=== PATIENT | male | born 1950 | race Caucasian/White ===

== ENCOUNTER 2025-06-07 20:46 | Observation (INO) | payer MEDICARE, OTHER, SELFPAY ==
[2025-06-07] VITALS (8 sets, daily range): BP systolic 143–175; BP diastolic 97–117; PULSE 63–79; RESP 15–22; TEMP 36.1–36.8; O2SAT 93–100; BMI 26.6; BMI 26.7
--- NOTE | 2025-06-07 20:57 | CT_ITS ---
PROCEDURE: STROKE BRAIN/HEAD WITHOUT CONT 06/07/2025 REASON FOR EXAM: STROKE TECHNIQUE: Procedure Code: CTBR.ST Modality: CT Procedure: STROKE BRAIN/HEAD WITHOUT CONT Coronal and Sagittal reconstruction series were provided. One or more dose reduction techniques were used (e.g., Automated exposure control, adjustment of the mA and/or kV according to patient size, use of iterative reconstruction technique. RADIATION DOSE SUMMARY: DLP: 864 mGycm COMPARISON: None FINDINGS: There is no acute infarct, intracranial hemorrhage, or mass effect. There is no hydrocephalus or significant midline shift. There is mild chronic microvascular ischemic changes and mild parenchymal volume loss. No acute, depressed calvarial fractures. No large scalp hematomas. The paranasal sinuses are clear. CT/STROKE Brain/Head without Cont IMPRESSION: No acute, large territorial infarction. Stroke Alert: No acute, large territorial infarction. The critical findings in the findings and impression above were relayed directl y by me by telephone to Brian Rangel on 06/07/2025 at 9:21 pm EST with readback verification. Reading Location: [id number]
--- NOTE | 2025-06-07 21:19 | EKG12_ITS ---
Test Reason : NEURO Blood Pressure : */* mmHG Vent. Rate : 77 BPM Atrial Rate : * BPM P-R Int : * ms QRS Dur : 98 ms QT Int : 394 ms P-R-T Axes : * 30 8 degrees QTcB Int : 445 ms Atrial fibrillation with premature ventricular or aberrantly conducted complexes Septal infarct , age undetermined Abnormal ECG Confirmed by Carter Oro ([id number]), editorial intern MARTHA KENT ([id number]) on 06/09/2025 12:34:14 PM Referred By: SKYE Confirmed By: Carter Oro
--- NOTE | 2025-06-07 21:20 | CT_ITS ---
PROCEDURE: STROKE CTA HEAD AND NECK W/CON 06/07/2025 REASON FOR EXAM: NEURO DEFICIT, ACUTE, STROKE SUSPECTED TECHNIQUE: Procedure Code: [id number].ST.HN Modality: CT Procedure: STROKE CTA HEAD AND NECK W/CON Multiplanar Sagittal and Coronal images were obtained. CONTRAST: VOLUME: mL One or more dose reduction techniques were used (e.g., Automated exposure control, adjustment of the mA and/or kV according to patient size, use of iterative reconstruction technique). FINDINGS: HEAD: The intracranial segments of the bilateral ICAs appear unremarkable. The bilateral ACAs appear unremarkable. The anterior communicating artery is patent. The bilateral MCAs appear unremarkable. The intracranial segments of the bilateral vertebral arteries (V4) appear unremarkable. The basilar artery is unremarkable. The bilateral metal cleaner are unremarkable. NECK: Atherosclerotic calcifications are noted within the bilateral carotid bulbs and proximal bilateral ICAs. High-grade stenosis of the proximal cervical segment of the right ICA resulting in approximately 80 to 90% luminal narrowing is noted (series 2, image 208). Less than 50% luminal narrowing is noted within the bilateral carotid bulbs and proximal left ICA. The left vertebral artery is dominant. Otherwise the cervical segments of the bilateral vertebral arteries appear unremarkable. CT/STROKE CTA Head AND Neck W/Con IMPRESSION: High-grade stenosis of the proximal cervical segment of the right ICA resulting in approximately 80-95% luminal narrowing. Reading Location: [id number]
--- NOTE | 2025-06-07 21:29 | PCA ---
no old ekg
--- OUTSIDE RECORDS SUMMARY | 2025-06-07 21:32 | XMS RPT_ITS | CCD ---
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 Unavailable Unavailable SARAH ENNIS MD Primary Care Physician SARAH ENNIS MD Primary Care Physician SARAH ENNIS MD Primary Care Physician CITLALI JACKSON MD Attending Unavailable SARAH ENNIS MD Primary Care Unavailable CITLALI JACKSON MD Attending Unavailable SARAH ENNIS MD Primary Care Unavailable SARAH ENNIS MD Attending Unavailable SARAH ENNIS MD Primary Care Unavailable SARAH ENNIS MD Attending Unavailable SARAH ENNIS MD Primary Care Unavailable CITLALI JACKSON MD Attending Unavailable SARAH ENNIS MD Primary Care Unavailable DONNIE HORVATH PA-C Attending Unavail able SARAH ENNIS MD Primary Care Unavailable SARAH ENNIS MD Primary Care Unavailable CITLALI JACKSON MD Attending Unavailable SARAH ENNIS MD Primary Care Unavailable SHERYL DONAHUE Attending Unavailab CITLALI Klein MD Consulting Unavailable CITLALI JACKSON MD Attending Unavailable SARAH ENNIS MD Primary Care Unavailable SARAH ENNIS MD Primary Care Unavailable SARAH ENNIS MD Attending Unavailable SARAH ENNIS MD Primary Care Unavailable SARAH ENNIS MD Attending Unavailable SARAH ENNIS MD Primary Care Unavailable SARAH ENNIS MD Attending Unavailable SARAH ENNIS MD Primary Care Unavailable SARAH ENNIS MD Attending Unavailable MARCEL HUERTA MD Attending Unavail SARAH Brock MD Primary Care Unavailable CITLALI JACKSON MD Attending Unavailable SARAH ENNIS MD Primary Care Unavailable Allergies Allergy Classification Reported Allergen(s) Allergy Type Date of Onset Reaction(s) Facility (16 sources) Acetaminophen / oxyCODONE; Translations: [acetaminophen-oxy codone] Drug Allergy confusion/disor entation [facility] Work Phone: Medications Current Medications Medication Drug Class(es) Dates Sig (Normalized) Sig (Original) aspirin 81 mg delayed release oral tablet (16 sources) Platelet Aggregation Inhibitor, Nonsteroidal Anti-inflammatory Drug Start: 11-30-2019 aspirin 81 mg oral delayed release tablet Dose : 81 mg = 1 tab(s), Oral, Daily, # 30 tab(s), 5 Refill(s) Start Date: 11/30/19 Status: Ordered Medication Dispense Status: Completed Quantity: 30.0 Unit: tab(s) Total Allowed Fills: 6 Fills Dispensed: 0 Start: 11-30-2019 aspirin 81 mg oral delayed release tablet Dose : 81 mg = 1 tab(s), Oral, Daily, # 30 tab(s), 5 Refill(s) Start Date: 11/30/19 Status: Ordered atorvastatin 40 mg oral tablet (6 sources) HMG-CoA Reductase Inhibitor Start: 11-16-2024 atorvastatin 40 mg oral tablet Dose : 40 mg = 1 tab(s), Oral, qDay, # 30 tab(s), 5 Refill(s), Pharmacy: [facility] #[id number], 170, cm, 11/16/24 10:49:00 EDT, Height, kg, 11/16/24 10:49:00 EDT, Dosing Weight Start Date: 11/16/24 Status: Ordered Medication Dispense Status: Completed Quantity: 30.0 Unit: tab(s) Total Allowed Fills: 6 Fills Dispensed: 0 Start: 01-17-2017 Lipitor 40 mg oral tablet Dose : 40 mg = 1 tab(s), Oral, qDay, # 30 tab(s), 0 Refill(s) Start Date: 01/17/17 Status: Ordered calcium carbonate 1625 mg / cholecalciferol 0.0125 mg / vitamin k 0.04 mg chewable tablet (3 sources) Vitamin D Start: 01-22-2022 take 1 tablet by mouth once daily Viactiv Soft Calcium Chews oral tablet, chewable Dose = 1 tab(s), Chewed, Daily, 0 Refill(s) Start Date: 01/22/22 Status: Ordered Co-Q10 100 mg oral capsule (9 sources) Start: 04-30-2022 Co-Q10 100 mg oral capsule Dose : 200 mg = 2 cap(s), Oral, Daily, 0 Refill(s) Start Date: 04/30/22 Status: Ordered Medication Dispense Status: Completed Total Allowed Fills: 1 Fills Dispensed: 0 Start: 04-30-2022 Co-Q10 100 mg oral capsule Dose : 200 mg = 2 cap(s), Oral, Daily, 0 Refill(s) Start Date: 04/30/22 Status: Ordered Repeat number: 1 Start: 04-30-2022 Co-Q10 100 mg oral capsule Dose : 200 mg = 2 cap(s), Oral, Daily, 0 Refill(s) Start Date: 04/30/22 Status: Ordered Coenzyme Q10 100 mg oral capsule (3 sources) Start: 01-18-2017 take 1 capsule by mouth once, then take 1 capsule by mouth once daily Coenzyme Q10 100 mg oral capsule Dose : 100 mg = 1 cap(s), Oral, Daily, 0 Refill(s) Start Date: 01/18/17 Status: Ordered dofetilide 0.125 mg oral capsule (1 source) Antiarrhythmic Start: 07-09-2022 Tikosyn 125 mcg oral capsule Dose : 125 mcg = 1 cap(s), Oral, q12h, # 180 cap(s), 3 Refill(s), Pharmacy: [facility]/pharmacy #[id number], AF (atrial fibrillation), 170.2, cm, 07/04/22 11:04:00 EST, Height, kg, 07/04/22 11:04:00 EST, Dosing Weight Start Date: 07/09/22 Status: Ordered folic acid 1 mg oral tablet (2 sources) Start: 01-17-2017 folic acid 1 mg oral tablet Dose : 2 mg = 2 tab(s), Oral, qDay, 0 Refill(s) Start Date: 01/17/17 Status: Ordered hydroCHLOROthiazide 12.5 mg oral tablet (5 sources) Thiazide Diuretic Start: 01-17-2017 hydroCHLOROthiazide 12.5 mg oral tablet Dose : 12.5 mg = 1 tab(s), Oral, qDay, # 30 tab(s), 0 Refill(s) Start Date: 01/17/17 Status: Ordered 24 hr isosorbide mononitrate 30 mg extended release oral tablet (11 sources) Nitrate Vasodilator Start: 03-01-2025 isosorbide mononitrate 30 mg oral tablet, extended release Dose : 30 mg = 1 tab(s), Oral, qAM, # 90 tab(s), 1 Refill(s), Pharmacy: [facility] #[id number], 170.2, cm, 12/29/24 13:58:00 EDT, Height, kg, 12/29/24 13:58:00 EDT, Dosing Weight Start Date: 03/01/25 Status: Ordered Medication Dispense Status: Completed Quantity: 90.0 Unit: tab(s) Total Allowed Fills: 2 Fills Dispensed: 0 Start: 03-03-2024 isosorbide mon onitrate 30 mg oral tablet, extended release Dose : 30 mg = 1 tab(s), Oral, qAM, # 90 tab(s), 3 Refill(s), Pharmacy: [facility] #[id number], 170, cm, 02/10/24 15:41:00 EDT, Height, kg, 02/10/24 15:41:00 EDT, Dosing Weight Start Date: 03/03/24 Status: Ordered Quantity: 90.0 Unit: tab(s) Repeat number: 4 Start: 12-26-2022 isosorbide mon onitrate 30 mg oral tablet, extended release Dose : 30 mg = 1 tab(s), Oral, qAM, # 90 tab(s), 3 Refill(s), Pharmacy: [facility] #[id number], 170, cm, 10/22/22 13:36:00 EDT, Height, kg, 10/22/22 13:36:00 EDT, Dosing Weight Start Date: 12/26/22 Status: Ordered Start: 05-22-2022 isosorbide mon onitrate 30 mg oral tablet, extended release Dose : 30 mg = 1 tab(s), Oral, qAM, # 30 tab(s), 6 Refill(s), Pharmacy: [facility]/pharmacy #[id number], 170, cm, 04/30/22 6:54:00 EDT, Height Start Date: 05/22/22 Status: Ordered Start: 03-19-2022 End: 05-18-2022 isosorbide mononitrate 30 mg oral tablet, extended release Dose : 30 mg = 1 tab(s), Oral, qAM, # 30 tab(s), 3 Refill(s) Start Date: 04/23/22 Status: Ordered lisinopril 40 mg oral tablet (16 sources) Angiotensin Converting Enzyme Inhibitor Start: 11-24-2024 lisinopril 40 mg ora l tablet Dose : 40 mg = 1 tab(s), Oral, BID, # 180 tab(s), 2 Refill(s), Pharmacy: [facility] #[id number], 170, cm, 11/16/24 10:49:00 EDT, Height, kg, 11/16/24 10:49:00 EDT, Dosing Weight Start Date: 11/24/24 Status: Ordered Medication Dispense Status: Completed Quantity: 180.0 Unit: tab(s) Total Allowed Fills: 3 Fills Dispensed: 0 Start: 04-20-2024 lisinopril 40 mg oral tablet Dose : 40 mg = 1 tab(s), Oral, BID, # 180 tab(s), 2 Refill(s), Pharmacy: [facility] #[id number], 170, cm, 02/10/24 15:41:00 EDT, Height, kg, 02/10/24 15:41:00 EDT, Dosing Weight Start Date: 04/20/24 Status: Ordered Quantity: 180.0 Unit: tab(s) Repeat number: 3 Start: 01-30-2023 lisinopril 40 mg oral tablet Dose : 40 mg = 1 tab(s), Oral, BID, # 180 tab(s), 3 Refill(s), Pharmacy: [facility] #[id number], 170, cm, 10/22/22 13:36:00 EDT, Height, kg, 10/22/22 13:36:00 EDT, Dosing Weight Start Date: 6/28/23 Status: Ordered Start: 07-09-2022 lisinopril 20 mg oral tablet Dose : 40 mg = 2 tab(s), Oral, BID, # 120 tab(s), 0 Refill(s), Pharmacy: [facility]/pharmacy #[id number], 170.2, cm, 07/04/22 11:04:00 EST, Height Start Date: 07/09/22 Status: Ordered Start: 01-17-2017 lisinopril 20 mg oral tablet Dose : 20 mg = 1 tab(s), Oral, BID, 0 Refill(s) Start Date: 01/17/17 Status: Ordered magnesium oxide 400 mg oral tablet (9 sources) Start: 06-11-2022 take 1 dose by mouth once daily magnesium oxide Dose : 400 mg =, Oral, qDay, 0 Refill(s) Start Date: 06/11/22 Status: Ordered Medication Dispense Status: Completed Total Allowed Fills: 1 Fills Dispensed: 0 magnesium salicylate 600 mg oral tablet (5 sources) Start: 12-24-2019 magnesium salicylate 600 mg oral tablet Dose : 600 mg = 1 tab(s), Oral, qDay, 0 Refill(s) Start Date: 12/24/19 Status: Ordered metFORMIN hydrochloride 500 mg oral tablet (16 sources) Biguanide Start: 11-28-2019 metFORMIN 500 mg oral tablet Dose : 1,000 mg = 2 tab(s), Oral, BID, # 30 tab(s), 0 Refill(s) Start Date: 11/28/19 Status: Ordered Medication Dispense Status: Completed Quantity: 30.0 Unit: tab(s) Total Allowed Fills: 1 Fills Dispensed: 0 metoprolol tartrate 25 mg oral tablet (10 sources) beta-Adrenergic Kiko Start: 12-29-2024 Metoprolol Succinate ER 25 mg oral TABLET extended release Dose : 25 mg = 1 tab(s), Oral, BID, TAKE 1 TABLET BY MOUTH TWICE DAILY, # 180 tab(s), 1 Refill(s), Pharmacy: [facility] #[id number], 170.2, cm, 12/29/24 13:58:00 EDT, Height, kg, 12/29/24 13:58:00 EDT, Dosing Weight Start Date: 12/29/24 Status: Ordered Medication Dispense Status: Completed Quantity: 180.0 Unit: tab(s) Total Allowed Fills: 2 Fills Dispensed: 0 Start: 03-06-2023 take 1 tablet by debra th twice daily Metoprolol Succinate ER 25 mg oral TABLET extended release TAKE 1 TABLET BY MOUTH TWICE DAILY Start Date: 03/06/23 Status: Ordered Repeat number: 1 Start: 07-20-2022 End: 07-20-2022 metoprolol succinate 25 mg o ral TABLET extended release Start: 07/20/22 8:00:00 EST, Dose = 25 mg, = 1 tab(s), Oral, 0, 07/19/22 19:40:00 EST Start Date: 07/20/22 Stop Date: 07/20/22 Status: Completed Start: 06-26-2022 metoprolol suc cinate 25 mg oral TABLET extended release Dose : 25 mg = 1 tab(s), Oral, qDay, Do not crush or chew (controlled release), # 30 tab(s), 0 Refill(s), Pharmacy: [facility]/pharmacy #[id number], 170.1, cm, 06/11/22 9:54:00 EST, Height Start Date: 06/26/22 Status: Ordered Multivitamin preparation (7 sources) Start: 06-16-2020 take 1 tablet by mouth once daily Multivitamin Dose = 1 tab(s), Oral, Daily, 0 Refill(s) Start Date: 06/16/20 Status: Ordered nitroglycerin 0.4 mg sublingual tablet (14 sources) Nitrate Vasodilator Start: 04-23-2022 nitroglycerin 0.4 mg sublingual tablet 0.4 mg Dose = 1 tab(s), SL, q5min, PRN for chest pain, # 30 tab(s), 1 Refill(s), Pharmacy: [facility]/pharmacy #[id number], 170.2, cm, 04/23/22 13:52:00 EDT, Height, kg, 04/23/22 13:52:00 EDT, Dosing Weight Start Date: 04/23/22 Status: Ordered Medication Dispense Status: Completed Quantity: 30.0 Unit: tab(s) Total Allowed Fills: 2 Fills Dispensed: 0 Start: 07-18-2021 nitroglycerin 0.4 mg sublingual tablet 0.4 mg Dose = 1 tab(s), SL, q5min, PRN for chest pain, # 30 tab(s), 1 Refill(s), Pharmacy: [id number] 170.2, cm, 07/18/21 15:28:00 EST, Height, kg, 07/18/21 15:28:00 EST, Dosing Weight Start Date: 07/18/21 Status: Ordered nitroglycerin 0.4 mg sublingual tablet (2 sources) Start: 05-30-2011 nitroglycerin 0.4 mg sublingual tablet Dose : 0.4 mg = 1 tab(s), SL, q5min, PRN for chest pain, # 100 tab(s), 0 Refill(s) Start Date: 05/30/11 Status: Ordered Henderson-3 350 mg oral capsule (4 sources) Start: 11-16-2024 take 1 capsule by mouth once daily Henderson-3 350 mg oral capsule mg = cap(s), Oral, qDay, 0 Refill(s) Start Date: 11/16/24 Status: Ordered Medication Dispense Status: Completed Total Allowed Fills: 1 Fills Dispensed: 0 Start: 11-16-2024 take 1 capsule by [facility] once daily Henderson-3 350 mg oral capsule mg = cap(s), Oral, qDay, 0 Refill(s) Start Date: 11/16/24 Status: Ordered Repeat number: 1 pravastatin sodium 10 mg oral tablet (8 sources) HMG-CoA Reductase Inhibitor Start: 01-22-2022 pravastatin 10 mg oral tablet Dose : 10 mg = 1 tab(s), Oral, qHS, 0 Refill(s) Start Date: 01/22/22 Status: Ordered Repeat number: 1 rivaroxaban 20 mg oral tablet (16 sources) Factor Xa Inhibitor Start: 08-20-2024 take 1 tablet by mouth once daily in the evening Xarelto 20 mg oral tablet 1 tab(s), Oral, qPM, # 90 tab(s), 3 Refill(s), [facility][id number], 170, cm, 02/10/24 15:41:00 EDT, Height, 79.5, kg, 02/10/24 15:41:00 EDT, Dosing Weight Start Date: 08/20/24 Status: Ordered Medication Dispense Status: Completed Quantity: 90.0 Unit: tab(s) Total Allowed Fills: 1 Fills Dispensed: 0 Start: 06-10-2024 Xarelto 20 mg oral tablet Dose : 20 mg = 1 tab(s), Oral, qPM, TAKE 1 TABLET BY MOUTH EVERY EVENING, # 90 tab(s), 2 Refill(s), Pharmacy: [facility] #[id number], 170, cm, 02/10/24 15:41:00 EDT, Height, 79.5, kg, 02/10/24 15:41:00 EDT, Dosing Weight Start Date: 06/10/24 Status: Ordered Start: 03-06-2023 End: 06-04-2024 Xarelto 20 mg oral tablet Do se : 20 mg = 1 tab(s), Oral, qPM, X 90 day(s), # 90 tab(s), 3 Refill(s), 06/04/24 10:15:00 AM EDT, Pharmacy: [facility] #[id number], 170, cm, 04/30/23 15:41:00 EDT, Height, 79.9, kg, 04/30/23 15:41:00 EDT, Dosing Weight Start Date: 06/10/23 Stop Date: 06/04/24 Status: Ordered Start: 07-06-2021 Xarelto 20 mg oral tablet Dose : 20 mg = 1 tab(s), Oral, qPM, # 90 tab(s), 3 Refill(s), 170.2, cm, 01/16/21 13:12:00 EDT, Height, 84, kg, 01/16/21 13:12:00 EDT, Dosing Weight Start Date: 07/06/21 Status: Ordered Start: 03-31-2021 take 1 tablet by debra th once daily Xarelto 20 mg oral tablet See Instructions, take 1 tablet by mouth once daily WITH SUPPER, # 90 tab(s), 0 Refill(s), [facility]: [id number], 170.2, cm, 01/16/21 13:12:00 EDT, Height, 84, kg, 01/16/21 13:12:00 EDT, Dosing Weight Start Date: 03/31/21 Status: Ordered sertraline 25 mg oral tablet (8 sources) Serotonin Reuptake Inhibitor Start: 08-01-2022 sertraline 25 mg oral tablet Dose : 25 mg = 1 tab(s), Oral, Daily, # 90 tab(s), 0 Refill(s) Start Date: 08/01/22 Status: Ordered Medication Dispense Status: Completed Quantity: 90.0 Unit: tab(s) Total Allowed Fills: 1 Fills Dispensed: 0 sotalol hydrochloride 80 mg oral tablet (7 sources) Antiarrhythmic Start: 10-24-2021 End: 04-22-2022 take 0.5 tablet by mouth once daily sotalol 80 mg oral tablet 0.5 tab(s), Oral, qDay, # 45 tab(s), 1 Refill(s), Pharmacy: [facility] [place] [id number], 170.2, cm, 03/19/22 4:06:00 EDT, Height, kg, 03/19/22 4:06:00 EDT, Dosing Weight Start Date: 04/20/22 Status: Ordered Start: 06-26-2021 take 0.5 tablet by m outh once daily sotalol 80 mg oral tablet See Instructions, take 1/2 tablet by mouth once daily, # 45 tab(s), 0 Refill(s), Pharmacy: [id number] 170.2, cm, 01/16/21 13:12:00 EDT, Height, kg, 01/16/21 13:12:00 EDT, Dosing Weight Start Date: 06/26/21 Status: Ordered Start: 07-18-2020 sotalol 80 mg oral tablet Dose : 40 mg = 0.5 tab(s), Oral, qDay, # 45 tab(s), 3 Refill(s), Pharmacy: [facility] [address] 170.2, cm, 06/16/20 13:18:00 EST, Height, kg, 06/16/20 13:18:00 EST, Dosing Weight Start Date: 07/18/20 Status: Ordered tamsulosin hydrochloride 0.4 mg oral capsule (16 sources) alpha-Adrenergic Kiko Start: 11-28-2019 tamsulosin 0.4 mg oral capsule Dose : 0.4 mg = 1 cap(s), Oral, qDay, # 30 cap(s), 0 Refill(s) Start Date: 11/28/19 Status: Ordered Medication Dispense Status: Completed Quantity: 30.0 Unit: cap(s) Total Allowed Fills: 1 Fills Dispensed: 0 ubidecarenone 100 mg oral capsule (2 sources) Start: 01-18-2017 take 1 capsule by mouth once, then take 1 capsule by mouth once daily Coenzyme Q10 100 mg oral capsule Dose : 100 mg = 1 cap(s), Oral, Daily, 0 Refill(s) Start Date: 01/18/17 Status: Ordered Problems Active Problems Problem Classification Problem Date Documented Date Episodic/Chronic Aortic; peripheral; and visceral artery aneurysms (16 sources) 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 No chest pains Diabetes mellitus with complications (2 sources) Polyneuropathy due to type 2 diabetes mellitus; Translations: [Type 2 diabetes mellitus with diabetic polyneuropathy] Onset: 05-13-2025 Chronic Diabetes mellitus without complication (20 sources) Diabetes mellitus; Translations: [Type 2 diabetes mellitus without complications] Onset: 10-23-2023 01-17-2017 Chronic Disorders of lipid metabolism (16 sources) Hyperlipidemia 01-17-2017 Chronic Essential hypertension (16 sources) Hypertensive disorder 01-17-2017 Chronic Gout and other crystal arthropathies (2 sources) Gout, unspecified; Translations: [Gout, unspecified] Onset: 10-13-2024 Chronic Heart valve disorders (16 sources) Mitral valve regurgitation 01-17-2017 Chronic Lymphadenitis (1 source) Localized enlarged lymph nodes; Translations: [Localized enlarged lymph nodes] Onset: 03-08-2025 Episodic Open wounds of extremities (1 source) Open wound of toe; Translations: [Unspecified open wound of unspecified toe(s) without damage to nail, initial encounter] Onset: 09-29-2024 Episodic Other connective tissue disease (1 source) Other bursitis, not elsewhere classified, unspecified site; Translations: [Other bursitis, not elsewhere classified, unspecified site] Onset: 03-08-2025 Episodic Other connective tissue disease (1 source) Bursitis of unspecified shoulder; Translations: [Bursitis of unspecified shoulder] Onset: 03-08-2025 Episodic Other connective tissue disease (1 source) Bursitis of left shoulder; Translations: [Bursitis of left shoulder] Onset: 03-08-2025 Episodic Other connective tissue disease (1 source) Incomplete rotator cuff tear or rupture of left shoulder, not specified as traumatic; Translations: [Incomplete rotator cuff tear or rupture of left shoulder, not specified as traumatic] Onset: 03-08-2025 Episodic Other connective tissue disease (1 source) Enthesopathy, unspecified; Translations: [Enthesopathy, unspecified] Onset: 03-08-2025 Episodic Other connective tissue disease (1 source) Unspecified rotator cuff tear or rupture of unspecified shoulder, not specified as traumatic; Translations: [Unspecified rotator cuff tear or rupture of unspecified shoulder, not specified as traumatic] Onset: 03-08-2025 Episodic Other connective tissue disease (1 source) Unspecified rotator cuff tear or rupture of left shoulder, not specified as traumatic; Translations: [Unspecified rotator cuff tear or rupture of left shoulder, not specified as traumatic] Onset: 03-08-2025 Episodic Other ear and sense organ disorders (16 sources) Sensorineural hearing loss, bilateral 01-11-2020 Chronic Other inflammatory condition of skin (16 sources) Psoriasis 01-17-2017 Chronic Other injuries and conditions due to external causes (1 source) History of falling; Translations: [History of falling] Onset: 03-08-2025 Episodic Other non-traumatic joint disorders (1 source) Effusion, left shoulder; Translations: [Effusion, left shoulder] Onset: 03-08-2025 Episodic Other non-traumatic joint disorders (1 source) Pain in left shoulder; Translations: [Pain in left shoulder] Onset: 03-08-2025 Episodic Other screening for suspected conditions (not mental disorders or infectious disease) (3 sources) Abnormal results of cardiovascular function studies; Translations: [Abnormal result of other cardiovascular function study] Onset: 12-23-2024 Episodic Other skin disorders (1 source) Localized swelling, mass and lump, left upper limb; Translations: [Localized swelling, mass and lump, left upper limb] Onset: 03-08-2025 Episodic Fabiana-; endo-; and myocarditis; cardiomyopathy (except that caused by tuberculosis or sexually transmitted disease) (16 sources) Cardiomyopathy 01-17-2017 Chronic Sprains and strains (2 sources) Strain of muscle, fascia and tendon of long head of biceps, unspecified arm, initial encounter; Translations: [Strain of muscle, fascia and tendon of other parts of biceps, unspecified arm, initial encounter] Onset: 03-08-2025 Episodic Unclassified (1 source) Unknown / UNK(Unknown) Onset: 02-11-2017 Unclassified (1 source) Unspecified synovitis and tenosynovitis, unspecified upper arm; Translations: [Unspecified synovitis and tenosynovitis, unspecified upper arm] Onset: 03-08-2025 Unclassified (1 source) Unspecified synovitis and tenosynovitis, unspecified shoulder; Translations: [Unspecified synovitis and tenosynovitis, unspecified shoulder] Onset: 03-08-2025 Past or Other Problems Problem Classification Problem Date Documented Da te Episodic/Chronic Unclassified (1 source) L40.59,Z79.899,M 15.9,L40.8,I10,E 11.9,E78.5,I25.1 0 Onset: 02-11-2017 Results Test Name Value Interpretation Reference Range Facility [facility] 05-18-2025 SPE Interpretation Normal serum protein electrophoresis pattern. No abnormality detected. Normal [facility] Comment on above: Result Comment: Elec tronically Signed by: EDUIN ANNE 05/18/2025 16:07 EDT Performed By: #### R DE, FOL, IFES, SPE, B12 ####[place] [id number] [place] [id number] Albumin 3.7 G/dL Normal 3.3-5.0 [facility] Comment on above: Performed By: #### R DE, FOL, IFES, SPE, B12 ####[place] [id number] [place] [address] 66252 Alpha 1 0.3 G/dL Normal 0.1-0.4 [facility] Comment on above: Performed By: #### R DE, FOL, IFES, SPE, B12 ####[place] [address] [place] [address] 15733 Alpha 2 0.6 G/dL Normal 0.6-1.2 [facility] Comment on above: Performed By: #### R DE, FOL, IFES, SPE, B12 ####[place] [id number] [place] [address] 38827 Beta 0.8 G/dL Normal 0.6-1.3 [facility] Comment on above: Performed By: #### R DE, FOL, IFES, SPE, B12 ####[place] [id number] [place] [address] 52064 Gamma 1.2 G/dL Normal 0.7-1.6 [facility] Comment on above: Performed By: #### R DE, FOL, IFES, SPE, B12 ####[address] [address] IFESon 05-14-2025 IFES Interpretation Immunofixation electrophoresis of serum shows the presence of only polyclonal immunoglobulins (IgG,A,M,[place] and Lambda), No monoclonal protein detected. Normal [facility] Comment on above: Result Comment: Elec tronically Signed by: CHANCE RAMÍREZ 05/14/2025 11:01 EDT Performed By: #### R DE, FOL, IFES, SPE, B12 ####[address] [address] RPRon 05-14-2025 Reagin Ab RPR Ql (S) Non-Reactive Normal Non-Reactive [facility] Comment on above: Result Comment: The RPR test is a non-treponemal assay useful as an aid in the diagnosis of primary and secondary syphilis. It converts to positive generally within 2 weeks after the appearance of a lesion. This test is also useful for monitoring response to antibiotic therapy. False positive RPR tests may occur in 1) patients with underlying autoimmune disorders, 2) elderly patients, 3) , and 4) other conditions with abnormal serum globulins. Performed By: #### R DE, FOL, IFES, SPE, B12 ####[address] [address] B12on 05-13-2025 Vitamin B12 Lvl >2000 High 211-911 [facility] Comment on above: Performed By: #### R DE, FOL, IFES, SPE, B12 #### [place] [address] FOLon 05-13-2025 Folate 22.24 ng/mL Normal 5.38-24.00 [facility] Comment on above: Performed By: #### R DE, FOL, IFES, SPE, B12 #### [place] [address] LABORATORYOrdered By: SYSTEM SYSTEM on 05-13-2025 Cobalamin (Vitamin B12) [Mass/Vol] pg/mL High 211 - 911 pg/mL ADM SS Folate [Mass/Vol] 22.24 ng/mL Normal 5.38 - 24. 00 ng/mL ADM SS LABORATORYOrdered By: Beka Hernandez on 05-13-2025 Protein [Mass/Vol] 6.5 G/dL Normal 5.7 - 8.2 G/dL ADM SS SPEon 05-13-2025 Total Protein 6.5 G/dL Normal 5.7-8.2 [facility] Comment on above: Performed By: #### R DE, FOL, IFES, SPE, B12 ####[place] [address] MRI SHOULDER W/O CONTRAST LE [employer] [facility] 03[facility]2025 MRI SHOULDER W/O CONTRAST LEFT ORIGINAL EXAMINATION: MRI OF THE LEFT SHOULDER WITHOUT CONTRAST 03/08/2025 11:33 am TECHNIQUE: Multiplanar multisequence MRI of the left shoulder was performed without the administration of intravenous contrast. COMPARISON: None. HISTORY: ORDERING SYSTEM PROVIDED HISTORY: Reason for Exam: MASS LEFT SHOULDER PAIN & SWELLING. Fall 2 months ago FINDINGS: Significant motion degradation. There is severe glenohumeral joint degenerative change with [id number], circumferential high-grade chondrosis with articular surface remodeling of the humeral head in glenoid and subchondral sclerosis. There is no evidence of acute fracture, osteonecrosis or suspicious marrow lesion. Large glenohumeral joint effusion with areas of masslike synovitis and intra-articular debris. There is an area of masslike synovitis in the inferior axillary pouch measuring approximately 1.5 cm. Additionally there is large volume subacromial subdeltoid bursitis with a collection measuring up to 6 x 8.9 by 4.7 cm beneath the deltoid. Some areas of internal septation. Os acromiale and moderate AC joint degenerative changes with capsular hypertrophy and a small amount of AC joint fluid.. A type 2 acromial undersurface is seen. Large amount of subcoracoid bursitis. There is marked supraspinatus tendinosis with mucoid degeneration and a partial-thickness articular footprint tear which measures approximately 2.3 x 0.6 cm medial to lateral. Interstitial tearing of the infraspinatus tendon with moderate tendinosis. Some of the anterior most fibers could have undersurface fraying. The teres minor is intact. High-grade subscapularis tear, lower tendon remains intact. Medialization of the long head of the biceps tendon secondary to subscapularis tear with longitudinal interstitial tearing of the long head of the biceps tendon from its biceps labral anchor with biceps tenosynovitis. [place] cyst dissects down the long head of the biceps tendon to the myotendinous junction. There is no acute Hill-Sacks or Bankart lesion. Suboptimal evaluation of the labrum with lack of intra-articular contrast. However there is suspected circumferential tearing. No definite labrum is attached. obliteration of the fat within the rotator interval. Mild supraspinatus and infraspinatus muscle belly atrophy. Moderate to severe subscapularis muscle belly atrophy. Rounded prominent axillary lymph nodes measuring up to 9 mm. IMPRESSION: 1. Severe glenohumeral joint degenerative change with [id number], circumferential high-grade chondrosis with labral tearing and articular surface remodeling. 2. Large glenohumeral joint effusion with areas of masslike synovitis and intra-articular debris. An inflammatory arthropathy should be considered alternatively this may be reactive. 3. Large volume subacromial subdeltoid bursitis with a collection measuring up to 6 x 8.9 x 4.7 cm beneath the deltoid most likely patient's palpable concern. There are some areas of internal septation, a resolving hematoma cannot be excluded. 4. Marked supraspinatus tendinosis with mucoid degeneration and a partial-thickness articular footprint tear which measures approximately 2.3 x 0.6 cm medial to lateral. Interstitial tearing of the infraspinatus tendon with moderate tendinosis. Some of the anterior most fibers could have undersurface fraying. High-grade subscapularis tear, lower tendon slip remains intact. 5. Medialization of the long head of the biceps tendon secondary to subscapularis tear with longitudinal interstitial tearing of the long head of the biceps tendon from its biceps labral anchor with biceps tenosynovitis. [place] cyst dissects down the long head of the biceps tendon to the myotendinous junction. 6. Rounded prominent axillary lymph nodes measuring up to 9 mm. Interpreted by: Santa Lawson Preliminary Report By: Santa Lawson Electronically signed By Santa Lawson Dictated Date: 03/08/2025 12:30:05 PM Prelim Date: 03/08/2025 12:51:55 PM Sign Date: 03/08/2025 12:51:55 PM Ordering Provider: SARAH Valentino [facility] .Auto Diffon 12-23-2024 Basophil, Absolute 0.0 10 3/mcL Normal 0.0-0.3 [facility] Comment on above: Performed By: #### A JEISON, ADIFF, PRO, GFR, BMP, CBC #### [address] [address] Basophils/100 WBC (Bld) 0.5 % Normal 0.0-2.5 [facility] Comment on above: Performed By: #### A JEISON, ADIFF, PRO, GFR, BMP, CBC #### [address] [address] Eosinophil, Absolute 0.2 10 3/mcL Normal 0.0-0.7 [facility] Comment on above: Performed By: #### A JEISON, ADIFF, PRO, GFR, BMP, CBC #### [address] [address] Eosinophils/100 WBC (Bld) 2.2 % Normal 0.0-6.0 [facility] Comment on above: Performed By: #### A JEISON, ADIFF, PRO, GFR, BMP, CBC #### [address] [address] Lymphocyte, Absolute 1.5 10 3/mcL Normal 0.9-4.3 [facility] Comment on above: Performed By: #### A JEISON, ADIFF, PRO, GFR, BMP, CBC #### [address] [address] Lymphocytes/100 WBC (Bld) 17.6 % Low 20.0-40.0 [facility] Comment on above: Performed By: #### A JEISON, ADIFF, PRO, GFR, BMP, CBC #### [address] [address] Monocyte, Absolute 0.7 10 3/mcL Normal 0.1-1.4 [facility] Comment on above: Performed By: #### A JEISON, ADIFF, PRO, GFR, BMP, CBC #### [address] [address] Monocytes/100 WBC (Bld) 8.5 % Normal 2.0-13.0 [facility] Comment on above: Performed By: #### A JEISON, ADIFF, PRO, GFR, BMP, CBC #### [address] [address] Neutrophils/100 WBC (Bld) 71.2 % Normal 50.0-75.0 [facility] Comment on above: Performed By: #### A JEISON, ADIFF, PRO, GFR, BMP, CBC #### [address] [address] .GFRon 12-23-2024 Estimated Glomerular Filtration Rate 85 ml/min/1.73sqm Normal [facility] Comment on above: Result Comment: Stages of Chronic Kidney Disease (CKD) Stage Description eGFR(ml/min/1.73 sq.m.) CKD 1 Normal kidney function or >=90 normal kindney function with possible kidney damage (ex. Proteinuria) CKD 2 Kidney damage with mild loss 60-89 of kidney function CKD 3a Mild to moderate loss of kidney 45-59 function CKD 3b Moderate to severe loss of 30-44 of kindey function CKD 4 Severe loss of kidney function 15-29 CKD 5 Kidney failure <15 Note: (go live 2024) the eGFR calculation was updated to the 2020 CKD-EPI creatinine equation without a race factor to calculate the eGFR results. Performed By: #### A JEISON, ADIFF, PRO, GFR, BMP, CBC #### [address] [address] .NEUABSon 12-23-2024 Neutrophil, Absolute 5.9 10 3/mcL Normal 2.3-8.1 [facility] Comment on above: Performed By: #### A JEISON, ADIFF, PRO, GFR, BMP, CBC #### [address] [address] BMPon 12-23-2024 BUN/Creatinine Ratio 29 ratio High 7-27 [facility] Comment on above: Performed By: #### A JEISON, ADIFF, PRO, GFR, BMP, CBC #### [address] [address] Calcium [Mass/Vol] 9.4 mg/dL Normal 8.4-10.2 [facility] Comment on above: Performed By: #### A JEISON, ADIFF, PRO, GFR, BMP, CBC #### [address] [address] Chloride [Moles/Vol] 103 mmol/L Normal 98-107 [facility] Comment on above: Performed By: #### A JEISON, ADIFF, PRO, GFR, BMP, CBC #### [address] [address] CO2 [Moles/Vol] 28 mmol/L Normal 23-31 [facility] Comment on above: Performed By: #### A JEISON, ADIFF, PRO, GFR, BMP, CBC #### [address] [address] Creatinine [Mass/Vol] 0.94 mg/dL Normal 0.67-1.17 [facility] Comment on above: Performed By: #### A JEISON, ADIFF, PRO, GFR, BMP, CBC #### [address] [address] Electrolyte Balance 9.0 mEq/L Normal 4.0-15.0 [facility] Comment on above: Performed By: #### A JEISON, ADIFF, PRO, GFR, BMP, CBC #### [address] [address] Glucose [Mass/Vol] 189 mg/dL High 83-110 [facility] Comment on above: Performed By: #### A JEISON, ADIFF, PRO, GFR, BMP, CBC #### [address] [address] Potassium [Moles/Vol] 4.1 mmol/L Normal 3.5-5.1 [facility] Comment on above: Performed By: #### A JEISON, ADIFF, PRO, GFR, BMP, CBC #### [place] [address] Sodium [Moles/Vol] 140 mmol/L Normal 136-145 [facility] Comment on above: Performed By: #### A JEISON, ADIFF, PRO, GFR, BMP, CBC #### [place] [address] Urea nitrogen [Mass/Vol] 27 mg/dL High 7-18 [facility] Comment on above: Performed By: #### A JEISON, ADIFF, PRO, GFR, BMP, CBC #### [address] [address] CBCon 12-23-2024 Erythrocyte distribution width (RBC) [Ratio] 15.3 % Normal 11.5-15.5 [facility] Comment on above: Performed By: #### A JEISON, ADIFF, PRO, GFR, BMP, CBC #### [address] [address] Hematocrit (Bld) [Volume fraction] 40.8 % Normal 40.0-52.0 [facility] Comment on above: Performed By: #### A JEISON, ADIFF, PRO, GFR, BMP, CBC #### [address] [address] Hgb 13.7 G/dL Normal 13.0-17.5 [facility] Comment on above: Performed By: #### A JEISON, ADIFF, PRO, GFR, BMP, CBC #### [address] [address] MCH (RBC) [Entitic mass] 30.2 pg Normal 27.0-33.0 [facility] Comment on above: Performed By: #### A JEISON, ADIFF, PRO, GFR, BMP, CBC #### [place] [id number] MCHC 33.6 G/dL Normal 32.0-36.0 [facility] Comment on above: Performed By: #### A JEISON, ADIFF, PRO, GFR, BMP, CBC #### [place] [address] MCV (RBC) [Entitic vol] 89.7 fL Normal 81.0-100.0 [facility] Comment on above: Performed By: #### A JEISON, ADIFF, PRO, GFR, BMP, CBC #### [place] [address] Platelet 215 10 3/mcL Normal 150-450 [facility] Comment on above: Performed By: #### A JEISON, ADIFF, PRO, GFR, BMP, CBC #### [place] [address] Platelet mean volume (Bld) [Entitic vol] 7.5 fL Normal 6.4-10.5 [facility] Comment on above: Performed By: #### A JEISON, ADIFF, PRO, GFR, BMP, CBC #### [place] [id number] RBC 4.55 10 6/mcL Normal 4.50-6.00 [facility] Comment on above: Performed By: #### A JEISON, ADIFF, PRO, GFR, BMP, CBC #### [place] [id number] WBC 8.3 10 3/mcL Normal 4.5-10.8 [facility] Comment on above: Performed By: #### A JEISON, ADIFF, PRO, GFR, BMP, CBC #### [address] [address] LABORATORYOrdered By: SYSTEM SYSTEM on 12-23-2024 Basophils (Bld) [#/Vol] 0.0 103/mcL Normal 0.0 - 0.3 10^3/mcL AO Workflow SS Basophils/100 WBC (Bld) 0.5 % Normal 0.0 - 2.5 % AO Workflow SS Calcium [Mass/Vol] 9.4 mg/dL Normal 8.4 - 10. 2 mg/dL AO ADM SS Chloride [Moles/Vol] 103 mmol/L Normal 98 - 10 7 mmol/L AO ADM SS CO2 [Moles/Vol] 28 mmol/L Normal 23 - 31 mmol/L AO ADM SS Creatinine [Mass/Vol] 0.94 mg/dL Normal 0.67 - 1.17 mg/dL AO ADM SS Electrolyte Balance 9.0 mEq/L Normal 4.0 - 15 .0 mEq/L AO ADM SS Eosinophil, Absolute 0.2 103/mcL Normal 0.0 - 0 .7 10^3/mcL AO Workflow SS Eosinophils/100 WBC (Bld) 2.2 % Normal 0.0 - 6.0 % AO Workflow SS Erythrocyte distribution width (RBC) [Ratio] 15.3 % Normal 11.5 - 15.5 % AO Workflow SS Estimated Glomerular Filtration Rate 85 ml/min/1.73sqm Invalid Interpretation Code AO Chemistry S Comment on above: Interpretive Data: Stages of Chronic Kidney Disease (CKD) Stage Description eGFR(ml/min/1.73 sq.m.) CKD 1 Normal kidney function or >=90 normal kindney function with possible kidney damage (ex. Proteinuria) CKD 2 Kidney damage with mild loss 60-89 of kidney function CKD 3a Mild to moderate loss of kidney 45-59 function CKD 3b Moderate to severe loss of 30-44 of kindey function CKD 4 Severe loss of kidney function 15-29 CKD 5 Kidney failure <15 Note: (go live 2024) the eGFR calculation was updated to the 2020 CKD-EPI creatinine equation without a race factor to calculate the eGFR results. Glucose [Mass/Vol] 189 mg/dL High 83 - 110 mg/dL AO ADM SS Hematocrit (Bld) [Volume fraction] 40.8 % Normal 40.0 - 52.0 % AO Workflow SS Hemoglobin (Bld) [Mass/Vol] 13.7 G/dL Normal 13.0 - 17.5 G/dL AO Workflow SS INR Coag (PPP) [Relative time] 1.2 {INR} Invalid Interpretation Code AO HemoHub SS Comment on above: Interpretive Data: Manolo regalado [employer] (CHEST, 1991, 102:312S-25S) recommended therapeutic range for oral anticoagulant therapy is: LOW RISK: Prophylaxis of venous thrombosis INR: 2.0-3.0 Treatment of pulmonary embolism 2.0-3.0 Prevention of systemic embolism 2.0-3.0 HIGH RISK: Mechanical prosthetic valves 2.5-3.5 Lymphocytes (Bld) [#/Vol] 1.5 103/mcL Normal 0.9 - 4.3 10^3/mcL AO Workflow SS Lymphocytes/100 WBC (Bld) 17.6 % Low 20.0 - 40.0 % AO Workflow SS MCH (RBC) [Entitic mass] 30.2 pg Normal 27.0 - 33.0 pg AO Workflow SS MCHC 33.6 G/dL Normal 32.0 - 36.0 G/dL AO Workflow SS MCV (RBC) [Entitic vol] 89.7 fL Normal 81.0 - 100.0 fL AO Workflow SS Monocytes (Bld) [#/Vol] 0.7 103/mcL Normal 0.1 - 1.4 10^3/mcL AO Workflow SS Monocytes/100 WBC (Bld) 8.5 % Normal 2.0 - 13.0 % AO Workflow SS Neutrophils (Bld) [#/Vol] 5.9 103/mcL Normal 2.3 - 8.1 10^3/mcL AO Workflow SS Neutrophils/100 WBC (Bld) 71.2 % Normal 50.0 - 75.0 % AO Workflow SS Platelet mean volume (Bld) [Entitic vol] 7.5 fL Normal 6.4 - 10.5 fL AO Workflow SS Platelets (Bld) [#/Vol] 215 103/mcL Normal 150 - 450 10^3/mcL AO Workflow SS Potassium [Moles/Vol] 4.1 mmol/L Normal 3.5 - 5.1 mmol/L AO ADM SS PT Coag (PPP) [Time] 14.4 s Normal 9.0 - 1 4.4 seconds AO HemoHub SS RBC (Bld) [#/Vol] 4.55 106/mcL Normal 4.50 - 6.0 0 10^6/mcL AO Workflow SS Sodium [Moles/Vol] 140 mmol/L Normal 136 - 145 mmol/L AO ADM SS Urea nitrogen [Mass/Vol] 27 mg/dL High 7 - 18 mg/dL AO ADM SS Urea nitrogen/Creatinine [Mass ratio] 29 ratio High 7 - 27 ratio AO ADM SS WBC (Bld) [#/Vol] 8.3 103/mcL Normal 4.5 - 10.8 10^3/mcL AO Workflow SS PROon 12-23-2024 PT Coag (PPP) [Time] 14.4 s Normal 9.0-14.4 [facility] Comment on above: Performed By: #### A JEISON, ADIFF, PRO, GFR, BMP, CBC #### [address] [address] PT International Ratio 1.2 Normal [facility] Comment on above: Result Comment: [employer] (CHEST, 1991, 102:312S-25S) recommended therapeutic range for oral anticoagulant therapy is: LOW RISK: Prophylaxis of venous thrombosis INR: 2.0-3.0 Treatment of pulmonary embolism 2.0-3.0 Prevention of systemic embolism 2.0-3.0 HIGH RISK: Mechanical prosthetic valves 2.5-3.5 Performed By: #### A JEISON, ADIFF, PRO, GFR, BMP, CBC #### [address] [address] NM MYOCARDIAL SPECT STRESS/R ESTon 12-11-2024 NM MYOCARDIAL SPECT STRESS/REST ORIGINAL NM MYOCARDIAL SPECT STRESS/REST CLINICAL STATEMENT: chest pain, h/o cad TECHNIQUE: Lexiscan dose: 0.4 mg Radiopharmaceutical (rest): Tc-99m Sestamibi Dose:8.3 mCi Radiopharmaceutical (stress): Tc-99m Sestamibi Dose:25 mCi SPECT acquisition and processing Reconstruction and reorientation of SPECT images into short axis, vertical and horizontal long axis planes Quantitative LVEF assessment COMPARISON:2013 REPORT: The overall quality of the study is good. Review of raw imaging demonstrates some vertical motion during acquisition. Diaphragmatic attenuation artifact noted. Low-dose CT scan demonstrates coronary artery calcifications in all three territories. Review of the perfusion images perfusion defect in the inferoapical wall on stress images concerning for small area ischemia. Transient ischemic dilatation (TID) Ratio- 1.17 IMPRESSION: Technically difficult study. Within the limitations of the study, cannot rule out small area of inferoapical ischemia. LEFT ventricular systolic function is decreased with inferior hypokinesia, calculated EF 34% with EDV 134 mL (LVEF 35% on study from 2013, LVEF calculated at 42% and 60% on study from 2021) EKG portion will be dictated separately. Interpreted By: Dick Bella Preliminary Report By: Broderick Nguyen Electronically Signed By: Dick Bella Dictated Date: 12/11/2024 12:58:16 PM Prelim Date: 12/11/2024 1:18:04 PM Sign Date: 12/11/2024 1:44:58 PM Ordering Provider:Donnie Horvath [facility] .GFRon 10-13-2024 Estimated Glomerular Filtration Rate 92 ml/min/1.73sqm [facility] Comment on above: Result Comment: Stages of Chronic Kidney Disease (CKD) Stage Description eGFR(ml/min/1.73 sq.m.) CKD 1 Normal kidney function or >=90 normal kindney function with possible kidney damage (ex. Proteinuria) CKD 2 Kidney damage with mild loss 60-89 of kidney function CKD 3a Mild to moderate loss of kidney 45-59 function CKD 3b Moderate to severe loss of 30-44 of kindey function CKD 4 Severe loss of kidney function 15-29 CKD 5 Kidney failure <15 Note: (go live 2024) the eGFR calculation was updated to the 2020 CKD-EPI creatinine equation without a race factor to calculate the eGFR results. Performed By: #### U ATIF, GFR, A1C, CMP, LIPID, TSHR #### [place] [address] A1Con 10-13-2024 Glucose [Mass/Vol] 151 mg/dL [facility] Comment on above: Result Comment: Micaela mated Average Glucose calculated by equation ((28.7xA1C)-46.7) Estimated average glucose (eAG) is a calculated value from Hemoglobin A1C and is insurance healthcare representative of the average blood glucose level in the last 2-3 month period. Normal range: less than 114 mg/dL Performed By: #### U ATIF, GFR, A1C, CMP, LIPID, TSHR #### [address] [address] HbA1c (Bld) [Mass fraction] 6.9 % High 4.0-6.0 [facility] Comment on above: Performed By: #### U ATIF, GFR, A1C, CMP, LIPID, TSHR #### [address] [address] CMPon 10-13-2024 Albumin Level 3.9 G/dL Normal 3.2-4.8 [facility] Comment on above: Performed By: #### U ATIF, GFR, A1C, CMP, LIPID, TSHR #### [address] [address] Albumin/Globulin [Mass ratio] 1.3 {ratio} Normal 0.9-1.6 [facility] Comment on above: Performed By: #### U ATIF, GFR, A1C, CMP, LIPID, TSHR #### [address] [address] ALP [Catalytic activity/Vol] 54 U/L Normal 38-126 [facility] Comment on above: Performed By: #### U ATIF, GFR, A1C, CMP, LIPID, TSHR #### [address] [address] ALT [Catalytic activity/Vol] 19 U/L Normal 12-55 [facility] Comment on above: Performed By: #### U ATIF, GFR, A1C, CMP, LIPID, TSHR #### [address] [address] AST [Catalytic activity/Vol] 28 U/L Normal 8-34 [facility] Comment on above: Performed By: #### U ATIF, GFR, A1C, CMP, LIPID, TSHR #### [address] [address] Bili Total 0.70 mg/dL Normal 0.20-1.20 [facility] Comment on above: Result Comment: Use of this assay is not recommended for patients undergoing treatment with eltrombopag due to the potential for falsely elevated results. Performed By: #### U ATIF, GFR, A1C, CMP, LIPID, TSHR #### [address] [address] BUN/Creatinine Ratio 29.3 ratio High 10.0-22.0 [facility] Comment on above: Performed By: #### U ATIF, GFR, A1C, CMP, LIPID, TSHR #### [address] [address] Calcium [Mass/Vol] 9.6 mg/dL Normal 8.7-10.4 [facility] Comment on above: Performed By: #### U ATIF, GFR, A1C, CMP, LIPID, TSHR #### [address] [address] Chloride [Moles/Vol] 103 mmol/L Normal 98-110 [facility] Comment on above: Performed By: #### U ATIF, GFR, A1C, CMP, LIPID, TSHR #### [address] [address] CO2 [Moles/Vol] 29 mmol/L Normal 22-32 [facility] Comment on above: Performed By: #### U ATIF, GFR, A1C, CMP, LIPID, TSHR #### [address] [address] Creatinine [Mass/Vol] 0.82 mg/dL Normal 0.60-1.40 [facility] Comment on above: Result Comment: Test ing performed on [employer] analyzer using enzymatic creatinine methodology. Performed By: #### U ATIF, GFR, A1C, CMP, LIPID, TSHR #### [address] [address] Electrolyte Balance 9.0 mEq/L Normal 4.0-15.0 [facility] Comment on above: Performed By: #### U ATIF, GFR, A1C, CMP, LIPID, TSHR #### [address] [address] Globulin 2.9 G/dL Normal 1.5-3.8 [facility] Comment on above: Performed By: #### U ATIF, GFR, A1C, CMP, LIPID, TSHR #### [address] [address] Glucose [Mass/Vol] 136 mg/dL High 82-115 [facility] Comment on above: Performed By: #### U ATIF, GFR, A1C, CMP, LIPID, TSHR #### [address] [address] Potassium [Moles/Vol] 4.6 mmol/L Normal 3.5-5.0 [facility] Comment on above: Performed By: #### U ATIF, GFR, A1C, CMP, LIPID, TSHR #### [address] [address] Sodium [Moles/Vol] 141 mmol/L Normal 136-145 [facility] Comment on above: Performed By: #### U ATIF, GFR, A1C, CMP, LIPID, TSHR #### [address] [address] Total Protein 6.8 G/dL Normal 5.7-8.2 [facility] Comment on above: Performed By: #### U ATIF, GFR, A1C, CMP, LIPID, TSHR #### [address] [address] Urea nitrogen [Mass/Vol] 24.0 mg/dL High 8.0-22.0 [facility] Comment on above: Performed By: #### U TAIF, GFR, A1C, CMP, LIPID, TSHR #### [address] [address] LIPIDon 10-13-2024 Cholesterol [Mass/Vol] 191 mg/dL Normal 50-199 [facility] Comment on above: Result Comment: Chol esterol Reference Interval: Less than 200 Desirable 200-239 Borderline high risk 240 and above High risk Performed By: #### U ATIF, GFR, A1C, CMP, LIPID, TSHR #### [address] [address] Cholesterol in HDL [Mass/Vol] 42 mg/dL Normal 40-59 [facility] Comment on above: Performed By: #### U ATIF, GFR, A1C, CMP, LIPID, TSHR #### [address] [address] Cholesterol in LDL [Mass/Vol] 134 mg/dL High 0-129 [facility] Comment on above: Performed By: #### U ATIF, GFR, A1C, CMP, LIPID, TSHR #### [address] [address] Triglyceride [Mass/Vol] 73 mg/dL Normal 3-149 [facility] Comment on above: Performed By: #### U ATIF, GFR, A1C, CMP, LIPID, TSHR #### [address] [address] MALBRon 10-13-2024 U Creatinine 85.5 mg/dL Normal [facility] Comment on above: Performed By: #### M ALBR #### [address] [address] U Microalb 15.0 mg/L Normal [facility] Comment on above: Performed By: #### M ALBR #### [address] [address] U Ratio Alb/Cre 17.5 mg/G Normal 0.0-30.0 [facility] Comment on above: Performed By: #### M ALBR #### [address] [address] TSHRon 10-13-2024 TSH 1.321 mIU/mL Normal 0.550-4.780 [facility] Comment on above: Performed By: #### U ATIF, GFR, A1C, CMP, LIPID, TSHR #### [address] [address] URICon 10-13-2024 Uric Acid Lvl 7.4 mg/dL Normal 3.7-9.2 [facility] Comment on above: Result Comment: No te - New Reference Range in effect 20 Performed By: #### U ATIF, GFR, A1C, CMP, LIPID, TSHR #### [address] [address] XR FOOT MINIMUM 3 VIEWS RIGH Ton 09-29-2024 XR FOOT MINIMUM 3 VIEWS RIGHT ORIGINAL EXAMINATION: THREE XRAY VIEWS OF THE RIGHT FOOT09/29/2024 12:57 pm COMPARISON: None HISTORY: ORDERING SYSTEM PROVIDED HISTORY: Reason for Exam: Avulsion of second toe FINDINGS: No fracture or dislocation is seen. Bone mineralization is diffusely decreased. No foot deformities are seen. The joint spaces are preserved and normal alignment. Significant osteophyte formation is noted at the ankle. Degenerative osseous changes are also noted within the phalanges. No suspicious osseous lesions seen. No significant joint effusion or soft tissue swelling. Postsurgical changes of the distal tibia and fibula are noted, without evidence of hardware malfunction. IMPRESSION: No acute fracture or dislocation. Moderate posttraumatic degenerative changes of the foot and ankle. I have personally reviewed the images of this examination and agree with the resident's findings and interpretation. Interpreted by: Johnny George DO Preliminary Report By: Paulina Hernandez Electronically signed By Johnny George DO Dictated Date: 09/29/2024 12:59:15 PM Prelim Date: 09/29/2024 1:14:31 PM Sign Date: 09/29/2024 1:14:31 PM Ordering Provider: IRMA HURT [facility] .GFRon 10-23-2023 GFR >60 Normal [facility] ([place]) Comment on above: Result Comment: GFR Population mean for , Non- Americans Ages 20-29 = 116 mL/min/1.73 sq.m. Ages 30-39 = 107 mL/min/1.73 sq.m. Ages 40-49 = 99 mL/min/1.73 sq.m. Ages 50-59 = 93 mL/min/1.73 sq.m. Ages 60-69 = 85 mL/min/1.73 sq.m. Ages 70+ = 75 mL/min/1.73 sq.m. Chronic Kidney Disease: Less than 60 mL/min/1.73 square meters End Stage Renal Disease: Less than 15 mL/min/1.73 square meters Performed By: #### C MP, TSH, HCV1, LIPID, A1C, GFR #### [place] [address] GFR Non- >60 Normal [facility] ([place]) Comment on above: Result Comment: GFR Population mean for , Non- Americans Ages 20-29 = 116 mL/min/1.73 sq.m. Ages 30-39 = 107 mL/min/1.73 sq.m. Ages 40-49 = 99 mL/min/1.73 sq.m. Ages 50-59 = 93 mL/min/1.73 sq.m. Ages 60-69 = 85 mL/min/1.73 sq.m. Ages 70+ = 75 mL/min/1.73 sq.m. Chronic Kidney Disease: Less than 60 mL/min/1.73 square meters End Stage Renal Disease: Less than 15 mL/min/1.73 square meters Performed By: #### C MP, TSH, HCV1, LIPID, A1C, GFR #### [address] [address] A1Con 10-23-2023 HbA1c (Bld) [Mass fraction] 6.8 % High 4.0-6.0 [facility] [place] Comment on above: Performed By: #### C MP, TSH, HCV1, LIPID, A1C, GFR #### [address] [address] CMPon 10-23-2023 Albumin Level 3.9 G/dL Normal 3.2-4.8 [facility] ([place] Comment on above: Performed By: #### C MP, TSH, HCV1, LIPID, A1C, GFR #### [address] [address] Albumin/Globulin [Mass ratio] 1.3 {ratio} Normal 0.9-1.6 [facility] ([place] Comment on above: Performed By: #### C MP, TSH, HCV1, LIPID, A1C, GFR #### [address] [address] ALP [Catalytic activity/Vol] 62 U/L Normal 38-126 [facility] ([place] Comment on above: Performed By: #### C MP, TSH, HCV1, LIPID, A1C, GFR #### [address] [address] ALT [Catalytic activity/Vol] 16 U/L Normal 12-55 [facility] ([place] Comment on above: Performed By: #### C MP, TSH, HCV1, LIPID, A1C, GFR #### [address] [address] AST [Catalytic activity/Vol] 19 U/L Normal 8-34 [facility] ([place] Comment on above: Performed By: #### C MP, TSH, HCV1, LIPID, A1C, GFR #### [address] [address] Bili Total 0.80 mg/dL Normal 0.20-1.20 [facility] ([place] Comment on above: Result Comment: Use of this assay is not recommended for patients undergoing treatment with eltrombopag due to the potential for falsely elevated results. Performed By: #### C MP, TSH, HCV1, LIPID, A1C, GFR #### [place] [id number] BUN/Creatinine Ratio 27.3 ratio High 10.0-22.0 [facility] ([place] Comment on above: Performed By: #### C MP, TSH, HCV1, LIPID, A1C, GFR #### [address] [address] Calcium [Mass/Vol] 9.5 mg/dL Normal 8.7-10.4 [facility] ([place] Comment on above: Performed By: #### C MP, TSH, HCV1, LIPID, A1C, GFR #### [address] [address] Chloride [Moles/Vol] 103 mmol/L Normal 98-110 [facility] ([place] Comment on above: Performed By: #### C MP, TSH, HCV1, LIPID, A1C, GFR #### [address] [address] CO2 [Moles/Vol] 32 mmol/L Normal 22-32 [facility] ([place] Comment on above: Performed By: #### C MP, TSH, HCV1, LIPID, A1C, GFR #### [address] [address] Creatinine [Mass/Vol] 0.88 mg/dL Normal 0.60-1.40 [facility] ([place]) Comment on above: Performed By: #### C MP, TSH, HCV1, LIPID, A1C, GFR #### [address] [address] Electrolyte Balance 6.0 mEq/L Normal 4.0-15.0 [facility] ([place]) Comment on above: Performed By: #### C MP, TSH, HCV1, LIPID, A1C, GFR #### [address] [address] Globulin 3.0 G/dL Normal 1.5-3.8 [facility] ([place] Comment on above: Performed By: #### C MP, TSH, HCV1, LIPID, A1C, GFR #### [address] [address] Glucose [Mass/Vol] 125 mg/dL High 82-115 [facility] ([place] Comment on above: Performed By: #### C MP, TSH, HCV1, LIPID, A1C, GFR #### [address] [address] Potassium [Moles/Vol] 4.6 mmol/L Normal 3.5-5.0 [facility] ([place] Comment on above: Performed By: #### C MP, TSH, HCV1, LIPID, A1C, GFR #### [address] [address] Sodium [Moles/Vol] 141 mmol/L Normal 136-145 [facility] ([place] Comment on above: Performed By: #### C MP, TSH, HCV1, LIPID, A1C, GFR #### [place] [id number] Total Protein 6.9 G/dL Normal 5.7-8.2 [facility] ([place] Comment on above: Result Comment: No te - New Reference Range in effect 20 Performed By: #### C MP, TSH, HCV1, LIPID, A1C, GFR #### [address] [address] Urea nitrogen [Mass/Vol] 24.0 mg/dL High 8.0-22.0 [facility] ([place] Comment on above: Performed By: #### C MP, TSH, HCV1, LIPID, A1C, GFR #### [address] [address] HCVon 10-23-2023 Hep C Ab Non-Reactive Normal Non-Reactive [facility] ([place] Comment on above: Performed By: #### C MP, TSH, HCV1, LIPID, A1C, GFR #### [address] [address] Hep C Ab Int Normal [facility] ([place] Comment on above: Result Comment: Nonr eactive: Samples with a value < 0.80 are considered nonreactive (negative) for antibodies to HCV. A negative test result does not exclude the possibility of exposure to or infection with HCV. HCV antibodies may be undetectable in some stages of the infection and in some clinical conditions. See Interp Performed By: #### C MP, TSH, HCV1, LIPID, A1C, GFR #### [address] [address] LIPIDon 10-23-2023 Cholesterol [Mass/Vol] 204 mg/dL High 50-199 [facility] ([place] Comment on above: Result Comment: Chol esterol Reference Interval: Less than 200 Desirable 200-239 Borderline high risk 240 and above High risk Performed By: #### C MP, TSH, HCV1, LIPID, A1C, GFR #### [address] [address] Cholesterol in HDL [Mass/Vol] 42 mg/dL Normal 40-59 [facility] ([place] Comment on above: Performed By: #### C MP, TSH, HCV1, LIPID, A1C, GFR #### [address] [address] Cholesterol in LDL [Mass/Vol] 147 mg/dL High 0-129 [facility] ([place] Comment on above: Performed By: #### C MP, TSH, HCV1, LIPID, A1C, GFR #### [address] [address] Triglyceride [Mass/Vol] 76 mg/dL Normal 3-149 [facility] ([place] Comment on above: Performed By: #### C MP, TSH, HCV1, LIPID, A1C, GFR #### [address] [address] MALBRon 10-23-2023 U Creatinine 61.4 mg/dL Normal [facility] ([place] Comment on above: Performed By: #### M ALBR #### [facility] [address] [place] [address] U Microalb 400 mcg/dL Normal [facility] ([place] Comment on above: Performed By: #### M ALBR #### [facility] [address] [place] [address] U Ratio Alb/Cre 6.5 mcg/mg Normal 0.0-16.9 [facility] ([place] Comment on above: Performed By: #### M ALBR #### [facility] [address] [place] [address] TSHon 10-23-2023 TSH 1.365 mIU/mL Normal 0.550-4.780 [facility] ([place] Comment on above: Result Comment: No te - New Reference Range in effect 20 Performed By: #### C MP, TSH, HCV1, LIPID, A1C, GFR #### [address] [address] LABORATORYOrdered By: SYSTEM SYSTEM on 07-19-2022 Albumin BCP dye [Mass/Vol] 3.7 G/dL Invalid Interpretation Code 3.2 - 4.8 G/dL ADM SS Albumin/Globulin [Mass ratio] 1.3 {ratio} Invalid Interpretation Code 0.9 - 1.6 ratio ADM SS ALP [Catalytic activity/Vol] 51 U/L Invalid Interpretation Code 38 - 126 U/L ADM SS ALT No additional P-5'-P [Catalytic activity/Vol] 15 U/L Invalid Interpretation Code 12 - 55 U/L ADM SS AST [Catalytic activity/Vol] 17 U/L Invalid Interpretation Code 8 - 34 U/L ADM SS Basophils (Bld) [#/Vol] 0.1 103/mcL Invalid Interpretation Code 0.0 - 0.3 10^3/mcL Workflow SS Basophils/100 WBC (Bld) 0.9 % Invalid Interpretation Code 0.0 - 2.5 % Workflow SS Bilirubin [Mass/Vol] 0.70 mg/dL Invalid Interpretation Code 0.20 - 1.20 mg/dL ADM SS Calcium [Mass/Vol] 9.3 mg/dL Invalid Interpretation Code 8.7 - 10.4 mg/dL ADM SS Chloride [Moles/Vol] 105 mmol/L Invalid Interpretation Code 98 - 110 mEq/L ADM SS CO2 [Moles/Vol] 30 mmol/L Invalid Interpretation Code 22 - 32 mEq/L ADM SS Creatinine [Mass/Vol] 0.87 mg/dL Invalid Interpretation Code 0.60 - 1.40 mg/dL ADM SS Electrolyte Balance 5.0 mEq/L Invalid Interpretation Code 4.0 - 15.0 mEq/L ADM SS Eosinophils (Bld) [#/Vol] 0.2 103/mcL Invalid Interpretation Code 0.0 - 0.7 10^3/mcL Workflow SS Eosinophils/100 WBC (Bld) 2.8 % Invalid Interpretation Code 0.0 - 6.0 % Workflow SS Erythrocyte distribution width (RBC) [Ratio] 14.8 % Invalid Interpretation Code 11.5 - 15.5 % Workflow SS GFR/1.73 sq M.predicted among blacks MDRD (S/P/Bld) [Vol rate/Area] ml/min/1.73sqm Invalid Interpretation Code Chemistry S GFR/1.73 sq M.predicted among non-blacks MDRD (S/P/Bld) [Vol rate/Area] ml/min/1.73sqm Invalid Interpretation Code Chemistry S Globulin 2.9 G/dL Invalid Interpretation Code 1.5 - 3.8 G/dL ADM SS Glucose [Mass/Vol] 117 mg/dL Invalid Interpretation Code 82 - 115 mg/dL ADM SS Hematocrit (Bld) [Volume fraction] 40.1 % Invalid Interpretation Code 40.0 - 52.0 % Workflow SS Hemoglobin (Bld) [Mass/Vol] 13.1 G/dL Invalid Interpretation Code 13.0 - 17.5 G/dL Workflow SS Lymphocytes (Bld) [#/Vol] 1.2 103/mcL Invalid Interpretation Code 0.9 - 4.3 10^3/mcL Workflow SS Lymphocytes/100 WBC (Bld) 20.2 % Invalid Interpretation Code 20.0 - 40.0 % Workflow SS MCH (RBC) [Entitic mass] 28.6 pg Invalid Interpretation Code 27.0 - 33.0 pg Workflow SS MCHC 32.7 G/dL Invalid Interpretation Code 32.0 - 36.0 G/dL Workflow SS MCV (RBC) [Entitic vol] 87.3 fL Invalid Interpretation Code 81.0 - 100.0 fL AH Workflow SS Monocytes (Bld) [#/Vol] 0.7 103/mcL Invalid Interpretation Code 0.1 - 1.4 10^3/mcL AH Workflow SS Monocytes/100 WBC (Bld) 12.4 % Invalid Interpretation Code 2.0 - 13.0 % AH Workflow SS Neutrophils (Bld) [#/Vol] 3.7 103/mcL Invalid Interpretation Code 2.3 - 8.1 10^3/mcL AH Workflow SS Neutrophils/100 WBC (Bld) 63.7 % Invalid Interpretation Code 50.0 - 75.0 % Workflow SS Platelet mean volume (Bld) [Entitic vol] 7.6 fL Invalid Interpretation Code 6.4 - 10.5 fL Workflow SS Platelets (Bld) [#/Vol] 247 103/mcL Invalid Interpretation Code 150 - 450 10^3/mcL AH Workflow SS Potassium [Moles/Vol] 4.2 mmol/L Invalid Interpretation Code 3.5 - 5.0 mEq/L ADM SS Protein [Mass/Vol] 6.6 G/dL Invalid Interpretation Code 5.7 - 8.2 G/dL AH ADM SS RBC (Bld) [#/Vol] 4.60 106/mcL Invalid Interpretation Code 4.50 - 6.00 10^6/mcL AH Workflow SS Sodium [Moles/Vol] 140 mmol/L Invalid Interpretation Code 136 - 145 mEq/L ADM SS Urea nitrogen [Mass/Vol] 24.0 mg/dL Invalid Interpretation Code 8.0 - 22.0 mg/dL AH ADM SS Urea nitrogen/Creatinine [Mass ratio] 27.6 ratio Invalid Interpretation Code 10.0 - 22.0 ratio AH ADM SS WBC (Bld) [#/Vol] 5.9 103/mcL Invalid Interpretation Code 4.5 - 10.8 10^3/mcL AH Workflow SS LABORATORYOrdered By: Tracy Velez on 07-19-2022 INR Coag (PPP) [Relative time] 1.4 {INR} Invalid Interpretation Code AH Auto Coag SS PT Coag (PPP) [Time] 16.6 s Invalid Interpretation Code 9.0 - 14.9 seconds AH Auto Coag SS LABORATORYOrdered By: SYSTEM SYSTEM on 04-23-2022 Calcium [Mass/Vol] 8.9 mg/dL Invalid Interpretation Code 8.7 - 10.4 mg/dL AH ADM SS Chloride [Moles/Vol] 105 mmol/L Invalid Interpretation Code 98 - 110 mEq/L AH ADM SS CO2 [Moles/Vol] 29 mmol/L Invalid Interpretation Code 22 - 32 mEq/L AH ADM SS Creatinine [Mass/Vol] 0.90 mg/dL Invalid Interpretation Code 0.60 - 1.40 mg/dL AH ADM SS Electrolyte Balance 11.0 mEq/L Invalid Interpretation Code 4.0 - 15.0 mEq/L AH ADM SS GFR/1.73 sq M.predicted among blacks MDRD (S/P/Bld) [Vol rate/Area] ml/min/1.73sqm Invalid Interpretation Code Chemistry S GFR/1.73 sq M.predicted among non-blacks MDRD (S/P/Bld) [Vol rate/Area] ml/min/1.73sqm Invalid Interpretation Code Chemistry S Glucose [Mass/Vol] 163 mg/dL Invalid Interpretation Code 82 - 115 mg/dL ADM SS Magnesium [Mass/Vol] 1.6 mg/dL Invalid Interpretation Code 1.6 - 2.4 mg/dL ADM SS Potassium [Moles/Vol] 4.4 mmol/L Invalid Interpretation Code 3.5 - 5.0 mEq/L ADM SS Sodium [Moles/Vol] 145 mmol/L Invalid Interpretation Code 136 - 145 mEq/L ADM SS TSH Qn 1.109 mIU/mL Invalid Interpretation Code 0.550 - 4.780 mIU/mL ADM SS Urea nitrogen [Mass/Vol] 25.0 mg/dL Invalid Interpretation Code 8.0 - 22.0 mg/dL ADM SS Urea nitrogen/Creatinine [Mass ratio] 27.8 ratio Invalid Interpretation Code 10.0 - 22.0 ratio ADM SS LABORATORYOrdered By: Jeni Baires on 03-19-2022 Blood Glucose Testing Reason Routine (03/19/22 4:43 PM) [facility] Glucose [Mass/Vol] 190 mg/dL Invalid Interpretation Code 82 - 115 mg/dL [facility] LABORATORYOrdered By: Austin Porras on 03-19-2022 Blood Glucose Testing Reason Routine (03/19/22 11:44 AM) [facility] Glucose [Mass/Vol] 148 mg/dL Invalid Interpretation Code 82 - 115 mg/dL [facility] Blood Glucose Testing Reason Routine (03/19/22 8:34 AM) [facility] Glucose [Mass/Vol] 117 mg/dL Invalid Interpretation Code 82 - 115 mg/dL [facility] LABORATORYOrdered By: SYSTEM SYSTEM on 03-19-2022 Troponin I.cardiac DL <= 0.01 ng/mL [Mass/Vol] 53.45 ng/L Invalid Interpretation Code 0.00 - 54.00 ng/L ADM SS Basophils (Bld) [#/Vol] 0.0 103/mcL Invalid Interpretation Code 0.0 - 0.3 10^3/mcL Workflow SS Basophils/100 WBC (Bld) 0.7 % Invalid Interpretation Code 0.0 - 2.5 % Workflow SS Eosinophils (Bld) [#/Vol] 0.2 103/mcL Invalid Interpretation Code 0.0 - 0.7 10^3/mcL Workflow SS Eosinophils/100 WBC (Bld) 3.1 % Invalid Interpretation Code 0.0 - 6.0 % Workflow SS Erythrocyte distribution width (RBC) [Ratio] 15.7 % Invalid Interpretation Code 11.5 - 15.5 % Workflow SS HbA1c (Bld) [Mass fraction] 6.6 % Invalid Interpretation Code 4.0 - 6.0 % Auto Chem SS Hematocrit (Bld) [Volume fraction] 37.2 % Invalid Interpretation Code 40.0 - 52.0 % Workflow SS Hemoglobin (Bld) [Mass/Vol] 12.5 G/dL Invalid Interpretation Code 13.0 - 17.5 G/dL Workflow SS Lymphocytes (Bld) [#/Vol] 1.9 103/mcL Invalid Interpretation Code 0.9 - 4.3 10^3/mcL Workflow SS Lymphocytes/100 WBC (Bld) 28.0 % Invalid Interpretation Code 20.0 - 40.0 % Workflow SS Magnesium [Mass/Vol] 1.8 mg/dL Invalid Interpretation Code 1.6 - 2.4 mg/dL ADM SS MCH (RBC) [Entitic mass] 29.5 pg Invalid Interpretation Code 27.0 - 33.0 pg AH Workflow SS MCHC 33.7 G/dL Invalid Interpretation Code 32.0 - 36.0 G/dL AH Workflow SS MCV (RBC) [Entitic vol] 87.6 fL Invalid Interpretation Code 81.0 - 100.0 fL AH Workflow SS Monocyte distribution width Auto (Bld) [Entitic vol] Not Performed 1 *NA* (03/19/22 7:40 AM) Invalid Interpretation Code 0.00 - 20.00 Hematology S Comment on above: Result Comment: MDW testing performed only on adult ER patients between the ages of 18-89 years. Monocytes (Bld) [#/Vol] 0.8 103/mcL Invalid Interpretation Code 0.1 - 1.4 10^3/mcL AH Workflow SS Monocytes/100 WBC (Bld) 11.3 % Invalid Interpretation Code 2.0 - 13.0 % AH Workflow SS Neutrophils (Bld) [#/Vol] 3.8 103/mcL Invalid Interpretation Code 2.3 - 8.1 10^3/mcL AH Workflow SS Neutrophils/100 WBC (Bld) 56.9 % Invalid Interpretation Code 50.0 - 75.0 % AH Workflow SS Platelet mean volume (Bld) [Entitic vol] 7.8 fL Invalid Interpretation Code 6.4 - 10.5 fL AH Workflow SS Platelets (Bld) [#/Vol] 210 103/mcL Invalid Interpretation Code 150 - 450 10^3/mcL AH Workflow SS RBC (Bld) [#/Vol] 4.25 106/mcL Invalid Interpretation Code 4.50 - 6.00 10^6/mcL AH Workflow SS Troponin I.cardiac DL <= 0.01 ng/mL [Mass/Vol] 51.30 ng/L Invalid Interpretation Code 0.00 - 54.00 ng/L AH ADM SS TSH Qn 2.205 mIU/mL Invalid Interpretation Code 0.550 - 4.780 mIU/mL ADM SS WBC 6.7 103/mcL Invalid Interpretation Code 4.5 - 10.8 10^3/mcL AH Workflow SS Basophils (Bld) [#/Vol] 0.0 103/mcL Invalid Interpretation Code 0.0 - 0.3 10^3/mcL AH Workflow SS Basophils/100 WBC (Bld) 0.5 % Invalid Interpretation Code 0.0 - 2.5 % AH Workflow SS Calcium [Mass/Vol] 9.2 mg/dL Invalid Interpretation Code 8.7 - 10.4 mg/dL ADM SS Chloride [Moles/Vol] 105 mmol/L Invalid Interpretation Code 98 - 110 mEq/L ADM SS CO2 [Moles/Vol] 28 mmol/L Invalid Interpretation Code 22 - 32 mEq/L ADM SS Creatinine [Mass/Vol] 0.87 mg/dL Invalid Interpretation Code 0.60 - 1.40 mg/dL ADM SS Electrolyte Balance 9.0 mEq/L Invalid Interpretation Code 4.0 - 15.0 mEq/L ADM SS Eosinophils (Bld) [#/Vol] 0.2 103/mcL Invalid Interpretation Code 0.0 - 0.7 10^3/mcL Workflow SS Eosinophils/100 WBC (Bld) 2.6 % Invalid Interpretation Code 0.0 - 6.0 % Workflow SS Erythrocyte distribution width (RBC) [Ratio] 15.7 % Invalid Interpretation Code 11.5 - 15.5 % Workflow SS GFR/1.73 sq M.predicted among blacks MDRD (S/P/Bld) [Vol rate/Area] ml/min/1.73sqm Invalid Interpretation Code ADM SS GFR/1.73 sq M.predicted among non-blacks MDRD (S/P/Bld) [Vol rate/Area] ml/min/1.73sqm Invalid Interpretation Code ADM SS Glucose [Mass/Vol] 154 mg/dL Invalid Interpretation Code 82 - 115 mg/dL ADM SS Hematocrit (Bld) [Volume fraction] 37.2 % Invalid Interpretation Code 40.0 - 52.0 % Workflow SS Hemoglobin (Bld) [Mass/Vol] 12.4 G/dL Invalid Interpretation Code 13.0 - 17.5 G/dL Workflow SS Lymphocytes (Bld) [#/Vol] 1.8 103/mcL Invalid Interpretation Code 0.9 - 4.3 10^3/mcL Workflow SS Lymphocytes/100 WBC (Bld) 23.9 % Invalid Interpretation Code 20.0 - 40.0 % Workflow SS MCH (RBC) [Entitic mass] 29.3 pg Invalid Interpretation Code 27.0 - 33.0 pg Workflow SS MCHC 33.5 G/dL Invalid Interpretation Code 32.0 - 36.0 G/dL Workflow SS MCV (RBC) [Entitic vol] 87.6 fL Invalid Interpretation Code 81.0 - 100.0 fL Workflow SS Monocyte distribution width Auto (Bld) [Entitic vol] Not Performed 2 *NA* (03/19/22 4:42 AM) Invalid Interpretation Code 0.00 - 20.00 Hematology S Comment on above: Result Comment: MDW testing performed only on adult ER patients between the ages of 18-89 years. Monocytes (Bld) [#/Vol] 0.8 103/mcL Invalid Interpretation Code 0.1 - 1.4 10^3/mcL Workflow SS Monocytes/100 WBC (Bld) 10.2 % Invalid Interpretation Code 2.0 - 13.0 % Workflow SS Neutrophils (Bld) [#/Vol] 4.7 103/mcL Invalid Interpretation Code 2.3 - 8.1 10^3/mcL Workflow SS Neutrophils/100 WBC (Bld) 62.8 % Invalid Interpretation Code 50.0 - 75.0 % Workflow SS Platelet mean volume (Bld) [Entitic vol] 7.7 fL Invalid Interpretation Code 6.4 - 10.5 fL Workflow SS Platelets (Bld) [#/Vol] 204 103/mcL Invalid Interpretation Code 150 - 450 10^3/mcL Workflow SS Potassium [Moles/Vol] 3.6 mmol/L Invalid Interpretation Code 3.5 - 5.0 mEq/L ADM SS RBC (Bld) [#/Vol] 4.24 106/mcL Invalid Interpretation Code 4.50 - 6.00 10^6/mcL Workflow SS Sodium [Moles/Vol] 142 mmol/L Invalid Interpretation Code 136 - 145 mEq/L ADM SS Urea nitrogen [Mass/Vol] 15.0 mg/dL Invalid Interpretation Code 8.0 - 22.0 mg/dL ADM SS Urea nitrogen/Creatinine [Mass ratio] 17.2 ratio Invalid Interpretation Code 10.0 - 22.0 ratio AH ADM SS WBC 7.5 103/mcL Invalid Interpretation Code 4.5 - 10.8 10^3/mcL Workflow SS LABORATORYOrdered By: Mary on 03-19-2022 aPTT Coag (PPP) [Time] 36.2 s Invalid Interpretation Code 25.0 - 35.0 seconds Auto Coag SS Heparin dose (APTT) Heparin IV (03/19/22 7:40 AM) Invalid Interpretation Code AH Auto Coag SS INR Coag (PPP) [Relative time] 1.4 {INR} Invalid Interpretation Code AH Auto Coag SS PT Coag (PPP) [Time] 17.3 s Invalid Interpretation Code 9.0 - 14.9 seconds AH Auto Coag SS LABORATORYOrdered By: Mari Harris on 03-19-2022 Cholesterol [Mass/Vol] 162 mg/dL Invalid Interpretation Code 50 - 199 mg/dL AH ADM SS Cholesterol in HDL [Mass/Vol] 30 mg/dL Invalid Interpretation Code 40 - 59 mg/dL ADM SS Cholesterol in LDL [Mass/Vol] 108 mg/dL Invalid Interpretation Code 0 - 129 mg/dL AH ADM SS Triglyceride [Mass/Vol] 122 mg/dL Invalid Interpretation Code 3 - 149 mg/dL ADM SS LABORATORYOrdered By: [employer] SYSTEM on 03-18-2022 Troponin I.cardiac DL <= 0.01 ng/mL [Mass/Vol] 63.38 ng/L Invalid Interpretation Code 0.00 - 54.00 ng/L ADM SS Albumin BCP dye [Mass/Vol] 4.2 G/dL Invalid Interpretation Code 3.2 - 4.8 G/dL ADM SS Albumin/Globulin [Mass ratio] 1.3 {ratio} Invalid Interpretation Code 0.9 - 1.6 ratio ADM SS ALP [Catalytic activity/Vol] 57 U/L Invalid Interpretation Code 38 - 126 U/L ADM SS ALT No additional P-5'-P [Catalytic activity/Vol] 14 U/L Invalid Interpretation Code 12 - 55 U/L ADM SS AST [Catalytic activity/Vol] 27 U/L Invalid Interpretation Code 8 - 34 U/L ADM SS Basophils (Bld) [#/Vol] 0.1 103/mcL Invalid Interpretation Code 0.0 - 0.3 10^3/mcL Workflow SS Basophils/100 WBC (Bld) 0.6 % Invalid Interpretation Code 0.0 - 2.5 % Workflow SS Bilirubin [Mass/Vol] 0.50 mg/dL Invalid Interpretation Code 0.20 - 1.20 mg/dL ADM SS Calcium [Mass/Vol] 9.9 mg/dL Invalid Interpretation Code 8.7 - 10.4 mg/dL ADM SS Chloride [Moles/Vol] 106 mmol/L Invalid Interpretation Code 98 - 110 mEq/L ADM SS CO2 [Moles/Vol] 28 mmol/L Invalid Interpretation Code 22 - 32 mEq/L ADM SS Creatinine [Mass/Vol] 1.04 mg/dL Invalid Interpretation Code 0.60 - 1.40 mg/dL ADM SS Electrolyte Balance 8.0 mEq/L Invalid Interpretation Code 4.0 - 15.0 mEq/L ADM SS Eosinophils (Bld) [#/Vol] 0.2 103/mcL Invalid Interpretation Code 0.0 - 0.7 10^3/mcL AH Workflow SS Eosinophils/100 WBC (Bld) 1.8 % Invalid Interpretation Code 0.0 - 6.0 % Workflow SS Erythrocyte distribution width (RBC) [Ratio] 15.8 % Invalid Interpretation Code 11.5 - 15.5 % Workflow SS GFR/1.73 sq M.predicted among blacks MDRD (S/P/Bld) [Vol rate/Area] ml/min/1.73sqm Invalid Interpretation Code ADM SS GFR/1.73 sq M.predicted among non-blacks MDRD (S/P/Bld) [Vol rate/Area] ml/min/1.73sqm Invalid Interpretation Code ADM SS Globulin 3.2 G/dL Invalid Interpretation Code 1.5 - 3.8 G/dL ADM SS Glucose [Mass/Vol] 116 mg/dL Invalid Interpretation Code 82 - 115 mg/dL ADM SS Hematocrit (Bld) [Volume fraction] 40.4 % Invalid Interpretation Code 40.0 - 52.0 % Workflow SS Hemoglobin (Bld) [Mass/Vol] 13.4 G/dL Invalid Interpretation Code 13.0 - 17.5 G/dL Workflow SS Lymphocytes (Bld) [#/Vol] 1.7 103/mcL Invalid Interpretation Code 0.9 - 4.3 10^3/mcL Workflow SS Lymphocytes/100 WBC (Bld) 16.3 % Invalid Interpretation Code 20.0 - 40.0 % Workflow SS MCH (RBC) [Entitic mass] 29.3 pg Invalid Interpretation Code 27.0 - 33.0 pg Workflow SS MCHC 33.3 G/dL Invalid Interpretation Code 32.0 - 36.0 G/dL Workflow SS MCV (RBC) [Entitic vol] 87.9 fL Invalid Interpretation Code 81.0 - 100.0 fL Workflow SS Monocyte distribution width Auto (Bld) [Entitic vol] 16.81 Invalid Interpretation Code 0.00 - 20.00 AH Workflow SS Comment on above: Result Comment: For ED adult patients suspected of sepsis, MDW<=20.0 does not rule out sepsis or risk of sepsis Monocytes (Bld) [#/Vol] 1.0 103/mcL Invalid Interpretation Code 0.1 - 1.4 10^3/mcL AH Workflow SS Monocytes/100 WBC (Bld) 9.7 % Invalid Interpretation Code 2.0 - 13.0 % AH Workflow SS Neutrophils (Bld) [#/Vol] 7.5 103/mcL Invalid Interpretation Code 2.3 - 8.1 10^3/mcL AH Workflow SS Neutrophils/100 WBC (Bld) 71.6 % Invalid Interpretation Code 50.0 - 75.0 % AH Workflow SS Platelet mean volume (Bld) [Entitic vol] 7.6 fL Invalid Interpretation Code 6.4 - 10.5 fL AH Workflow SS Platelets (Bld) [#/Vol] 230 103/mcL Invalid Interpretation Code 150 - 450 10^3/mcL AH Workflow SS Potassium [Moles/Vol] 3.8 mmol/L Invalid Interpretation Code 3.5 - 5.0 mEq/L AH ADM SS Protein [Mass/Vol] 7.4 G/dL Invalid Interpretation Code 5.7 - 8.2 G/dL AH ADM SS RBC (Bld) [#/Vol] 4.59 106/mcL Invalid Interpretation Code 4.50 - 6.00 10^6/mcL AH Workflow SS Sodium [Moles/Vol] 142 mmol/L Invalid Interpretation Code 136 - 145 mEq/L AH ADM SS Urea nitrogen [Mass/Vol] 14.0 mg/dL Invalid Interpretation Code 8.0 - 22.0 mg/dL AH ADM SS Urea nitrogen/Creatinine [Mass ratio] 13.5 ratio Invalid Interpretation Code 10.0 - 22.0 ratio AH ADM SS WBC 10.4 103/mcL Invalid Interpretation Code 4.5 - 10.8 10^3/mcL AH Workflow SS LABORATORYOrdered By: SYSTEM SYSTEM on 03-08-2022 Troponin I.cardiac DL <= 0.01 ng/mL [Mass/Vol] 37.63 ng/L Invalid Interpretation Code 0.00 - 54.00 ng/L AH ADM SS LABORATORYOrdered By: SYSTEM SYSTEM on 03-07-2022 Basophils (Bld) [#/Vol] 0.1 103/mcL Invalid Interpretation Code 0.0 - 0.3 10^3/mcL Workflow SS Basophils/100 WBC (Bld) 1.0 % Invalid Interpretation Code 0.0 - 2.5 % AH Workflow SS Calcium [Mass/Vol] 9.6 mg/dL Invalid Interpretation Code 8.7 - 10.4 mg/dL ADM SS Chloride [Moles/Vol] 105 mmol/L Invalid Interpretation Code 98 - 110 mEq/L ADM SS CO2 [Moles/Vol] 30 mmol/L Invalid Interpretation Code 22 - 32 mEq/L ADM SS Creatinine [Mass/Vol] 0.95 mg/dL Invalid Interpretation Code 0.60 - 1.40 mg/dL ADM SS Electrolyte Balance 5.0 mEq/L Invalid Interpretation Code 4.0 - 15.0 mEq/L ADM SS Eosinophils (Bld) [#/Vol] 0.2 103/mcL Invalid Interpretation Code 0.0 - 0.7 10^3/mcL Workflow SS Eosinophils/100 WBC (Bld) 3.0 % Invalid Interpretation Code 0.0 - 6.0 % Workflow SS Erythrocyte distribution width (RBC) [Ratio] 15.9 % Invalid Interpretation Code 11.5 - 15.5 % Workflow SS GFR/1.73 sq M.predicted among blacks MDRD (S/P/Bld) [Vol rate/Area] ml/min/1.73sqm Invalid Interpretation Code ADM SS GFR/1.73 sq M.predicted among non-blacks MDRD (S/P/Bld) [Vol rate/Area] ml/min/1.73sqm Invalid Interpretation Code ADM SS Glucose [Mass/Vol] 180 mg/dL Invalid Interpretation Code 82 - 115 mg/dL ADM SS Hematocrit (Bld) [Volume fraction] 38.2 % Invalid Interpretation Code 40.0 - 52.0 % Workflow SS Hemoglobin (Bld) [Mass/Vol] 12.8 G/dL Invalid Interpretation Code 13.0 - 17.5 G/dL Workflow SS Lymphocytes (Bld) [#/Vol] 1.7 103/mcL Invalid Interpretation Code 0.9 - 4.3 10^3/mcL Workflow SS Lymphocytes/100 WBC (Bld) 22.4 % Invalid Interpretation Code 20.0 - 40.0 % Workflow SS MCH (RBC) [Entitic mass] 29.4 pg Invalid Interpretation Code 27.0 - 33.0 pg AH Workflow SS MCHC 33.5 G/dL Invalid Interpretation Code 32.0 - 36.0 G/dL AH Workflow SS MCV (RBC) [Entitic vol] 87.7 fL Invalid Interpretation Code 81.0 - 100.0 fL AH Workflow SS Monocyte distribution width Auto (Bld) [Entitic vol] 17.82 Invalid Interpretation Code 0.00 - 20.00 AH Workflow SS Comment on above: Result Comment: For ED adult patients suspected of sepsis, MDW<=20.0 does not rule out sepsis or risk of sepsis Monocytes (Bld) [#/Vol] 0.9 103/mcL Invalid Interpretation Code 0.1 - 1.4 10^3/mcL AH Workflow SS Monocytes/100 WBC (Bld) 11.4 % Invalid Interpretation Code 2.0 - 13.0 % AH Workflow SS Neutrophils (Bld) [#/Vol] 4.7 103/mcL Invalid Interpretation Code 2.3 - 8.1 10^3/mcL AH Workflow SS Neutrophils/100 WBC (Bld) 62.2 % Invalid Interpretation Code 50.0 - 75.0 % AH Workflow SS Platelet mean volume (Bld) [Entitic vol] 7.5 fL Invalid Interpretation Code 6.4 - 10.5 fL AH Workflow SS Platelets (Bld) [#/Vol] 219 103/mcL Invalid Interpretation Code 150 - 450 10^3/mcL AH Workflow SS Potassium [Moles/Vol] 4.2 mmol/L Invalid Interpretation Code 3.5 - 5.0 mEq/L ADM SS Comment on above: Result Comment: Spec imen slightly hemolyzed. RBC (Bld) [#/Vol] 4.36 106/mcL Invalid Interpretation Code 4.50 - 6.00 10^6/mcL AH Workflow SS Sodium [Moles/Vol] 140 mmol/L Invalid Interpretation Code 136 - 145 mEq/L ADM SS Troponin I.cardiac DL <= 0.01 ng/mL [Mass/Vol] 35.30 ng/L Invalid Interpretation Code 0.00 - 54.00 ng/L AH ADM SS Urea nitrogen [Mass/Vol] 18.0 mg/dL Invalid Interpretation Code 8.0 - 22.0 mg/dL AH ADM SS Urea nitrogen/Creatinine [Mass ratio] 18.9 ratio Invalid Interpretation Code 10.0 - 22.0 ratio AH ADM SS WBC 7.6 103/mcL Invalid Interpretation Code 4.5 - 10.8 10^3/mcL Workflow SS LABORATORYOrdered By: Padmini Garland on 03-07-2022 Natriuretic peptide.B prohormone N-Terminal [Mass/Vol] 454 pg/mL Invalid Interpretation Code 0 - 900 pg/mL Auto Chem SS LABORATORYOrdered By: [employer] SYSTEM on 12-04-2021 Albumin BCP dye [Mass/Vol] 3.8 G/dL Invalid Interpretation Code 3.2 - 4.8 G/dL ADM SS Albumin/Globulin [Mass ratio] 1.3 {ratio} Invalid Interpretation Code 0.9 - 1.6 ratio ADM SS ALP [Catalytic activity/Vol] 59 U/L Invalid Interpretation Code 38 - 126 U/L ADM SS ALT No additional P-5'-P [Catalytic activity/Vol] 16 U/L Invalid Interpretation Code 12 - 55 U/L ADM SS AST [Catalytic activity/Vol] 15 U/L Invalid Interpretation Code 8 - 34 U/L ADM SS Bilirubin [Mass/Vol] 0.60 mg/dL Invalid Interpretation Code 0.20 - 1.20 mg/dL ADM SS Calcium [Mass/Vol] 9.4 mg/dL Invalid Interpretation Code 8.7 - 10.4 mg/dL ADM SS Chloride [Moles/Vol] 102 mmol/L Invalid Interpretation Code 98 - 110 mEq/L ADM SS CK [Catalytic activity/Vol] 94 U/L Invalid Interpretation Code 7 - 185 U/L ADM SS Comment on above: Result Comment: Spec imen slightly hemolyzed. CO2 [Moles/Vol] 32 mmol/L Invalid Interpretation Code 22 - 32 mEq/L ADM SS Creatinine [Mass/Vol] 0.90 mg/dL Invalid Interpretation Code 0.60 - 1.40 mg/dL ADM SS Electrolyte Balance 5.0 mEq/L Invalid Interpretation Code 4.0 - 15.0 mEq/L ADM SS GFR/1.73 sq M.predicted among blacks MDRD (S/P/Bld) [Vol rate/Area] ml/min/1.73sqm Invalid Interpretation Code Chemistry S GFR/1.73 sq M.predicted among non-blacks MDRD (S/P/Bld) [Vol rate/Area] ml/min/1.73sqm Invalid Interpretation Code Chemistry S Globulin 3.0 G/dL Invalid Interpretation Code 1.5 - 3.8 G/dL AH ADM SS Glucose [Mass/Vol] 137 mg/dL Invalid Interpretation Code 82 - 115 mg/dL AH ADM SS Potassium [Moles/Vol] 4.6 mmol/L Invalid Interpretation Code 3.5 - 5.0 mEq/L AH ADM SS Comment on above: Result Comment: Spec imen slightly hemolyzed. Protein [Mass/Vol] 6.8 G/dL Invalid Interpretation Code 5.7 - 8.2 G/dL AH ADM SS Sodium [Moles/Vol] 139 mmol/L Invalid Interpretation Code 136 - 145 mEq/L AH ADM SS Urea nitrogen [Mass/Vol] 23.0 mg/dL Invalid Interpretation Code 8.0 - 22.0 mg/dL AH ADM SS Urea nitrogen/Creatinine [Mass ratio] 25.6 ratio Invalid Interpretation Code 10.0 - 22.0 ratio ADM SS LABORATORYOrdered By: Niko Diego on 12-04-2021 Cholesterol [Mass/Vol] 188 mg/dL Invalid Interpretation Code 50 - 199 mg/dL ADM SS Cholesterol in HDL [Mass/Vol] 30 mg/dL Invalid Interpretation Code 40 - 59 mg/dL ADM SS Cholesterol in LDL [Mass/Vol] 135 mg/dL Invalid Interpretation Code 0 - 129 mg/dL ADM SS Triglyceride [Mass/Vol] 114 mg/dL Invalid Interpretation Code 3 - 149 mg/dL ADM SS LABORATORYOrdered By: Brisa Hussein on 11-19-2021 Troponin I.cardiac DL <= 0.01 ng/mL [Mass/Vol] 127.5 ng/L Invalid Interpretation Code 0.0 - 76.2 ng/L AO ADM SS Calcium [Mass/Vol] 9.3 mg/dL Invalid Interpretation Code 8.4 - 10.2 mg/dL AO ADM SS Chloride [Moles/Vol] 102 mmol/L Invalid Interpretation Code 98 - 107 mmol/L AO ADM SS CO2 [Moles/Vol] 28 mmol/L Invalid Interpretation Code 23 - 31 mmol/L AO ADM SS Creatinine [Mass/Vol] 1.07 mg/dL Invalid Interpretation Code 0.70 - 1.30 mg/dL AO ADM SS Electrolyte Balance 9.0 mEq/L Invalid Interpretation Code 4.0 - 15.0 mEq/L AO ADM SS Glucose [Mass/Vol] 131 mg/dL Invalid Interpretation Code 83 - 110 mg/dL AO ADM SS Potassium [Moles/Vol] 3.8 mmol/L Invalid Interpretation Code 3.5 - 5.1 mmol/L AO ADM SS Sodium [Moles/Vol] 139 mmol/L Invalid Interpretation Code 136 - 145 mmol/L AO ADM SS Troponin I.cardiac DL <= 0.01 ng/mL [Mass/Vol] 119.6 ng/L Invalid Interpretation Code 0.0 - 76.2 ng/L AO ADM SS Urea nitrogen [Mass/Vol] 23 mg/dL Invalid Interpretation Code 7 - 18 mg/dL AO ADM SS Urea nitrogen/Creatinine [Mass ratio] 21 ratio Invalid Interpretation Code 7 - 27 ratio AO ADM SS LABORATORYOrdered By: SYSTEM SYSTEM on 11-19-2021 GFR 83 ml/min/1.73sqm Invalid Interpretation Code AO Chemistry S GFR Non- 68 ml/min/1.73sqm Invalid Interpretation Code AO Chemistry S PROGRESSon 04-20-2020 PROGRESS HNO ID: [id number] Author: Kathie Leo Service: ? Author Type: Physician Type: Progress Notes Filed: 04/19/2020 10:56 PM Note Text: ORTHOPAEDIC OFFICE NOTE CHIEF COMPLAINT: Follow-up left intertrochanteric hip fracture HISTORY OF PRESENT ILLNESS: Abbey Aquino is a 70 year old male who presents for follow-up evaluation of left intertrochanteric hip fracture sustained on 02/14/2020. Patient normally sees Dr. Dial, who I'm covering for this week. Overall he is doing very well. He is not having any pain at the hip. Examination with the assistance of a walker but does not feel that he needs one. He is not requiring pain medication. He denies any fevers chills nausea vomiting weight loss fatigue or malaise. Reviewed nursing note and current pain scale. PAST MEDICAL HISTORY Diagnosis Date - Heart abnormality - High cholesterol - HTN (hypertension) - S/p left hip fracture PAST SURGICAL HISTORY Procedure Laterality Date - HERNIA REPAIR HX - PAST SURGICAL HISTORY OF Left tibfib FAMILY HISTORY Family history unknown: Yes Social History Tobacco Use - Smoking status: Never Smoker - Smokeless tobacco: Never Used Substance Use Topics - Alcohol use: Never Frequency: Never - Drug use: Never MEDICATIONS: Current Outpatient Medications Medication Sig - acetaminophen (TYLENOL) 325 mg tablet Take 1-2 tablets by mouth every 6 hours as needed. - polyethylene glycol 3350 (MIRALAX, GLYCOLAX) 17 gram packet Take 1 Packet by mouth once daily. Hold if more than 2 BM per day, goal is a soft stool daily. - atorvastatin (LIPITOR) 40 mg tablet Take 40 mg by mouth once daily. - metFORMIN (GLUCOPHAGE) 500 mg tablet Take 500 mg by mouth twice daily with meals. - lisinopril (ZESTRIL, PRINIVIL) 20 mg tablet Take 20 mg by mouth twice daily. - rivaroxaban (XARELTO) 20 mg tablet Take 20 mg by mouth once daily. - tamsulosin ER (FLOMAX) 0.4 mg Take 0.4 mg by mouth once daily. - folic acid 1 mg tablet Take 1 mg by mouth twice daily. - aspirin, enteric coated (ASPIRIN, ENTERIC COATED) 81 mg EC tablet Take 81 mg by mouth once daily. - Walker misc 1 Device once daily. Wheeled adult walker - sotalol (SOTALOL AF) 80 mg tablet Take 80 mg by mouth once daily. 1/2 tablet - methotrexate sodium (METHOTREXATE, ANTI-RHEUMATIC, ORAL) Take 2.5 mg by mouth one time a week. 7 tablets once a week No current facility-administered medications for this visit. ALLERGIES: ALLERGIES Allergen Reactions - Oxycodone Mental Status Change, Itching - Percocet [Oxycodone* Mental Status Change - Vicodin [Hydrocodon* GI Upset, Vomiting PHYSICAL EXAMINATION: Resp 16 Ht 5' 7 (1.70m) Wt 170 lb (77.1kg) BMI 26.62 kg/(m2). General Appearance: Well appearing, alert, in no acute distress, well-hydrated, well nourished. Skin: Skin color, texture, turgor normal, no suspicious rashes or lesions. Respiratory: Breathing is symmetric and unlabored Gait: The patient's gait was observed. It was found to be steady without significant antalgia. He is using a walker to assist with ambulation. Extremities: Left lower extremity was examined. Skin is intact that erythema, ecchymosis or surgical scar. There is no focal area of tenderness or palpable mass. Range of motion of the hip is full and painless. Straight leg test negative. Peripheral Pulses: Normal. Neurologic: Bilateral lower extremities were examined. There is 5/5 strength with hip flexion, knee extension, dorsiflexion, EHL, plantar flexion. Sensation intact in all nerve dermatomes IMAGES: Recent Results (from the past 36 hour(s)) XR HIP 1V UNIL W PELVIS WHEN PERFORMED () [facility] radiographs, 04/14/2020. AP and lateral views of the left hip were obtained and reviewed. These demonstrate clear trochanteric hip fracture. Overall alignment is well-maintained without significant change compared to previous radiographs. There is some consolidation of the fracture site. Overall stable appearing follow-up radiographs. Plan ASSESSMENT AND PLAN: 1. Closed fracture of trochanter of left femur, initial encounter ([facility]) - ICD9: 820.20, ICD10: S72.102A Functional Plan: Patient is a 70-year-old male presenting for follow-up evaluation of left greater trochanteric hip fracture sustained on 02/14/2020. He normally sees Dr. Dial who I'm covering for this week. Overall he is doing well and is not having any pain at the hip. He is ambulating with a walker without issue. Radiographs today are stable. At this point time I think he begin to progress his weightbearing to as tolerated. He can come off the walker to independent ambulation as able. I did recommend referral to physical therapy for evaluation and management as indicated. He has deferred at this time. I did recommend that he follow up with Dr. Dial at least 1 more time in approximately 8 weeks for further evaluation and possible release to as needed follow-up. All his questions were answered satisfactorily. He expressed understanding of and agreement with the treatment plan. Return in about 8 weeks (around 06/09/2020). [facility] Office Visit (AGHWN) ABBEY AQUINO ([id number]) 1950 M Date Time Provider Department 04/14/20 2:00 PM KATHIE LEO AGHARSHAL During your visit today, we recorded the following information about you: Respiration Weight Height 16/minute 77.1 kg 1.702 m Guerita Hinds Showcase 04/19/2020 10:56 PM Signed REVIEW OF SYSTEMS: GENERAL: Well developed, well nourished. No acute distress PAIN: Negative for pain, history of chronic pain or current treatment for chronic pain conditions CARDIOVASCULAR: Negative for chest pain, leg swelling and palpations. MSK: Negative for joint pain, swelling, back pain, muscle pain. SKIN: Negative for lesions, rash, itching, metal sensitivity NEURO: Trauma left hip ENDOCRINE: pre diabetic HEMATOLOGY: Negative for excessive bleeding, clots, bleeding disorders. Kathie Leo MD 04/19/2020 10:56 PM Signed ORTHOPAEDIC OFFICE NOTE CHIEF COMPLAINT: Follow-up left intertrochanteric hip fracture HISTORY OF PRESENT ILLNESS: Abbey Aquino is a 70 year old male who presents for follow-up evaluation of left intertrochanteric hip fracture sustained on 02/14/2020. Patient normally sees Dr. Dial, who I'm covering for this week. Overall he is doing very well. He is not having any pain at the hip. Examination with the assistance of a walker but does not feel that he needs one. He is not requiring pain medication. He denies any fevers chills nausea vomiting weight loss fatigue or malaise. Reviewed nursing note and current pain scale. PAST MEDICAL HISTORY Diagnosis Date - Heart abnormality - High cholesterol - HTN (hypertension) - S/p left hip fracture PAST SURGICAL HISTORY Procedure Laterality Date - HERNIA REPAIR HX - PAST SURGICAL HISTORY OF Left tibfib FAMILY HISTORY Family history unknown: Yes Social History Tobacco Use - Smoking status: Never Smoker - Smokeless tobacco: Never Used Substance Use Topics - Alcohol use: Never Frequency: Never - Drug use: Never MEDICATIONS: Current Outpatient Medications Medication Sig - acetaminophen (TYLENOL) 325 mg tablet Take 1-2 tablets by mouth every 6 hours as needed. - polyethylene glycol 3350 (MIRALAX, GLYCOLAX) 17 gram packet Take 1 Packet by mouth once daily. Hold if more than 2 BM per day, goal is a soft stool daily. - atorvastatin (LIPITOR) 40 mg tablet Take 40 mg by mouth once daily. - metFORMIN (GLUCOPHAGE) 500 mg tablet Take 500 mg by mouth twice daily with meals. - lisinopril (ZESTRIL, PRINIVIL) 20 mg tablet Take 20 mg by mouth twice daily. - rivaroxaban (XARELTO) 20 mg tablet Take 20 mg by mouth once daily. - tamsulosin ER (FLOMAX) 0.4 mg Take 0.4 mg by mouth once daily. - folic acid 1 mg tablet Take 1 mg by mouth twice daily. - aspirin, enteric coated (ASPIRIN, ENTERIC COATED) 81 mg EC tablet Take 81 mg by mouth once daily. - Walker misc 1 Device once daily. Wheeled adult walker - sotalol (SOTALOL AF) 80 mg tablet Take 80 mg by mouth once daily. 1/2 tablet - methotrexate sodium (METHOTREXATE, ANTI-RHEUMATIC, ORAL) Take 2.5 mg by mouth one time a week. 7 tablets once a week No current facility-administered medications for this visit. ALLERGIES: ALLERGIES Allergen Reactions - Oxycodone Mental Status Change, Itching - Percocet [Oxycodone* Mental Status Change - Vicodin [Hydrocodon* GI Upset, Vomiting PHYSICAL EXAMINATION: Resp 16 Ht 5' 7 (1.70m) Wt 170 lb (77.1kg) BMI 26.62 kg/(m2). General Appearance: Well appearing, alert, in no acute distress, well-hydrated, well nourished. Skin: Skin color, texture, turgor normal, no suspicious rashes or lesions. Respiratory: Breathing is symmetric and unlabored Gait: The patient's gait was observed. It was found to be steady without significant antalgia. He is using a walker to assist with ambulation. Extremities: Left lower extremity was examined. Skin is intact that erythema, ecchymosis or surgical scar. There is no focal area of tenderness or palpable mass. Range of motion of the hip is full and painless. Straight leg test negative. Peripheral Pulses: Normal. Neurologic: Bilateral lower extremities were examined. There is 5/5 strength with hip flexion, knee extension, dorsiflexion, EHL, plantar flexion. Sensation intact in all nerve dermatomes IMAGES: Recent Results (from the past 36 hour(s)) XR HIP 1V UNIL W PELVIS WHEN PERFORMED (AG) [facility] radiographs, 04/14/2020. AP and lateral views of the left hip were obtained and reviewed. These demonstrate clear trochanteric hip fracture. Overall alignment is well-maintained without significant change compared to previous radiographs. There is some consolidation of the fracture site. Overall stable appearing follow-up radiographs. Plan ASSESSMENT AND PLAN: 1. Closed fracture of trochanter of left femur, initial encounter ([facility]) - ICD9: 820.20, ICD10: S72.102A Functional Plan: Patient is a 70-year-old male presenting for follow-up evaluation of left greater trochanteric hip fracture sustained on 02/14/2020. He normally sees Dr. Dial who I'm covering for this week. Overall he is doing well and is not having any pain at the hip. He is ambulating with a walker without issue. Radiographs today are stable. At this point time I think he begin to progress his weightbearing to as tolerated. He can come off the walker to independent ambulation as able. I did recommend referral to physical therapy for evaluation and management as indicated. He has deferred at this time. I did recommend that he follow up with Dr. Dial at least 1 more time in approximately 8 weeks for further evaluation and possible release to as needed follow-up. All his questions were answered satisfactorily. He expressed understanding of and agreement with the treatment plan. Return in about 8 weeks (around 06/09/2020). Kathie Leo MD Referring Provider: KEVEN DIAL [[id number]] Allergies As of Date: 04/14/2020 Noted Allergy Reaction OXYCODONE 02/25/2020 1 - Mental Status Change 9 - Itching PERCOCET (OXYCODONE-ACETAMINOP HEN)02/18/2020 1 - Mental Status Change VICODIN (HYDROCODONE-ACETAMIN OPHE*02/25/2020 8 - GI Upset 11 - Vomiting Date Reviewed: 04/14/2020 Reviewed by: Guerita Hinds [facility] - Fully Assessed Reason for Visit: New [[id number]] Primary Visit Diagnosis:Closed fracture of trochanter of left femur, initial encounter ([facility]) [S72.102A] Order(s):XR HIP 1V UNIL W PELVIS WHEN PERFORMED () [[id number]] Order #: [id number] Prescriptions as of 04/14/2020 Sig: ACETAMINOPHEN 325 MG TABLET Take 1-2 tablets by mouth laney* POLYETHYLENE GLYCOL 3350 17 G* Take 1 Packet by mouth once d* ATORVASTATIN 40 MG TABLET Take 40 mg by mouth once simone* METFORMIN 500 MG TABLET Take 500 mg by mouth twice da* LISINOPRIL 20 MG TABLET Take 20 mg by mouth twice nicholas* RIVAROXABAN 20 MG TABLET Take 20 mg by mouth once simone* TAMSULOSIN 0.4 MG CAPSULE Take 0.4 mg by mouth once nicholas* FOLIC ACID 1 MG TABLET Take 1 mg by mouth twice simone* ASPIRIN 81 MG TABLET,DELAYED * Take 81 mg by mouth once simone* WALKER 1 Device once daily. Wheeled * SOTALOL 80 MG TABLET Take 80 mg by mouth once simone* METHOTREXATE (ANTI-RHEUMATIC)* Take 2.5 mg by mouth one time* Medication notes this encounter METHOTREXATE (ANTI-RHEUMATIC) ORAL >> Guerita Guzman Showcase 04/14/2020 2:02 PM >> [facility] Apr 14, 2020 2:02 PM DC Problem List As Of Date 04/14/2020 Noted Resolved Left hip pain [M25.552] 02/23/2020 Sigmoid diverticulitis [K57.32] 02/24/2020 Disposition: Return in about 8 weeks (around 06/09/2020). Follow-up and Disposition History Recorded Encounter Status:Closed by KATHIE LEO MD on 04/19/20 [facility] PROGRESSon 04-14-2020 PROGRESS HNO ID: [id number] Author: Guerita [place] Service: ? Author Type: ? Type: Progress Notes Filed: 04/19/2020 10:56 PM Note Text: REVIEW OF SYSTEMS: GENERAL: Well developed, well nourished. No acute distress PAIN: Negative for pain, history of chronic pain or current treatment for chronic pain conditions CARDIOVASCULAR: Negative for chest pain, leg swelling and palpations. MSK: Negative for joint pain, swelling, back pain, muscle pain. SKIN: Negative for lesions, rash, itching, metal sensitivity NEURO: Trauma left hip ENDOCRINE: pre diabetic HEMATOLOGY: Negative for excessive bleeding, clots, bleeding disorders. [facility] CNOVon 03-17-2020 [facility] Office Visit (AGHWW1 ) ABBEY AQUINO ([id number]) 1950 M Date Time Provider Department 03/17/20 9:15 AM KEVEN DIAL AGHWW1 During your visit today, we recorded the following information about you: Respiration Weight Height 16/minute 77.1 kg 1.702 m Sindi Browne CMA 03/17/2020 10:39 AM Signed REVIEW OF SYSTEMS: GENERAL: Well developed, well nourished. No acute distress PAIN: Pain left hip CARDIOVASCULAR: Negative for chest pain, leg swelling and palpations. MSK: Negative for joint pain, swelling, back pain, muscle pain. SKIN: Negative for lesions, rash, itching, metal sensitivity NEURO: Negative for seizure, trauma, numbness/tingling of extremities. ENDOCRINE: Negative for Diabetes Type 1 and Type 2 HEMATOLOGY: Negative for excessive bleeding, clots, bleeding disorders. Keven Dial MD 03/17/2020 10:39 AM Signed Follow-up Patient Visit Abbey Aquino is a 69 year old male who presents to follow up for Closed fracture of trochanter of left femur, initial encounter ([facility]) (primary encounter diagnosis) Current or previous treatment regimens: NSAIDS Medications: Current Outpatient Medications Medication Sig - acetaminophen (TYLENOL) 325 mg tablet Take 1-2 tablets by mouth every 6 hours as needed. - polyethylene glycol 3350 (MIRALAX, GLYCOLAX) 17 gram packet Take 1 Packet by mouth once daily. Hold if more than 2 BM per day, goal is a soft stool daily. - senna-docusate (SENNA-S) 8.6-50 mg per tablet Take 1 tablet by mouth once daily as needed. Watch for constipation while on pain meds. - Walker misc 1 Device once daily. Wheeled adult walker - atorvastatin (LIPITOR) 40 mg tablet Take 40 mg by mouth once daily. - metFORMIN (GLUCOPHAGE) 500 mg tablet Take 500 mg by mouth twice daily with meals. - lisinopril (ZESTRIL, PRINIVIL) 20 mg tablet Take 20 mg by mouth twice daily. - rivaroxaban (XARELTO) 20 mg tablet Take 20 mg by mouth once daily. - sotalol (SOTALOL AF) 80 mg tablet Take 80 mg by mouth once daily. 1/2 tablet - tamsulosin ER (FLOMAX) 0.4 mg Take 0.4 mg by mouth once daily. - folic acid 1 mg tablet Take 1 mg by mouth twice daily. - aspirin, enteric coated (ASPIRIN, ENTERIC COATED) 81 mg EC tablet Take 81 mg by mouth once daily. - methotrexate sodium (METHOTREXATE, ANTI-RHEUMATIC, ORAL) Take 2.5 mg by mouth one time a week. 7 tablets once a week No current facility-administered medications for this visit. Allergies: ALLERGIES Allergen Reactions - Oxycodone Mental Status Change, Itching - Percocet [Oxycodone* Mental Status Change - Vicodin [Hydrocodon* GI Upset, Vomiting Physical Examination: Resp 16 Ht 5' 7 (1.70m) Wt 170 lb (77.1kg) BMI 26.62 kg/(m2). Ortho Exam Ambulating with walker nonweightbearing No pain with hip ROM LLE NVI Images: AP pelvis taken today and reviewed by myself shows stable left intertrochanteric fracture without displacement with interval healing Procedures [place] Score: na Assessment and Plan: 1. Closed fracture of trochanter of left femur, initial encounter ([facility]) - ICD9: 820.20, ICD10: S72.102A Partial weight bearing with a walker FU in 3 weeks with xray Likely advance in weight bearing No follow-ups on file. Keven Dial MD Referring Provider: SELF [[id number]] Allergies As of Date: 03/17/2020 Noted Allergy Reaction OXYCODONE 02/25/2020 1 - Mental Status Change 9 - Itching PERCOCET (OXYCODONE-ACETAMINOP HEN)02/18/2020 1 - Mental Status Change VICODIN (HYDROCODONE-ACETAMIN OPHE*02/25/2020 8 - GI Upset 11 - Vomiting Date Reviewed: 03/17/2020 Reviewed by: Keven Dial - Fully Assessed Reason for Visit: Follow Up [[id number]] Primary Visit Diagnosis:Closed fracture of trochanter of left femur, initial encounter ([facility]) [S72.102A] Order(s):XR PELVIS 1V AP [[id number]] Order #: [id number] Prescriptions as of 03/17/2020 Sig: ACETAMINOPHEN 325 MG TABLET Take 1-2 tablets by mouth laney* POLYETHYLENE GLYCOL 3350 17 G* Take 1 Packet by mouth once d* SENNOSIDES 8.6 MG-DOCUSATE SO* Take 1 tablet by mouth once d* WALKER 1 Device once daily. Wheeled * ATORVASTATIN 40 MG TABLET Take 40 mg by mouth once simone* METFORMIN 500 MG TABLET Take 500 mg by mouth twice da* LISINOPRIL 20 MG TABLET Take 20 mg by mouth twice nicholas* RIVAROXABAN 20 MG TABLET Take 20 mg by mouth once simone* SOTALOL 80 MG TABLET Take 80 mg by mouth once simone* TAMSULOSIN 0.4 MG CAPSULE Take 0.4 mg by mouth once nicholas* FOLIC ACID 1 MG TABLET Take 1 mg by mouth twice simone* ASPIRIN 81 MG TABLET,DELAYED * Take 81 mg by mouth once simone* METHOTREXATE (ANTI-RHEUMATIC)* Take 2.5 mg by mouth one time* Problem List As Of Date 03/17/2020 Noted Resolved Left hip pain [M25.552] 02/23/2020 Sigmoid diverticulitis [K57.32] 02/24/2020 Encounter Status:Closed by KEVEN DIAL MD on 03/17/20 [facility] PROGRESSon 03-17-2020 PROGRESS HNO ID: [id number] Author: Keven Dial Service: ? Author Type: Physician Type: Progress Notes Filed: 03/17/2020 10:39 AM Note Text: Follow-up Patient Visit Abbey Aquino is a 69 year old male who presents to follow up for Closed fracture of trochanter of left femur, initial encounter ([facility]) (primary encounter diagnosis) Current or previous treatment regimens: NSAIDS Medications: Current Outpatient Medications Medication Sig - acetaminophen (TYLENOL) 325 mg tablet Take 1-2 tablets by mouth every 6 hours as needed. - polyethylene glycol 3350 (MIRALAX, GLYCOLAX) 17 gram packet Take 1 Packet by mouth once daily. Hold if more than 2 BM per day, goal is a soft stool daily. - senna-docusate (SENNA-S) 8.6-50 mg per tablet Take 1 tablet by mouth once daily as needed. Watch for constipation while on pain meds. - Walker misc 1 Device once daily. Wheeled adult walker - atorvastatin (LIPITOR) 40 mg tablet Take 40 mg by mouth once daily. - metFORMIN (GLUCOPHAGE) 500 mg tablet Take 500 mg by mouth twice daily with meals. - lisinopril (ZESTRIL, PRINIVIL) 20 mg tablet Take 20 mg by mouth twice daily. - rivaroxaban (XARELTO) 20 mg tablet Take 20 mg by mouth once daily. - sotalol (SOTALOL AF) 80 mg tablet Take 80 mg by mouth once daily. 1/2 tablet - tamsulosin ER (FLOMAX) 0.4 mg Take 0.4 mg by mouth once daily. - folic acid 1 mg tablet Take 1 mg by mouth twice daily. - aspirin, enteric coated (ASPIRIN, ENTERIC COATED) 81 mg EC tablet Take 81 mg by mouth once daily. - methotrexate sodium (METHOTREXATE, ANTI-RHEUMATIC, ORAL) Take 2.5 mg by mouth one time a week. 7 tablets once a week No current facility-administered medications for this visit. Allergies: ALLERGIES Allergen Reactions - Oxycodone Mental Status Change, Itching - Percocet [Oxycodone* Mental Status Change - Vicodin [Hydrocodon* GI Upset, Vomiting Physical Examination: Resp 16 Ht 5' 7 (1.70m) Wt 170 lb (77.1kg) BMI 26.62 kg/(m2). Ortho Exam Ambulating with walker nonweightbearing No pain with hip ROM LLE NVI Images: AP pelvis taken today and reviewed by myself shows stable left intertrochanteric fracture without displacement with interval healing Procedures [place] Score: na Assessment and Plan: 1. Closed fracture of trochanter of left femur, initial encounter ([facility]) - ICD9: 820.20, ICD10: S72.102A Partial weight bearing with a walker FU in 3 weeks with xray Likely advance in weight bearing No follow-ups on file. Keven Dial MD [facility] PROGRESS HNO ID: [id number] Author: Sindi Browne Service: ? Author Type: College Instructor Type: Progress Notes Filed: 03/17/2020 10:39 AM Note Text: REVIEW OF SYSTEMS: GENERAL: Well developed, well nourished. No acute distress PAIN: Pain left hip CARDIOVASCULAR: Negative for chest pain, leg swelling and palpations. MSK: Negative for joint pain, swelling, back pain, muscle pain. SKIN: Negative for lesions, rash, itching, metal sensitivity NEURO: Negative for seizure, trauma, numbness/tingling of extremities. ENDOCRINE: Negative for Diabetes Type 1 and Type 2 HEMATOLOGY: Negative for excessive bleeding, clots, bleeding disorders. [facility] ALLIED HEALTHon 02-26-2020 ALLIED HEALTH HNO ID: [id number] Author: Luna (Student) Alla Oquendo Service: Spiritual Care Author Type: Student Type: Allied Health Filed: 02/26/2020 2:03 PM Note Text: Summary: Spiritual Care SPIRITUAL CARE PROGRESS NOTE SERVICE DATE: 02/26/2020 SERVICE TIME: 2:00pm As center consultant, I contacted pt by phone. He was happy to be going home soon. Nothing needed at this time. Pt expressed gratitude for call. To contact the Spiritual Care Department: Please call [phone]. SIGNATURE: Alla Mosher PATIENT NAME: Abbey Aquino DATE: February 26, 2020 TIME: 2:02 PM PAGER/CONTACT #: [phone] [facility] CASE MANAGEMon 02-26-2020 CASE MANAGEM HNO ID: [id number] Author: Rosa CorbettRn) BAILEE Cruz Service: Care Management Author Type: Registered Nurse Type: Care Mgt Progress Note Filed: 02/26/2020 1:29 PM Note Text: CARE MANAGEMENT DISCHARGE NOTE SERVICE DATE: 02/26/2020 SERVICE TIME: 1:25 PM LOS: 2 days Admission Date: 02/23/2020 DISCHARGE ARRANGEMENT (list agency and phone number) Home Care: Nursing;PT;OT Provider Name: Nicole [facility] CAREGIVER ASSESSMENT: Caregiver is ready, willing and able to meet the patient's needs as recommended by the inter-professional team:: Yes Does the patient have an acute stroke diagnosis, or has the patient had a stroke during this admission?: No HANDOFF COMMUNICATION: Handoff to: Primary Care Physician Primary Care Physician Name/Phone: Sarah Ennis TRANSPORTATION ARRANGEMENTS: Transportation Arrangements: Car ADDITIONAL CONTACT RESOURCES: [facility] made aware of discharge and orders for HHC were uploaded to them along with a discharge summary. They will reach out to patient for SOC. Spoke with patient and made him aware. SIGNATURE: Rosa Cruz RN PATIENT NAME: Abbey Aquino DATE: February 26, 2020 TIME: 1:22 PM PAGER/CONTACT #: [phone] [facility] CASE MANAGEM HNO ID: [id number] Author: Lara Gr Service: Care Management Author Type: ? Type: Care Mgt Progress Note Filed: 02/26/2020 12:09 PM Note Text: CARE MANAGEMENT PROGRESS NOTE SERVICE DATE: 02/26/2020 SERVICE TIME: 1000 LOS: 2 days IMM Follow Up Copy Given: Yes Copy given to:: Patient Method: In Person SIGNATURE: Lara Gr PATIENT NAME: Abbey Aquino DATE: February 26, 2020 TIME: 12:09 PM PAGER/CONTACT #: [facility] PROGRESSon 02-26-2020 PROGRESS HNO ID: [id number] Author: Hanane Mercedes Service: Hospital Medicine Author Type: Physician Type: Progress Notes Filed: 02/26/2020 10:59 AM Note Text: To whom it may concern - Abbey Aquino has been our care from 02/22 to 02/26/2020. His son has been helping with his care during this time, his care for his father is very much appreciated. Sincerely, Hanane Mercedes MD [facility] THERAPY NTon 02-26-2020 THERAPY NT HNO ID: [id number] Author: Jez Kinsey) Marky Service: Physical Therapy Author Type: Shell Grader Type: Therapy (PT/OT/Speech/Resp) Filed: 02/26/2020 9:06 AM Note Text: Attestation signed by Jane Hernandez at 02/26/2020 10:54 AM I reviewed and agree with the documentation corresponding to this therapy visit. SIGNATURE: Jane Hernandez PT DATE: February 26, 2020 TIME: 10:54 AM Physical Therapy Treatment SERVICE DATE: 02/26/2020 SERVICE TIME: 831 to 855 ROOM: [id number] Recommended Discharge Disposition: Home PT Recommended Discharge Disposition Comments: Patient is demonstrating much more pain since fall at home. Anticipate return home with assist from as needed. Anticipated Discharge Needs: Physical Assist at Home Physical Assist at Home for: Self Care;Safety;Meals;Michaels ndry;Cleaning;Transpo rtation Recommended Discharge Equipment: Wheeled Walker PT Recommendations to Nursing: Ambulate with device;To bathroom;Transfer to/from chair;OOB for Meals;With assist of 1 person Device: Wheeled Walker(gait belt, TTWB on LLE) PT 6 Clicks Score: 18 Precautions/Activity Restrictions: Weight Bearing Restrictions;Fall Risk Isolation Type: None Extremity With Weight Bearing Restricted: Left Lower Extremity Left Lower Extremity Weight Bearing Status: TTWB ASSESSMENT : Patient presents with ongoing PT goals--patient with improved gait distances, patient continues to not want to place TTWB on LLE keeping at NWB. Patient on pace for home going at discharge. continue to recommend home PT to improve strength, ROM, balance,endurance, normalize gait pattern and improved safety and performance in the home back to prior level of function. Patient Disposition at Start of Session: OOB in Chair;Call Scott in Reach Patient Disposition at End of Session: OOB in Chair;Call Scott in Reach Tolerated Full Session Physical Therapy Problem List: Pain;Safety Deficits;Decreased Activity Tolerance;Decreased Range Of Motion;Decreased Strength;Functional Mobility Impairment;Balance Impaired Patient /Caregiver Goals: Go Home Goals for Plan of Care: Rolling with: Contact Guard Assistance Transfer supine to/from sit with: Contact Guard Assistance Transfer sit to/from stand with: Contact Guard Assistance Ambulate with: Contact Guard Assistance Distance: 20ft Device: Wheeled Walker Transfer: complete bed to chair transfer with contact guard assistance Progress Toward Goals: Progressing as expected Rehab Potential: Good PLAN: Treatment Frequency (times per week): 5(2-5) Current admission Treatment Interventions: Education;Strengtheni ng;Functional Mobility Training;Balance Training;Neuromuscula r Re-education Plan of Care developed with: Patient Additional personnel present during visit: Anita Glover TREATMENT INTERVENTIONS: Therapy Diagnosis: Difficulty walking-musculoskelet al Interventions Provided: Therapeutic Exercise (43109);Therapeutic Activity (01496);Gait Training (87548) Therapeutic Exercise (06781) Treatment Minutes: 13 1 unit Skilled Intervention(s): Patient completed LE strengthening hip fracture protocol (ankle pump, quad set, gluteal set, heel slide, hip abd/add to neutral, short arc quad, long arc quad, hip adductor squeeze) x 15 reps with cuing to minimal amount of assist. HEP issued and reviewed with patient and how family can assist at home as needed. Patient reports 5/10 pain. Patient set up with ice to surgical hip and elevated lower extremity as needed. Therapeutic Activity (95768) Treatment Minutes: 3 0 units Skilled Intervention(s): Instruction in sit to and from stand technique with proper hand placement and body positioning at edge of bed/chair--cuing to keep LLE kicked out to prevent WB during transfer, cuing for proper scooting, UE support, squaring up to seated surfaces and slow controlled movements. Patient with recall of TTWB precaution on LLE. Gait Training (16944) Treatment Minutes: 8 1 unit Skilled Intervention(s): Instruction in sit to stand technique with proper hand placement and body positioning at edge of bed/chair, Instruction in stand to sit technique with LE's touching chair/bed and reaching back for surface, Instruction in sequencing, gait pattern and Instruction in correction of gait deviations--cuing for proper TTWB on LLE, however patient remains NWB during gait tasks, cuing for proper UE support on walker, posture, heels strike, step length, rolling walker not picking it up. Total Timed Code Treatment Minutes: 24 Total Treatment Time (minutes): 24 SUBJECTIVE: Current Hospital Course: Chart reviewed and no significant medical updates relevant to therapy were noted Reason for Physical Therapy Consult : eval and treat Relevant Past Medical History: L femur fx Patient Report: patient stated should be going home today sometime. Home Environment Patient Lives With: Spouse Assistance Available: 24 Hour Number Of Stairs To Bed/Bath: 0 Tub/Shower Type: tub and shower; has been sponge bathing Laundry: spouse can provide Equipment Owned: Crutch(es);Shower Chair Prior Functional Level: Within Functional Limits Prior Functional Level Comments: Prior to initial fall, was completely indepenent. Since fall, has been NWB with crutches OBJECTIVE: CURRENT FUNCTIONAL STATUS: Current Functional Mobility Assist Level Additional Information Rolling Supine to Sit Sit to Supine Scooting Sit to Stand Contact Guard Assistance Stand to Sit Contact Guard Assistance Bed to Chair Toilet/Commode Gait Contact Guard Assistance Gait Device: Wheeled Walker Gait Distance (feet): 20'x2 Stairs Curb Step Car Transfer Gait Deviations Left Lower Extremity: (TTWB, but patient maintaining NWB) General Deviations/Observatio ns: Antalgic gait;Chacha decreased;Difficulty changing direction/turning;Fle xed trunk posture;Narrow Base of Support;Non-functiona l gait speed;Step length decreased;UE weight bearing on assistive device excessive Balance: Static Sitting;Dynamic Sitting;Static Standing;Dynamic Standing Static Sitting Balance: Good Patient able to maintain balance without handhold support, limited postural sway Dynamic Sitting Balance: Good Patient accepts moderate challenge, able to maintain balance while picking up object off floor Static Standing Balance: Fair Patient able to maintain balance with handhold support, may require occasional minimal assistance Dynamic Standing Balance: Fair Patient accepts minimal challenge, able to maintain balance while turning head/trunk JH-HLM: 7: Walk 25 feet or more Please see discipline specific clinical documentation flowsheet for complete details for this therapy evaluation/treatment. SIGNATURE: Jez Negro PTA PATIENT NAME: Abbey Aquino DATE: February 26, 2020 TIME: 9:01 AM Normal [facility] CASE MGT INIT MARIA LUISA 2019 CASE MGT INIT MARIA LUISA HNO ID: [id number] Author: Rosa CorbettRn) BAILEE Cruz Service: Care Management Author Type: Registered Nurse Type: Care Mgt Initial Assessment Filed: 02/25/2020 4:09 PM Note Text: CARE MANAGEMENT: ASSESSMENT AND DISCHARGE PLAN SERVICE DATE: February 25, 2020 SERVICE TIME: 4:07 PM PRIMARY CARE PHYSICIAN: Sarah Ennis MD ADMISSION STATUS: Inpatient Needs Prior to Discharge: Home Care Order;Other: See Comment MEDICAL: MEDICARE A AND B Patient/Representativ e Stated Goals: To have reduction in pain;To have reduction in symptoms;To return home to life as it was Health Insurance: Medicare Health Issues Impacting Discharge Plan: Newly diagnosed Newly Diagnosed: Fall-femurFx Last Discharge Date: 02/23/20 Is this Within the Past 30 days? Last discharge within 30 days: No Advance Directive: Current Advance Directive: Living Will In Chart: No Operations Systems Specialist Attempted to Assist with AD Completion: Yes Action: Education Provided Health LiteracyHow often do you need to have someone help you when you read instructions, pamphlets, or other written material from your doctor or pharmacy? : 1 - Never How confident are you filling out medical forms by yourself?: 1 - Extremely If Patient scores > 3 on either question, the following interventions were put into place:: Patient did not score > 3 on either question. Baseline Mental Status Prior to this Illness what was the patient's Baseline Mental Status?: Alert AND Oriented Prior to this illness, has anyone described the patient having any of the following behaviors?: Not Applicable Relationship of the informant to the patient:: Self Functional Status: Independent Does Patient Currently Receive Any Community Services or Home Care?: None Equipment Prior to Admission: Crutches SOCIAL: Living Arrangements: Home Lives With: Spouse;Son Financial Resources: RetiredPrimary Contact: Extended Emergency Contact Information Primary Emergency Contact: Maurice Aquino Address: [address] [place] [address] Mobile Relation: Spouse Supportive Patient Contact:: Yes Social Needs Food insecurity Worry: Not on file Inability: Not on file Resources Needed: No Social Needs Financial resource strain: Not on file Social Needs Transportation needs Medical: Not on file Non-medical: Not on file Caregiver Assessment Patient's perception of need for this admission: Fall Medication Adherance I am convinced of the importance of my prescription medication: 0 - Agree Completely I worry that my prescription medication will do more harm than good to me : 0 - Disagree Completely I feel financially burdened by my [id number] expenses for my prescription medication:: 0 - Disagree Completely Risk Score: 0 Patient is categorized as: Low risk < 2 Are you interested in bedside delivery of your medications? No Is Patient Psychosocially Complex?: No ASSESSMENT AND PLAN: Medical Needs: Medical Needs: Two or more chronic diseases Psychosocial Needs: Psychosocial Needs: None FREEDOM OF CHOICE EXPLAINED: Ivins of Choice Given: Yes Level of Care Discussed: Home Care Financial Disclosure Provided: Yes Financial Disclosure Comments: [facility] POTENTIAL TRANSITION PLANS Patient lives with spouse and son. 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 +PCP, DME and Rx coverage. Patient given RX's for BSC and WW. Son is coming to hospital this evening and will get Rx's filled for patient. PT recommends home therapy. Patient does not have a [facility] choice and is agreeable to [facility] or other [facility] company. Plan is home with [facility]. SIGNATURE: Rosa Cruz RN PATIENT NAME: Abbey Aquino DATE: February 25, 2020 TIME: 4:07 PM PAGER/CONTACT #: [phone] [facility] Hemogram/Diffon 02-25-2020 Abs Immature Grans 0.04 thou/cmm Normal 0.00-0.05 [facility] Comment on above: Performed By: #### M PT #### [address] [address] Abs Neut (ANC) 5.30 thou/cmm Normal 1.78-5.38 [facility] Comment on above: Performed By: #### M PT #### [address] [address] Abs. Baso 0.06 thou/cmm Normal 0.01-0.[address] [facility] Comment on above: Performed By: #### M PT #### [address] [address] Abs. [place] 0.87 thou/cmm High 0.30-0.[address] [facility] Comment on above: Performed By: #### M PT #### [facility] [address] [place], [place] [address] Basophils/100 WBC (Bld) 0.7 % Normal [facility] Comment on above: Performed By: #### M PT #### [facility] [address] [place], [place] [address] Eosinophils (Bld) [#/Vol] 0.24 thou/cmm Normal 0.04-0.54 [facility] Comment on above: Performed By: #### M PT #### [facility] [address] [place], [place] [address] Eosinophils/100 WBC (Bld) 2.9 % Normal [facility] Comment on above: Performed By: #### M PT #### [facility] [address] [place] [address] Erythrocyte distribution width (RBC) [Ratio] 13.4 % Normal 11.6-14.4 [facility] Comment on above: Performed By: #### M PT #### [facility] [address] [place] [address] Hematocrit (Bld) [Volume fraction] 37.7 % Low 40.1-51.0 [facility] Comment on above: Performed By: #### M PT #### [facility] [address] [place] [address] Hemoglobin (Bld) [Mass/Vol] 12.5 g/dL Low 13.7-17.5 [facility] Comment on above: Performed By: #### M PT #### [place] [address] Immature Grans 0.50 % Normal [facility] Comment on above: Performed By: #### M PT #### [place] [address] Lymphocytes (Bld) [#/Vol] 1.66 thou/cmm Normal 0.84-2.85 [facility] Comment on above: Performed By: #### M PT #### [place] [address] Lymphocytes/100 WBC (Bld) 20.3 % Normal [facility] Comment on above: Performed By: #### M PT #### [place] [address] MCH (RBC) [Entitic mass] 31.2 pg Normal 25.7-32.2 [facility] Comment on above: Performed By: #### M PT #### [facility] [address] [place] [address] MCHC (RBC) [Mass/Vol] 33.2 % Normal 32.3-36.5 [facility] Comment on above: Performed By: #### M PT #### [place] [address] MCV (RBC) [Entitic vol] 94.0 fL Normal 83.2-95.6 [facility] Comment on above: Performed By: #### M PT #### [facility] [address] [place], [place] [address] Monocytes/100 WBC (Bld) 10.7 % Normal [facility] Comment on above: Performed By: #### M PT #### [facility] [address] [place], [place] [address] Platelet mean volume (Bld) [Entitic vol] 10.0 fL Normal 8.7-12.0 [facility] Comment on above: Performed By: #### M PT #### [facility] [address] [place], [place] [address] Platelets (Bld) [#/Vol] 214 thou/cmm Normal 141-365 [facility] Comment on above: Performed By: #### M PT #### [facility] [address] [place], [place] [address] RBC (Bld) [#/Vol] 4.01 mil/cmm Low 4.63-6.08 [facility] Comment on above: Performed By: #### M PT #### [facility] [address] [place], [place] [address] RDW SD 46.2 fl High 36.1-45.8 [facility] Comment on above: Performed By: #### M PT #### [facility] [address] [place], [place] [address] Seg Neutrophil 64.9 % Normal [facility] Comment on above: Performed By: #### M PT #### [facility] [address] [place], [place] [address] WBC (Bld) [#/Vol] 8.16 thou/cmm Normal 4.23-9.07 [facility] Comment on above: Performed By: #### M PT #### [facility] [address] [place] [address] MDRD GFRon 02-25-2020 GFR/1.73 sq M predicted among non-blacks MDRD (S/P/Bld) [Vol rate/Area] mL/min/{1.73_m2} Normal >60mL/min/1. 73m2 [facility] Comment on above: Result Comment: If t he patient is , multiply the result by 1.210. Performed By: #### M PT #### [facility] [address] [place] [address] PROGRESSon 02-25-2020 PROGRESS HNO ID: [id number] Author: Hanane Mercedes Service: Hospital Medicine Author Type: Physician Type: Progress Notes Filed: 02/25/2020 1:27 PM Note Text: Subjective - Follow up note for [facility] Medicine, see also 02/23 note for chart review. Events since pt seen on 02/23 reviewed below. . PT again recommended home with home care on re-evaluation today. Visit with pt and his son this afteroon - Pt says he is doing better, pain controlled now on tramadol, had normal BM today, finished 100% of lunch today as well. Says he would like dc tomorrow to home, does not feel ready today. Objective - 02/24/20 1613 02/24/20 2024 02/25/20 0305 02/25/20 0850 BP: 114/65 118/60 117/62 107/60 Pulse: 60 61 66 63 Resp: 18 17 16 18 Temp: 36.9 ?C (98.4 ?F) 36.8 ?C (98.2 ?F) 36.7 ?C (98.1 ?F) 36.6 ?C (97.9 ?F) TempSrc: Oral Oral Oral Oral SpO2: 94% 95% 96% 93% Weight: Height: CXR left hip - IMPRESSION: Lucency along the long axis of the left femur at the subtrochanteric level extending to the lateral cortex, consistent with a nondisplaced acute fracture. Fracture also involves the greater trochanter Results for ABBEY AQUINO ( ) as of 02/25/2020 12:02 Ref. Range 02/23/2020 18:55 02/25/2020 02:20 Sodium Latest Ref Range: 136 - 144 mmol/L 139 Potassium Latest Ref Range: 3.7 - 5.1 mmol/L see below Chloride Latest Ref Range: 97 - 105 mmol/L 98 CO2 Latest Ref Range: 22 - 30 mmol/L 27 BUN Latest Ref Range: 9 - 24 mg/dL 23 Creatinine Latest Ref Range: 0.73 - 1.22 mg/dL 0.93 Glucose Latest Ref Range: 74 - 99 mg/dL 106 (H) Calcium Latest Ref Range: 8.5 - 10.2 mg/dL 9.0 Phosphorus Latest Ref Range: 2.7 - 4.8 mg/dL 4.1 Albumin Latest Ref Range: 3.9 - 4.9 g/dL 3.8 (L) Anion Gap Latest Ref Range: 9 - 18 mmol/L 14 eGFR Latest Ref Range: >60mL/min/1.73m2 >60 Hematocrit Latest Ref Range: 40.1 - 51.0 % 37.7 (L) COVID 19 Result WELT SOLE LAYER Latest Ref Range: CORNEG Negative WBC Latest Ref Range: 4.23 - 9.07 thou/cmm 8.16 RBC Latest Ref Range: 4.63 - 6.08 mil/cmm 4.01 (L) HGB Latest Ref Range: 13.7 - 17.5 g/dL 12.5 (L) Platelet Count Latest Ref Range: 141 - 365 thou/cmm 214 MCV Latest Ref Range: 83.2 - 95.6 fl 94.0 MCH Latest Ref Range: 25.7 - 32.2 pg 31.2 MCHC Latest Ref Range: 32.3 - 36.5 % 33.2 MPV Latest Ref Range: 8.7 - 12.0 fl 10.0 RDW-SD Latest Ref Range: 36.1 - 45.8 fl 46.2 (H) Seg Neutrophil Latest Units: % 64.9 Lymphocyte Latest Units: % 20.3 Monocyte Latest Units: % 10.7 Eosinophil Latest Units: % 2.9 Basophil Latest Units: % 0.7 Abs. Baso Latest Ref Range: 0.01 - 0.08 thou/cmm 0.06 Abs. Eosin Latest Ref Range: 0.04 - 0.54 thou/cmm 0.24 Immature Grans Latest Units: % 0.50 Immature Grans # Latest Ref Range: 0.00 - 0.05 thou/cmm 0.04 Abs. Lymph Latest Ref Range: 0.84 - 2.85 thou/cmm 1.66 Abs. [place] Latest Ref Range: 0.30 - 0.82 thou/cmm 0.87 (H) RDW Latest Ref Range: 11.6 - 14.4 % 13.4 Abs. Neut(Anc) Latest Ref Range: 1.78 - 5.38 thou/cmm 5.30 Current Facility-Administered Medications Medication Dose Route Frequency - acetaminophen 325-650 mg tab(s) (TYLENOL) 325-650 mg ORAL q 6 H PRN - ciprofloxacin HCl 500 mg tab(s) (CIPRO) 500 mg ORAL q 12 H - metroNIDAZOLE 500 mg tab(s) (FLAGYL) 500 mg ORAL q 8 H - polyethylene glycol 3350 17 g packet (MIRALAX, GLYCOLAX) 17 g ORAL DAILY - senna-docusate 8.6-50 mg 1 tablet (SENNA-S) 1 tablet ORAL DAILY PRN - traMADol 50 mg tab(s) (ULTRAM) 50 mg ORAL q 6 H PRN - morphine 2 mg injection 2 mg INTRAVENOUS q 6 H PRN - metFORMIN 500 mg tab(s) (GLUCOPHAGE) 500 mg ORAL BID w MEALS - atorvastatin 40 mg tab(s) (LIPITOR) 40 mg ORAL DAILY - lisinopril 20 mg tab(s) (ZESTRIL, PRINIVIL) 20 mg ORAL BID - tamsulosin ER 0.4 mg cap(s) (FLOMAX) 0.4 mg ORAL DAILY - sotalol 80 mg (BETAPACE) 80 mg ORAL DAILY - rivaroxaban 20 mg tab(s) (XARELTO) 20 mg ORAL DAILY - folic acid 1 mg tab(s) 1 mg ORAL BID - aspirin, enteric coated 81 mg tab(s) 81 mg ORAL DAILY GEN - well appearing but sl anxious 69 yo gentleman sitting up in chair at side of bed, just finished lunch HEENT - glasses, mouth moist CARD - RRR PULM - CTABL ABD - soft, nontender EXT - no edema NEURO - no focal deficits Assessment/plan - 1) Left greater trochanteric femur?fracture - no surgical intervention per Ortho, TTWB, PT and OT, pain control. Home therapy is recommended by PT and OT, ordered. Pain now controlled with low dose tramadol, no ill efffects. Pt said the percocet x1 yesterday 'made me loopy'. ? 2) hx of Afib/CAD - continue home meds, cannot take any type of NSAID due to Xarelto ? 3) Diverticulitis - asymptomatic, abx to oral, monitor, WBC now normal, miralax as needed for constipation due to pain meds ? 4) DM II - stable, continue metformin ? 5) BPH - stable, continue flomax ? 6) GI and DVT prophylaxis - diet, xarelto ? 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 Son requested a note for his work tomorrow, as he has been helping with pt's care and will be taking him home tomorrow. Normal [facility] Renal Function Panelon 02-24 Albumin [Mass/Vol] 3.8 g/dL Low 3.9-4.9 [facility] Comment on above: Performed By: #### M PT #### [facility] [address] [place], [place] [address] Anion gap [Moles/Vol] 14 mmol/L Normal 9-18 [facility] Comment on above: Performed By: #### M PT #### [facility] [address], [place] [address] Calcium [Mass/Vol] 9.0 mg/dL Normal 8.5-10.2 [facility] Comment on above: Performed By: #### M PT #### [facility] [address] [place], [place] [address] Chloride [Moles/Vol] 98 mmol/L Normal 97-105 [facility] Comment on above: Performed By: #### M PT #### [facility] [address], [place] [address] CO2 Blood 27 mmol/L Normal 22-30 [facility] Comment on above: Performed By: #### M PT #### [facility] [address], [place] [address] Creatinine [Mass/Vol] 0.93 mg/dL Normal 0.73-1.22 [facility] Comment on above: Performed By: #### M PT #### [facility] [address] [place], [place] [address] Glucose [Mass/Vol] 106 mg/dL High 74-99 [facility] Comment on above: Result Comment: The [place] [employer] (ADA) provides guidance for cutoff values for fasting glucose and random glucose. The ADA defines fasting as no caloric intake for at least 8 hours.Fasting plasma glucose results between 100 to 125 mg/dL indicate increased risk for diabetes (prediabetes). Fasting plasma glucose results greater than or equal to 126 mg/dL meet the criteria for diagnosis of diabetes. In the absence of unequivocal hyperglycemia, results should be confirmed by repeat testing. In a patient with classic symptoms of hyperglycemia or hyperglycemic crisis, random plasma glucose results greater than or equal to 200 mg/dL meet the criteria for diagnosis of diabetes. Reference: Standards of Medical Care in Diabetes 2016; [place] [employer]. Diabetes Care. 2016;39(Suppl 1).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 07-19-2022 22:03-0500 Heart rate 85 /min AFSANEH CASTLE MD [address] [place] [id number] 07-19-2022 19:59-0500 Body temperature 98.06 [degF] AFSANEH CASTLE MD [address] [place] [id number] 07-19-2022 19:59-0500 Diastolic Blood Pressure Non-Invasive 62 1 AFSANEH CASTLE MD [address] [place] [id number] 07-19-2022 19:59-0500 Reason For Taking VItal Signs AFSANEH CASTLE MD [address] [place] [id number] 07-19-2022 19:59-0500 Systolic Blood Pressure Non-Invasive 140 1 AFSANEH CASTLE MD [address] [place] [id number] 07-19-2022 17:25-0500 Heart rate 72 /min AFSANEH CASTLE MD [address] [place] [id number] 07-19-2022 16:17-0500 Body temperature 97.34 [degF] AFSANEH CASTLE MD [address] [place] [id number] 07-19-2022 16:05-0500 Respiratory Rate - Anes 22 br/min AFSANEH CASTLE MD [address] [place] [id number] 07-19-2022 16:00-0500 Respiratory Rate - Anes 7 br/min AFSANEH CASTLE MD [address] [place] [id number] 07-19-2022 15:55-0500 Body temperature 95.76 [degF] AFSANEH CASTLE MD [address] [place] [id number] 07-19-2022 15:55-0500 Respiratory Rate - Anes 6 br/min AFSANEH CASTLE MD [address] [place] [id number] 07-19-2022 15:50-0500 Body temperature 95.72 [degF] AFSANEH CASTLE MD [address] [place] [id number] 07-19-2022 15:45-0500 Body temperature 95.67 [degF] AFSANEH CASTLE MD [address] [place] [id number] 07-19-2022 10:01-0500 Blood Pressure Cuff Size AFSANEH CASTLE MD [address] [place] [id number] 07-19-2022 10:01-0500 Blood Pressure Location AFSANEH CASTLE MD [address] [place] [id number] 07-19-2022 10:01-0500 Blood Pressure Method AFSANEH CASTLE MD [address] [place] [id number] 07-19-2022 10:01-0500 Body height 170.2 cm AFSANEH CASTLE MD [address] [place] [id number] 07-19-2022 10:01-0500 Body weight 79.9 kg AFSANEH CASTLE MD [address] [place] [id number] 07-19-2022 10:01-0500 Heart rate 73 /min AFSANEH CASTLE MD [address] [place] [id number] 03-19-2022 18:00-0400 Diastolic Blood Pressure NBP 60 1 EL MCDONALD MD [address] [place] [id number] 03-19-2022 18:00-0400 Heart rate 74 /min EL MCDONALD MD [address] [place] [id number] 03-19-2022 18:00-0400 Mean blood pressure 75 mm[Hg] EL MCDONALD MD [address] [place] [id number] 03-19-2022 18:00-0400 Systolic Blood Pressure NBP 108 1 EL MCDONALD MD [address] [place] [address] 03-19-2022 17:00-0400 Diastolic Blood Pressure NBP 53 1 EL MCDONALD MD [address] [place] [address] 03-19-2022 17:00-0400 Heart rate 65 /min EL MCDONALD MD [address] [place] [id number] 03-19-2022 17:00-0400 Mean blood pressure 73 mm[Hg] EL MCDONALD MD [address] [place] [address] 03-19-2022 17:00-0400 Systolic Blood Pressure NBP 117 1 EL MCDONALD MD [address] [place] [address] 03-19-2022 16:00-0400 Diastolic Blood Pressure NBP 61 1 EL MCDONALD MD [address] [place] [address] 03-19-2022 16:00-0400 Heart rate 63 /min EL MCDONALD MD [address] [place] [id number] 03-19-2022 16:00-0400 Systolic Blood Pressure NBP 107 1 EL MCDONALD MD [address] [place] [id number] 03-19-2022 15:11-0400 Body temperature 97.52 [degF] EL MCDONALD MD [address] [place] [id number] 03-19-2022 15:11-0400 Reason For Taking VItal Signs EL MCDONALD MD [address] [place] [id number] 03-19-2022 15:11-0400 Respiratory rate 18 /min EL MCDONALD MD [address] [place] [id number] 03-19-2022 11:39-0400 Body temperature 98.06 [degF] EL MCDONALD MD [address] [place] [id number] 03-19-2022 11:39-0400 Respiratory rate 18 /min EL MCDONALD MD [address] [place] [id number] 03-19-2022 10:58-0400 Diastolic blood pressure 78 mm[Hg] EL MCDONALD MD [address] [place] [address] 03-19-2022 10:58-0400 Mean blood pressure 95 mm[Hg] EL MCDONALD MD [address] [place] [id number] 03-19-2022 10:58-0400 Reason For Taking VItal Signs EL MCDONALD MD [address] [place] [id number] 03-19-2022 10:58-0400 Systolic blood pressure 130 mm[Hg] EL MCDONALD MD [address] [place] [id number] 03-19-2022 08:18-0400 Body temperature 97.88 [degF] EL MCDONALD MD [address] [place] [id number] 03-19-2022 08:18-0400 Diastolic blood pressure 76 mm[Hg] EL MCDONALD MD [address] [place] [address] 03-19-2022 08:18-0400 Mean blood pressure 99 mm[Hg] EL MCDONALD MD [address] [place] [id number] 03-19-2022 08:18-0400 Reason For Taking VItal Signs EL MCDONALD MD [address] [place] [id number] 03-19-2022 08:18-0400 Respiratory rate 18 /min EL MCDONALD MD [address] [place] [id number] 03-19-2022 08:18-0400 Systolic blood pressure 144 mm[Hg] EL MCDONALD MD [address] [place] [id number] 03-19-2022 04:06-0400 Body height 170.2 cm EL MCDONALD MD [address] [place] [id number] 03-19-2022 04:06-0400 Body weight 78.3 kg EL MCDONALD MD [address] [place] [id number] 03-19-2022 04:06-0400 Body weight 27.03 kg/m2 EL MCDONALD MD [address] [place] [id number] 03-19-2022 04:04-0400 Diastolic blood pressure 72 mm[Hg] EL MCDONALD MD [address] [place] [id number] 03-19-2022 04:04-0400 Mean blood pressure 99 mm[Hg] EL MCDONALD MD [facility] 03-19-2022 04:04-0400 Systolic blood pressure 154 mm[Hg] EL MCDONALD MD [facility] 03-18-2022 21:10-0400 Body weight 78.1 kg EL MCDONALD MD [facility] 03-18-2022 21:10-0400 Heart rate 62 /min EL MCDONALD MD [facility] 03-08-2022 06:41-0400 Diastolic blood pressure 74 mm[Hg] JAMARI ALVA MD [facility] 03-08-2022 06:41-0400 Heart rate 58 /min JAMARI ALVA MD [facility] 03-08-2022 06:41-0400 Respiratory rate 15 /min JAMARI ALVA MD [facility] 03-08-2022 06:41-0400 Systolic blood pressure 136 mm[Hg] JAMARI ALVA MD [facility] 03-08-2022 05:48-0400 Diastolic blood pressure 72 mm[Hg] JAMARI ALVA MD [facility] 03-08-2022 05:48-0400 Heart rate 55 /min JAMARI ALVA MD [facility] 03-08-2022 05:48-0400 Respiratory rate 17 /min JAMARI ALVA MD [facility] 03-08-2022 05:48-0400 Systolic blood pressure 125 mm[Hg] JAMARI ALVA MD [facility] 03-08-2022 04:49-0400 Diastolic blood pressure 84 mm[Hg] JAMARI ALVA MD [facility] 03-08-2022 04:49-0400 Heart rate 60 /min JAMARI ALVA MD [facility] 03-08-2022 04:49-0400 Respiratory rate 18 /min JAMARI ALVA MD [facility] 03-08-2022 04:49-0400 Systolic blood pressure 163 mm[Hg] JAMARI ALVA MD [facility] 03-08-2022 02:19-0400 Heart rate 54 /min JAMARI ALVA MD [facility] 03-08-2022 02:19-0400 Mean blood pressure 105 mm[Hg] JAMARI ALVA MD [facility] 03-07-2022 21:48-0400 Body weight 80.3 kg JAMARI ALVA MD [facility] 03-07-2022 21:45-0400 Body temperature 98.24 [degF] JAMARI ALVA MD [facility] 03-07-2022 21:45-0400 Heart rate 59 /min JAMARI ALVA MD [facility] 11-19-2021 02:51-0400 Diastolic blood pressure 81 mm[Hg] DR DI GR DO [facility] 11-19-2021 02:51-0400 Heart rate 61 /min DR DI GR DO [facility] 11-19-2021 02:51-0400 Mean blood pressure 100 mm[Hg] DR DI GR DO [facility] 11-19-2021 02:51-0400 Respiratory rate 23 /min DR DI GR DO [facility] 11-19-2021 02:51-0400 Systolic blood pressure 138 mm[Hg] DR DI GR DO [facility] 11-19-2021 01:33-0400 Diastolic blood pressure 88 mm[Hg] DR DI GR DO [facility] 11-19-2021 01:33-0400 Heart rate 57 /min DR DI GR DO [facility] 11-19-2021 01:33-0400 Mean blood pressure 107 mm[Hg] DR DI GR DO [facility] 11-19-2021 01:33-0400 Respiratory rate 21 /min DR DI GR DO [facility] 11-19-2021 01:33-0400 Systolic blood pressure 145 mm[Hg] DR DI GR DO [facility] 11-19-2021 00:44-0400 Diastolic blood pressure 89 mm[Hg] DR DI GR DO [facility] 11-19-2021 00:44-0400 Heart rate 66 /min DR DI GR DO [facility] 11-19-2021 00:44-0400 Respiratory rate 18 /min DR DI GR DO [facility] 11-19-2021 00:44-0400 Systolic blood pressure 157 mm[Hg] DR SEVILLA SALVADORANDREW DO [facility] 11-19-2021 00:21-0400 Body temperature 97.88 [degF] DR SEVILLA SIMÓN DO [facility] 11-19-2021 00:21-0400 Heart rate 74 /min DR SEVILLA SALVADORANDREW DO [facility] 11-19-2021 00:21-0400 Mean blood pressure 129 mm[Hg] DR SEVILLA SIMÓN DO [facility] 06-07-2021 09:46-0400 Body temperature 97.88 [degF] SARAH ENNIS MD [facility] 06-07-2021 09:46-0400 diastolic 68 mm[Hg] SARAH ENNIS MD [facility] 06-07-2021 09:46-0400 Heart rate 60 /min SARAH ENNIS MD [facility] 06-07-2021 09:46-0400 Respiratory rate 18 /min SARAH ENNIS MD [facility] 06-07-2021 09:46-0400 systolic 102 mm[Hg] SARAH ENNIS MD [facility] 06-07-2021 08:42-0400 Body temperature 97.52 [degF] SARAH ENNIS MD [facility] 06-07-2021 08:42-0400 diastolic 76 mm[Hg] SARAH ENNIS MD [facility] 06-07-2021 08:42-0400 Heart rate 57 /min SARAH ENNIS MD [facility] 06-07-2021 08:42-0400 Respiratory rate 18 /min SARAH ENNIS MD [facility] 06-07-2021 08:42-0400 systolic 107 mm[Hg] SARAH ENNIS MD [facility] 06-07-2021 08:19-0400 Body temperature 96.44 [degF] SARAH ENNIS MD [facility] 06-07-2021 08:19-0400 diastolic 75 mm[Hg] SARAH ENNIS MD [facility] 06-07-2021 08:19-0400 Heart rate 61 /min SARAH ENNIS MD [facility] 06-07-2021 08:19-0400 Respiratory rate 20 /min SARAH ENNIS MD [facility] 06-07-2021 08:19-0400 systolic 126 mm[Hg] SARAH ENNIS MD [facility] Encounters Encounter Date Encounter Type Care Provider Facility Start: 05-13-2025 End: 05-13-2025 ambulatory SARAH ENNIS MD Facility:[facility] Start: 05-13-2025 End: 05-13-2025 Patient encounter procedure SARAH ENNIS MD [facility] Start: 03-08-2025 End: 03-08-2025 ambulatory SARAH ENNIS MD Facility:[facility] Start: 03-08-2025 End: 03-08-2025 Patient encounter procedure SARAH ENNIS MD [facility] Start: 12-29-2024 ambulatory SARAH ENNIS MD [facility] ility:A Start: 12-25-2024 End: 12-25-2024 ambulatory CITLALI JACKSON MD Facility:A Start: 12-23-2024 End: 12-23-2024 ambulatory CITLALI JACKSON MD Facility:[facility] Start: 12-23-2024 End: 12-23-2024 Patient encounter procedure CITLALI JACKSON MD [facility] Start: 12-11-2024 End: 12-11-2024 ambulatory DONNIE HORVATH PA-C Facility:[facility] Start: 12-11-2024 End: 12-11-2024 Patient encounter procedure DONNIE [facility] Start: 10-13-2024 End: 10-17-2024 ambulatory SARAH ENNIS MD Facility:[facility] Start: 10-13-2024 End: 10-13-2024 ambulatory SARAH ENNIS MD Facility:A Start: 09-29-2024 End: 09-29-2024 Emergency department patient visit MARCEL HUERTA MD [facility] Start: 07-13-2024 End: 07-13-2024 ambulatory SARAH ENNIS MD Facility:[facility] Start: 07-13-2024 End: 07-13-2024 Patient encounter procedure CITLALI JACKSON MD [facility] Start: 02-10-2024 ambulatory CITLALI JACKSON MD Fac ility:A Start: 10-23-2023 End: 10-27-2023 ambulatory SARAH ENNIS MD Facility:A Start: 07-31-2023 End: 07-31-2023 ambulatory CITLALI JACKSON MD Facility:A Start: 07-31-2023 End: 07-31-2023 Patient encounter procedure CITLALI JACKSON MD [facility] Start: 03-25-2023 End: 03-25-2023 ambulatory CITLALI JACKSON MD Facility:A Start: 03-25-2023 End: 03-25-2023 Patient encounter procedure CITLALI JACKSON MD [facility] Start: 07-19-2022 End: 07-20-2022 Observation AFSANEH CASTLE MD [facility] Start: 04-23-2022 End: 04-23-2022 Patient encounter procedure SHERYL SKINNER [facility] Start: 03-18-2022 End: 03-19-2022 Evaluation and management of inpatient EL MCDONALD MD [facility] Start: 03-07-2022 End: 03-08-2022 Emergency department patient visit JAMARI ALVA MD [facility] Start: 12-04-2021 End: 12-04-2021 Patient encounter procedure MARGA KING PA-C [facility] Start: 11-19-2021 End: 11-19-2021 Emergency department patient visit DR DI GR DO [facility] Start: 07-11-2021 End: 07-11-2021 Patient encounter procedure CITLALI JACKSON MD [facility] Start: 06-07-2021 End: 06-07-2021 Patient encounter procedure SARAH ENNIS MD [facility] Start: 02-11-2017 End: 02-12-2017 Ambulatory PHY WO ID REFERRING Facility:[facility] Procedures Date Procedure Procedure Detail Performing Clinician Start: 12-11-2024 Cardiovascular stres s test using pharmacologic stress agent CITLALI JACKSON MD Comment on above: IMPRESSION: Technically difficult study. Within the limitations of the study, cannot rule out small area of inferoapical ischemia. LEFT ventricular systolic function is decreased with inferior hypokinesia, calculated EF 34% with EDV 134 mL (LVEF 35% on study from 2013, LVEF calculated at 42% and 60% on study from 2021) EKG portion will be dictated separately. Start: 07-13-2024 Echocardiography DONNIE HER PA-C Comment on above: Summary: 1. Left ventricle: The cavity size is normal. Wall thickness is increased. Basal Septal Left Ventricular Hypertrophy ~ 1.4 cm. Systolic function is normal. The estimated ejection fraction is 55% +/-5%. Basal inferior hypo-akinesis. Diastolic dysfunction is present. 2. Ventricular septum: Thickness is moderately increased. 3. Aortic valve: There is mild regurgitation. 4. Mitral valve: There is mild to moderate regurgitation. 5. Left atrium: The atrium is dilated. 6. Right ventricle: The RV systolic pressure by Doppler is 30 mm Hg. 7. Right atrium: The atrium is dilated. The estimated right atrial pressure is 3 mm Hg. 8. Pericardium, extracardiac: A small pericardial effusion is identified. Start: 03-25-2023 Echocardiography CITLALI BECKFORD MD Comment on above: Summary: 1. Left ventricle: The cavity size is normal. Wall thickness is mildly increased. Systolic function is low normal to mildly reduced. Visually estimated ejection fraction is 50% +/-5%. Wall motion is normal; there are no regional wall motion abnormalities. Diastolic dysfunction is present. 2. Aortic valve: Thickening, consistent with sclerosis. There is mild to moderate regurgitation. 3. Mitral valve: There is mild to moderate regurgitation. 4. Left atrium: The atrium is moderately dilated. 5. Right ventricle: The cavity size is increased. The RV systolic pressure by Doppler is 35 mm Hg. 6. Tricuspid valve: There is mild-moderate regurgitation. 7. Right atrium: The atrium is dilated. The estimated right atrial pressure is 3 mm Hg. 8. Atrial septum: ASD with left to right shunt on color doppler. 9. Pericardium, extracardiac: A small to moderate pericardial effusion is identified. No tamponade Start: 11-02-2022 Electrocardiographic monitor and recorder, device (physical object) CITLALI JACKSON MD Comment on above: IMPRESSION : 30-day vp software significant for normal sinus rhythm background and rare isolated asymptomatic premature atrial and ventricular beats in singles. Short runs of asymptomatic nonsustained atrial tachycardia as well as nonsustained ventricular tachycardia were noted. No major dysrhythmias recorded. No symptom to arrhythmia correlation could be performed, Start: 10-08-2022 CT angiography of ch est with contrast CITLALI JACKSON MD Comment on above: IMPRESSION: Stable ascending aortic ectasia. Small pericardial effusion. Start: 07-19-2022 Destructive procedure Rahel JACKSON MD Comment on above: Findings: The patien t was in atrial fibrillation at baseline. It completes circumferential ablation of pulmonary vein was at the left side superior t vein and heading towards the right superior pulmonary vein then crossing anteriorly and circumferentially isolating the right pulmonary veins. The left pulm veins were also isolated. The randolph was on both sides are separate isolation as well. Posterior wall was isolated by completing the line for the right inferior to the left inferior pulmonary vein. Patient was cardioverted to sinus rhythm and complete pulmonary vein isolation as well as posterior wall isolation was demonstrated. A cavotricuspid atrial flutter isthmus line was performed during distal coronary sinus pacing with demonstration of bidirectional block at the end of the line. Start: 03-19-2022 Cardiac catheterization SHERYL MORA CARDIOLOGY TECH-FINANCIAL AID ADVISOR Comment on above: Responsible physicia n: NAYELY FIELD MD Attending physician: EL MCDONALD MD Admitting physician: EL MCDONALD MD Fellow 1: LIDIA YAO DO Procedures performed: Right coronary angiography. Left coronary angiography. SUMMARY: 1. LAD: Distal vessel lesion: There is a 70% stenosis. 2. Left circumflex: Mid-vessel lesion: There is a 50% stenosis. IMPRESSIONS: Prior LAD and LCx stents are patent. RECOMMENDATIONS: Continue medical management. Start: 03-19-2022 Echocardiography JIMMY MORA CARDIOLOGY TECH-FINANCIAL AID ADVISOR Comment on above: Reading physician: Jennie MCDONALD MD Reporting fellow: URIEL TURNER MD Division Director: Antonia Sauer RT, RDCS Ordering physician: ARABELLA BYNUM MD Fellow 1: JIM CLINTON MD History: Billing diagnosis codes: Chest pain, unspecified (R07.9). Summary: 1. Pericardium, extracardiac: A moderate, loculated pericardial effusion is identified anterior to the heart. The fluid has no internal echoes. There is no evidence of hemodynamic compromise. 2. Left ventricle: The cavity size is normal. Wall thickness is mildly increased. Systolic function is normal. The estimated ejection fraction is 55-60%. Wall motion is normal; there are no regional wall motion abnormalities. Unable to assess diastolic function. 3. Ventricular septum: Thickness is mildly increased. 4. Aortic valve: There is mild regurgitation. 5. Mitral valve: The annulus is moderately calcified. The leaflets are normal thickness. 6. Right atrium: The estimated right atrial pressure is 3 mm Hg. Start: 12-25-2021 Cardiovascular stres s test using pharmacologic stress agent JAMARI ALVA MD Start: 12-01-2021 Cardiac monitoring JIE ALVA MD Start: 07-11-2021 Echocardiography SAMIRA ALVA MD Start: 02-23-2020 Electrocardiogram Start: 05-01-2018 Echocardiography SARAH ENNIS MD Comment on above: Summary: 1. Left ventricle: The cavity size is normal. Wall thickness is mildly to moderately increased. Systolic function is normal. The estimated ejection fraction is 55-60%. Wall motion is normal; there are no regional wall motion abnormalities. 2. Aortic valve: There is mild regurgitation. 3. Aorta: The aorta is moderately dilated. 4. Mitral valve: There is mild regurgitation. 5. Left atrium: The atrium is moderately to markedly dilated. 6. Right ventricle: The RV systolic pressure by Doppler is 28 mm Hg. 7. Right atrium: The estimated right atrial pressure is 3 mm Hg. Start: 01-18-2017 Cardioversion SARAH SUGGS MD Start: 05-29-2011 Cardiac catheterization SARAH ENNIS MD Colonoscopy SARAH ENNIS MD Hernia repair SARAH ENNIS MD Open reduction of fr acture with internal fixation SARAH ENNIS MD Comment on above: left hip Stent, device (physi belkis object) SARAH ENNIS MD Comment on above: LAD Tibia and fibula (co mbined site) (body structure) SARAH ENNIS MD Comment on above: repair Immunizations Immunization Date Immunization Notes Care Provider [facility] 06-13-2022 influenza, high-dose , quadrivalent AFSANEH CASTLE MD [facility] 11-03-2020 SARS-CoV-2 (COVID-19 ) mRNA-1273 vaccine SARAH ENNIS MD [facility] 10-03-2020 SARS-CoV-2 (COVID-19 ) mRNA-1273 vaccine SARAH ENNIS MD [facility] 05-30-2011 pneumococcal polysaccharide vaccine, 23 valent SARAH ENNIS MD [facility] Payers Date Payer Category Payer Medicare [id number] 2023 Private Health Insurance [id number] 2023 Unknown [id number] 2022 Medicare [id number] 2018 Self-pay [id number] 2016 Unknown [id number] 1950 Unknown [id number] 2.16.8 [id number] 1950 Unknown [id number] 2.16.8 [id number] 1950 Unknown [id number] 2.16.8 40.1.315189.3.579.2.627 1950 Unknown [id number] 2.16.8 40.1.524830.3.579.2.627 1950 Unknown [id number] 2.16.8 40.1.121873.3.579.2.627 1950 Unknown [id number] 2.16.8 40.1.206009.3.579.2.627 1950 Unknown [id number] 2.16. 840.1.759843.3.579.2.627 1950 Unknown [id number] 2.16.8 40.1.106371.3.579.2.627 1950 Unknown [id number] 2.16.8 40.1.964044.3.579.2.627 1950 Unknown [id number] 2.16.8 40.1.420761.3.579.2.627 1950 Unknown [id number] 2.16.8 40.1.929947.3.579.2.627 1950 Unknown [id number] 2.16. 840.1.742519.3.579.2.627 1950 Unknown [id number] 2.16. 840.1.094625.3.579.2.627 1950 Unknown [id number] 2.16.8 40.1.702784.3.579.2.627 1950 Unknown [id number] 2.16.8 40.1.139342.3.579.2.627 Social History Date Type Detail Facility Start: 11-27-2019 End: 02-10-2024 Never smoked tobacco (finding) [facility] Sex Assigned At Male [facility] Sexual Orientation [facility] Start: 06-30-2019 Sex Male (finding) [facility] Start: 12-25-2024 Gender identity Identifies as male gender (finding) [facility] Functional Status Date Assessment Result Facility 09-29-2024 Functional Status Independent [facility] 09-29-2024 Functional Status ID band on, Allergy Band on, Call device within reach, Bed in low position, Wheels locked, Upper/Half-Length side-rails up, Visitor at bedside, Safety level maintained [facility] 07-20-2022 Functional Status Ambulating in kyle, Ambulating in room [facility] 07-20-2022 Functional Status Breakfast Percent 100 A [facility] 07-20-2022 Functional Status Room located n [facility], Room check performed [facility] 07-20-2022 Functional Status [facility] 07-19-2022 Functional Status [facility] 07-19-2022 Functional Status [facility] 07-19-2022 Functional Status Patient Identi fied Identification band [facility] 07-19-2022 Functional Status Maintained [facility] 03-19-2022 Functional Status Up to bathroom [facility] 03-19-2022 Functional Status Room check performed [facility] 03-19-2022 [facility] 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, 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, 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, Personal ADL [facility] 03-19-2022 Functional Status [facility] 03-08-2022 Functional Status Independent [facility] 03-08-2022 Functional Status Standard Safet y ID band on, Allergy Band on, Call device within reach, Bed in low position, Wheels locked, Upper/Half-Length side-rails up, Phone within reach, Bedside Cart Locked, Safety level maintained [facility] 11-19-2021 Functional Status Roger cox [facility] 11-19-2021 [facility] Mental Status Date Assessment Result Facility 09-29-2024 Mental Status Orientation Oriented x 4 [facility] 09-29-2024 Mental Status [facility] 07-20-2022 Mental Status Orientation Oriented x 4 [facility] 07-20-2022 Mental Status [facility] 07-20-2022 Mental Status [facility] 07-19-2022 Mental Status Orientation Asse ssment Oriented x 4 [facility] 07-19-2022 Mental Status [facility] 03-19-2022 Mental Status Oriented x 4 [facility] 03-19-2022 Mental Status [facility] 03-19-2022 Mental Status [facility] 03-08-2022 Mental Status Orientation Oriented x 4 [facility] 03-08-2022 Mental Status [facility] 11-19-2021 Mental Status [facility] 11-19-2021 Mental Status [facility] Clinical Notes 11-19-2021 to 03-08-2025 Note Date & Type Note Facility 03-08-2025 Note Exam Date Time Procedure Performing Provider Status 03/08/25 11:25 AM MRI Shoulder w/o Contrast Left LAWSON, SANTA MD; Auth (Verified) [id number] ORIGINAL EXAMINATION: MRI OF THE LEFT SHOULDER WITHOUT CONTRAST 03/08/2025 11:33 am TECHNIQUE: Multiplanar multisequence MRI of the left shoulder was performed without the administration of intravenous contrast. COMPARISON: None. HISTORY: ORDERING SYSTEM PROVIDED HISTORY: Reason for Exam: MASS LEFT SHOULDER PAIN & SWELLING. Fall 2 months ago FINDINGS: Significant motion degradation. There is severe glenohumeral joint degenerative change with uspi-ha-[id number], circumferential high-grade chondrosis with articular surface remodeling of the humeral head in glenoid and subchondral sclerosis. There is no evidence of acute fracture, osteonecrosis or suspicious marrow lesion. Large glenohumeral joint effusion with areas of masslike synovitis and intra-articular debris. There is an area of masslike synovitis in the inferior axillary pouch measuring approximately 1.5 cm. Additionally there is large volume subacromial subdeltoid bursitis with a collection measuring up to 6 x 8.9 by 4.7 cm beneath the deltoid. Some areas of internal septation. Os acromiale and moderate AC joint degenerative changes with capsular hypertrophy and a small amount of AC joint fluid.. A type 2 acromial undersurface is seen. Large amount of subcoracoid bursitis. There is marked supraspinatus tendinosis with mucoid degeneration and a partial-thickness articular footprint tear which measures approximately 2.3 x 0.6 cm medial to lateral. Interstitial tearing of the infraspinatus tendon with moderate tendinosis. Some of the anterior most fibers could have undersurface fraying. The teres minor is intact. High-grade subscapularis tear, lower tendon remains intact. Medialization of the long head of the biceps tendon secondary to subscapularis tear with longitudinal interstitial tearing of the long head of the biceps tendon from its biceps labral anchor with biceps tenosynovitis. [place] cyst dissects down the long head of the biceps tendon to the myotendinous junction. There is no acute Hill-Sacks or Bankart lesion. Suboptimal evaluation of the labrum with lack of intra-articular contrast. However there is suspected circumferential tearing. No definite labrum is attached. obliteration of the fat within the rotator interval. Mild supraspinatus and infraspinatus muscle belly atrophy. Moderate to severe subscapularis muscle belly atrophy. Rounded prominent axillary lymph nodes measuring up to 9 mm. IMPRESSION: 1. Severe glenohumeral joint degenerative change with [id number], circumferential high-grade chondrosis with labral tearing and articular surface remodeling. 2. Large glenohumeral joint effusion with areas of masslike synovitis and intra-articular debris. An inflammatory arthropathy should be considered alternatively this may be reactive. 3. Large volume subacromial subdeltoid bursitis with a collection measuring up to 6 x 8.9 x 4.7 cm beneath the deltoid most likely patient's palpable concern. There are some areas of internal septation, a resolving hematoma cannot be excluded. 4. Marked supraspinatus tendinosis with mucoid degeneration and a partial-thickness articular footprint tear which measures approximately 2.3 x 0.6 cm medial to lateral. Interstitial tearing of the infraspinatus tendon with moderate tendinosis. Some of the anterior most fibers could have undersurface fraying. High-grade subscapularis tear, lower tendon slip remains intact. 5. Medialization of the long head of the biceps tendon secondary to subscapularis tear with longitudinal interstitial tearing of the long head of the biceps tendon from its biceps labral anchor with biceps tenosynovitis. [place] cyst dissects down the long head of the biceps tendon to the myotendinous junction. 6. Rounded prominent axillary lymph nodes measuring up to 9 mm. Interpreted by: Santa Lawson Preliminary Report By: Santa Lawson Electronically signed By Santa Lawson Dictated Date: 03/08/2025 12:30:05 PM Prelim Date: 03/08/2025 12:51:55 PM Sign Date: 03/08/2025 12:51:55 PM Ordering Provider: [place] [id number] Note* Exam Date Time Procedure Performing Provider Status 12/11/24 11:37 AM NM Myocardial Spect Rest/Stress DICK BELLA MD; Auth (Verified) [id number] ORIGINAL NM MYOCARDIAL SPECT STRESS/REST CLINICAL STATEMENT: chest pain, h/o cad TECHNIQUE: Lexiscan dose: 0.4 mg Radiopharmaceutical (rest): Tc-99m Sestamibi Dose:8.3 mCi Radiopharmaceutical (stress): Tc-99m Sestamibi Dose:25 mCi SPECT acquisition and processing Reconstruction and reorientation of SPECT images into short axis, vertical and horizontal long axisplanes Quantitative LVEF assessment COMPARISON:2013 REPORT: The overall quality of the study is good. Review of raw imaging demonstrates some vertical motion during acquisition. Diaphragmatic attenuation artifact noted. Low-dose CT scan demonstrates coronary artery calcifications in all three territories. Review of the perfusion images perfusion defect in the inferoapical wall on stress images concerning for small area ischemia. Transient ischemic dilatation (TID) Ratio- 1.17 IMPRESSION: Technically difficult study. Within the limitations of the study, cannot rule out small area of inferoapical ischemia. LEFT ventricular systolic function is decreased with inferior hypokinesia, calculated EF 34% with EDV 134 mL (LVEF 35% on study from 2013, LVEF calculated at 42% and 60% on study from 2021) EKG portion will be dictated separately. Interpreted By: Dick Bella Preliminary Report By: Broderick Nguyen Electronically Signed By: Dick Bella Dictated Date: 12/11/2024 12:58:16 PM Prelim Date: 12/11/2024 1:18:04 PM Sign Date: 12/11/2024 1:44:58 PM Ordering Provider:[facility]05-09-2025 Note Date of Service 12/11/2024 08:16:21 Procedure: Lexiscan (regadenoson) chemical stress test Patient underwent a pharmacologic stress test using regadenoson. Total regadenoson dose of 0.4 mg was given as per protocol. The patient had a baseline heart rate of 50 bpm, which peaked at 70 bpm. The patient had a baselineblood pressure of 3 177/93 mmHg and it changed to 146/86 mmHg after the regadenoson administration. The patient did experience SOB/flushing, which all resolved at the end of the test. The patient's baseline EKG showed normal sinus rhythm, first-degree AV block, occasional PVCs, nonspecific T wave inversions in lead III. During the stress, there were no EKG changes suggestive of ischemia. IMPRESSION: EKG portion of the Lexiscan stress test is negative for inducible ischemia. The results of the nuclear portion of the Lexiscan stress test will be reported separately. The EKGs were also reviewed by the attending physician. See addendum to this note by the attending physician for additional comments. Digitally Signed by BRODERICK NGUYEN MD on 12/11/2024 02:41 PM Digitally Signed by FRANKLIN LOVE MD [id number] Discharge instructions Patient Education 09/29/2024 13:21:16 Skin Avulsion Skin Tear (Skin Avulsion) A skin avulsion is a tearing of the top layer of skin. This commonly happens after a fall or other injury. It also tends to be more common in older people, or those taking blood thinners or steroids for long periods of time. Home care These guidelines will help you care for your wound at home: Keep the wound clean and dry for the first 24 to 48 hours, or as your healthcare provider advises. If there is a dressing or bandage, change it when it gets wet or dirty. Otherwise, leave it on for the first 24 hours, then change it once a day or as often as the doctor says. If stitches or dede were used, check the wound every day. After taking off the dressing, wash the area gently with soap and water. Clean as close to the stitches as you can. Avoid washing or rubbing the stitches directly. After 3 days you can keep the bandages off the wound, unless told otherwise, or there is continued drainage. Allow the wound to be open to the air. Keep a thin layer of antibiotic ointment on the cut. This will keep the wound clean, make it easierto remove the stitches, and reduce scarring. If your wound is oozing, you can put a nonstick dressing over it. Then, reapply the bandage or dressing as you were told. You can shower as usual after the first 24 hours, but don't soak the area in water (no baths or swimming) until the stitches or dede are taken out. If surgical tape was used, keep the area clean and dry. If it becomes wet, blot it dry with a cleantowel. If skin glue was used, don't put any creams, lotions, or antibiotic ointments on it. These can dissolve the glue. Usually the glue will flake off in about 5 to 10 days by itself. Try to resist picking it off before that so the wound doesn't open up. When it gets wet, pat it dry. Here is some information about medicine: You may use gwbq-fzd-pyqnlos medicine such as acetaminophen or ibuprofen to control pain, unless another pain medicine was given. If you have chronic liver or kidney disease or ever had a stomach ulcer or gastrointestinal bleeding, talk with your doctor before using these medicines. If you were given antibiotics, take them until they are all used up. It is important to finish the antibiotics even if the wound looks better. This will ensure that the infection has cleared. Follow-up care Follow up with your healthcare provider, or as advised. Watch for any signs of infection, such as increasing redness, swelling, or pus coming out. If this happens, don't wait for your scheduled visit. Instead, see a doctor sooner. Stitches or dede are usually taken out within 5 to 14 days. This varies depending on what part of your body they are on, and the type of wound. The doctor will tell you how long stitches should beleft in. If surgical tape was used, it is usually left on for 7 to 10 days. You can remove surgical tape after that unless you were told otherwise. If you try to remove it, and it is too hard, soaking can help. Surgical tape strips will eventually fall off on their own. If the edges of the cut pull apart, stop removing the tape or strips and follow up with your doctor As mentioned above, skin glue will flake off by itself in 5 to 10 days, so you don't need to pull it off. If any X-rays were done, you will be notified of any changes that may affect your care. When to seek medical advice Call your healthcare provider right away if any of these occur: Increasing pain in the wound Redness, swelling, or pus coming from the wound Fever of 100.4 F (38 C) or higher, or as directed by your healthcare provider Sutures or dede come apart or fall out before your next appointment and the wound edges look as if they will re-open Surgical tape closures fall off before 7 days, and the wound edges look as if they will re-open Bleeding not controlled by direct pressure [id number] [employer]. [address] [place] [address]214. All rights reserved. This information is not intended as a substitute for professional medical care. Always follow yourhealthcare professional's instructions. Follow Up Care 09/29/2024 11:43:22 With:SARAH ENNIS MD Address: My [address] [address] [phone] When:2-[address] [facility] 02-25-2025 Note Discharge Instructions Thank you for allowing [facility] to assist you with your healthcare needs. The following is importantdischarge information regarding your hospital visit. Diagnosis from Today's Visit Avulsion of toe What to Do Next Instructions from Your Care Team Keep the dressing on for 24 hours and you can remove after this. Please follow up with primary care. Wash the area at least twice a day and keep covered. No swimming or hot tubs. Please be evaluated if there is any redness, swelling or pus drainage as the area may have become infected. No qualifying data available. Post Acute Orders No qualifying data available. You Need to Schedule the Following Appointments Follow Up with SARAH ENNIS MD When:Within 2-4 days Where:My [address] [address] [phone] Allergies Percocet 7.5/325 confusion/disorentation Medications Please ask your primary doctor or pharmacist before taking any other medication not listed, including over the counter drugs, herbal medications, vitamins and or supplements as they may interact withyour home medications. What How Much When Instructions Last Dose Unchanged aspirin (aspirin 81 mg oral delayed release tablet) 1 tab(s) by mouth Every day Unchanged isosorbide mononitrate (isosorbide mononitrate 30 mg oral tablet, extended release) 1 tab(s) by mouth Once a day (in the morning) Unchanged lisinopril (lisinopril 40 mg oral tablet) 1 tab(s) by mouth Two (2) times a day Unchanged magnesium oxide 400 Milligram by mouth Once a day Unchanged metFORMIN (metFORMIN 500 mg oral tablet) 2 tab(s) by mouth Two (2) times a day Unchanged metoprolol (Metoprolol Succinate ER 25 mg oral TABLET extended release) TAKE 1 TABLET BY MOUTH TWICE DAILY Unchanged nitroGLYcerin (nitroglycerin 0.4 mg sublingual tablet) 1 tab(s) under the tongue Every 5 minutes as needed for for chest pain Unchanged pravastatin (pravastatin 10 mg oral tablet) 1 tab(s) by mouth Daily at bedtime Unchanged rivaroxaban (Xarelto 20 mg oral tablet) 1 tab(s) by mouth Once a day (in the evening) Unchanged sertraline (sertraline 25 mg oral tablet) 1 tab(s) by mouth Every day Unchanged tamsulosin (tamsulosin 0.4 mg oral capsule) 1 cap by mouth Once a day Unchanged ubiquinone (Co-Q10 100 mg oral capsule) 2 cap by mouth Every day Please take this list to your next doctor s visit. Bring all medications you take, including over the counter medications, herbals and other supplements with you to your doctor s visit. Patients and families are reminded to discard old lists and to update any records with all medication providers or retail pharmacies. Education Materials Skin Tear (Skin Avulsion) A skin avulsion is a tearing of the top layer of skin. This commonly happens after a fall or other injury. It also tends to be more common in older people, or those taking blood thinners or steroids for long periods of time. Home care These guidelines will help you care for your wound at home: Keep the wound clean and dry for the first 24 to 48 hours, or as your healthcare provider advises. If there is a dressing or bandage, change it when it gets wet or dirty. Otherwise, leave it on for the first 24 hours, then change it once a day or as often as the doctor says. If stitches or dede were used, check the wound every day. After taking off the dressing, wash the area gently with soap and water. Clean as close to the stitches as you can. Avoid washing or rubbing the stitches directly. After 3 days you can keep the bandages off the wound, unless told otherwise, or there is continued drainage. Allow the wound to be open to the air. Keep a thin layer of antibiotic ointment on the cut. This will keep the wound clean, make it easierto remove the stitches, and reduce scarring. If your wound is oozing, you can put a nonstick dressing over it. Then, reapply the bandage or dressing as you were told. You can shower as usual after the first 24 hours, but don't soak the area in water (no baths or swimming) until the stitches or dede are taken out. If surgical tape was used, keep the area clean and dry. If it becomes wet, blot it dry with a cleantowel. If skin glue was used, don't put any creams, lotions, or antibiotic ointments on it. These can dissolve the glue. Usually the glue will flake off in about 5 to 10 days by itself. Try to resist picking it off before that so the wound doesn't open up. When it gets wet, pat it dry. Here is some information about medicine: You may use fvxb-ptb-dukszlt medicine such as acetaminophen or ibuprofen to control pain, unless another pain medicine was given. If you have chronic liver or kidney disease or ever had a stomach ulcer or gastrointestinal bleeding, talk with your doctor before using these medicines. If you were given antibiotics, take them until they are all used up. It is important to finish the antibiotics even if the wound looks better. This will ensure that the infection has cleared. Follow-up care Follow up with your healthcare provider, or as advised. Watch for any signs of infection, such as increasing redness, swelling, or pus coming out. If this happens, don't wait for your scheduled visit. Instead, see a doctor sooner. Stitches or dede are usually taken out within 5 to 14 days. This varies depending on what part of your body they are on, and the type of wound. The doctor will tell you how long stitches should beleft in. If surgical tape was used, it is usually left on for 7 to 10 days. You can remove surgical tape after that unless you were told otherwise. If you try to remove it, and it is too hard, soaking can help. Surgical tape strips will eventually fall off on their own. If the edges of the cut pull apart, stop removing the tape or strips and follow up with your doctor As mentioned above, skin glue will flake off by itself in 5 to 10 days, so you don't need to pull it off. If any X-rays were done, you will be notified of any changes that may affect your care. When to seek medical advice Call your healthcare provider right away if any of these occur: Increasing pain in the wound Redness, swelling, or pus coming from the wound Fever of 100.4 F (38 C) or higher, or as directed by your healthcare provider Sutures or dede come apart or fall out before your next appointment and the wound edges look as if they will re-open Surgical tape closures fall off before 7 days, and the wound edges look as if they will re-open Bleeding not controlled by direct pressure 3826-9520 [employer]. [address] [place] [address], [place] [address]. All rights reserved. This information is not intended as a substitute for professional medical care. Always follow yourhealthcare professional's instructions. Additional Information VACCINATE! IT SAVES LIVES! Members of the community who have not yet received the COVID-19 vaccine and would like to receive it can visit one of [facility] vaccine clinics. There are many vaccine clinic locations within the [facility]. For locations and available times, please visit [email or web address]/. It is important to note that some COVID mobile vaccine clinics are held outdoors and may be canceled in rainy or stormy conditions. To learn more about pediatric vaccinations (ages 5-11), we invite you to visit the [facility] webpage. [email or web address]/pages/[email or web address]-Eienbgzsyza-Jqlynudtcz-Ytpsm-[email or web address] stions.htmlTo learn more about the COVID-19 vaccine, we invite you to visit the CDC website for a list of frequently asked questions. https://www.cdc.gov/coronavirus/2019-ncov/vaccines/faq.html [facility] Patient [facility] Access Instructions: Stay connected with your healthcare team and access your personal medical information anytime with the [facility] Patient Portal. If you would like a full copy of your medical records please contact the [facility] Medical Records Department Saturday through Saturday between 8a.m. and 4:30p.m. Please follow the directions below to access the portal: 1.Access the email account you provided upon registration to the [facility].2.Look for an invitation email from [facility].3.Open the email and access the invitation link: Accept Invitation to [facility].Fill in the required coelho to create your account. Sign into [email or web address] with your username and password that you created in the above steps to stay up to date. You can then view a summary of results, a summary of your visits, and the ability to download your summaries to your computer or send the information securely to a physician. Remember that your healthcare information is confidential, so carefully consider who you will allow to register on the [facility] Patient Portal for access to your information. You can also access the [facility] Patient Portal on the [employer]. Simply click on Health Records under [employer] and then click on the [facility] logo. HOW TO SAFELY DISPOSE OF PRESCRIPTION MEDICATIONS Please use one of the following methods to safely dispose of your unused medications. 1.Use a drug disposal kit: the drug disposal pouch allows you to safely discard your old and unuseddrugs. Ask your nurse to give you one when you are discharged.2.Visit a local take-back location: Many local pharmacies and police departments have programs that collect old and unwanted prescriptiondrugs. Call your local pharmacy or go to http://[employer].BuyerMLS/9A0Ix4o to find one close to you.3.Make use of household items: Use cat litter or old coffee grounds to dispose medications if other options arenot available. Mix your drugs with these household products, seal them in an airtight container andthrow it into the garbage. Call [facility]: [phone] to be sure your drugs can be disposed of in this way. Some medicines may require a different approach.4.Never flush your medications down the toilet. IF YOU HAVE BEEN PRESCRIBED AN OPIOIDS FOR PAIN If you have been prescribed an opioid (such as hydrocodone, oxycodone or morphine), it is critical to understand the possible side effects and risks of opioid pain medications. Even when taken as directed, opioids can have several side effects including: Tolerance, meaning you might need to take more of a medication for the same pain relief. Nausea, vomiting and/or constipation. Sleepiness, dizziness, dry mouth, confusion, depression or itching. Physical dependence, meaning you have withdrawal symptoms when a medication is stopped ? this can develop within a few days. KNOW YOUR RESPONSIBILITIES It is important to know exactly how much and how often to take the opioid pain medications you are prescribed. Never take opioids in higher amounts or more often than prescribed. Do not combine opioids with alcohol or other drugs that cause drowsiness, such as benzodiazepines, also known as benzos,including diazepam and alprazolam, muscle relaxants or sleep aids. Never sell or share prescriptionopioids. This is illegal. Store opioids in a secure place and out of reach of others (including children, family, friends and visitors). The last page(s) of this document has been signed and retained as a CHART COPY Signatures Patient Education Materials [employer] Medication Leaflets My discharge plan and instructions have been reviewed and explained to me and I,ABBEY AQUINO understand my current condition and have read and understand these discharge instructions. I have received a written copy of the plan/instructions. If I have questions, I am aware that I should contactmy doctor. Patient/Dicer Operator Signature: Date/Time: Relationship to Patient: Witness Name/Signature: Date/Time: [facility]02-25-2025 Note* Exam Date Time Procedure Performing Provider Status 09/29/24 12:57 PM XR Foot Minimum 3 Views Right Donal GEORGE W DO; Auth (Verified) [id number] ORIGINAL EXAMINATION: THREE XRAY VIEWS OF THE RIGHT FOOT09/29/2024 12:57 pm COMPARISON: None HISTORY: ORDERING SYSTEM PROVIDED HISTORY: Reason for Exam: Avulsion of second toe FINDINGS: No fracture or dislocation is seen. Bone mineralization is diffusely decreased. No foot deformities are seen. The joint spaces are preserved and normal alignment. Significant osteophyte formation is noted at the ankle. Degenerative osseous changes are also noted within the phalanges. No suspicious osseous lesions seen. No significant joint effusion or soft tissue swelling. Postsurgical changes of the distal tibia and fibula are noted, without evidence of hardware malfunction. IMPRESSION: No acute fracture or dislocation. Moderate posttraumatic degenerative changes of the foot and ankle. I have personally reviewed the images of this examination and agree with the resident's findings and interpretation. Interpreted by: Johnny George DO Preliminary Report By: Paulina Hernandez Electronically signed By Johnny George DO Dictated Date: 09/29/2024 12:59:15 PM Prelim Date: 09/29/2024 1:14:31 PM Sign Date: 09/29/2024 1:14:31 PM Ordering Provider: IRMA HollandMAURA [facility]12-09-2024 Note* Exam Date Time Procedure Performing Provider Status 07/13/24 12:50 PM Echocardiogram, Adult - CV Auth (Verified) [facility] 12-27-2023 Note* Exam Date Time Procedure Performing Provider Status 07/31/23 9:17 AM Echocardiogram, Adul t with Bubble Study- Auth (Verified) [facility] 08-21-2023 Note* Exam Date Time Procedure Performing Provider Status 03/25/23 11:55 AM Echocardiogram, Adult - CV Auth (Verified) [facility] 12-16-2022 Hospital Discharge instructions Patient Education 07/20/2022 08:57:19 3-- EP Study/Ablation (05/2018) (CUSTOM) ELECTROPHYSIOLOGY STUDY/ABLATION Discharge Instructions DIET INSTRUCTIONS Resume diet as prior to procedure ACTIVITIES Do not drive FOR 24 HOURS No heavy lifting GREATER THAN 10 POUNDS or pushing or straining FOR 4 DAYS BATHING/SHOWERING May tub bathe in 4 days Do not sit in hot tub, whirlpool, or swim for 4 days May shower today WOUND CARE You may go home with a Band-Aid over your procedure site. Keep this Band-Aid on for the next 24 hours and then remove it leaving the site open to air. Some degree of bruising and tenderness is normal around the procedure site. It will take a while for any bruising to completely resolve. Keep your site clean and dry. You need to report the following to your sports clerk: ?Any draining or oozing from the site ?Any swelling at the site ?Any increased pain or tenderness at the site ?Any numbness in your leg where the procedure was done ?Any sign of infection WATCH FOR SIGNS OF INFECTION: Elevated temperature above 100.5 Redness or swelling Increased pain Foul odor or drainage. If you have any questions, please call your doctor at the number listed on your follow up instructions. Follow all instructions given to you by your physician. Document Released: 07/22/2006 Document Revised: 07/08/2013 Document Reviewed: 07/23/2014 ExitCare Patient Information 2015 [employer]. This information is not intended to replace advicegiven to you by your health care provider. Make sure you discuss any questions you have with your health care provider. Follow Up Care 07/04/2022 11:57:02 With:AFSANEH CASTLE MD Address: [address] [place] [address] [address] [place] [address]- [phone] When:09/19/2022 11:15:00 Comments:THIS APPOINTMENT WILL BE WITH ZOË EDWARDS [facility] 12-16-2022 Summary of episode note Discharge Instructions Thank you for allowing [facility] to assist you with your healthcare needs. The following is importantdischarge information regarding your hospital visit. Your Care Team SARAH ENNIS MD Your Diagnosis AF (atrial fibrillation) What to do next Scheduled Follow-Up Appointments Appointment Type When With Where Contact InformationCV OV 09/19/2022 11:15 AM EST RAY RHOADES [facility] CT Angiography Chest w/ Contrast 10/08/2022 01:00 PM EST Radiology CV OV 10/22/2022 01:45 PM EDT [facility] Follow Up Appointments Follow Up with AFSANEH CASTLE MD When 09/19/2022 11:15 AM EST Why: THIS APPOINTMENT WILL BE WITH ZOË EDWARDS Where: [address] [place] [address] [address] [place] [address]- [phone] The Following Activity and Diet Have Been Ordered for You Discharge Activity - Ordered -- Resume your pre-hospitalization activity, 07/20/22 16:51:00 EST Discharge Diet - Ordered -- No changes were made to your diet during your hospital stay. Please resume your pre hospitalization diet on discharge., 07/20/22 16:51:00 EST Allergies Percocet 7.5/325 (confusion/disorentation) Medications Please ask your primary doctor or pharmacist before taking any other medication not listed, including over the counter drugs, herbal medications, vitamins and or supplements as they may interact withyour home medications. What How Much When Why Instructions Last Dose Unchanged aspirin (aspirin 81 mg oral delayed releasetablet) 1 tab(s) by mouth Every day 0707/20/2207/20/Unchanged dofetilide (Tikosyn 125 mcg oral capsule) 1 cap by mouth Every 12 hours AF (atrial fibrillation) 0707/20/2207/20/Unchanged isosorbide mononitrate (isosorbide mononitrate 30 mg oral tablet, extended release) 1 tab(s) by mouth Once a day (in the morning) 0707/20/22 Unchanged lisinopril (lisinopril 20 mg oral tablet) 2 tab(s) by mouth Two (2) times a day Unchanged magnesium oxide 400 Milligram by mouth Once a day Unchanged metFORMIN (metFORMIN 500 mg oral tablet) 2 tab(s) by mouth Two (2) times a day 0707/20/22 Unchanged metoprolol (metoprolol succinate 25 mg oral TABLET extended release) 1 tab(s) by mouth Once a day Do not crush or chew (controlled release) 07/20/22 07 Unchanged nitroGLYcerin (nitroglycerin 0.4 mg sublingual tablet) 1 tab(s) under the tongue Every 5 minutes as needed for for chest pain Unchanged pravastatin (pravastatin 10 mg oral tablet) 1 tab(s) by mouth Daily at bedtime Unchanged rivaroxaban (Xarelto 20 mg oral tablet) 1 tab(s) by mouth Once a day (in the evening) Unchanged tamsulosin (tamsulosin 0.4 mg oral capsule) 1 cap by mouth Once a day 07/20/22 0700 Unchanged ubiquinone (Co-Q10 100 mg oral capsule) 2 cap by mouth Every day 07/20/22 0700 Please take this list to your next doctor s visit. Bring all medications you take, including over the counter medications, herbals and other supplements with you to your doctor s visit. Patients and families are reminded to discard old lists and to update any records with all medication providers or retail pharmacies. Education Materials ELECTROPHYSIOLOGY STUDY/ABLATION Discharge Instructions DIET INSTRUCTIONS Resume diet as prior to procedure ACTIVITIES Do not drive FOR 24 HOURS No heavy lifting GREATER THAN 10 POUNDS or pushing or straining FOR 4 DAYS BATHING/SHOWERING May tub bathe in 4 days Do not sit in hot tub, whirlpool, or swim for 4 days May shower today WOUND CARE You may go home with a Band-Aid over your procedure site. Keep this Band-Aid on for the next 24 hours and then remove it leaving the site open to air. Some degree of bruising and tenderness is normal around the procedure site. It will take a while for any bruising to completely resolve. Keep your site clean and dry. You need to report the following to your sports clerk: ? Any draining or oozing from the site ? Any swelling at the site ? Any increased pain or tenderness at the site ? Any numbness in your leg where the procedure was done ? Any sign of infection WATCH FOR SIGNS OF INFECTION: Elevated temperature above 100.5 Redness or swelling Increased pain Foul odor or drainage. If you have any questions, please call your doctor at the number listed on your follow up instructions. Follow all instructions given to you by your physician. Document Released: 07/22/2006 Document Revised: 07/08/2013 Document Reviewed: 07/23/2014 ExitCare Patient Information 2015 [employer] [facility]. This information is not intended to replace advicegiven to you by your health care provider. Make sure you discuss any questions you have with your health care provider. Additional Information VACCINATE! IT SAVES LIVES! Members of the community who have not yet received the COVID-19 vaccine and would like to receive it can visit one of [facility] vaccine clinics. There are many vaccine clinic locations within the [facility]. For locations and available times, please visit [email or web address]/. It is important to note that some COVID mobile vaccine clinics are held outdoors and may be canceled in rainy or stormy conditions. To learn more about pediatric vaccinations (ages 5-11), we invite you to visit the [facility] webpage. [email or web address]/[email or web address]-[email or web address]-Pnjcb-[email or web address] [email or web address].htmlTo learn more about the COVID-19 vaccine, we invite you to visit the [facility] website for a list of frequently asked questions. [email or web address] [facility] Patient Portal Access Instructions: Stay connected with your healthcare team and access your personal medical information anytime with the [facility] Patient Portal.If you would like a full copy of your medical records, please contact the [facility] Medical Records Department, Saturday through Saturday between 8a.m. and 4:30p.m. Please follow the directions below to access the portal: 1.Access the email account you provided upon registration to the [facility].2.Look for an invitation email from [facility].3.Open the email and access the invitation link: Accept Invitation to [facility]4.Fill in the required coelho to create your account. Sign into [email or web address] with your username and password that you created in the above steps to stay up to date. You can then view a summary of results, a summary of your visits, and the ability to download your summaries to your computer or send the information securely to a physician. Remember that your healthcare information is confidential, so carefully consider who you will allow to register on the [facility] Patient Portal for access to your information. You can also access the [facility] Patient Portal on the [employer]. Simply click on Health Records under [employer] and then click on the [employer] logo. HOW TO SAFELY DISPOSE OF PRESCRIPTION MEDICATIONS Please use one of the following methods to safely dispose of your unused medications. 1.Use a drug disposal kit: the drug disposal pouch allows you to safely discard your old and unuseddrugs. Ask your nurse to give you one when you are discharged.2.Visit a local take-back location: Many local pharmacies and police departments have programs that collect old and unwanted prescriptiondrugs. Call your local pharmacy or go to http://[employer].BuyerMLS/7I7Dw3f to find one close to you.3.Make use of household items: Use cat litter or old coffee grounds to dispose medications if other options arenot available. Mix your drugs with these household products, seal them in an airtight container andthrow it into the garbage. Call [facility]: [phone] to be sure your drugs can be disposed of in this way. Some medicines may require a different approach.4.Never flush your medications down the toilet. IF YOU HAVE BEEN PRESCRIBED AN OPIOID FOR PAIN If you have been prescribed an opioid (such as hydrocodone, oxycodone or morphine), it is critical to understand the possible side effects and risks of opioid pain medications. Even when taken as directed, opioids can have several side effects including: Tolerance, meaning you might need to take more of a medication for the same pain relief. Nausea, vomiting and/or constipation. Sleepiness, dizziness, dry mouth, confusion, depression or itching. Physical dependence, meaning you have withdrawal symptoms when a medication is stopped, can develop within a few days. KNOW YOUR RESPONSIBILITIES It is important to know exactly how much and how often to take the opioid pain medications you are prescribed. Never take opioids in higher amounts or more often than prescribed. Do not combine opioids with alcohol or other drugs that cause drowsiness, such as benzodiazepines, also known as benzos, including diazepam and alprazolam, muscle relaxants or sleep aids. Never sell or share prescription opioids. This is illegal. Store opioids in a secure place and out of reach of others (including children, family, friends and visitors). The last page of this document has been signed and retained as a CHART COPY. Signatures Patient Education Materials 3-- EP Study/Ablation (05/2018) (CUSTOM) Medication Leaflets My discharge plan and instructions have been reviewed and explained to me and I,ABBEY AQUINO understand my current condition and have read and understand these discharge instructions. I have received a written copy of the plan/instructions. If I have questions, I am aware that I should contactmy doctor. Patient/Dicer Operator Signature: Date/Time: Relationship to Patient: Witness Name/Signature: Date/Time: [id number] Anesthesiology Consult note Patient: ABBEY AQUINO Age: 72 years Sex: Male : 1950 Associated Diagnoses: None Author: JOSÉ VILLAFANA MD Preoperative Information NPO > 8 hrs Anesthesia history Patient's history: negative. Family's history: negative. History of Present Illness The patient presents for preanesthesia evaluation with 72yo male with PMH of HTN, HLD, persistent AFib, Aortic Arch aneurysm (4.3cm; just monitoring for now), CAD s/p stents, and DM2 presenting for ablation. Patient currently denies any CP, SOB, LH, NVD or GERD symptoms. METS >4.. Review of Systems Ear/Nose/Mouth/Throat: Negative. Respiratory: No shortness of breath, No wheezing, No sleep apnea. Cardiovascular: No chest pain, No palpitations, No peripheral edema. Gastrointestinal: No nausea, No vomiting. Genitourinary: Negative. Endocrine: Negative. Musculoskeletal: No neck pain. Integumentary: Negative. Neurologic: No altered mental status, No numbness, No tingling. Health Status Allergies: Allergic Reactions (Selected) Severity Not Documented Percocet 7.5/325- Confusion/disorentation., Allergies (1) ActiveReaction Percocet 7.5/325confusion/disorentation Current medications: (Selected) Inpatient Medications Ordered NS 1,000 mL: 20 mL/hr, Intravenous Prescriptions Prescribed Tikosyn 125 mcg oral capsule: 125 mcg, 1 cap(s), Oral, q12h, 180 cap(s), 3 Refill(s) Xarelto 20 mg oral tablet: 20 mg, 1 tab(s), Oral, qPM, 90 tab(s), 3 Refill(s) aspirin 81 mg oral delayed release tablet: 81 mg, 1 tab(s), Oral, Daily, 30 tab(s), 5 Refill(s) isosorbide mononitrate 30 mg oral tablet, extended release: 30 mg, 1 tab(s), Oral, qAM, 30 tab(s), 6 Refill(s) lisinopril 20 mg oral tablet: 40 mg, 2 tab(s), Oral, BID, 120 tab(s), 0 Refill(s) metoprolol succinate 25 mg oral TABLET extended release: 25 mg, 1 tab(s), Oral, qDay, Do not crush or chew (controlled release), 30 tab(s), 0 Refill(s) nitroglycerin 0.4 mg sublingual tablet: 0.4 mg, 1 tab(s), SL, q5min, PRN: for chest pain, 30 tab(s), 1 Refill(s) Documented Medications Documented Co-Q10 100 mg oral capsule: 200 mg, 2 cap(s), Oral, Daily, 0 Refill(s) magnesium oxide: 400 mg, Oral, qDay, 0 Refill(s) metFORMIN 500 mg oral tablet: 1,000 mg, 2 tab(s), Oral, BID, 30 tab(s), 0 Refill(s) pravastatin 10 mg oral tablet: 10 mg, 1 tab(s), Oral, qHS, 0 Refill(s) tamsulosin 0.4 mg oral capsule: 0.4 mg, 1 cap(s), Oral, qDay, 30 cap(s), 0 Refill(s), Medications (1) Active Scheduled: (0) Continuous: (1) NS (0.9% nacl) 1,000 mL 1,000 mL, Intravenous, 20 mL/hr PRN: (0) Problem list: Medical Aortic arch aneurysm / SNOMED CT 9582036805 / Confirmed ATRIAL FIBRILLATION / SNOMED CT 35815549 / Confirmed Cardiomyopathy / SNOMED CT 243646553 / Confirmed Coronary artery disease / SNOMED CT 75607819 / Confirmed CAD IN ANIAK ARTERY / SNOMED CT 6807404032 / Confirmed Diabetes / SNOMED CT 818081722 / Confirmed Hyperlipidemia / SNOMED CT 685299567 / Confirmed Hypertension / SNOMED CT 8196272951 / Confirmed Mitral regurgitation / SNOMED CT 02053503 / Confirmed Psoriasis / SNOMED CT 86441789 / Confirmed Sensorineural hearing loss, bilateral / SNOMED CT 007436317 / Confirmed Canceled: Atrial fibrillation / SNOMED CT 34125990 Canceled: Afib / SNOMED CT 66310166 Canceled: CAD (coronary artery disease) / SNOMED CT 75605529, Active Problems (14) 2019 novel coronavirus disease (COVID-19) Aortic arch aneurysm ATRIAL FIBRILLATION CAD IN ANIAK ARTERY Cardiomyopathy Coronary artery disease Diabetes Hyperlipidemia Hypertension Mitral regurgitation Psoriasis Sensorineural hearing loss, bilateral Stented coronary artery Stented coronary artery Histories Past Medical History: Active Mitral regurgitation (54601316) Cardiomyopathy (196148670) Hyperlipidemia (707420986) Hypertension (3621066069) Psoriasis (05469955) Diabetes (281024793) Procedure history: Cardiac catheterization (81269110) on 03/19/2022 at 71 Years. Comments: 04/19/2022 16:13 Yesy Palomino MA (ABR-OE) Responsible physician: NAYELY FIELD MD Attending physician: EL MCDONALD MD Admitting physician: EL MCDONALD MD Fellow 1: LIDIA YAO DO Procedures performed: Right coronary angiography. Left coronary angiography. SUMMARY: 1. LAD: Distal vessel lesion: There is a 70% stenosis. 2. Left circumflex: Mid-vessel lesion: There is a 50% stenosis. IMPRESSIONS: Prior LAD and LCx stents are patent. RECOMMENDATIONS: Continue medical management. Echocardiogram ([id number]) on 03/19/2022 at 71 Years. Comments: 04/19/2022 16:14 Yesy Palomino MA (ABR-OE) Reading physician: EL MCDONALD MD Reporting fellow: URIEL TURNER MD Division Director: Antonia Sauer RT, RDCS Ordering physician: ARABELLA BYNUM MD Fellow 1: JIM CLINTON MD History: Billing diagnosis codes: Chest pain, unspecified (R07.9). Summary: 1. Pericardium, extracardiac: A moderate, loculated pericardial effusion is identified anterior to the heart. The fluid has no internal echoes. There is no evidence of hemodynamic compromise. 2. Left ventricle: The cavity size is normal. Wall thickness is mildly increased. Systolic functionis normal. The estimated ejection fraction is 55-60%. Wall motion is normal; there are no regional wall motion abnormalities. Unable to assess diastolic function. 3. Ventricular septum: Thickness is mildly increased. 4. Aortic valve: There is mild regurgitation. 5. Mitral valve: The annulus is moderately calcified. The leaflets are normal thickness. 6. Right atrium: The estimated right atrial pressure is 3 mm Hg. Stress testing using pharmacologic-induced stress ([id number]) on 12/25/2021 at 71 Years. Cardiac monitoring ([id number]) on 12/01/2021 at 71 Years. Echocardiogram ([id number]) on 07/11/2021 at 71 Years. Echocardiogram ([id number]) on 05/01/2018 at 68 Years. Comments: 01/09/2021 7:46 Yesy Palomino MA (ABR-OE) Summary: 1. Left ventricle: The cavity size is normal. Wall thickness is mildly to moderately increased. Systolic function is normal. The estimated ejection fraction is 55-60%. Wall motion is normal; there are no regional wall motion abnormalities. 2. Aortic valve: There is mild regurgitation. 3. Aorta: The aorta is moderately dilated. 4. Mitral valve: There is mild regurgitation. 5. Left atrium: The atrium is moderately to markedly dilated. 6. Right ventricle: The RV systolic pressure by Doppler is 28 mm Hg. 7. Right atrium: The estimated right atrial pressure is 3 mm Hg. Cardioversion ([id number]) on 01/18/2017 at 66 Years. Cardiac catheterization ([id number]) on 05/29/2011 at 61 Years. Hernia repair ([id number]). ORIF - Open reduction and internal fixation of fracture ([id number]). Comments: 01/17/2017 19:38 BAILEE Frederick left hip Tibia and fibula (combined site) ([id number]). Comments: 01/17/2017 19:38 BAILEE Frederick repair Stent ([id number]). Comments: 01/17/2017 19:39 BAILEE Frederick LAD Colonoscopy ([id number]). Social History Social & Psychosocial Habits Alcohol 11/27/2019 Use: Past Employment/School 07/04/2022 Status: Retired Substance Abuse 11/27/2019 Use: Never Tobacco 11/27/2019 Tobacco Use: Never (less than 100 in l Home/Environment 11/28/2019 Domestic Concerns None Living situation: Home/Independent Safe place to go: Yes Lives In 1st floor bathroom, 1st floor bedroom, 1st floor laundry, Single level home Current Home Treatments Blood Glucose monitoring Special Services and Community Resources None Spouse Name Maurice Marital Status of Patient if Patient Independent Adult: Nutrition/Health 11/28/2019 Type of diet: Regular Appetite Excellent Eating Difficulties None TPN Feedings No Skin Breakdown/Decubitus Ulcers No Caffeine intake amount: 3 cups daily . Physical Examination Vital Signs(last 24 hrs) Last Charted Temp Oral36.4 DegC (JUL 19 10:) Resp Rate 16 br/min (JUL 19 10:) SBPH 150mmHg (JUL 19 10:) DBPC 103mmHg (JUL 19 10:) Measurements from flowsheet : Measurements 07/19/2022 10:01 EST Height 170.2 cm Admission Weight 79.9 kg Weight Method Actual [place] Body Weight 66.12 kg General: Alert and oriented, No acute distress. Airway: Normal temporomandibular joint mobility, Normal mouth, Normal neck range of motion. Mallampati classification: II (soft palate, fauces, uvula visible). Dentition Evaluation: Intact, Own teeth. Respiratory: Lungs are clear to auscultation. Cardiovascular: Normal rate, Regular rhythm. Heart Sounds: Normal. Neurologic: Alert, Oriented. Review / Management Results review: Labs (Last four charted values) WBC 5.9(JUL 19) Hgb 13.1(JUL 19) Hct 40.1(JUL 19) Plt 247(JUL 19) Na 140(JUL 19) K 4.2(JUL 19) CO2 30(JUL 19) Cl 105(JUL 19) Cr 0.87(JUL 19) BUN H 24.0(JUL 19) Glucose H 117(JUL 19) Ca 9.3(JUL 19) PT H 16.6(JUL 19) INR 1.4(JUL 19) . Documentation reviewed: Current records. Assessment and Plan [place] [employer] Anesthesiologists (ASA) physical status classification: Class III. Anesthetic Preoperative Plan Premedication: intravenous. Anesthetic technique: General, MAC. Induction: intravenously. Maintenance airway: Oral endotracheal tube. Special Monitoring: Arterial line. Postoperative pain management: Per surgeon. Risks discussed: nausea, vomiting, sore throat, dental injury. Informed consent: signed by patient. Digitally Signed by JOSÉ VILLAFANA MD on 07/19/2022 12:13 PM [id number] Nurse Progress note Prior to discharge, the patient became restless, pacing the room saying that his left arm was causing him 8/10 pain that was radiating to his upper back. Dr. Calvillo was paged and received a 1 time dose of tylenol. Family of the pt was not happy with this and wished to speak to someone above me. hog cutter was notified and came to speak with patient. Explained that he was cleared from a cardiac standpoint and that if he was concerned about the arm pain he needed to f/u with his PCP. Also explained [facility] has an office open after hours until 9pm per charge. Digitally Signed by Harish Coffey RN on 03/19/2022 08:00 PM [id number] Note Discharge Instructions Thank you for allowing [facility] to assist you with your healthcare needs. The following is importantdischarge information regarding your hospital visit. Your Care Team SARAH ENNIS MD Your Diagnosis Unstable angina Chest pain Left arm Numbness for 2 What to do next Instructions From Your Doctor Mr. Aquino, you were admitted to the hospital with chest pain for which you underwent a heart cathwhich showed patent stents with no surgical intervention required at this time. You are being discharged on your home medications with addition Imdur 30 mg once per day. Please avoid heavy lifting greater than 10 pounds. Also avoid any heavy pushing, pulling or twisting. Please follow-up with your surgery teacher Please follow-up with your PCP Thank you for allowing us to participate in your care. Scheduled Follow-Up Appointments Appointment Type When With Where Contact InformationCV OV Hospital Follow Up 04/23/2022 01:30 PM EDT SHERYL MORA APRN-DIONICIO [facility] CT Angiography Chest w/ Contrast 10/08/2022 01:00 PM EST Radiology CV OV 10/22/2022 01:45 PM EDT [facility] Follow Up Appointments Follow Up with CITLALI JACKSON MD When 04/23/2022 01:30 PM EDT Why: THIS APPOINTMENT WILL BE WITH SHERYL MORA CNP Where: [address] [facility] [address] [facility] [place] [address]- [phone] Follow Up with SARAH ENNIS MD When Within 1-2 days Where: My [facility] [address] [place] [address]- [phone] The Following Activity and Diet Have Been Ordered for You Discharge Activity - Ordered -- Lifting Restricted less than 10 pounds, 03/19/22 17:21:00 EDT Discharge Diet - Ordered -- Type of Diet: Cardiac, No changes were made to your diet during your hospital stay. Please resume your pre hospitalization diet on discharge., 03/19/22 17:21:00 EDT The Following Equipment Has Been Ordered for You Home Equipment - None No qualifying data available. The Following Treatments Have Been Ordered for You Discharge Labs No qualifying data available. Discharge Radiology No qualifying data available. Other Therapies No qualifying data available. Post Acute Orders No qualifying data available. Someone Will Contact You Regarding These Home Health Referrals No home referrals have been ordered for you. No one will call you. Allergies Percocet 7.5/325 (confusion/disorentation) Medications Please ask your primary doctor or pharmacist before taking any other medication not listed, including over the counter drugs, herbal medications, vitamins and or supplements as they may interact withyour home medications. What How Much When Instructions Last Dose New isosorbide mononitrate (isosorbide mononitrate 30 mg oral tablet, extended release) 1 tab(s) by mouth Once a day before a meal Duration: 30 Days Refills: 1 Pickup at [facility]/pharmacy #[id number] Unchanged aspirin (aspirin 81 mg oral delayed release tablet) 1 tab(s) by mouth Every day Unchanged lisinopril (lisinopril 20 mg oral tablet) 1 tab(s) by mouth Two (2) times a day Unchanged metFORMIN (metFORMIN 500 mg oral tablet) 2 tab(s) by mouth Two (2) times a day Unchanged multivitamin (Multivitamin) 1 tab(s) by mouth Every day Unchanged multivitamin with minerals (Viactiv Soft Calcium Chews oral tablet, chewable) 1 tab(s) Chewed Every day Unchanged nitroGLYcerin (nitroglycerin 0.4 mg sublingual tablet) 1 tab(s) under the tongue Every 5 minutes as needed for for chest pain Unchanged pravastatin (pravastatin 10 mg oral tablet) Unchanged rivaroxaban (Xarelto 20 mg oral tablet) 1 tab(s) by mouth Once a day (in the evening) Unchanged sotalol (sotalol 80 mg oral tablet) 0.5 tab(s) by mouth Once a day Duration: 90 Days Unchanged tamsulosin (tamsulosin 0.4 mg oral capsule) 1 cap by mouth Once a day Pharmacy Information [facility]/pharmacy #[id number]: [address], [place] [phone] Please take this list to your next doctor s visit. Bring all medications you take, including over the counter medications, herbals and other supplements with you to your doctor s visit. Patients and families are reminded to discard old lists and to update any records with all medication providers or retail pharmacies. Education Materials Uncertain Causes of Chest Pain Chest pain can happen for a number of reasons. Sometimes the cause can't be determined. If your condition does not seem serious, and your pain does not appear to be coming from your heart, your healthcare provider may recommend watching it closely. Sometimes the signs of a serious problem take moretime to appear. Many problems not related to your heart can cause chest pain. These include: Musculoskeletal. Costochondritis is an inflammation of the tissues around the ribs that can occur from trauma or overuse injuries, or a strain of the muscles of the chest wall Respiratory. Pneumonia, collapsed lung (pneumothorax), or inflammation of the lining of the chest and lungs (pleurisy) Gastrointestinal. Esophageal reflux, heartburn, ulcers, or gallbladder disease Anxiety and panic disorders Nerve compression and inflammation Rare miscellaneous problems such as aortic aneurysm (a swelling of the large artery coming out of the heart) or pulmonary embolism (a blood clot in the lungs) Home care After your visit, follow these recommendations: Rest today and avoid strenuous activity. Take any prescribed medicine as directed. Be aware of any recurrent chest pain and notice any changes Follow-up care Follow up with your healthcare provider if you do not start to feel better within 24 hours, or as advised. Call 911 Call 911 if any of these occur: A change in the type of pain: if it feels different, becomes more severe, lasts longer, or begins to spread into your shoulder, arm, neck, jaw or back Shortness of breath or increased pain with breathing Weakness, dizziness, or fainting Rapid heart beat Crushing sensation in your chest When to seek medical advice Call your healthcare provider right away if any of the following occur: Cough with dark colored sputum (phlegm) or blood Fever of 100.4 F (38 C) or higher, or as directed by your healthcare provider Swelling, pain or redness in one leg [phone] The [employer]. [address] [place] [address]. All rights reserved. This information is not intended as a substitute for professional medical care. Always follow yourhealthcare professional's instructions. Additional Information VACCINATE! IT SAVES LIVES! Members of the community who have not yet received the COVID-19 vaccine and would like to receive it can visit one of [facility] vaccine clinics. There are many vaccine clinic locations within the [facility]. For locations and available times, please visit [email or web address]/. It is important to note that some COVID mobile vaccine clinics are held outdoors and may be canceled in rainy or stormy conditions. To learn more about pediatric vaccinations (ages 5-11), we invite you to visit the [facility] webpage. [email or web address]/[email or web address]-[email or web address] stions.htmlTo learn more about the COVID-19 vaccine, we invite you to visit the [facility] website for a list of frequently asked questions. [email or web address]://[email or web address]/assets/Nthyxnpz-wni-Skorfziu/wmnks-Npslodx-Llnvaprdlg _Asked-Questions.pdf [facility] Patient Portal Access Instructions: Stay connected with your healthcare team and access your personal medical information anytime with the [facility] Patient Portal.If you would like a full copy of your medical records, please contact the [facility] Medical Records Department, Saturday through Saturday between 8a.m. and 4:30p.m. Please follow the directions below to access the portal: 1.Access the email account you provided upon registration to the [facility].2.Look for an invitation email from [facility].3.Open the email and access the invitation link: Accept Invitation to [facility]4.Fill in the required coelho to create your account. Sign into [email or web address] with your username and password that you created in the above steps to stay up to date. You can then view a summary of results, a summary of your visits, and the ability to download your summaries to your computer or send the information securely to a physician. Remember that your healthcare information is confidential, so carefully consider who you will allow to register on the [facility] Patient Portal for access to your information. You can also access the [facility] Patient Portal on the [employer]. Simply click on Health Records under [employer] and then click on the [employer] logo. HOW TO SAFELY DISPOSE OF PRESCRIPTION MEDICATIONS Please use one of the following methods to safely dispose of your unused medications. 1.Use a drug disposal kit: the drug disposal pouch allows you to safely discard your old and unuseddrugs. Ask your nurse to give you one when you are discharged.2.Visit a local take-back location: Many local pharmacies and police departments have programs that collect old and unwanted prescriptiondrugs. Call your local pharmacy or go to http://[employer].BuyerMLS/1E1Xe5q to find one close to you.3.Make use of household items: Use cat litter or old coffee grounds to dispose medications if other options arenot available. Mix your drugs with these household products, seal them in an airtight container andthrow it into the garbage. Call [facility]: [phone] to be sure your drugs can be disposed of in this way. Some medicines may require a different approach.4.Never flush your medications down the toilet. IF YOU HAVE BEEN PRESCRIBED AN OPIOID FOR PAIN If you have been prescribed an opioid (such as hydrocodone, oxycodone or morphine), it is critical to understand the possible side effects and risks of opioid pain medications. Even when taken as directed, opioids can have several side effects including: Tolerance, meaning you might need to take more of a medication for the same pain relief. Nausea, vomiting and/or constipation. Sleepiness, dizziness, dry mouth, confusion, depression or itching. Physical dependence, meaning you have withdrawal symptoms when a medication is stopped, can develop within a few days. KNOW YOUR RESPONSIBILITIES It is important to know exactly how much and how often to take the opioid pain medications you are prescribed. Never take opioids in higher amounts or more often than prescribed. Do not combine opioids with alcohol or other drugs that cause drowsiness, such as benzodiazepines, also known as benzos, including diazepam and alprazolam, muscle relaxants or sleep aids. Never sell or share prescription opioids. This is illegal. Store opioids in a secure place and out of reach of others (including children, family, friends and visitors). The last page of this document has been signed and retained as a CHART COPY. Signatures Patient Education Materials Chest Pain, Uncertain Cause Medication Leaflets My discharge plan and instructions have been reviewed and explained to me and I,ABBEY AQUINO understand my current condition and have read and understand these discharge instructions. I have received a written copy of the plan/instructions. If I have questions, I am aware that I should contactmy doctor. Patient/Dicer Operator Signature: Date/Time: Relationship to Patient: Witness Name/Signature: Date/Time: [id number] Discharge summary Date of Service 03/19/2022 Discharge Diagnosis 1. Chest Pain 2. Paroxysmal atrial fibrillation 3. Hypertension 4. Benign prostatic Hyperplasia 5. Type 2 Diabetes Mellitus Hospital Course Patient is a 71-year-old male with past medical history of A. fib on Xarelto and sotalol, CAD status post PCI in 2007 with stent and left circumflex, 2010 stent to LAD, aortic arch aneurysm of 4.3 cmwho presented with 3 weeks of arm numbness and tingling with new onset of chest tightness last night while having dinner. In the ED, vitals were within normal limits, troponins were flat, EKG showed normal sinus rhythm, and chest x-ray was negative. He was admitted for further ischemic evaluation. During this admission, his vital signs were within normal limits. Home medications were restarted. He underwent a left heart catheterization which showed 50% distal LAD with stents patent. Medical management is recommended at this time. Given 30 mg of Imdur for unstable anginal episodes. His electrolytes were within normal limits as well as his blood cell count. Patient was deemed stable and chest pain had improved since admission and was discharged with the addition of Imdur 30 mg once per day. If patient has worsening chest pain, shortness of breath or palpitations, and he is recommended to return to ED for further evaluation. He is recommended to follow-up with his PCP and surgery teacher. Additionally, he is recommended to make lifestyle modification such as weight loss and low-sodium diet. Allergies Percocet 7.5/325 (confusion/disorentation) Consults No qualifying data available. Imaging Results and Diagnostics XR Chest 1 View Result Date: March 18, 2022 Verified By: OSCAR VALENTIN DO CLINICAL STATEMENT: IMPRESSION: No acute process. Left heart catheterization Preliminary report showed 50% stenosis of LAD and patent grafts. Objective Vitals and Measurements T: 36.4 C (Oral) TMIN: 36.4 C (Oral) TMAX: 36.8 C (Oral) HR: 65(Monitored) RR: 18 BP: 111/62 SpO2: 93% HT: 170.2 cm WT: 78.3 kg BMI: 27.03 Weight Dosing Weight: 78.3 kg (03/19/22) Dosing Weight: 78.1 kg (03/18/22) Code Status Code Status - Ordered -- 03/19/22 1:36:00 EDT, Full Code, Constant Order Admission Date 03/18/2022 Discharge Date 03/19/2022 Patient Instructions Mr. Aquino, jack were admitted to the hospital with chest pain for which you underwent a heart cathwhich showed patent stents with no surgical intervention required at this time. You are being discharged on your home medications with addition Imdur 30 mg once per day. Please avoid heavy lifting greater than 10 pounds. Also avoid any heavy pushing, pulling or twisting. Please follow-up with your surgery teacher Please follow-up with your PCP Thank you for allowing us to participate in your care. Medications New Prescription isosorbide mononitrate (isosorbide mononitrate 30 mg oral tablet, extended release)1 tab(s) by mouth once a day before a meal for 30 Days. Refills: 1. Unchanged aspirin (aspirin 81 mg oral delayed release tablet)1 tab(s) by mouth every day. Refills: 5. lisinopril (lisinopril 20 mg oral tablet)1 tab(s) by mouth two (2) times a day. metFORMIN (metFORMIN 500 mg oral tablet)2 tab(s) by mouth two (2) times a day. multivitamin (Multivitamin)1 tab(s) by mouth every day. multivitamin with minerals (Viactiv Soft Calcium Chews oral tablet, chewable)1 tab(s) Chewed every day. nitroGLYcerin (nitroglycerin 0.4 mg sublingual tablet)1 tab(s) under the tongue every 5 minutes as needed for chest pain. Refills: 1. pravastatin (pravastatin 10 mg oral tablet) rivaroxaban (Xarelto 20 mg oral tablet)1 tab(s) by mouth once a day (in the evening). Refills: 3. sotalol (sotalol 80 mg oral tablet)0.5 tab(s) by mouth once a day for 90 Days. Refills: 1. tamsulosin (tamsulosin 0.4 mg oral capsule)1 cap by mouth once a day. Follow Up Follow Up with CITLALI JACKSON MD When 04/23/2022 01:30 PM EDT Why: THIS APPOINTMENT WILL BE WITH SHERYL MORA CNP Where: [address] [facility] [address] [facility] [place] [address]- [phone] Follow Up with SARAH ENNIS MD When Within 1-2 days Where: [facility] [address] [place] [address] [phone] Follow Up Appointments No qualifying data available. Follow Up Labs/Studies Discharge Labs No Follow-up Labs Discharge Studies No Follow-up Studies Discharge Diet Discharge Diet - Ordered -- Type of Diet: Cardiac, No changes were made to your diet during your hospital stay. Please resume your pre hospitalization diet on discharge., 03/19/22 17:21:00 EDT Discharge Activity Discharge Activity - Ordered -- Lifting Restricted less than 10 pounds, 03/19/22 17:21:00 EDT Condition on Discharge Guarded Discharge Disposition Home Digitally Signed by DREW NUNEZ MD on 03/19/2022 06:23 PM Digitally Signed by NAYELY FIELD MD [facility] [id number] Evaluation + Plan noteExtracted from: Title:History and Physical Author:ARABELLA BYNUM MD Date:03/19/22 Chest pain Left arm numbness CAD with a history of stents, atrial fibrillation on sotalol as well as anticoagulation Xarelto 71-year-old male with highly atypicality of symptoms in regards to cardiac in origin. Pain is not exertional as well as the pain located in the left upper extremity has been present chronically and is seemingly nervelike in nature. He has a very specific ulnar distribution however is not reproducible at this time with physical manipulation. Patient does have a significant history of CAD however again has a negative stress test 3 months prior. We will hold patient's Xarelto and placed on heparin by weight without bolus, will continue his statin as well as aspirin. We will continue to trend troponins and repeat EKG in the morning, EKG not concerning currently for ST elevation myocardial infarction. Will also obtain echocardiogram given lower extremity swelling. Pending ischemic evaluation per rounding surgery teacher. -Troponins -EKG -Echocardiogram -Heparin by weight -Aspirin, statin -Nitroglycerin as needed for chest pain Patient also does complain of typical GERD like symptoms, not on controller therapy. This is potentially a confounding differential. May benefit from PPI therapy upon discharge. DVT prophylax with heparin by weight Full CODE STATUS Future Appointments Appointment Date:04/23/2022 01:30:00 PM Scheduled Provider:SHERYL MORA Location:[facility] Appointment Type:CV OV Hospital Follow Up Appointment Date:10/08/2022 01:00:00 PM Scheduled Provider: Location:[facility] Appointment Type:CT Angiography Chest w/ Contrast Appointment Date:10/22/2022 01:45:00 PM Scheduled Provider: Location:[facility] Appointment Type:CV OV Future Scheduled Tests Radiology* CT Angiography Chest w/ Contrast 10/08/22 [facility] 08-15-2022 History and physical note Date of Service 03/19/2022 Chief Complaint intermittent CP, radiating into left arm and back. on Xaerlto History of Present Illness 71-year-old male presenting with chest tightness, left arm numbness with a past medical history of paroxysmal atrial fibrillation on sotalol as well as Xarelto, aortic arch aneurysm 4.3 cm as of 12/23, CAD status post PCI in 2007 with a stent to the LCx, 2010 with a stent to the LAD with Dr. Jackson, 24-hour Holter monitor 11/24 without signs of atrial fibrillation, stress test 12/24 which was negative for inducible ischemia with preserved ejection fraction, diabetes mellitus, hyperlipidemia, hypertension, BPH, bilateral hearing loss. Patient was apparently healthy until 3 weeks ago he developed intermittent numbness and tingling of his left arm. Worse when he wakes up in the morning, ulnar d istribution. He decided to come to the ER when he also developed chest tightness while he was eating dinner, has not felt pain like this before, different pain than his prior heart attack. Not associated with diaphoresis, lightheadedness, palpitations, shortness of breath. Not related to exertion. Notes he does have significant acid reflux especially worse while eating spaghetti, takes Tums weekly, not on suppressive therapy. He also notes 3 episodes of diarrhea in the past 1 day without any abdominal pain however does note some nausea without vomiting. Patient was afebrile, pulse 62 and irregular however is sinus with multiple PACs as noted on telemetry as well as EKG. Blood pressure 164/85, 94 room air. No significant ST changes or T inversions, CBC and CMP unremarkable. Troponin 63 and 64. Previous troponin level at stress test in December was 120 and 127. Chest x- ray without any significant findings. Patient was given 325 of aspirin. Review of Systems As above, denies fever, chills, sick contacts, heat intolerance, cold intolerance, abdominal pain, vomiting, lymphadenopathy, vision changes, syncopal episodes, palpitations, difficulty with ambulation, belching, dysuria, urgency, frequency. Physical Exam Vitals and Measurements T: 36.4 C (Oral) TMIN: 36.4 C (Oral) TMAX: 36.8 C (Oral) HR: 64(Monitored) RR: 18 BP: 154/72 SpO2: 98% HT: 170.2 cm WT: 78.3 kg BMI: 27.03 Weight Dosing Weight: 78.3 kg (03/19/22) Dosing Weight: 78.1 kg (03/18/22) General Appearance: Patient laying down in bed, comfortable, in no acute distress. Head:Atraumatic, Normocephalic EENT: Eyes equal, round, reactive. Nares without blood, polyps. Mucous membranes moist. Neck:Soft, non-tender, without masses. Trachea midline. Cardiac:RRR without murmurs, gallops, rubs. Difficulty to appreciate, patient has singly barrel chest deformity. No tenderness to palpation. Lungs:Clear bilaterally without wheezing, rales, ronchi. Difficulty to appreciate auscultation as above. Abdomen:Soft, non-tender, without masses, BS present x4. Musculoskeletal:No joint tenderness, muscle tenderness, strength grossly intact. No tenderness elicited to palpation on left arm. Ulnar nerve not excitable olecranon. No reproduction of symptoms withpassive or active range of motion, no restriction range of motion of left upper extremity. Jus's test negative. Pulses easily palpable diffusely. Extremities: +1 pitting lower extremity edema. Anterior tibial superficial trauma in various stagesof healing, scabs, no currently bleeding wounds. Neurological:AOx3. Skin:Warm, Dry. Psychiatric: Calm, Appropriate mood and affect. Lab Results 03/18 21:28 WBC: 10.4 Hgb: 13.4 Hct: 40.4 Platelet: 230 Neutrophil %: 71.6 Glucose Level: 116 H Sodium Level: 142 Potassium Level: 3.8 BUN: 14.0 Creatinine Lvl (s): 1.04 Imaging Results and Diagnostics XR Chest 1 View Result Date: March 18, 2022 Verified By: OSCAR VALENTIN DO CLINICAL STATEMENT: IMPRESSION: No acute process. EKG EC03/19/22: SINUS RHYTHM...normal P axis, V-rate 50- 99 PROLONGED DE INTERVAL...DE >220, V-rate 50- 90 Compared to ECG at 03/07/2022 21:32:10 Electronic Signature: JAMARI ALVA MD 03/19/2022 00:18:55 Assessment/Plan Chest pain Left arm numbness CAD with a history of stents, atrial fibrillation on sotalol as well as anticoagulation Xarelto 71-year-old male with highly atypicality of symptoms in regards to cardiac in origin. Pain is not exertional as well as the pain located in the left upper extremity has been present chronically and is seemingly nervelike in nature. He has a very specific ulnar distribution however is not reproducible at this time with physical manipulation. Patient does have a significant history of CAD however again has a negative stress test 3 months prior. We will hold patient's Xarelto and placed on heparinby weight without bolus, will continue his statin as well as aspirin. We will continue to trend troponins and repeat EKG in the morning, EKG not concerning currently for ST elevation myocardial infarction. Will also obtain echocardiogram given lower extremity swelling. Pending ischemic evaluation per rounding surgery teacher. -Troponins -EKG -Echocardiogram -Heparin by weight -Aspirin, statin -Nitroglycerin as needed for chest pain Patient also does complain of typical GERD like symptoms, not on controller therapy. This is potentially a confounding differential. May benefit from PPI therapy upon discharge. DVT prophylax with heparin by weight Full CODE STATUS Problem List/Past Medical History Ongoing Aortic arch aneurysm ATRIAL FIBRILLATION CAD IN [place]IA[place] ARTERY Cardiomyopathy Diabetes Hyperlipidemia Hypertension Mitral regurgitation Psoriasis Sensorineural hearing loss, bilateral Historical No qualifying data Procedure/Surgical History Stress testing using pharmacologic-induced stress: 12/25/21 Cardiac monitorin12/01/21 Echocardiogram: 07/11/21 Echocardiogram: 05/01/18 Cardioversion: 01/18/17 Cardiac catheterization: 05/29/11 Stent Hernia repair Colonoscopy ORIF - Open reduction and internal fixation of fracture Tibia and fibula (combined site) Medications Home Medications (10) Active aspirin 81 mg oral delayed release tablet 81 mg = 1 tab(s), Oral, Daily lisinopril 20 mg oral tablet 20 mg = 1 tab(s), Oral, BID metFORMIN 500 mg oral tablet 1,000 mg = 2 tab(s), Oral, BID Multivitamin 1 tab(s), Oral, Daily nitroglycerin 0.4 mg sublingual tablet 0.4 mg = 1 tab(s), PRN, SL, q5min pravastatin 10 mg oral tablet sotalol 80 mg oral tablet 0.5 tab(s), Oral, qDay tamsulosin 0.4 mg oral capsule 0.4 mg = 1 cap(s), Oral, qDay Viactiv Soft Calcium Chews oral tablet, chewable 1 tab(s), Chewed, Daily Xarelto 20 mg oral tablet 20 mg = 1 tab(s), Oral, qPM Allergies Percocet 7.5/325 (confusion/disorentation) Social History Smoking Status - 01/18/2017 Never smoker Alcohol Use: Past., 11/27/2019 Home/Environment Domestic Concerns: None. Living situation: Home/Independent. Safe place to go: Yes. Lives In: Single level home, 1st floor bedroom, 1st floor bathroom, 1st floor laundry. Current Home Treatments Blood glucose monitoring. Professional Skilled Services or Special Community Resources None. Spouse Name: Maurice. Marital Status: ., 11/28/2019 Nutrition/Health Type of diet: Regular. Appetite Excellent. Eating Difficulties None. TPN Feedings No. Skin Breakdown No. Caffeine intake amount: 3 cups daily., 11/28/2019 Substance Abuse Use: Never., 11/27/2019 Tobacco Nicotine Use: Never (less than 100 in lifetime)., 11/27/2019 Family History Diabetes mellitus: Brother, Son and Grandparent. HTN - Hypertension: Father and Brother. Heart disease: Father and Brother. Immunizations pneumococcal 23-valent vaccine(Pneumovax: 0.5 mL (05/30/11) SARS-CoV-2 (COVID-19) mRNA-1273 vaccine: 0 unknown unit (11/03/20) SARS-CoV-2 (COVID-19) mRNA-1273 vaccine: 0 unknown unit (10/03/20) Code Status Code Status - Ordered -- 03/19/22 1:36:00 EDT, Full Code, Constant Order Digitally Signed by ARABELLA BYNUM MD on 03/19/2022 04:42 AM [id number] Discharge instructions Patient Education 03/19/2022 01:14:59 Chest Pain, Uncertain Cause Uncertain Causes of Chest Pain Chest pain can happen for a number of reasons. Sometimes the cause can't be determined. If your condition does not seem serious, and your pain does not appear to be coming from your heart, your healthcare provider may recommend watching it closely. Sometimes the signs of a serious problem take moretime to appear. Many problems not related to your heart can cause chest pain. These include: Musculoskeletal. Costochondritis is an inflammation of the tissues around the ribs that can occur from trauma or overuse injuries, or a strain of the muscles of the chest wall Respiratory. Pneumonia, collapsed lung (pneumothorax), or inflammation of the lining of the chest and lungs (pleurisy) Gastrointestinal. Esophageal reflux, heartburn, ulcers, or gallbladder disease Anxiety and panic disorders Nerve compression and inflammation Rare miscellaneous problems such as aortic aneurysm (a swelling of the large artery coming out of the heart) or pulmonary embolism (a blood clot in the lungs) Home care After your visit, follow these recommendations: Rest today and avoid strenuous activity. Take any prescribed medicine as directed. Be aware of any recurrent chest pain and notice any changes Follow-up care Follow up with your healthcare provider if you do not start to feel better within 24 hours, or as advised. Call 911 Call 911 if any of these occur: A change in the type of pain: if it feels different, becomes more severe, lasts longer, or begins to spread into your shoulder, arm, neck, jaw or back Shortness of breath or increased pain with breathing Weakness, dizziness, or fainting Rapid heart beat Crushing sensation in your chest When to seek medical advice Call your healthcare provider right away if any of the following occur: Cough with dark colored sputum (phlegm) or blood Fever of 100.4 F (38 C) or higher, or as directed by your healthcare provider Swelling, pain or redness in one leg [id number] [employer]. [address] [place] [address]. All rights reserved. This information is not intended as a substitute for professional medical care. Always follow yourhealthcare professional's instructions. Follow Up Care 03/18/2022 21:08:32 With:SARAH ENNIS MD Address: [address] [address] [phone] When:1-2 days With:CITLALI JACKSON MD Address: [address] [place] [address] [address] [facility] [place] [address]- [phone] When:04/23/2022 13:30:00 Comments:THIS APPOINTMENT WILL BE WITH SHERYL MORA [facility] 08-14-2022 Note ORIGINAL EXAMINATION: ONE XRAY VIEW OF THE CHEST 03/18/2022 11:09 pm COMPARISON: 03/07/2022 HISTORY: ORDERING SYSTEM PROVIDED HISTORY: Reason for Exam: chest pain FINDINGS: No consolidation, congestion, pleural effusion, or pneumothorax is seen. The cardiomediastinal silhouette is stable. IMPRESSION: No acute process. Interpreted by: Oscar Valentin DO Preliminary Report By: Oscar Valentin DO Electronically signed By Oscar Valentin DO Dictated Date: 03/18/2022 11:16:29 PM Prelim Date: 03/18/2022 11:18:03 PM Sign Date: 03/18/2022 11:18:03 PM Ordering Provider: ANIBAL [facility]08-14-2022 Note ORIGINAL EXAMINATION: ONE XRAY VIEW OF THE CHEST 03/18/2022 11:09 pm COMPARISON: 03/07/2022 HISTORY: ORDERING SYSTEM PROVIDED HISTORY: Reason for Exam: chest pain FINDINGS: No consolidation, congestion, pleural effusion, or pneumothorax is seen. The cardiomediastinal silhouette is stable. IMPRESSION: No acute process. Interpreted by: Oscar Valentin DO Preliminary Report By: Oscar Valentin DO Electronically signed By Oscar Valentin DO Dictated Date: 03/18/2022 11:16:29 PM Prelim Date: 03/18/2022 11:18:03 PM Sign Date: 03/18/2022 11:18:03 PM Ordering Provider: EM[facility]08-04-2022 Hospital Discharge instructions Patient Education 03/08/2022 05:54:42 Dizziness, Uncertain Cause Dizziness (Uncertain Cause) Dizziness is a common symptom. It may be described as lightheadedness, spinning, or feeling like you are going to faint. Dizziness can have many causes. Be sure to tell the healthcare provider about: All medicines you take, including prescription, [id number], herbs, and supplements Any other symptoms you have Any health problems you are being treated for Any past major health problems you've had, such as a heart attack, balance issues, hearing problems, or blood pressure problems Anything that causes the dizziness to get worse or better Today's exam did not show an exact cause for your dizziness. Other tests may be needed. Follow up with your healthcare provider. Home care Dizziness that occurs with sudden standing may be a sign of mild dehydration. Drink extra fluids for the next few days. If you recently started a new medicine, stopped a medicine, or had the dose of a current medicine changed, talk with the prescribing healthcare provider. Your medicine plan may need adjustment. If dizziness lasts more than a few seconds, sit or lie down until it passes. This may help prevent injury in case you pass out. Get up slowly when you feel better. Don't drive or use power tools or dangerous equipment until you have had no dizziness for at least 48 hours. Follow-up care Follow up with your healthcare provider for further evaluation within the next 7 days or as advised. When to seek medical advice Call your healthcare provider for any of the following: Worsening of symptoms or new symptoms Passing out or seizure Repeated vomiting Headache Palpitations (the sense that your heart is fluttering or beating fast or hard) Shortness of breath Blood in vomit or stool (black or red color) Weakness of an arm or leg or 1 side of the face Vision or hearing changes Trouble walking or speaking Chest, arm, neck, back, or jaw pain [id number] [employer]. [address] [place] [address]. All rights reserved. This information is not intended as a substitute for professional medical care. Always follow yourhealthcare professional's instructions. 03/08/2022 05:54:35 Chest Pain, Uncertain Cause Uncertain Causes of Chest Pain Chest pain can happen for a number of reasons. Sometimes the cause can't be determined. If your condition does not seem serious, and your pain does not appear to be coming from your heart, your healthcare provider may recommend watching it closely. Sometimes the signs of a serious problem take moretime to appear. Many problems not related to your heart can cause chest pain. These include: Musculoskeletal. Costochondritis is an inflammation of the tissues around the ribs that can occur from trauma or overuse injuries, or a strain of the muscles of the chest wall Respiratory. Pneumonia, collapsed lung (pneumothorax), or inflammation of the lining of the chest and lungs (pleurisy) Gastrointestinal. Esophageal reflux, heartburn, ulcers, or gallbladder disease Anxiety and panic disorders Nerve compression and inflammation Rare miscellaneous problems such as aortic aneurysm (a swelling of the large artery coming out of the heart) or pulmonary embolism (a blood clot in the lungs) Home care After your visit, follow these recommendations: Rest today and avoid strenuous activity. Take any prescribed medicine as directed. Be aware of any recurrent chest pain and notice any changes Follow-up care Follow up with your healthcare provider if you do not start to feel better within 24 hours, or as advised. Call 911 Call 911 if any of these occur: A change in the type of pain: if it feels different, becomes more severe, lasts longer, or begins to spread into your shoulder, arm, neck, jaw or back Shortness of breath or increased pain with breathing Weakness, dizziness, or fainting Rapid heart beat Crushing sensation in your chest When to seek medical advice Call your healthcare provider right away if any of the following occur: Cough with dark colored sputum (phlegm) or blood Fever of 100.4 F (38 C) or higher, or as directed by your healthcare provider Swelling, pain or redness in one leg [id number] [employer]. [address] [place] [address]. All rights reserved. This information is not intended as a substitute for professional medical care. Always follow yourhealthcare professional's instructions. Follow Up Care 03/07/2022 21:29:33 With:SARAH ENNIS MD Address: My [address] [address] [phone] When:2-4 days [facility] 08-04-2022 Emergency department Discharge summary Discharge Instructions Thank you for allowing [facility] to assist you with your healthcare needs. The following is importantdischarge information regarding your hospital visit. Diagnosis from Today's Visit Chest pain What to Do Next Instructions from Your Care Team No qualifying data available. Post Acute Orders No qualifying data available. You Need to Schedule the Following Appointments Follow Up with SARAH ENNIS MD When Within 2-4 days Where: My [address] [address] [phone] Allergies Percocet 7.5/325 (confusion/disorentation) Medications Please ask your primary doctor or pharmacist before taking any other medication not listed, including over the counter drugs, herbal medications, vitamins and or supplements as they may interact withyour home medications. What How Much When Instructions Last Dose Unchanged aspirin (aspirin 81 mg oral delayed release tablet) 1 tab(s) by mouth Every day Unchanged hydroCHLOROthiazide (hydroCHLOROthiazide 12.5 mg oral tablet) 1 tab(s) by mouth Once a day Unchanged lisinopril (lisinopril 20 mg oral tablet) 1 tab(s) by mouth Two (2) times a day Unchanged magnesium salicylate (magnesium salicylate 600 mg oral tablet) 1 tab(s) by mouth Once a day Unchanged metFORMIN (metFORMIN 500 mg oral tablet) 2 tab(s) by mouth Two (2) times a day Unchanged multivitamin (Multivitamin) 1 tab(s) by mouth Every day Unchanged multivitamin with minerals (Viactiv Soft Calcium Chews oral tablet, chewable) 1 tab(s) Chewed Every day Unchanged nitroGLYcerin (nitroglycerin 0.4 mg sublingual tablet) 1 tab(s) under the tongue Every 5 minutes as needed for for chest pain Unchanged pravastatin (pravastatin 10 mg oral tablet) Unchanged rivaroxaban (Xarelto 20 mg oral tablet) 1 tab(s) by mouth Once a day (in the evening) Unchanged sotalol (sotalol 80 mg oral tablet) 0.5 tab(s) by mouth Once a day Duration: 90 Days Unchanged tamsulosin (tamsulosin 0.4 mg oral capsule) 1 cap by mouth Once a day Unchanged ubiquinone (Coenzyme Q10 100 mg oral capsule) 1 cap by mouth Every day Please take this list to your next doctor s visit. Bring all medications you take, including over the counter medications, herbals and other supplements with you to your doctor s visit. Patients and families are reminded to discard old lists and to update any records with all medication providers or retail pharmacies. Education Materials Dizziness (Uncertain Cause) Dizziness is a common symptom. It may be described as lightheadedness, spinning, or feeling like you are going to faint. Dizziness can have many causes. Be sure to tell the healthcare provider about: All medicines you take, including prescription, [id number], herbs, and supplements Any other symptoms you have Any health problems you are being treated for Any past major health problems you've had, such as a heart attack, balance issues, hearing problems, or blood pressure problems Anything that causes the dizziness to get worse or better Today's exam did not show an exact cause for your dizziness. Other tests may be needed. Follow up with your healthcare provider. Home care Dizziness that occurs with sudden standing may be a sign of mild dehydration. Drink extra fluids for the next few days. If you recently started a new medicine, stopped a medicine, or had the dose of a current medicine changed, talk with the prescribing healthcare provider. Your medicine plan may need adjustment. If dizziness lasts more than a few seconds, sit or lie down until it passes. This may help prevent injury in case you pass out. Get up slowly when you feel better. Don't drive or use power tools or dangerous equipment until you have had no dizziness for at least 48 hours. Follow-up care Follow up with your healthcare provider for further evaluation within the next 7 days or as advised. When to seek medical advice Call your healthcare provider for any of the following: Worsening of symptoms or new symptoms Passing out or seizure Repeated vomiting Headache Palpitations (the sense that your heart is fluttering or beating fast or hard) Shortness of breath Blood in vomit or stool (black or red color) Weakness of an arm or leg or 1 side of the face Vision or hearing changes Trouble walking or speaking Chest, arm, neck, back, or jaw pain [phone] [employer] [place], [place] [id number]. All rights reserved. This information is not intended as a substitute for professional medical care. Always follow yourhealthcare professional's instructions. Uncertain Causes of Chest Pain Chest pain can happen for a number of reasons. Sometimes the cause can't be determined. If your condition does not seem serious, and your pain does not appear to be coming from your heart, your healthcare provider may recommend watching it closely. Sometimes the signs of a serious problem take moretime to appear. Many problems not related to your heart can cause chest pain. These include: Musculoskeletal. Costochondritis is an inflammation of the tissues around the ribs that can occur from trauma or overuse injuries, or a strain of the muscles of the chest wall Respiratory. Pneumonia, collapsed lung (pneumothorax), or inflammation of the lining of the chest and lungs (pleurisy) Gastrointestinal. Esophageal reflux, heartburn, ulcers, or gallbladder disease Anxiety and panic disorders Nerve compression and inflammation Rare miscellaneous problems such as aortic aneurysm (a swelling of the large artery coming out of the heart) or pulmonary embolism (a blood clot in the lungs) Home care After your visit, follow these recommendations: Rest today and avoid strenuous activity. Take any prescribed medicine as directed. Be aware of any recurrent chest pain and notice any changes Follow-up care Follow up with your healthcare provider if you do not start to feel better within 24 hours, or as advised. Call 911 Call 911 if any of these occur: A change in the type of pain: if it feels different, becomes more severe, lasts longer, or begins to spread into your shoulder, arm, neck, jaw or back Shortness of breath or increased pain with breathing Weakness, dizziness, or fainting Rapid heart beat Crushing sensation in your chest When to seek medical advice Call your healthcare provider right away if any of the following occur: Cough with dark colored sputum (phlegm) or blood Fever of 100.4 F (38 C) or higher, or as directed by your healthcare provider Swelling, pain or redness in one leg [phone] [employer]. [address] [place] [address]. All rights reserved. This information is not intended as a substitute for professional medical care. Always follow yourhealthcare professional's instructions. Additional Information VACCINATE! IT SAVES LIVES! Members of the community who have not yet received the COVID-19 vaccine and would like to receive it can visit one of [facility] vaccine clinics. There are many vaccine clinic locations within the [facility]. For locations and available times, please visit [email or web address]. It is important to note that some COVID mobile vaccine clinics are held outdoors and may be canceled in rainy orstormy conditions. To learn more about pediatric vaccinations (ages 5-11), we invite you to visit the [facility] webpage. [email or web address] learn more about the COVID-19 vaccine, we invite you to visit the [facility] website for a list of frequently asked questions. [email or web address] [facility] Patient Portal Access Instructions: Stay connected with your healthcare team and access your personal medical information anytime with the [facility] Patient Portal. If you would like a full copy of your medical records please contact the [facility] Medical Records Department Saturday through Saturday between 8a.m. and 4:30p.m. Please follow the directions below to access the portal: 1.Access the email account you provided upon registration to the [facility].2.Look for an invitation email from [facility].3.Open the email and access the invitation link: Accept Invitation to [facility]4.Fill in the required coelho to create your account. Sign into [email or web address] with your username and password that you created in the above steps to stay up to date. You can then view a summary of results, a summary of your visits, and the ability to download your summaries to your computer or send the information securely to a physician. Remember that your healthcare information is confidential, so carefully consider who you will allow to register on the [facility] Patient Portal for access to your information. You can also access the [facility] Patient Portal on the [employer]. Simply click on Health Records under [employer] and then click on the [facility] logo. HOW TO SAFELY DISPOSE OF PRESCRIPTION MEDICATIONS Please use one of the following methods to safely dispose of your unused medications. 1.Use a drug disposal kit: the drug disposal pouch allows you to safely discard your old and unuseddrugs. Ask your nurse to give you one when you are discharged.2.Visit a local take-back location: Many local pharmacies and police departments have programs that collect old and unwanted prescriptiondrugs. Call your local pharmacy or go to http://[employer].BuyerMLS/3M8Np1y to find one close to you.3.Make use of household items: Use cat litter or old coffee grounds to dispose medications if other options arenot available. Mix your drugs with these household products, seal them in an airtight container andthrow it into the garbage. Call [facility]: [phone] to be sure your drugs can be disposed of in this way. Some medicines may require a different approach.4.Never flush your medications down the toilet. IF YOU HAVE BEEN PRESCRIBED AN OPIOIDS FOR PAIN If you have been prescribed an opioid (such as hydrocodone, oxycodone or morphine), it is critical to understand the possible side effects and risks of opioid pain medications. Even when taken as directed, opioids can have several side effects including: Tolerance, meaning you might need to take more of a medication for the same pain relief. Nausea, vomiting and/or constipation. Sleepiness, dizziness, dry mouth, confusion, depression or itching. Physical dependence, meaning you have withdrawal symptoms when a medication is stopped ? this can develop within a few days. KNOW YOUR RESPONSIBILITIES It is important to know exactly how much and how often to take the opioid pain medications you are prescribed. Never take opioids in higher amounts or more often than prescribed. Do not combine opioids with alcohol or other drugs that cause drowsiness, such as benzodiazepines, also known as benzos,including diazepam and alprazolam, muscle relaxants or sleep aids. Never sell or share prescriptionopioids. This is illegal. Store opioids in a secure place and out of reach of others (including children, family, friends and visitors). The last page(s) of this document has been signed and retained as a CHART COPY Signatures Patient Education Materials Dizziness, Uncertain Cause Chest Pain, Uncertain Cause Medication Leaflets My discharge plan and instructions have been reviewed and explained to me and I,ABBEY AQUINO understand my current condition and have read and understand these discharge instructions. I have received a written copy of the plan/instructions. If I have questions, I am aware that I should contactmy doctor. 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 No focal consolidation, pleural effusion or pneumothorax. Degenerative changes of the spine. Old left 5th and 6th rib fracture deformities. IMPRESSION: No focal consolidation or pleural effusion. Interpreted by: Anibal Sullivan Preliminary Report By: Anibal Sullivan Electronically signed By Anibal Sullivan Dictated Date: 03/07/2022 10:13:59 PM Prelim Date: 03/07/2022 10:14:53 PM Sign Date: 03/07/2022 10:14:53 PM Ordering Provider: [facility]08-03-2022 Note ORIGINAL EXAMINATION: ONE XRAY VIEW OF THE CHEST 03/07/2022 10:12 pm COMPARISON: Radiograph of the chest November 28, 2019 HISTORY: ORDERING SYSTEM PROVIDED HISTORY: Reason for Exam: chest pain FINDINGS: Cardiomediastinal silhouette is normal in size. No focal consolidation, pleural effusion or pneumothorax. Degenerative changes of the spine. Old left 5th and 6th rib fracture deformities. IMPRESSION: No focal consolidation or pleural effusion. Interpreted by: Anibal Sullivan Preliminary Report By: Anibal Sullivan Electronically signed By Anibal Sullivan Dictated Date: 03/07/2022 10:13:59 PM Prelim Date: 03/07/2022 10:14:53 PM Sign Date: 03/07/2022 10:14:53 PM Ordering Provider: [facility]04-17-2022 Hospital Discharge instructions Patient Education 11/19/2021 04:22:12 Chest Pain, Uncertain Cause Uncertain Causes of Chest Pain Chest pain can happen for a number of reasons. Sometimes the cause can't be determined. If your condition does not seem serious, and your pain does not appear to be coming from your heart, your healthcare provider may recommend watching it closely. Sometimes the signs of a serious problem take moretime to appear. Many problems not related to your heart can cause chest pain. These include: Musculoskeletal. Costochondritis is an inflammation of the tissues around the ribs that can occur from trauma or overuse injuries, or a strain of the muscles of the chest wall Respiratory. Pneumonia, collapsed lung (pneumothorax), or inflammation of the lining of the chest and lungs (pleurisy) Gastrointestinal. Esophageal reflux, heartburn, ulcers, or gallbladder disease Anxiety and panic disorders Nerve compression and inflammation Rare miscellaneous problems such as aortic aneurysm (a swelling of the large artery coming out of the heart) or pulmonary embolism (a blood clot in the lungs) Home care After your visit, follow these recommendations: Rest today and avoid strenuous activity. Take any prescribed medicine as directed. Be aware of any recurrent chest pain and notice any changes Follow-up care Follow up with your healthcare provider if you do not start to feel better within 24 hours, or as advised. Call 911 Call 911 if any of these occur: A change in the type of pain: if it feels different, becomes more severe, lasts longer, or begins to spread into your shoulder, arm, neck, jaw or back Shortness of breath or increased pain with breathing Weakness, dizziness, or fainting Rapid heart beat Crushing sensation in your chest When to seek medical advice Call your healthcare provider right away if any of the following occur: Cough with dark colored sputum (phlegm) or blood Fever of 100.4 F (38 C) or higher, or as directed by your healthcare provider Swelling, pain or redness in one leg [id number] [employer]. [address] [place] [address], [place] [address]. All rights reserved. This information is not intended as a substitute for professional medical care. Always follow yourhealthcare professional's instructions. 11/19/2021 04:22:09 Hypertension, Established Established High Blood Pressure High blood pressure (hypertension) is a chronic disease. Often, healthcare providers don t know what causes it. But it can be caused by certain health conditions and medicines. If you have high blood pressure, you may not have any symptoms. If you do have symptoms, they may include headache, dizziness, changes in your vision, chest pain, and shortness of breath. But even without symptoms, high blood pressure that s not treated raises your risk for heart attack, heart failure, and stroke. High blood pressure is a serious health risk and shouldn t be ignored. Blood pressure measurements are given as 2 numbers. Systolic blood pressure is the upper number. This is the pressure when the heart contracts. Diastolic blood pressure is the lower number. This is the pressure when the heart relaxes between beats. You will see your blood pressure readings written together. For example, a person with a systolic pressure of 118 and a diastolic pressure of 78 will have 118/78 written in the medical record. Blood pressure is categorized as normal, elevated, or stage 1 or stage 2 high blood pressure: Normal blood pressure is systolic of less than 120 and diastolic of less than 80 (120/80) Elevated blood pressure is systolic of 120 to 129 and diastolic less than 80 Stage 1 high blood pressure is systolic is 130 to 139 or diastolic between 80 to 89 Stage 2 high blood pressure is when systolic is 140 or higher or the diastolic is 90 or higher Home care If you have high blood pressure, follow these home care guidelines to help lower your blood pressure. If you are taking medicines for high blood pressure, these methods may reduce or end your need for medicines in the future. Start a weight-loss program if you are overweight. Cut back on how much salt you get in your diet. Here s how to do this: oDon t eat foods that have a lot of salt. These include olives, pickles, smoked meats, and salted potato chips. oDon t add salt to your food at the table. oUse only small amounts of salt when cooking. Start an exercise program. Talk with your healthcare provider about the type of exercise program that would be best for you. It doesn't have to be hard. Even brisk walking for 20 minutes 3 times a week is a good form of exercise. Don t take medicines that stimulate the heart. This includes many yooq-bpl-eeuofgl cold and sinus decongestant pills and sprays, as well as diet pills. Check the warnings about high blood pressure onthe label. Before buying any jsed-rlx-blgdqwf medicines or supplements, always ask the pharmacist about the product's potential interaction with your high blood pressure and your high blood pressure medicines. Stimulants such as amphetamine or cocaine could be deadly for someone with high blood pressure. Never take these. Limit how much caffeine you get in your diet. Switch to caffeine-free products. Stop smoking. If you are a long-time smoker, this can be hard. Talk to your healthcare provider about medicines and nicotine replacement options to help you. Also, enroll in a stop-smoking program tomake it more likely that you will quit for good. Learn how to handle stress. This is an important part of any program to lower blood pressure. Learnabout relaxation methods like meditation, yoga, or biofeedback. If your provider prescribed medicines, take them exactly as directed. Missing doses may cause your blood pressure get out of control. If you miss a dose or doses, check with your healthcare provider or pharmacist about what to do.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
[2025-06-07] MEDS: 0.9% Normal Saline (1000mL) 1,000 ML 1000 ML IV (21:36)
[2025-06-07 21:37] LABS: Mucous, Urine 0 SEEN /hpf (<or=2+)
--- NOTE | 2025-06-07 21:40 | RAD_ITS ---
PROCEDURE: CHEST 1 VIEW 06/07/2025 REASON FOR EXAM: NEURO DEFICIT, ACUTE, STROKE SUSPECTED TECHNIQUE: Frontal view of the chest. FINDINGS: Perihilar densities are concerning for central pulmonary vascular congestion, however perihilar infiltrates can not be excluded. No airspace consolidation or pleural effusion. The cardiac silhouette is mildly enlarged. No acute osseous abnormality. Degenerative changes are noted within both shoulders. RAD/Chest 1 View IMPRESSION: As above. Reading Location: [id number]
[2025-06-07 21:45] LABS: Anion Gap 10 (5-15); BUN 28 mg/dL (4-19); BUN/Creat Ratio 27.0 RATIO (10-20); Calcium,Total 9.3 mg/dL (7.6-11.0); Carbon Dioxide 28.2 mmol/L (21.0-32.0); Chloride 101 mmol/L (98-108); Estimated Creatinine Clearance 60.79 ml/min (50-250); Glucose 149 mg/dL (70-99); Potassium 4.1 mmol/L (3.3-5.1); Troponin T High Sensitivity 37 ng/L (<=22)
[2025-06-07 22:02] LABS: Hematocrit 42.1 % (40-54); Hemoglobin 13.5 g/dL (13.0-16.5); Immature Granulocytes Count 0.030 X10^3/uL (0.0-0.0); Mean Corp Hgb Conc 32.1 g/dL (32-36); Mean Corpuscular Volume 89.8 fL (80-94); Mean Platelet Vol. 9.8 fl (6.2-12.0); NRBC Flagged by Analyzer 0 % (0-5); Platelet Count 230 K/mm3 (150-450); RBC Distribution Width CV 14.9 % (11.6-14.6); RBC Distribution Width SD 48.8 fl (35.1-43.9); Red Blood Count 4.69 M/mm3 (4.6-6.2); White Blood Count 9.1 K/mm3 (4.4-11.0)
[2025-06-07 22:12] LABS: Prothrombin Time (Protime)PT. 29.4 SECONDS (11.7-14.9)
[2025-06-07 22:13] LABS: Partial Thromboplast Time 41.2 Seconds (24.1-36.2)
[2025-06-07 22:20] LABS: Color, Urine Yellow (Yellow); Glucose, Dipstick 50 mg/dl (Normal); Ketone-Dipstick Negative (Negative); Leukocyte Esterase-Dipstick Negative /ul (Negative); Nitrite-Dipstick Negative (Negative); Occult Blood-Urine 10 /ul (Negative); Protein-Dipstick 30 mg/dl (Negative); Specific Gravity, Urine 1.020 (1.002-1.030); Urine Bilirubin Dipstick Negative (Negative)
--- NOTE | 2025-06-07 22:28 | ED.VIS.STROK ---
HPI History of Present Illness Chief Complaint: Stroke Alert Informant: patient Onset/Context/Timing Onset: Today and Hours (4) Context: Sudden Onset Timing: Continuous Onset: Last known well was approximately 4 hours prior to arrival Worsened by: Nothing Relieved by: Nothing Associated Symptoms Associated Symptoms: Negative for Headache, Nausea, Vomiting or Chest Pain Narrative Narrative: Patient presents with confusion that began tonight. Patient states he went to the store and could not remember what he went to the store for. Patient states he thought he went to the store to get a modem when he actually needed a router. Patient states that he also kept asking his if they owned the land that his house is on. states that the patient kept repeating himself and asking the same question over the past few hours. Patient denies any paresthesias or weakness. Patient denies any headaches. Patient denies any chest pain. Patient denies any nausea or vomiting. [facility] Medical History (Updated 06/07/25 @ 23:[address] Brian Rangel DO) Atrial fibrillation Neuropathy Hypertension Coronary artery disease Home Medications ?Medication ?Instructions ?Recorded ?Last Taken ?Type atorvastatin 40 mg tablet 40 mg PO DAILY 06/07/25 Unknown History isosorbide mononitrate 30 mg 30 mg PO DAILY 06/07/25 Unknown History tablet,extended release 24 hr lisinopril 40 mg tablet 40 mg PO BID 06/07/25 Unknown History metformin 500 mg tablet,extended 500 mg PO BID 06/07/25 Unknown History release 24 hr metoprolol succinate 25 mg 25 mg PO BID 06/07/25 Unknown History tablet,extended release 24 hr rivaroxaban 20 mg tablet (Xarelto) 20 mg PO QPM 06/07/25 Unknown History sertraline 25 mg tablet 25 mg PO DAILY 06/07/25 Unknown History tamsulosin 0.4 mg capsule 0.4 mg PO DAILY 06/07/25 Unknown History Allergy/AdvReac Type Severity Reaction Status Date / Time No Known Allergies Allergy Verified 06/07/25 20:48 Surgical History (Updated 06/07/25 @ 23:[address] Brian Rangel DO) Hx of heart artery stent Social History Smoking Status: Never smoker ROS ROS ED Constitutional Constitutional ED: Denies chills or fever(s) Eyes Eyes: Denies blurry vision or change in vision ENT ENT ED: Reports rhinorrhea; Denies sore throat Cardiovascular Cardiovascular: Denies chest pain or palpitations Respiratory/Chest Respiratory/Chest: Denies cough or dyspnea Gastrointestinal Gastrointestinal: Denies nausea or vomiting Genitourinary Genitourinary ED: Denies dysuria or hematuria Musculoskeletal Musculoskeletal: Denies back pain or neck pain Integumentary Reports rash; Denies abscess Neurologic Neurologic: Denies headache(s) or weakness Allergic/Immunologic Allergic/Immunologic ED: Denies mouth swelling or urticaria EXAM Physical Exam Const Vital Signs: 06/07/25 20:48 06/07/25 20:54 06/07/25 21:19 Temperature 98.3 F Temperature Source Oral Pulse Rate 65 65 79 Respiratory Rate 16 16 17 Blood Pressure 175/117 H 175/117 H 167/103 H Blood Pressure Mean 136 136 124 Pulse Ox 100 100 98 Oxygen Delivery Method Room Air Room Air Room Air 06/07/25 21:22 06/07/25 21:48 06/07/25 22:00 Temperature Temperature Source Pulse Rate 75 72 Respiratory Rate 22 H 15 Blood Pressure 156/111 H 164/110 H Blood Pressure Mean 126 128 Pulse Ox 95 95 96 Oxygen Delivery Method Room Air Room Air Room Air Positive well nourished and well developed General Appearance ED: well developed and NAD HEENT Reports moist mucous membranes Neck supple and no JVD Resp normal respiratory effort and clear to auscultation bilaterally Cardio Rate: regular rate Rhythm: abnormal rhythm irregularly irregular GI soft to palpation, non-tender and non-distended Neuro oriented x3, CN's II-XII intact bilaterally and no sensory deficits noted Neuro Narrative: Patient is alert and oriented to person and place. Patient thought the month was May. Patient knew his age and his date of . [place] Coma Scale: document GCS findings Spontaneous Obeys Commands Confused 14 Sensorium / Orientation: alert, oriented to person and oriented to place Speech: speech normal Motor Exam: strength 5/5 throughout Psych mental status grossly normal MDM MDM MDM Narrative Medical decision making narrative: Differential diagnosis includes stroke, infection, pneumonia, bronchitis, cardiac dysrhythmia, cardiac ischemia, and urinary tract infection. EKG will be obtained to assess for cardiac dysrhythmia and cardiac ischemia. Head CT will be obtained to assess for stroke and intracranial bleeding. CTA of the head and neck will be obtained to assess for large vessel occlusion and carotid and vertebral stenosis. CBC will be obtained to assess for leukocytosis and anemia. Basic metabolic profile will be obtained to assess for electrolyte abnormality and renal function. High-sensitivity troponin will be obtained to assess for cardiac ischemia. 2-hour repeat high-sensitivity troponin will be obtained to assess for ongoing cardiac ischemia. PT with INR and PTT will be obtained to assess for coagulopathy. BNP will be obtained to assess for congestive heart failure. Urinalysis will be obtained to assess for urinary tract infection and hematuria. Lab Data Attestation: I reviewed the patient's lab results. Lab results narrative: CBC was reviewed and was within normal limits. Basic metabolic profile was reviewed glucose was mildly elevated at 149. BUN was mildly elevated at 28. The remainder is within normal limits. Initial high-sensitivity troponin was reviewed and was slightly elevated at 37. BNP was reviewed and was elevated at 3594. Urinalysis was reviewed. There is no evidence of urinary tract infection or hematuria. Labs: Laboratory Results - last 24 hr 06/07/25 06/07/25 06/07/25 20:54 21:05 21:30 WBC 9.1 RBC 4.69 Hgb 13.5 Hct 42.1 MCV 89.8 MCH 28.8 MCHC 32.1 RDW Std Deviation 48.8 H RDW Coeff of Ivana 14.9 H Plt Count 230 MPV 9.8 Immature Gran % (Auto) 0.300 Neut % (Auto) 66.0 Lymph % (Auto) 19.7 [place] % (Auto) 11.3 H Eos % (Auto) 2.0 Baso % (Auto) 0.7 Absolute Neuts (auto) 6.0 Absolute Lymphs (auto) 1.78 Nucleated RBC % 0 PT 29.4 H INR 2.7 APTT 41.2 H Sodium 139 Potassium 4.1 Chloride 101 Carbon Dioxide 28.2 Anion Gap 10 BUN 28 H Creatinine 1.05 Estim Creat Clear Calc 60.79 Est GFR (MDRD) Non-Af 74 BUN/Creatinine Ratio 27.0 H Glucose 149 H Calcium 9.3 Troponin T High Sens 37 H NT pro BNP II 3594 H Urine Color Yellow Urine Clarity Sl. Cloudy Urine pH 6.0 Ur Specific [place] 1.020 Urine Protein 30 H Urine Glucose (UA) 50 H Urine Ketones Negative Urine Occult Blood 10 H Urine Nitrite Negative Urine Bilirubin Negative Urine Urobilinogen Normal Ur Leukocyte Esterase Negative Urine RBC 0-5 SEEN Urine WBC 0-5 SEEN Ur Squamous Epith Cells 0-5 SEEN Urine Bacteria 0 SEEN Urine Mucus 0 SEEN POC Glucose 141 H Radiography Diagnostic Testing: Clinical Impression(s) from Imaging Studies Brain CT 06/07/25 20:57 IMPRESSION: No acute, large territorial infarction. Stroke Alert: No acute, large territorial infarction. The critical findings in the findings and impression above were relayed directly by me by telephone to Brian Rangel on 06/07/2025 at 9:21 pm EST with readback verification. Reading Location: [facility] Head/Neck CTA 06/07/25 21:20 IMPRESSION: High-grade stenosis of the proximal cervical segment of the right ICA resulting in approximately 80-95% luminal narrowing. Reading Location: [facility] Chest X-Ray 06/07/25 21:40 IMPRESSION: As above. Reading Location: [facility] CT scan of the brain was obtained. There is no acute intracranial abnormality. This was interpreted by the radiologist and was also independently reviewed by myself. CTA of the head and neck was obtained. There is high-grade stenosis of the proximal cervical segment of the right internal carotid artery with approximately 80 to 95% stenosis. There is no large vessel occlusion noted. This was interpreted by the radiologist and was also independently reviewed by myself. Portable 1 view chest x-ray was obtained. On my independent interpretation, lung coelho show perihilar densities concerning for vascular congestion although perihilar infiltrates cannot be excluded. There is mild cardiomegaly noted. Bony thorax is normal. Radiologist also interpreted the x-ray and agrees. EKG Initial EKG: Attestation: I personally reviewed and interpreted this EKG as follows: Interpretation: Atrial Fibrillation (77) and Non-Specific ST Changes Comments: EKG was obtained. On my independent interpretation, it shows atrial fibrillation with a rate of 77. There are occasional PVCs noted. QRS interval was normal at 98 ms. QTc interval is normal at 445 ms. [place] is normal. There are nonspecific ST-T wave changes. Prior EKG tracings: not available for review Prior: No Prior Management Discussion w/another healthcare provider: Hospitalist, Motor Vehicle Salesperson (Stroke neurologist, Dr. Soriano) and Radiologist Treatment and Re-Evaluation Narrative: Patient was evaluated by stroke neurologist. He recommended admission for further evaluation. Patient and family are agreeable with this. Case was discussed with the hospitalist. She will admit the patient to her service. Patient and family understood and were agreeable with the plan. All questions were answered. Discharge Plan Dx/Rx/DC Orders Clinical Impression: Episode of confusion, Atrial fibrillation, Hypertension Disposition Disposition: Acute Care Hospital [facility] NIHSS NIHSS 1a. Level of Consciousness: 0 - Alert; keenly responsive 1b. LOC Questions: 1 - Answers ONE question correctly 2. Best Gaze: 0 - Normal 3. Visual: 0 - No visual loss 4. Facial Palsy: 0 - Normal symmetrical movements 5a. Left Arm: 0 - No drift; arm holds 90 (or 45) degrees for full 10 seconds 5b. Right Arm: 0 - No drift; arm holds 90 (or 45) degrees for full 10 seconds 6a. Left Le - No drift; leg holds 30-degree position for full 5 seconds 6b. Right Le - No drift; leg holds 30-degree position for full 5 seconds 7. Limb Ataxia: 0 - Absent 8. Sensory: 0 - Normal; no sensory loss 9. Best Language: 0 - No aphasia; normal 10. Dysarthria: 0 - Normal 11. Extinction and Inattention: 0 - No abnormality Total: 1 Stroke Questions Stroke Team Activated: Yes Reviewed Inclusion/Exclusion criteria: Yes IV Thrombolytic Administered: No No contraindications from thrombolytic administration: No (Patient is on Xarelto. Patient's last known well was 4 hours prior to arri)
[2025-06-07 22:40] LABS: Red Blood Cells-Urine 0-5 SEEN /hpf (0-5); Squamous Epithelial Cells - UA 0-5 SEEN /hpf (0-5)
[2025-06-07 22:54] LABS: Pro- Brain NATRIURETIC PEPTIDE 3594 pg/mL (<=1800)
--- NOTE | 2025-06-07 23:01 | PCM.HP.STD ---
HPI - General General Date of Admission: 06/07/25 Date of Service: 06/07/25 Chief Complaint: Altered word finding/confusion HPI Narrative ABBEY AQUINO, is a 75 M who presented to the emergency department at [place] on 06/07/2025 with word finding issues and confusion. Per discussion with the patient and his daughter the patient has recently sold his house and he was going over to the old house which he sold to pick pack worker the router because the buyers did not require it. He indicated when he got there he was not able to remember the name of the device that he was to be picking up and was also asking his strange questions that he would typically know the answer to, such as if they owned the property they just purchased. He had no new altered sensation or weakness associated with this event and symptoms were transient. At this time his daughter states that he is back to his baseline. He does have a history of DM-2, chronic atrial fibrillation but is compliant with his rivaroxaban, essential hypertension and hyperlipidemia. He has no known history of stroke. Vital signs on presentation showed temperature of 98.3, heart rate 65, respirate 16, blood pressure is 175/117 with a repeat of 167/103 and pulse ox is 100% on room air. CBC was unremarkable. Chemistry panel was unremarkable other than hyperglycemia with a blood sugar 149 and the patient is a diagnosed diabetic. His initial troponin was 37 with a delta of 34. His BNP was 3594 however the patient stable on room air. Coags were abnormal however the patient does take rivaroxaban at baseline and this is to be expected. EKG shows persistent atrial fibrillation with controlled rate and normal intervals without any ST-T wave changes concerning for acute ischemia. CT of the brain showed no acute or large territorial infarction. CTA of the head and neck showed a high-grade stenosis of the proximal cervical segment of the right ICA with 80 to 95% luminal narrowing and less than 50% luminal narrowing in the left proximal carotid artery. Vertebrals were patent bilaterally. Chest x-ray was suggestive of some perihilar densities however the patient was clinically stable with a negative exam. Stroke team was called the emergency department and he was seen by neurology. Stroke and TIA are low on the differential however the stroke neurologist did recommend admission and workup given his risk factors and symptoms on presentation. NIH at the time of admission was 0. PFSH Medical History (Updated 06/08/25 @ 00:[address] Shauna Benoit DO) Essential hypertension Diabetes mellitus, type 2 BPH with urinary obstruction Atrial fibrillation Neuropathy Hypertension Coronary artery disease Home Medications ?Medication ?Instructions ?Recorded ?Last Taken ?Type atorvastatin 40 mg tablet 40 mg PO DAILY 06/07/25 Unknown History isosorbide mononitrate 30 mg 30 mg PO DAILY 06/07/25 Unknown History tablet,extended release 24 hr lisinopril 40 mg tablet 40 mg PO BID 06/07/25 Unknown History metformin 500 mg tablet,extended 500 mg PO BID 06/07/25 Unknown History release 24 hr metoprolol succinate 25 mg 25 mg PO BID 06/07/25 Unknown History tablet,extended release 24 hr rivaroxaban 20 mg tablet (Xarelto) 20 mg PO QPM 06/07/25 Unknown History sertraline 25 mg tablet 25 mg PO DAILY 06/07/25 Unknown History tamsulosin 0.4 mg capsule 0.4 mg PO DAILY 06/07/25 Unknown History Allergy/AdvReac Type Severity Reaction Status Date / Time No Known Allergies Allergy Verified 06/07/25 20:48 Family History (Updated 06/08/25 @ 00:[address] Shauna Benoit DO) Other CAD (coronary artery disease) Diabetes Heart disease Hypertension Surgical History (Updated 06/08/25 @ 00:[address] Shauna Benoit DO) History of ankle surgery Hx of heart artery stent Social History (Updated 06/08/25 @ 00:[address] Shauna Benoit DO) household members: spouse housing: house current occupational status: retired Smoking Status: Never smoker alcohol intake: never substance use type: does not use ROS Constitutional Constitutional: Denies anorexia, change in weight, chills, fatigue, fever(s), malaise, night sweats, weakness or other Eyes Eyes: Denies blurry vision, change in eye color, change in vision, discharge from eye(s), double vision, erythema, eye pain, loss of vision or other ENT HEENT: Denies abnormal hearing, dysphagia, ear pain, epistaxis, headache(s), hearing loss, nasal congestion, nasal discharge, post nasal drip, sinus pressure, sore throat or other Cardiovascular Cardiovascular: Denies chest pain, claudication, dyspnea on exertion, edema, lightheadedness, orthopnea, palpitations, paroxysmal nocturnal dyspnea, rapid heart rate, syncope or other Respiratory/Chest Respiratory/Chest: Denies cough, dyspnea, excessive phlegm production, hemoptysis, productive cough, shortness of breath at rest, shortness of breath with exertion, wheezing or other Gastrointestinal Gastrointestinal: Denies abdominal pain, coffee ground emesis, constipation, diarrhea, dyspepsia, hematemesis, hematochezia, loose stools, melena, nausea, vomiting or other Genitourinary Genitourinary: Denies burning urination, difficulty urinating, dysuria, hematuria, nocturia, urinary frequency, urinary hesitancy, urinary incontinence, urinary urgency or other Musculoskeletal Musculoskeletal: Denies arthralgias, back pain, joint pain, joint stiffness, joint swelling, myalgias, neck pain or other Neurologic Neurologic: Reports confusion, paresthesias and tingling; Denies abnormal gait, abnormal speech, disequilibrium, dizziness, focal weakness, headache(s), numbness, seizure-like activity, seizures, syncope, tremor(s) or other Psychiatric Psychiatric: Reports depression; Denies anxiety, homicidal ideation, suicidal ideation or other Endocrine Endocrinology: Denies change in body appearance, cold intolerance, excessive sweating, heat intolerance, polydipsia, polyuria or other Hematologic/Lymphatic Hematologic/Lymphatic: Denies anemia, easy bleeding, easy bruising, lymphadenopathy or other Allergic/Immunologic Allergic/Immunologic: Denies rhinitis, hives, eczemia, asthma or other Vital Signs Vital Signs Vital Signs: 06/07/25 20:48 06/07/25 20:54 06/07/25 21:19 Temperature 98.3 F Temperature Source Oral Pulse Rate 65 65 79 Respiratory Rate 16 16 17 Blood Pressure 175/117 H 175/117 H 167/103 H Blood Pressure Mean 136 136 124 Pulse Ox 100 100 98 Oxygen Delivery Method Room Air Room Air Room Air 06/07/25 21:22 06/07/25 21:48 06/07/25 22:00 Temperature Temperature Source Pulse Rate 75 72 Respiratory Rate 22 H 15 Blood Pressure 156/111 H 164/110 H Blood Pressure Mean 126 128 Pulse Ox 95 95 96 Oxygen Delivery Method Room Air Room Air Room Air 06/07/25 22:59 Temperature 97.0 F L Temperature Source Pulse Rate 63 Respiratory Rate 19 H Blood Pressure 143/108 H Blood Pressure Mean 119 Pulse Ox 94 Oxygen Delivery Method Weight Weight: 82.236 kg Body Mass Index (BMI) 26.7 Physical Exam Const alert, oriented x3, no apparent distress, average body habitus and healthy appearing Constitutional Narrative: Older, white male, sitting up in bed, daughter at bedside, appears comfortable currently, nontoxic appearing General Appearance: cooperative HEENT normocephalic, head/scalp atraumatic and moist oral mucous membranes; Negative for hearing grossly normal bilaterally HEENT Narrative: Mild hearing loss, Mallampati 2, no thrush Eyes EOMs intact bilaterally Eyes Narrative: No scleral icterus Neck no lymphadenopathy, supple and no carotid bruits Neck Narrative: Trachea is midline Resp normal respiratory effort, no retractions, no use of accessory muscles and clear to auscultation bilaterally Auscultation: Negative for rales, rhonchi or wheezes Cardio regular rate, S1 normal heart sound, S2 normal heart sound, no murmurs, no rub, no gallops and no clicks; Negative for regular rhythm Cardio Narrative: Irregularly irregular rhythm with controlled rate GI normal to inspection, nondistended, normoactive bowel sounds, soft to palpation and non-tender Extremity no clubbing, cyanosis or edema Extremity Narrative: 2+ pedal and radial pulses Skin Skin Narrative: No lesions or wounds noted, no icterus, no petechiae, no mottling Neuro oriented x3, CN's II-XII intact bilaterally, moves all extremities and no focal motor deficits Speech: speech normal Psych affect normal Psych Narrative: Eye contact is good, patient interacts appropriately Results Lab / Micro Data 06/07/25 21:05 06/07/25 21:05 Labs: Laboratory Results - last 24 hr 06/07/25 20:54: POC Glucose 141 H 06/07/25 21:05: WBC 9.1, RBC 4.69, Hgb 13.5, Hct 42.1, MCV 89.8, MCH 28.8, MCHC 32.1, RDW Std Deviation 48.8 H, RDW Coeff of Ivana 14.9 H, Plt Count 230, MPV 9.8, Immature Gran % (Auto) 0.300, Neut % (Auto) 66.0, Lymph % (Auto) 19.7, Fajardo % (Auto) 11.3 H, Eos % (Auto) 2.0, Baso % (Auto) 0.7, Absolute Neuts (auto) 6.0, Absolute Lymphs (auto) 1.78, Nucleated RBC % 0, PT 29.4 H, INR 2.7, APTT 41.2 H, Sodium 139, Potassium 4.1, Chloride 101, Carbon Dioxide 28.2, Anion Gap 10, BUN 28 H, Creatinine 1.05, Estim Creat Clear Calc 60.79, Est GFR (MDRD) Non-Af 74, BUN/Creatinine Ratio 27.0 H, Glucose 149 H, Calcium 9.3, Troponin T High Sens 37 H, NT pro BNP II 3594 H 06/07/25 21:30: Urine Color Yellow, Urine Clarity Sl. Cloudy, Urine pH 6.0, Ur Specific Shelby 1.020, Urine Protein 30 H, Urine Glucose (UA) 50 H, Urine Ketones Negative, Urine Occult Blood 10 H, Urine Nitrite Negative, Urine Bilirubin Negative, Urine Urobilinogen Normal, Ur Leukocyte Esterase Negative, Urine RBC 0-5 SEEN, Urine WBC 0-5 SEEN, Ur Squamous Epith Cells 0-5 SEEN, Urine Bacteria 0 SEEN, Urine Mucus 0 SEEN Imaging Radiology Impression Brain CT 06/07/25 20:57 IMPRESSION: No acute, large territorial infarction. Stroke Alert: No acute, large territorial infarction. The critical findings in the findings and impression above were relayed directly by me by telephone to Brian Rangel on 06/07/2025 at 9:21 pm EST with readback verification. Reading Location: [facility] Head/Neck CTA 06/07/25 21:20 IMPRESSION: High-grade stenosis of the proximal cervical segment of the right ICA resulting in approximately 80-95% luminal narrowing. Reading Location: [facility] [place] Chest X-Ray 06/07/25 21:40 IMPRESSION: As above. Reading Location: [facility] [place] Assessment & Plan Assessment/Plan (1) Episode of confusion: (2) Expressive aphasia: (3) Stenosis of right carotid artery: (4) Elevated troponin: (5) Elevated brain natriuretic peptide (BNP) level: PLAN: Plan Transient confusion/expressive aphasia - Resolved with NIH of 0 at the time of admission - NIH as per stroke protocol - Continue home Xarelto - Aspirin 81 mg daily--> this is not currently on the patient's med reconciliation but he states he is taking 81 mg daily at home - Check MRI of the brain without contrast - Check echocardiogram - Check lipid panel - Check hemoglobin A1c - Will continue atorvastatin increased to 80 mg daily - Continue isosorbide mononitrate and metoprolol but hold lisinopril for now to allow for some permissive hypertension - CT of the brain was unremarkable but CTA does show significant right carotid artery stenosis Severe right carotid artery stenosis - CTA estimated 80 to 95% - Will verify stenosis with carotid ultrasound - Check lipids and increase to high intensity dose statin - Continue aspirin - If no stroke will need outpatient follow-up with vascular surgery if stroke present will need inpatient consultation to vascular surgery Troponin elevation - Very mild with an initial troponin of 37 and a delta of 34 - Suspect related to elevated blood pressure on presentation - Echocardiogram to be done as above for stroke workup but no further workup at this time BNP elevation - Patient has no symptoms consistent with heart failure and lungs are clear on exam next-May be related to markedly elevated blood pressures on presentation - Sats are 94 to 100% on room air - Continue to monitor clinically and echocardiogram is pending as above Essential hypertension - Uncontrolled on presentation - Will allow for some permissive hypertension with holding lisinopril for now - Continue isosorbide mononitrate - Continue metoprolol - Continue to monitor blood pressure and PRNs are available with stroke protocol Hyperlipidemia - Continue atorvastatin increased dose from 40 to 80 mg daily - Check lipid panel Persistent atrial fibrillation - Continue home metoprolol - Continue home rivaroxaban - Monitor on telemetry per stroke protocol - Echocardiogram for stroke workup BPH with obstruction - Continue home Flomax DM-2 - Hold home metformin - Check hemoglobin A1c - Will hold off on SSI for now since patient is only on 1 oral agent - Depending on blood sugars may need additional medication for blood sugar control CAD - Continue home medications - Patient with previous stent DVT prophylaxis - Continue home rivaroxaban CODE STATUS - Discussed with patient at time of admission patient would like to remain full code at this time - Full code order placed Charges/Coding Visit Charges Inpatient E&M: 34701 Init Hosp L3
--- NOTE | 2025-06-07 23:12 | ECHOD_ITS ---
Reason For Study Reason For Study: TIA/CVA Procedure This was a 2D Doppler, Color Flow transthoracic echocardiogram. Exam performed portable in patient room. Left Ventricle Normal LV size. Mild concentric left ventricular hypertrophy. Estimated LVEF 50%. At least stage I diastolic dysfunction. Right Ventricle Normal right ventricle. Atria There is severe biatrial dilatation. 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 Mitral Valve Mild (1+) mitral valve insufficiency. Tricuspid Valve Mild (1+) tricuspid valve insufficiency. Right ventricular systolic pressure estimated to be 55 mmHg. Aortic Valve Aortic sclerosis, no stenosis. Mild (1+) aortic valve insufficiency. Pulmonic Valve The pulmonic valve is not well visualized. Great Vessels The aortic root is not well visualized. Pericardium/Pleural No pericardial effusion. Medication Performed a rapid injection of agitated mix of 9 cc saline and 1cc air to assess for atrial septal defect. MMode/2D Measurements & Calculations LVIDd: 5.2 cm IVSd: 1.4 cm LAV(MOD- bp): 117.2 ml LVIDs: 4.0 cm LVPWd: 1.2 cm RVDd: 4.6 cm FS: 22.7 % LAV(MOD- bp) Indexed: 59.8 ml/m2 LAV(MOD- sp2): 99.6 ml LAV(MOD- sp4): 133.4 ml SV(MOD-sp4): 53.3 ml SV(sp4- el): 56.4 ml LVAd ap4: 30.8 cm2 LVLd ap4: 7.2 cm SI(MOD-sp4): 27.2 ml/m2 EDV(MOD-sp4): 112.2 ml EDV(sp4-el): 112.0 ml LVAs ap4: 20.7 cm2 LVLs ap4: 6.6 cm ESV(MOD-sp4): 59.0 ml ESV(sp4-el): 55.6 ml EF(MOD-sp4): 47.5 % EF(sp4-el): 50.4 % LA dimension(2D): 5.3 cm LA A4 area: 32.3 cm2 RA A4 area: 27.8 cm2 TAPSE: 1.6 cm Doppler Measurements & Calculations MV E max mellisa: 92.5 cm/sec MV V2 max: 109.0 cm/sec Ao V2 max: 136.6 cm/sec MV max P.8 mmHg Ao max P.5 mmHg MV V2 mean: 62.9 cm/sec Ao V2 mean: 92.0 cm/sec MV mean P.9 mmHg Ao mean P.0 mmHg MV V2 VTI: 25.8 cm Ao V2 VTI: 25.7 cm AV (velocity ratio): 0.75 AI max mellisa: 403.1 cm/sec LV V1 max: 99.9 cm/sec MR max mellisa: 491.8 cm/sec AI max P.0 mmHg LV V1 max P.0 mmHg MR max P.7 mmHg LV V1 mean P.0 mmHg AI dec slope: 247.2 cm/sec2 LV V1 mean: 64.0 cm/sec AI P1/2t: 477.6 msec LV V1 VTI: 19.3 cm PA V2 max: 113.0 cm/sec TR max mellisa: 314.3 cm/sec TR max P.5 mmHg ECHO/Echo Complete Interpretation Summary Mild concentric left ventricular hypertrophy. Estimated LVEF 50%. At least stage I diastolic dysfunction. There is severe biatrial dilatation. 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 Mild (1+) mitral valve insufficiency. Mild (1+) tricuspid valve insufficiency. Right ventricular systolic pressure estimated to be 55 mmHg. Aortic sclerosis, no stenosis. Mild (1+) aortic valve insufficiency. Ordering Physician: Shauna Benoit Performed By: Angel Longo RCS
--- NOTE | 2025-06-07 23:12 | CDU_ITS ---
Reason For Study Reason For Study: RT CAROTID STENOSIS Rt. Velocities/BP Lt. Velocities/BP Prox CCA 48.7/10.0 cm/sec. Prox CCA 77.6/14.9 cm/sec. Mid CCA 38.4/13.8 cm/sec. Mid CCA 50.6/15.7 cm/sec. Dist CCA 28.2/9.7 cm/sec. Dist CCA 43.1/14.7 cm/sec. Prox ICA 168.2/56.2 cm/sec. Prox ICA 50.3/17.2 cm/sec. Mid ICA 80.1/27.4 cm/sec. Mid ICA 56.9/23.8 cm/sec. Dist ICA 58.1/17.5 cm/sec. Dist ICA 42.7/11.5 cm/sec. Rt. ICA/CCA = 168.2/38.4=3.0. Lt. ICA/CCA = 56.9/50.6=1.1. Prox ECA 50.2/6.8 cm/sec. Prox ECA 73.3/18.5 cm/sec. Rt. Vert. 32.2/10.4 cm/sec. Lt. Vert. 46.5/19.1 cm/sec. Right Extracranial There is homogeneous, smooth atherosclerotic plaque noted in the right common carotid artery. There is heterogeneous, irregular atherosclerotic plaque noted in the right internal carotid artery. The atherosclerotic plaque causes acoustic shadowing. There is heterogeneous, smooth atherosclerotic plaque noted in the right external carotid artery. Antegrade flow is noted in the right vertebral artery. Left Extracranial There is heterogeneous, smooth atherosclerotic plaque noted in the left common carotid artery. There is heterogeneous, smooth atherosclerotic plaque noted in the left internal carotid artery. There is heterogeneous, smooth atherosclerotic plaque noted in the left external carotid artery. Antegrade flow is noted in the left vertebral artery. VL/Carotid Duplex Ultrasound Interpretation Summary Moderate (50-69%) stenosis right extracranial internal carotid. Portions of the proximal right internal carotid artery lumen were not visualized by baltazar-scale imaging due to acoustic shadowing. Mild (<50%) stenosis left extracranial internal carotid. Flow within the vertebral arteries is antegrade bilaterally. Ordering Physician: Shauna Benoit Referring Physician: OTD Performed By: Luna Heart RDCS, RVT
[2025-06-07 23:49] LABS: Troponin T High Sens 2 HR 34 ng/L (<=22)
[2025-06-08] VITALS (7 sets, daily range): BP systolic 137–166; BP diastolic 95–108; PULSE 68–80; RESP 16–18; TEMP 36.3–36.4; O2SAT 90–99; BMI 26.4; BMI 26.2
--- OUTSIDE RECORDS SUMMARY | 2025-06-08 | XMS RPT_ITS | CCD ---
Author Organization [facility] Care Team Providers Care Edge Molder Name Role Phone REFERRINGMICHELE ID Unavailable Unavailable [...] Translations: [acetaminophen-oxy codone] Drug Allergy confusion/disor entation [facility] Work Phone: Medications Current Medications Medication Drug [...] qDay, # 30 tab(s), 5 Refill(s), Pharmacy: [facility] #[id number], 170, cm, 11/16/24 10:49:00 EDT, Height, kg, [...] q12h, # 180 cap(s), 3 Refill(s), Pharmacy: [facility]/pharmacy #[id number], AF (atrial fibrillation), 170.2, cm, 07/04/22 11:04:00 [...] qAM, # 90 tab(s), 1 Refill(s), [facility]acy: [facility] #[id number], 170.2, cm, 12/29/24 13:58:00 EDT, Height, kg, 12/29/24 13:58:00 EDT, Dosing Weight Start Date: 03/01/25 Status: Ordered Medication Dispense Status: Completed Quantity: 90.0 Unit: tab(s) Total Allowed Fills: 2 Fills Dispensed: 0 Start: 03-03-2024 isosorbide mon onitrate 30 mg oral tablet, extended release Dose : 30 mg = 1 tab(s), Oral, qAM, # 90 tab(s), 3 Refill(s), Pharmacy: [facility] #[id number], 170, cm, 02/10/24 15:41:00 EDT, Height, kg, 02/10/24 15:41:00 EDT, Dosing Weight Start Date: 03/03/24 Status: Ordered Quantity: 90.0 Unit: tab(s) Repeat number: 4 Start: 12-26-2022 isosorbide mon onitrate 30 mg oral tablet, extended release Dose : 30 mg = 1 tab(s), Oral, qAM, # 90 tab(s), 3 Refill(s), Pharmacy: [facility] #[id number], 170, cm, 10/22/22 13:36:00 EDT, Height, kg, 10/22/22 13:36:00 EDT, Dosing Weight Start Date: 12/26/22 Status: Ordered Start: 05-22-2022 isosorbide mon onitrate 30 mg oral tablet, extended release Dose : 30 mg = 1 tab(s), Oral, qAM, # 30 tab(s), 6 Refill(s), Pharmacy: [facility]/pharmacy #[id number], 170, cm, 04/30/22 6:54:00 EDT, Height [...] BID, # 180 tab(s), 2 Refill(s), [facility]: [facility] #[id number], 170, cm, 11/16/24 10:49:00 EDT, Height, kg, 11/16/24 10:49:00 EDT, Dosing Weight Start Date: 11/24/24 Status: Ordered Medication Dispense Status: Completed Quantity: 180.0 Unit: tab(s) Total Allowed Fills: 3 Fills Dispensed: 0 Start: 04-20-2024 lisinopril 40 mg oral tablet Dose : 40 mg = 1 tab(s), Oral, BID, # 180 tab(s), 2 Refill(s), Pharmacy: [facility] #[id number], 170, cm, 02/10/24 15:41:00 EDT, Height, kg, 02/10/24 15:41:00 EDT, Dosing Weight Start Date: 04/20/24 Status: Ordered Quantity: 180.0 Unit: tab(s) Repeat number: 3 Start: 01-30-2023 lisinopril 40 mg oral tablet Dose : 40 mg = 1 tab(s), Oral, BID, # 180 tab(s), 3 Refill(s), Pharmacy: [facility] #[id number], 170, cm, 10/22/22 13:36:00 EDT, Height, kg, 10/22/22 13:36:00 EDT, Dosing Weight Start Date: 6/28/23 Status: Ordered Start: 07-09-2022 lisinopril 20 mg oral tablet Dose : 40 mg = 2 tab(s), Oral, BID, # 120 tab(s), 0 Refill(s), Pharmacy: [facility]/pharmacy #[id number], 170.2, cm, 07/04/22 11:04:00 EST, Height [...] DAILY, # 180 tab(s), 1 Refill(s), Pharmacy: [facility] #[id number], 170.2, cm, 12/29/24 13:58:00 EDT, Height, kg, [...] release), # 30 tab(s), 0 Refill(s), Pharmacy: [facility]/pharmacy #[id number], 170.1, cm, 06/11/22 9:54:00 EST, Height [...] pain, # 30 tab(s), 1 Refill(s), Pharmacy: [facility]/pharmacy #[id number], 170.2, cm, 04/23/22 13:52:00 EDT, Height, [...] 0 Refill(s) Start Date: 05/30/11 Status: Ordered [place]-3 350 mg oral capsule (4 sources) Start: 11-16-2024 take 1 capsule by mouth once daily [place]-3 350 mg oral capsule mg = cap(s), Oral, qDay, 0 Refill(s) Start Date: 11/16/24 Status: Ordered Medication Dispense Status: Completed Total Allowed Fills: 1 Fills Dispensed: 0 Start: 11-16-2024 take 1 capsule by [facility] once daily [place]-3 350 mg oral capsule mg = cap(s), [...] qPM, # 90 tab(s), 3 Refill(s), [id number], 170, cm, 02/10/24 15:41:00 EDT, Height, 79.5, kg, 02/10/24 15:41:00 EDT, Dosing Weight Start Date: 08/20/24 Status: Ordered Medication Dispense Status: Completed Quantity: 90.0 Unit: tab(s) Total Allowed Fills: 1 Fills Dispensed: 0 Start: 06-10-2024 Xarelto 20 mg oral tablet Dose : 20 mg = 1 tab(s), Oral, qPM, TAKE 1 TABLET BY MOUTH EVERY EVENING, # 90 tab(s), 2 Refill(s), Pharmacy: [id number], 170, cm, 02/10/24 15:41:00 EDT, Height, 79.5, kg, 02/10/24 15:41:00 EDT, Dosing Weight Start Date: 06/10/24 Status: Ordered Start: 03-06-2023 End: 06-04-2024 Xarelto 20 mg oral tablet Do se : 20 mg = 1 tab(s), Oral, qPM, X 90 day(s), # 90 tab(s), 3 Refill(s), 06/04/24 10:15:00 AM EDT, Pharmacy: [facility] #[id number], 170, cm, 04/30/23 15:41:00 EDT, Height, 79.9, [...] tab(s), 0 Refill(s), Pharmacy: [id number], 170.2, cm, 01/16/21 13:12:00 EDT, Height, 84, [...] qDay, # 45 tab(s), 1 Refill(s), Pharmacy: [facility] [place] [id number], 170.2, cm, 03/19/22 4:06:00 EDT, Height, kg, 03/19/22 4:06:00 EDT, Dosing Weight Start Date: 04/20/22 Status: Ordered Start: 06-26-2021 take 0.5 tablet by m outh once daily sotalol 80 mg oral tablet See Instructions, take 1/2 tablet by mouth once daily, # 45 tab(s), 0 Refill(s), Pharmacy: [id number] 170.2, cm, 01/16/21 13:12:00 EDT, Height, kg, 01/16/21 13:12:00 EDT, Dosing Weight Start Date: 06/26/21 Status: Ordered Start: 07-18-2020 sotalol 80 mg oral tablet Dose : 40 mg = 0.5 tab(s), Oral, qDay, # 45 tab(s), 3 Refill(s), Pharmacy: [facility] [address] 170.2, cm, 06/16/20 13:18:00 [...] 03-19-2022 11-30-2019 Chronic Comment on above: Heart [id number]. No chest pains Diabetes mellitus with complications [...] Test Name Value Interpretation Reference Range Facility [facility] 05-18-2025 SPE Interpretation Normal serum protein electrophoresis pattern. No abnormality detected. Normal [facility] Comment on above: Result Comment: Elec tronically Signed by: EDUIN ANNE 05/18/2025 16:07 EDT Performed By: #### R NV, FOL, IFES, SPE, B12 ####[place] [id number] [place] [address] Albumin 3.7 G/dL Normal 3.3-5.0 [facility] Comment on above: Performed By: #### R NV, FOL, IFES, SPE, B12 ####[place] [id number] [place] [address] Alpha 1 0.3 G/dL Normal 0.1-0.4 [facility] Comment on above: Performed By: #### R NV, FOL, IFES, SPE, B12 ####[place] [address] [place] [address] Alpha 2 0.6 G/dL Normal 0.6-1.2 [facility] Comment on above: Performed By: #### R NV, FOL, IFES, SPE, B12 ####[place] [id number] [place] [address] Beta 0.8 G/dL Normal 0.6-1.3 [facility] Comment on above: Performed By: #### R NV, FOL, IFES, SPE, B12 ####[place] [id number] [place] [address] Gamma 1.2 G/dL Normal 0.7-1.6 [facility] Comment on above: Performed By: #### R NV, FOL, IFES, SPE, B12 ####[address] [address] IFESon 05-14-2025 IFES Interpretation Immunofixation electrophoresis of serum shows the presence of only polyclonal immunoglobulins (IgG,A,M,Colona and Lambda), No monoclonal protein detected. Normal [facility] Comment on above: Result Comment: Elec tronically Signed by: CHANCE RAMÍREZ 05/14/2025 11:01 EDT Performed By: #### R NV, FOL, IFES, SPE, B12 ####[address] [address] RPRon 05-14-2025 Reagin Ab RPR Ql (S) Non-Reactive Normal Non-Reactive [facility] Comment on above: Result Comment: The RPR [...] abnormal serum globulins. Performed By: #### R NV, FOL, IFES, SPE, B12 ####[address] [address] B12on 05-13-2025 Vitamin B12 Lvl >2000 High 211-911 [facility] Comment on above: Performed By: #### R NV, FOL, IFES, SPE, B12 #### [place] [address] FOLon 05-13-2025 Folate 22.24 ng/mL Normal 5.38-24.00 [facility] Comment on above: Performed By: #### R NV, FOL, IFES, SPE, B12 #### [place] [address] LABORATORYOrdered By: SYSTEM SYSTEM on 05-13-2025 Cobalamin (Vitamin B12) [Mass/Vol] pg/mL High 211 - 911 pg/mL ADM SS Folate [Mass/Vol] 22.24 ng/mL Normal 5.38 - 24. 00 ng/mL ADM SS LABORATORYOrdered By: Beka Hernandez on 05-13-2025 Protein [Mass/Vol] 6.5 G/dL Normal 5.7 - 8.2 G/dL ADM SS SPEon 05-13-2025 Total Protein 6.5 G/dL Normal 5.7-8.2 [facility] Comment on above: Performed By: #### R NV, FOL, IFES, SPE, B12 ####[place] [address] [facility] SHOULDER W/O CONTRAST LEFT ORIGINAL [...] is severe glenohumeral joint degenerative change with [id number], circumferential high-grade chondrosis with articular surface remodeling [...] its biceps labral anchor with biceps tenosynovitis. [place] cyst dissects down the long head of [...] 1. Severe glenohumeral joint degenerative change with [id number], circumferential high-grade chondrosis with labral tearing and [...] its biceps labral anchor with biceps tenosynovitis. [place] cyst dissects down the long head of the biceps tendon to the myotendinous junction. 6. Rounded prominent axillary lymph nodes measuring up to 9 mm. Interpreted by: Santa Lawson Preliminary Report By: Santa Lawson Electronically signed By Santa Lawson Dictated Date: 03/08/2025 12:30:05 PM Prelim Date: 03/08/2025 12:51:55 PM Sign Date: 03/08/2025 12:51:55 PM Ordering Provider: SARAH Valentino [facility] .Auto Diffon 12-23-2024 Basophil, Absolute 0.0 10 3/mcL Normal 0.0-0.3 [facility] Comment on above: Performed By: #### A JEISON, ADIFF, PRO, GFR, BMP, CBC #### [address] [address] Basophils/100 WBC (Bld) 0.5 % Normal 0.0-2.5 [facility] Comment on above: Performed By: #### A JEISON, ADIFF, PRO, GFR, BMP, CBC #### [address] [address] Eosinophil, Absolute 0.2 10 3/mcL Normal 0.0-0.7 [facility] Comment on above: Performed By: #### A JEISON, ADIFF, PRO, GFR, BMP, CBC #### [address] [address] Eosinophils/100 WBC (Bld) 2.2 % Normal 0.0-6.0 [facility] Comment on above: Performed By: #### A JEISON, ADIFF, PRO, GFR, BMP, CBC #### [address] [address] Lymphocyte, Absolute 1.5 10 3/mcL Normal 0.9-4.3 [facility] Comment on above: Performed By: #### A JEISON, ADIFF, PRO, GFR, BMP, CBC #### [address] [address] Lymphocytes/100 WBC (Bld) 17.6 % Low 20.0-40.0 [facility] Comment on above: Performed By: #### A JEISON, ADIFF, PRO, GFR, BMP, CBC #### [address] [address] Monocyte, Absolute 0.7 10 3/mcL Normal 0.1-1.4 [facility] Comment on above: Performed By: #### A JEISON, ADIFF, PRO, GFR, BMP, CBC #### [address] [address] Monocytes/100 WBC (Bld) 8.5 % Normal 2.0-13.0 [facility] Comment on above: Performed By: #### A JEISON, ADIFF, PRO, GFR, BMP, CBC #### [address] [address] Neutrophils/100 WBC (Bld) 71.2 % Normal 50.0-75.0 [facility] Comment on above: Performed By: #### A JEISON, ADIFF, PRO, GFR, BMP, CBC #### [address] [address] .GFRon 12-23-2024 Estimated Glomerular Filtration Rate 85 ml/min/1.73sqm Normal [facility] Comment on above: Result Comment: Stages of [...] JEISON, ADIFF, PRO, GFR, BMP, CBC #### [address] [address] .NEUABSon 12-23-2024 Neutrophil, Absolute 5.9 10 3/mcL Normal 2.3-8.1 [facility] Comment on above: Performed By: #### A JEISON, ADIFF, PRO, GFR, BMP, CBC #### [address] [address] BMPon 12-23-2024 BUN/Creatinine Ratio 29 ratio High 7-27 [facility] Comment on above: Performed By: #### A JEISON, ADIFF, PRO, GFR, BMP, CBC #### [address] [address] Calcium [Mass/Vol] 9.4 mg/dL Normal 8.4-10.2 [facility] Comment on above: Performed By: #### A JEISON, ADIFF, PRO, GFR, BMP, CBC #### [address] [address] Chloride [Moles/Vol] 103 mmol/L Normal 98-107 [facility] Comment on above: Performed By: #### A JEISON, ADIFF, PRO, GFR, BMP, CBC #### [address] [address] CO2 [Moles/Vol] 28 mmol/L Normal 23-31 [facility] Comment on above: Performed By: #### A JEISON, ADIFF, PRO, GFR, BMP, CBC #### [address] [address] Creatinine [Mass/Vol] 0.94 mg/dL Normal 0.67-1.17 [facility] Comment on above: Performed By: #### A JEISON, ADIFF, PRO, GFR, BMP, CBC #### [address] [address] Electrolyte Balance 9.0 mEq/L Normal 4.0-15.0 [facility] Comment on above: Performed By: #### A JEISON, ADIFF, PRO, GFR, BMP, CBC #### [address] [address] Glucose [Mass/Vol] 189 mg/dL High 83-110 [facility] Comment on above: Performed By: #### A JEISON, ADIFF, PRO, GFR, BMP, CBC #### [address] [address] Potassium [Moles/Vol] 4.1 mmol/L Normal 3.5-5.1 [facility] Comment on above: Performed By: #### A JEISON, ADIFF, PRO, GFR, BMP, CBC #### [place] [address] Sodium [Moles/Vol] 140 mmol/L Normal 136-145 [facility] Comment on above: Performed By: #### A JEISON, ADIFF, PRO, GFR, BMP, CBC #### [place] [address] Urea nitrogen [Mass/Vol] 27 mg/dL High 7-18 [facility] Comment on above: Performed By: #### A JEISON, ADIFF, PRO, GFR, BMP, CBC #### [address] [address] CBCon 12-23-2024 Erythrocyte distribution width (RBC) [Ratio] 15.3 % Normal 11.5-15.5 [facility] Comment on above: Performed By: #### A JEISON, ADIFF, PRO, GFR, BMP, CBC #### [address] [address] Hematocrit (Bld) [Volume fraction] 40.8 % Normal 40.0-52.0 [facility] Comment on above: Performed By: #### A JEISON, ADIFF, PRO, GFR, BMP, CBC #### [address] [address] Hgb 13.7 G/dL Normal 13.0-17.5 [facility] Comment on above: Performed By: #### A JEISON, ADIFF, PRO, GFR, BMP, CBC #### [address] [address] MCH (RBC) [Entitic mass] 30.2 pg Normal 27.0-33.0 [facility] Comment on above: Performed By: #### A JEISON, ADIFF, PRO, GFR, BMP, CBC #### [place] [id number] MCHC 33.6 G/dL Normal 32.0-36.0 [facility] Comment on above: Performed By: #### A JEISON, ADIFF, PRO, GFR, BMP, CBC #### [place] [address] MCV (RBC) [Entitic vol] 89.7 fL Normal 81.0-100.0 [facility] Comment on above: Performed By: #### A JEISON, ADIFF, PRO, GFR, BMP, CBC #### [place] [address] Platelet 215 10 3/mcL Normal 150-450 [facility] Comment on above: Performed By: #### A JEISON, ADIFF, PRO, GFR, BMP, CBC #### [place] [address] Platelet mean volume (Bld) [Entitic vol] 7.5 fL Normal 6.4-10.5 [facility] Comment on above: Performed By: #### A JEISON, ADIFF, PRO, GFR, BMP, CBC #### [place] [id number] RBC 4.55 10 6/mcL Normal 4.50-6.00 [facility] Comment on above: Performed By: #### A JEISON, ADIFF, PRO, GFR, BMP, CBC #### [place] [id number] WBC 8.3 10 3/mcL Normal 4.5-10.8 [facility] Comment on above: Performed By: #### A JEISON, ADIFF, PRO, GFR, BMP, CBC #### [address] [address] LABORATORYOrdered By: SYSTEM SYSTEM on 12-23-2024 Basophils [...] Comment on above: Interpretive Data: Manolo regalado [employer] (CHEST, 1991, 102:312S-25S) [...] Coag (PPP) [Time] 14.4 s Normal 9.0-14.4 [facility] Comment on above: Performed By: #### A JEISON, ADIFF, PRO, GFR, BMP, CBC #### [address] [address] PT International Ratio 1.2 Normal [facility] Comment on above: Result Comment: [employer] (CHEST, 1991, 102:312S-25S) recommended therapeutic range for oral anticoagulant therapy is: LOW RISK: Prophylaxis of venous thrombosis INR: 2.0-3.0 Treatment of pulmonary embolism 2.0-3.0 Prevention of systemic embolism 2.0-3.0 HIGH RISK: Mechanical prosthetic valves 2.5-3.5 Performed By: #### A JEISON, ADIFF, PRO, GFR, BMP, CBC #### [address] [address] NM MYOCARDIAL SPECT STRESS/R ESTon 12-11-2024 NM [...] Date: 12/11/2024 1:44:58 PM Ordering Provider:Donnie Horvath [facility] .GFRon 10-13-2024 Estimated Glomerular Filtration Rate 92 ml/min/1.73sqm [facility] Comment on above: Result Comment: Stages [...] ATIF, GFR, A1C, CMP, LIPID, TSHR #### [place] [address] A1Con 10-13-2024 Glucose [Mass/Vol] 151 mg/dL [facility] Comment on above: Result Comment: Micaela mated Average Glucose calculated by equation ((28.7xA1C)-46.7) Estimated average glucose (eAG) is a calculated value from Hemoglobin A1C and is merchandiser retail representative of the average blood glucose level in the last 2-3 month period. Normal range: less than 114 mg/dL Performed By: #### U ATIF, GFR, A1C, CMP, LIPID, TSHR #### [address] [address] HbA1c (Bld) [Mass fraction] 6.9 % High 4.0-6.0 [facility] Comment on above: Performed By: #### U ATIF, GFR, A1C, CMP, LIPID, TSHR #### [address] [address] CMPon 10-13-2024 Albumin Level 3.9 G/dL Normal 3.2-4.8 [facility] Comment on above: Performed By: #### U ATIF, GFR, A1C, CMP, LIPID, TSHR #### [address] [address] Albumin/Globulin [Mass ratio] 1.3 {ratio} Normal 0.9-1.6 [facility] Comment on above: Performed By: #### U ATIF, GFR, A1C, CMP, LIPID, TSHR #### [address] [address] ALP [Catalytic activity/Vol] 54 U/L Normal 38-126 [facility] Comment on above: Performed By: #### U ATIF, GFR, A1C, CMP, LIPID, TSHR #### [address] [address] ALT [Catalytic activity/Vol] 19 U/L Normal 12-55 [facility] Comment on above: Performed By: #### U ATIF, GFR, A1C, CMP, LIPID, TSHR #### [address] [address] AST [Catalytic activity/Vol] 28 U/L Normal 8-34 [facility] Comment on above: Performed By: #### U ATIF, GFR, A1C, CMP, LIPID, TSHR #### [address] [address] Bili Total 0.70 mg/dL Normal 0.20-1.20 [facility] Comment on above: Result Comment: Use of this assay is not recommended for patients undergoing treatment with eltrombopag due to the potential for falsely elevated results. Performed By: #### U ATIF, GFR, A1C, CMP, LIPID, TSHR #### [address] [address] BUN/Creatinine Ratio 29.3 ratio High 10.0-22.0 [facility] Comment on above: Performed By: #### U ATIF, GFR, A1C, CMP, LIPID, TSHR #### [address] [address] Calcium [Mass/Vol] 9.6 mg/dL Normal 8.7-10.4 [facility] Comment on above: Performed By: #### U ATIF, GFR, A1C, CMP, LIPID, TSHR #### [address] [address] Chloride [Moles/Vol] 103 mmol/L Normal 98-110 [facility] Comment on above: Performed By: #### U ATIF, GFR, A1C, CMP, LIPID, TSHR #### [address] [address] CO2 [Moles/Vol] 29 mmol/L Normal 22-32 [facility] Comment on above: Performed By: #### U ATIF, GFR, A1C, CMP, LIPID, TSHR #### [address] [address] Creatinine [Mass/Vol] 0.82 mg/dL Normal 0.60-1.40 [facility] Comment on above: Result Comment: Test ing performed on [employer] analyzer using enzymatic creatinine methodology. Performed By: #### U ATIF, GFR, A1C, CMP, LIPID, TSHR #### [address] [address] Electrolyte Balance 9.0 mEq/L Normal 4.0-15.0 [facility] Comment on above: Performed By: #### U ATIF, GFR, A1C, CMP, LIPID, TSHR #### [address] [address] Globulin 2.9 G/dL Normal 1.5-3.8 [facility] Comment on above: Performed By: #### U ATIF, GFR, A1C, CMP, LIPID, TSHR #### [address] [address] Glucose [Mass/Vol] 136 mg/dL High 82-115 [facility] Comment on above: Performed By: #### U ATIF, GFR, A1C, CMP, LIPID, TSHR #### [address] [address] Potassium [Moles/Vol] 4.6 mmol/L Normal 3.5-5.0 [facility] Comment on above: Performed By: #### U ATIF, GFR, A1C, CMP, LIPID, TSHR #### [address] [address] Sodium [Moles/Vol] 141 mmol/L Normal 136-145 [facility] Comment on above: Performed By: #### U ATIF, GFR, A1C, CMP, LIPID, TSHR #### [address] [address] Total Protein 6.8 G/dL Normal 5.7-8.2 [facility] Comment on above: Performed By: #### U ATIF, GFR, A1C, CMP, LIPID, TSHR #### [address] [address] Urea nitrogen [Mass/Vol] 24.0 mg/dL High 8.0-22.0 [facility] Comment on above: Performed By: #### U ATIF, GFR, A1C, CMP, LIPID, TSHR #### [address] [address] LIPIDon 10-13-2024 Cholesterol [Mass/Vol] 191 mg/dL Normal 50-199 [facility] Comment on above: Result Comment: Chol esterol Reference Interval: Less than 200 Desirable 200-239 Borderline high risk 240 and above High risk Performed By: #### U ATIF, GFR, A1C, CMP, LIPID, TSHR #### [address] [address] Cholesterol in HDL [Mass/Vol] 42 mg/dL Normal 40-59 [facility] Comment on above: Performed By: #### U ATIF, GFR, A1C, CMP, LIPID, TSHR #### [address] [address] Cholesterol in LDL [Mass/Vol] 134 mg/dL High 0-129 [facility] Comment on above: Performed By: #### U ATIF, GFR, A1C, CMP, LIPID, TSHR #### [address] [address] Triglyceride [Mass/Vol] 73 mg/dL Normal 3-149 [facility] Comment on above: Performed By: #### U ATIF, GFR, A1C, CMP, LIPID, TSHR #### [address] [address] MALBRon 10-13-2024 U Creatinine 85.5 mg/dL Normal [facility] Comment on above: Performed By: #### M ALBR #### [address] [address] U Microalb 15.0 mg/L Normal [facility] Comment on above: Performed By: #### M ALBR #### [address] [address] U Ratio Alb/Cre 17.5 mg/G Normal 0.0-30.0 [facility] Comment on above: Performed By: #### M ALBR #### [address] [address] TSHRon 10-13-2024 TSH 1.321 mIU/mL Normal 0.550-4.780 [facility] Comment on above: Performed By: #### U ATIF, GFR, A1C, CMP, LIPID, TSHR #### [address] [address] URICon 10-13-2024 Uric Acid Lvl 7.4 mg/dL Normal 3.7-9.2 [facility] Comment on above: Result Comment: No te - New Reference Range in effect 20 Performed By: #### U ATIF, GFR, A1C, CMP, LIPID, TSHR #### [address] [address] XR FOOT MINIMUM 3 VIEWS RIGH Ton [...] 09/29/2024 1:14:31 PM Ordering Provider: IRMA HURT [facility] .GFRon 10-23-2023 GFR >60 Normal [facility] ([place]) Comment on above: Result Comment: GFR Population [...] MP, TSH, HCV1, LIPID, A1C, GFR #### [place] [address] GFR Non- >60 Normal [facility] ([place]) Comment on above: Result Comment: GFR Population [...] MP, TSH, HCV1, LIPID, A1C, GFR #### [address] [address] A1Con 10-23-2023 HbA1c (Bld) [Mass fraction] 6.8 % High 4.0-6.0 [facility] ([place]) Comment on above: Performed By: #### C MP, TSH, HCV1, LIPID, A1C, GFR #### [address] [address] CMPon 10-23-2023 Albumin Level 3.9 G/dL Normal 3.2-4.8 [facility] ([place]) Comment on above: Performed By: #### C MP, TSH, HCV1, LIPID, A1C, GFR #### [address] [address] Albumin/Globulin [Mass ratio] 1.3 {ratio} Normal 0.9-1.6 [facility] ([place]) Comment on above: Performed By: #### C MP, TSH, HCV1, LIPID, A1C, GFR #### [address] [address] ALP [Catalytic activity/Vol] 62 U/L Normal 38-126 [facility] ([place]) Comment on above: Performed By: #### C MP, TSH, HCV1, LIPID, A1C, GFR #### [address] [address] ALT [Catalytic activity/Vol] 16 U/L Normal 12-55 [facility] ([place]) Comment on above: Performed By: #### C MP, TSH, HCV1, LIPID, A1C, GFR #### [address] [address] AST [Catalytic activity/Vol] 19 U/L Normal 8-34 [facility] ([place]) Comment on above: Performed By: #### C MP, TSH, HCV1, LIPID, A1C, GFR #### [address] [address] Bili Total 0.80 mg/dL Normal 0.20-1.20 [facility] ([place]) Comment on above: Result Comment: Use of this assay is not recommended for patients undergoing treatment with eltrombopag due to the potential for falsely elevated results. Performed By: #### C MP, TSH, HCV1, LIPID, A1C, GFR #### [place] [id number] BUN/Creatinine Ratio 27.3 ratio High 10.0-22.0 [facility] ([place]) Comment on above: Performed By: #### C MP, TSH, HCV1, LIPID, A1C, GFR #### [address] [address] Calcium [Mass/Vol] 9.5 mg/dL Normal 8.7-10.4 On license of [facility] ([place]) Comment on above: Performed By: #### C MP, TSH, HCV1, LIPID, A1C, GFR #### [address] [address] Chloride [Moles/Vol] 103 mmol/L Normal 98-110 [facility] ([place] Comment on above: Performed By: #### C MP, TSH, HCV1, LIPID, A1C, GFR #### [address] [address] CO2 [Moles/Vol] 32 mmol/L Normal 22-32 [facility] ([place]) Comment on above: Performed By: #### C MP, TSH, HCV1, LIPID, A1C, GFR #### [address] [address] Creatinine [Mass/Vol] 0.88 mg/dL Normal 0.60-1.40 [facility] [place] Comment on above: Performed By: #### C MP, TSH, HCV1, LIPID, A1C, GFR #### [address] [address] Electrolyte Balance 6.0 mEq/L Normal 4.0-15.0 [facility] ([place]) Comment on above: Performed By: #### C MP, TSH, HCV1, LIPID, A1C, GFR #### [address] [address] Globulin 3.0 G/dL Normal 1.5-3.8 [facility] ([place] Comment on above: Performed By: #### C MP, TSH, HCV1, LIPID, A1C, GFR #### [address] [address] Glucose [Mass/Vol] 125 mg/dL High 82-115 On license of [facility] ([place]) Comment on above: Performed By: #### C MP, TSH, HCV1, LIPID, A1C, GFR #### [address] [address] Potassium [Moles/Vol] 4.6 mmol/L Normal 3.5-5.0 [facility] [place] Comment [place] above: Performed By: #### C MP, TSH, HCV1, LIPID, A1C, GFR #### [address] [address] Sodium [Moles/Vol] 141 mmol/L Normal 136-145 On license of [facility] ([place]) Comment on above: Performed By: #### C MP, TSH, HCV1, LIPID, A1C, GFR #### [place] [id number] Total Protein 6.9 G/dL Normal 5.7-8.2 [facility] ([place]) Comment on above: Result Comment: No te - New Reference Range in effect 20 Performed By: #### C MP, TSH, HCV1, LIPID, A1C, GFR #### [address] [address] Urea nitrogen [Mass/Vol] 24.0 mg/dL High 8.0-22.0 [facility] ([place]) Comment on above: Performed By: #### C MP, TSH, HCV1, LIPID, A1C, GFR #### [address] [address] HCVon 10-23-2023 Hep C Ab Non-Reactive Normal Non-Reactive [facility] ([place]) Comment on above: Performed By: #### C MP, TSH, HCV1, LIPID, A1C, GFR #### [address] [address] Hep C Ab Int Normal [facility] ([place]) Comment on above: Result Comment: Nonr eactive: [...] MP, TSH, HCV1, LIPID, A1C, GFR #### [address] [address] LIPIDon 10-23-2023 Cholesterol [Mass/Vol] 204 mg/dL High 50-199 [facility] ([place]) Comment on above: Result Comment: Chol esterol Reference Interval: Less than 200 Desirable 200-239 Borderline high risk 240 and above High risk Performed By: #### C MP, TSH, HCV1, LIPID, A1C, GFR #### [address] [address] Cholesterol in HDL [Mass/Vol] 42 mg/dL Normal 40-59 [facility] ([place]) Comment on above: Performed By: #### C MP, TSH, HCV1, LIPID, A1C, GFR #### [address] [address] Cholesterol in LDL [Mass/Vol] 147 mg/dL High 0-129 [facility] ([place]) Comment on above: Performed By: #### C MP, TSH, HCV1, LIPID, A1C, GFR #### [address] [address] Triglyceride [Mass/Vol] 76 mg/dL Normal 3-149 [facility] ([place]) Comment on above: Performed By: #### C MP, TSH, HCV1, LIPID, A1C, GFR #### [address] [address] MALBRon 10-23-2023 U Creatinine 61.4 mg/dL Normal [facility] ([place]) Comment on above: Performed By: #### M ALBR #### [facility] [address] [place] [address] U Microalb 400 mcg/dL Normal [facility] ([place]) Comment on above: Performed By: #### M ALBR #### [facility] [address] [place] [address] U Ratio Alb/Cre 6.5 mcg/mg Normal 0.0-16.9 [facility] ([place]) Comment on above: Performed By: #### M ALBR #### [facility] [address] [place] [address] TSHon 10-23-2023 TSH 1.365 mIU/mL Normal 0.550-4.780 [facility] ([place]) Comment on above: Result Comment: No te - New Reference Range in effect 20 Performed By: #### C MP, TSH, HCV1, LIPID, A1C, GFR #### [address] [address] LABORATORYOrdered By: SYSTEM SYSTEM on 07-19-2022 Albumin [...] Glucose Testing Reason Routine (03/19/22 4:43 PM) [facility] Glucose [Mass/Vol] 190 mg/dL Invalid Interpretation Code 82 - 115 mg/dL [facility] LABORATORYOrdered By: Austin Porras on 03-19-2022 Blood Glucose Testing Reason Routine (03/19/22 11:44 AM) [facility] Glucose [Mass/Vol] 148 mg/dL Invalid Interpretation Code 82 - 115 mg/dL [facility] Blood Glucose Testing Reason Routine (03/19/22 8:34 AM) [facility] Glucose [Mass/Vol] 117 mg/dL Invalid Interpretation Code 82 - 115 mg/dL [facility] LABORATORYOrdered By: SYSTEM SYSTEM on 03-19-2022 Troponin [...] - 149 mg/dL ADM SS LABORATORYOrdered By: [employer] SYSTEM on 03-18-2022 Troponin I.cardiac DL <= [...] 900 pg/mL Auto Chem SS LABORATORYOrdered By: [employer] SYSTEM on 12-04-2021 Albumin BCP dye [Mass/Vol] [...] Chemistry S PROGRESSon 04-20-2020 PROGRESS HNO ID: [id number] Author: Kathie Leo Service: ? Author Type: [...] 1V UNIL W PELVIS WHEN PERFORMED () [facility] radiographs, 04/14/2020. AP and lateral views of the left hip were obtained and reviewed. These demonstrate clear trochanteric hip fracture. Overall alignment is well-maintained without significant change compared to previous radiographs. There is some consolidation of the fracture site. Overall stable appearing follow-up radiographs. Plan ASSESSMENT AND PLAN: 1. Closed fracture of trochanter of left femur, initial encounter ([facility]) - ICD9: 820.20, ICD10: S72.102A Functional Plan: [...] 8 weeks (around 06/09/2020). [facility] [facility] Office Visit (AGHWN) ABBEY AQUINO ([id number]) 1950 M Date Time Provider Department 04/14/20 2:00 PM KATHIE LEO AGHARSHAL During your visit today, we recorded the following information about you: Respiration Weight Height 16/minute 77.1 kg 1.702 m Guerita Hinds Ligandal 04/19/2020 10:56 PM Signed REVIEW OF SYSTEMS: [...] 1V UNIL W PELVIS WHEN PERFORMED (AG) [facility] radiographs, 04/14/2020. AP and lateral views of the left hip were obtained and reviewed. These demonstrate clear trochanteric hip fracture. Overall alignment is well-maintained without significant change compared to previous radiographs. There is some consolidation of the fracture site. Overall stable appearing follow-up radiographs. Plan ASSESSMENT AND PLAN: 1. Closed fracture of trochanter of left femur, initial encounter ([facility]) - ICD9: 820.20, ICD10: S72.102A Functional Plan: [...] Kathie Leo MD Referring Provider: KEVEN DIAL [[id number]] Allergies As of Date: 04/14/2020 Noted Allergy Reaction OXYCODONE 02/25/2020 1 - Mental Status Change 9 - Itching PERCOCET (OXYCODONE-ACETAMINOP HEN)02/18/2020 1 - Mental Status Change VICODIN (HYDROCODONE-ACETAMIN OPHE*02/25/2020 8 - GI Upset 11 - Vomiting Date Reviewed: 04/14/2020 Reviewed by: Guerita Hinds [facility] - Fully Assessed Reason for Visit: New [[id number]] Primary Visit Diagnosis:Closed fracture of trochanter of left femur, initial encounter ([facility]) [S72.102A] Order(s):XR HIP 1V UNIL W PELVIS WHEN PERFORMED () [[id number]] Order #: [id number] Prescriptions as of 04/14/2020 Sig: ACETAMINOPHEN 325 [...] encounter METHOTREXATE (ANTI-RHEUMATIC) ORAL >> Guerita Guzman Ligandal 04/14/2020 2:02 PM >> H.BLOOMGUERITA Apr 14, 2020 2:02 PM DC Problem List As Of Date 04/14/2020 Noted Resolved Left hip pain [M25.552] 02/23/2020 Sigmoid diverticulitis [K57.32] 02/24/2020 Disposition: Return in about 8 weeks (around 06/09/2020). Follow-up and Disposition History Recorded Encounter Status:Closed by KATHIE LEO MD on 04/19/20 [facility] PROGRESSon 04-14-2020 PROGRESS HNO ID: [id number] Author: Guerita Scoutzie Service: ? Author Type: ? Type: Progress [...] Negative for excessive bleeding, clots, bleeding disorders. [facility] CNOVon 03-17-2020 CNOV Office Visit (AGHWW1 ) ABBEY AQUINO ([id number]) 1950 M Date Time Provider Department 03/17/20 [...] of left femur, initial encounter ([facility]) (primary encounter diagnosis) Current or previous [...] fracture without displacement with interval healing Procedures [place] Score: na Assessment and Plan: 1. Closed fracture of trochanter of left femur, initial encounter ([facility]) - ICD9: 820.20, ICD10: S72.102A Partial weight [...] of trochanter of left femur, initial encounter ([facility]) [S72.102A] Order(s):XR PELVIS 1V AP [[id number]] Order #: [id number] Prescriptions as of 03/17/2020 Sig: ACETAMINOPHEN 325 [...] Status:Closed by KEVEN DIAL MD on 03/17/20 [facility] PROGRESSon 03-17-2020 PROGRESS HNO ID: [id number] Author: Keven Dial Service: ? Author Type: Physician Type: Progress Notes Filed: 03/17/2020 10:39 AM Note Text: Follow-up Patient Visit Abbey Aquino is a 69 year old male who presents to follow up for Closed fracture of trochanter of left femur, initial encounter ([facility]) (primary encounter diagnosis) Current or previous [...] fracture without displacement with interval healing Procedures [place] Score: na Assessment and Plan: 1. Closed fracture of trochanter of left femur, initial encounter ([facility]) - ICD9: 820.20, ICD10: S72.102A Partial weight bearing with a walker FU in 3 weeks with xray Likely advance in weight bearing No follow-ups on file. Keven Dial MD [facility] PROGRESS HNO ID: [id number] Author: Sindi Browne Service: ? Author Type: Contract Attorney Type: Progress Notes Filed: 03/17/2020 10:39 AM [...] Negative for excessive bleeding, clots, bleeding disorders. [facility] ALLIED HEALTHon 02-26-2020 ALLIED HEALTH HNO ID: [id number] Author: Luna (Student) Alla Oquendo Service: Spiritual Care Author Type: Student Type: Allied Health Filed: 02/26/2020 2:03 PM Note Text: Summary: Spiritual Care SPIRITUAL CARE PROGRESS NOTE SERVICE DATE: 02/26/2020 SERVICE TIME: 2:00pm As tire retreader, I contacted pt by phone. He was happy to be going home soon. Nothing needed at this time. Pt expressed gratitude for call. To contact the Spiritual Care Department: Please call [phone]. SIGNATURE: Alla Mosher PATIENT NAME: Abbey Aquino DATE: February 26, 2020 TIME: 2:02 PM PAGER/CONTACT #: [phone] [facility] CASE MANAGEMon 02-26-2020 CASE MANAGEM HNO ID: [id number] Author: Rosa CorbettRn) BAILEE Cruz Service: Care Management Author Type: Registered Nurse Type: Care Mgt Progress Note Filed: 02/26/2020 1:29 PM Note Text: CARE MANAGEMENT DISCHARGE NOTE SERVICE DATE: 02/26/2020 SERVICE TIME: 1:25 PM LOS: 2 days Admission Date: 02/23/2020 DISCHARGE ARRANGEMENT (list agency and phone number) Home Care: Nursing;PT;OT Provider Name: Nicole [facility] CAREGIVER ASSESSMENT: Caregiver is ready, willing and able to meet the patient's needs as recommended by the inter-professional team:: Yes Does the patient have an acute stroke diagnosis, or has the patient had a stroke during this admission?: No HANDOFF COMMUNICATION: Handoff to: Primary Care Physician Primary Care Physician Name/Phone: Sarah Ennis TRANSPORTATION ARRANGEMENTS: Transportation Arrangements: Car ADDITIONAL CONTACT RESOURCES: [facility] made aware of discharge and orders for HHC were uploaded to them along with a discharge summary. They will reach out to patient for SOC. Spoke with patient and made him aware. SIGNATURE: Rosa Cruz RN PATIENT NAME: Abbey Aquino DATE: February 26, 2020 TIME: 1:22 PM PAGER/CONTACT #: [phone] [facility] CASE MANAGEM HNO ID: [id number] Author: Lara Gr Service: Care Management Author Type: ? Type: Care Mgt Progress Note Filed: 02/26/2020 12:09 PM Note Text: CARE MANAGEMENT PROGRESS NOTE SERVICE DATE: 02/26/2020 SERVICE TIME: 1000 LOS: 2 days IMM Follow Up Copy Given: Yes Copy given to:: Patient Method: In Person SIGNATURE: Lara Gr PATIENT NAME: Abbey Aquino DATE: February 26, 2020 TIME: 12:09 PM PAGER/CONTACT #: [facility] PROGRESSon 02-26-2020 PROGRESS HNO ID: [id number] Author: Hanane Mercedes Service: Hospital Medicine Author Type: Physician Type: Progress Notes Filed: 02/26/2020 10:59 AM Note Text: To whom it may concern - Abbey Aquino has been our care from 02/22 to 02/26/2020. His son has been helping with his care during this time, his care for his father is very much appreciated. Sincerely, Hanane Mercedes MD [facility] THERAPY NTon 02-26-2020 THERAPY NT HNO ID: [id number] Author: Jez Kinsey) Marky Service: Physical Therapy Author Type: Laborer Mine Type: Therapy (PT/OT/Speech/Resp) Filed: 02/26/2020 9:06 AM Note Text: Attestation signed by Jane Hernandez at 02/26/2020 10:54 AM I reviewed and agree with the documentation corresponding to this therapy visit. SIGNATURE: Jane Hernandez PT DATE: February 26, 2020 TIME: 10:54 AM Physical Therapy Treatment SERVICE DATE: 02/26/2020 SERVICE TIME: 831 to 855 ROOM: [id number] Recommended Discharge Disposition: Home PT Recommended Discharge [...] Difficulty walking-musculoskelet al Interventions Provided: Therapeutic Exercise (18990);Therapeutic Activity (79109);Gait Training (46983) Therapeutic Exercise (08682) Treatment Minutes: 13 1 unit Skilled Intervention(s): [...] elevated lower extremity as needed. Therapeutic Activity (89935) Treatment Minutes: 3 0 units Skilled Intervention(s): Instruction in sit to and from stand technique with proper hand placement and body positioning at edge of bed/chair--cuing to keep LLE kicked out to prevent WB during transfer, cuing for proper scooting, UE support, squaring up to seated surfaces and slow controlled movements. Patient with recall of TTWB precaution on LLE. Gait Training (85132) Treatment Minutes: 8 1 unit Skilled Intervention(s): [...] February 26, 2020 TIME: 9:01 AM Normal [facility] CASE MGT INIT MARIA LUISA 2019 CASE MGT INIT MARIA LUISA HNO ID: [id number] Author: Rosa CorbettRn) BAILEE Cruz Service: Care [...] Advance Directive: Living Will In Chart: No Employee Communications Coordinator Attempted to Assist with AD Completion: Yes [...] Information Primary Emergency Contact: Maurice Aquino Address: [address] [place] [address] Mobile Relation: Spouse Supportive Patient Contact:: Yes [...] Completely I feel financially burdened by my [id number] expenses for my prescription medication:: 0 - Disagree Completely Risk Score: 0 Patient is categorized as: Low risk < 2 Are you interested in bedside delivery of your medications? No Is Patient Psychosocially Complex?: No ASSESSMENT AND PLAN: Medical Needs: Medical Needs: Two or more chronic diseases Psychosocial Needs: Psychosocial Needs: None FREEDOM OF CHOICE EXPLAINED: [place] of Choice Given: Yes Level of Care Discussed: Home Care Financial Disclosure Provided: Yes Financial Disclosure Comments: [facility] POTENTIAL TRANSITION PLANS Patient lives with spouse and son. 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 +PCP, DME and Rx coverage. Patient given RX's for BSC and WW. Son is coming to hospital this evening and will get Rx's filled for patient. PT recommends home therapy. Patient does not have a [facility] choice and is agreeable to [facility] or other [facility] company. Plan is home with [facility]. SIGNATURE: Rosa Cruz RN PATIENT NAME: Abbey Aquino DATE: February 25, 2020 TIME: 4:07 PM PAGER/CONTACT #: [phone] Normal [facility] Hemogram/Diffon 02-25-2020 Abs Immature Grans 0.04 thou/cmm Normal 0.00-0.05 [facility] Comment on above: Performed By: #### M PT #### [address] [address] Abs Neut (ANC) 5.30 thou/cmm Normal 1.78-5.38 [facility] Comment on above: Performed By: #### M PT #### [address] [address] Abs. Baso 0.06 thou/cmm Normal 0.01-0.08 [facility] Comment on above: Performed By: #### M PT #### [address] [address] Abs. [place] 0.87 thou/cmm High 0.30-0.82 [facility] Comment on above: Performed By: #### M PT #### [facility] [address] [place], [place] [address] Basophils/100 WBC (Bld) 0.7 % Normal [facility] Comment on above: Performed By: #### M PT #### [facility] [address] [place], [place] [address] Eosinophils (Bld) [#/Vol] 0.24 thou/cmm Normal 0.04-0.54 [facility] Comment on above: Performed By: #### M PT #### [facility] [address] [place], [place] [address] Eosinophils/100 WBC (Bld) 2.9 % Normal [facility] Comment on above: Performed By: #### M PT #### [facility] [address] [place] [address] Erythrocyte distribution width (RBC) [Ratio] 13.4 % Normal 11.6-14.4 [facility] Comment on above: Performed By: #### M PT #### [facility] [address] [place] [address] Hematocrit (Bld) [Volume fraction] 37.7 % Low 40.1-51.0 [facility] Comment on above: Performed By: #### M PT #### [facility] [address] [place] [address] Hemoglobin (Bld) [Mass/Vol] 12.5 g/dL Low 13.7-17.5 [facility] Comment on above: Performed By: #### M PT #### [place] [address] Immature Grans 0.50 % Normal [facility] Comment on above: Performed By: #### M PT #### [place] [address] Lymphocytes (Bld) [#/Vol] 1.66 thou/cmm Normal 0.84-2.85 [facility] Comment on above: Performed By: #### M PT #### [place] [address] Lymphocytes/100 WBC (Bld) 20.3 % Normal [facility] Comment on above: Performed By: #### M PT #### [place] [address] MCH (RBC) [Entitic mass] 31.2 pg Normal 25.7-32.2 [facility] Comment on above: Performed By: #### M PT #### [facility] [address] [place] [address] MCHC (RBC) [Mass/Vol] 33.2 % Normal 32.3-36.5 [facility] Comment on above: Performed By: #### M PT #### [place] [address] MCV (RBC) [Entitic vol] 94.0 fL Normal 83.2-95.6 [facility] Comment on above: Performed By: #### M PT #### [facility] [address] [place], [place] [address] Monocytes/100 WBC (Bld) 10.7 % Normal [facility] Comment on above: Performed By: #### M PT #### [facility] [address] [place], [place] [address] Platelet mean volume (Bld) [Entitic vol] 10.0 fL Normal 8.7-12.0 [facility] Comment on above: Performed By: #### M PT #### [facility] [address] [place], [place] [address] Platelets (Bld) [#/Vol] 214 thou/cmm Normal 141-365 [facility] Comment on above: Performed By: #### M PT #### [facility] [address] [place], [place] [address] RBC (Bld) [#/Vol] 4.01 mil/cmm Low 4.63-6.08 [facility] Comment on above: Performed By: #### M PT #### [facility] [address] [place], [place] [address] RDW SD 46.2 fl High 36.1-45.8 [facility] Comment on above: Performed By: #### M PT #### [facility] [address] [place], [place] [address] Seg Neutrophil 64.9 % Normal [facility] Comment on above: Performed By: #### M PT #### [facility] [address] [place], [place] [address] WBC (Bld) [#/Vol] 8.16 thou/cmm Normal 4.23-9.07 [facility] Comment on above: Performed By: #### M PT #### [facility] [address] [place] [address] MDRD GFRon 02-25-2020 GFR/1.73 sq M predicted among non-blacks MDRD (S/P/Bld) [Vol rate/Area] mL/min/{1.73_m2} Normal >60mL/min/1. 73m2 [facility] Comment on above: Result Comment: If t he patient is , multiply the result by 1.210. Performed By: #### M PT #### [facility] [address] [place] [address] PROGRESSon 02-25-2020 PROGRESS HNO ID: [id number] Author: Hanane Mercedes Service: Hospital Medicine Author Type: Physician Type: Progress Notes Filed: 02/25/2020 1:27 PM Note Text: Subjective - Follow up note for [facility] Medicine, see also 02/23 note [...] 51.0 % 37.7 (L) COVID 19 Result CERTIFIED OPHTHALMIC SURGICAL ASSISTANT Latest Ref Range: CORNEG Negative WBC Latest [...] Range: 0.84 - 2.85 thou/cmm 1.66 Abs. 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 Son requested a note for his work tomorrow, as he has been helping with pt's care and will be taking him home tomorrow. Normal [facility] Renal Function Panelon 02-24 Albumin [Mass/Vol] 3.8 g/dL Low 3.9-4.9 [facility] Comment on above: Performed By: #### M PT #### [facility] [address] [place], [place] [address] Anion gap [Moles/Vol] 14 mmol/L Normal 9-18 [facility] Comment on above: Performed By: #### M PT #### [facility] [address] [place], [place] [address] Calcium [Mass/Vol] 9.0 mg/dL Normal 8.5-10.2 [facility] Comment on above: Performed By: #### M PT #### [facility] [address] [place], [place] [address] Chloride [Moles/Vol] 98 mmol/L Normal 97-105 [facility] Comment on above: Performed By: #### M PT #### [facility] [address] [place], [place] [address] CO2 Blood 27 mmol/L Normal 22-30 [facility] Comment on above: Performed By: #### M PT #### [facility] [address] [place], [place] [address] Creatinine [Mass/Vol] 0.93 mg/dL Normal 0.73-1.22 [facility] Comment on above: Performed By: #### M PT #### [facility] [address] [place], [place] [address] Glucose [Mass/Vol] 106 mg/dL High 74-99 [facility] Comment on above: Result Comment: The [place] Diabetes Association (ADA) provides guidance for cutoff [...] Standards of Medical Care in Diabetes 2016; [place] Diabetes Association. Diabetes Care. 2016;39(Suppl 1). Performed By: #### M PT #### [facility] [address] [place], [place] [address] Phosphate [Mass/Vol] 4.1 mg/dL Normal 2.7-4.8 [facility] Comment on above: Performed By: #### M PT #### [facility] [address] [place], [place] [address] Potassium [Moles/Vol] see below Normal 3.7-5.1 [facility] Comment on above: Result Comment: Unab le to assay. Specimen Hemolyzed Performed By: #### M PT #### [facility] [address] [place], [place] [address] Sodium [Moles/Vol] 139 mmol/L Normal 136-144 [facility] Comment on above: Performed By: #### M PT #### [facility] [address] [place], [place] [address] Urea nitrogen [Mass/Vol] 23 mg/dL Normal 9-24 [facility] Comment on above: Performed By: #### M PT #### [facility] [address] [place], [place] [address] THERAPY NTon 02-25-2020 THERAPY NT HNO ID: [id number] Author: Jez Kinsey) Marky Service: Physical Therapy Author Type: Laborer Mine Type: Therapy (PT/OT/Speech/Resp) Filed: 02/25/2020 10:14 AM Note Text: Attestation signed by Jane (Pt) Mary at 02/25/2020 11:59 AM I reviewed and agree with the documentation corresponding to this therapy visit. SIGNATURE: Jane Hernandez PT DATE: February 25, 2020 TIME: 11:59 AM Physical Therapy Treatment SERVICE DATE: 02/25/2020 SERVICE TIME: 930 to 957 ROOM: [place] [address] Recommended Discharge Disposition: Home PT Recommended Discharge [...] Difficulty walking-musculoskelet al Interventions Provided: Therapeutic Exercise (22095);Therapeutic Activity (00337);Gait Training (72957) Therapeutic Exercise (74776) Treatment Minutes: 10 1 unit Skilled Intervention(s): [...] elevated lower extremity as needed. Therapeutic Activity (10759) Treatment Minutes: 5 0 units Skilled Intervention(s): [...] squaring up to seated surfaces. Gait Training (60703) Treatment Minutes: 12 1 unit Skilled Intervention(s): [...] February 25, 2020 TIME: 10:07 AM Normal [facility] CONSULTon 02-24-2020 CONSULT HNO ID: [id number] Author: Kenneth Patiño MD Service: Orthopaedic Surgery [...] HPI: 69 year old male presented to [facility] ED on 02/23/2020 for evaluation of [...] plan Donna Patiño MD Orthopaedic Surgery Pager: [phone] February 23, 2020 Normal [facility] Coronavirus 2019on 0 COVID 19 Result CERTIFIED OPHTHALMIC SURGICAL ASSISTANT Negative Normal [facility] Comment on above: Result Comment: Nega tive for COVID19 (SARS CoV2) by PCR. This test was developed and its performance characteristics determined by [facility] [place]. This test has been authorized by FDA under an Emergency Use Authorization (EUA). This test has been validated in accordance with the FDA's Guidance Document Policy for Diagnostics Testing in Laboratories Certified to Perform High Complexity Testing under CLIA prior to Emergency use Authorization for Coronavirus Disease 2019 during the Public Health Emergency issued on October 03, 2019. Performing Laboratory: [facility] [address] [place] [address] Performed By: #### C D19X #### [facility] [address] [place], [place] [address] HISTORY PHYSICALon 0 HISTORY PHYSICAL HNO ID: [id number] Author: Jimbo Acevedo Service: Hospital Medicine Author Type: Physician Type: HANDP Filed: 02/23/2020 11:44 PM Note Text: DEPARTMENT OF HOSPITAL MEDICINE HISTORY AND PHYSICAL EXAM SERVICE DATE: 02/23/2020 SERVICE TIME: 11:35 PM Primary Care Physician: Sarah Ennis MD NIGHT AND WEEKEND COVERAGE: [place] COVERAGE: From 7am - 7pm, please call [phone] After 7pm, please call cross cover pager #[phone] Subjective CHIEF COMPLAINT: Left hip pain HPI: [...] 2020 TIME: 11:29 PM PAGER/CONTACT #: [phone] Normal [facility] PROGRESSon 02-24-2020 PROGRESS HNO ID: [id number] Author: Hanane Mercedes Service: Hospital Medicine Author Type: Physician Type: Progress Notes Filed: 02/24/2020 12:05 PM Note Text: Subjective - Follow up note for [facility] Medicine, pt admit last night, [...] Range: 0.68 - 2.93 thou/cmm 1.25 Abs. [place] Latest Ref Range: 0.19 - 0.80 thou/cmm [...] discussed with pt and his RN. Normal [facility] THERAPY NTon 02-24-2020 THERAPY NT HNO ID: [id number] Author: Jane (Pt) Mary Service: Physical Therapy Author Type: Physical Therapist Type: Therapy (PT/OT/Speech/Resp) Filed: 02/24/2020 10:28 AM Note Text: Physical Therapy Evaluation SERVICE DATE: 02/24/2020 SERVICE TIME: 00 to 924 ROOM: [place] [address] Recommended Discharge Disposition: Home PT Recommended Discharge [...] walking-musculoskelet al Interventions Provided: Evaluation;Therapeuti c Activity (40226) $ Evaluation-Moderate (35616) Billed Units: 1 unit History and examination of body systems see assessment section above. This patient?s clinical presentation is evolving. The patient required a moderate complexity evaluation. Therapeutic Activity (04026) Treatment Minutes: 10 1 unit Skilled Intervention(s): [...] February 24, 2020 TIME: 10:23 AM Normal [facility] THERAPY NT HNO ID: [id number] Author: Noemi Mallory/Radha Pearson Service: Occupational Therapy Author Type: Occupational Therapist Type: Therapy (PT/OT/Speech/Resp) Filed: 02/24/2020 10:14 AM Note Text: Occupational Therapy Evaluation SERVICE DATE: 02/24/2020 SERVICE TIME: 919 to 942 ROOM: [id number] Recommended Discharge Disposition: Home OT Anticipated Discharge Needs: Physical Assist at Home Physical Assist at Home for: Self Care;Safety;Meals;Mihcaels ndry;Cleaning;Transpo rtation OT Recommendations to Nursing: ADL?s [...] of daily living (ADL) Interventions Provided: Evaluation;Self Correction Management (03372) $ Evaluation-Moderate (50658) Billed Units: 1 unit OT Evaluation Moderate [...] occupational performance: L hip fracture, fall Self Correction Management (38453) Treatment Minutes: 8 1 unit Skilled Intervention(s): [...] February 24, 2020 TIME: 10:04 AM Normal [facility] Basic Panelon 02-23-2020 Anion gap [Moles/Vol] 17 mmol/L High 8-16 [facility] Comment on above: Performed By: #### M P8 #### [facility] [address] [place], [place] [address] Calcium [Mass/Vol] 9.4 mg/dL Normal 8.5-10.1 [facility] Comment on above: Performed By: #### M P8 #### [facility] [address] [place], [place] [address] Chloride [Moles/Vol] 97 mmol/L Low 98-107 [facility] Comment on above: Performed By: #### M P8 #### [facility] [address] [place], [place] [address] CO2 Blood 27 mEq/L Normal 21-32 [facility] Comment on above: Performed By: #### M P8 #### [facility] [address] [place], [place] [address] Creatinine [Mass/Vol] 0.91 mg/dL Normal 0.67-1.17 [facility] Comment on above: Result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 rate 21 /min DR DI GR DO [facility] 11-19-2021 01:33-0400 Systolic blood pressure 145 mm[Hg] DR DI GR DO [facility] 11-19-2021 00:44-0400 Diastolic blood pressure 89 mm[Hg] DR DI GR DO [facility] 11-19-2021 00:44-0400 Heart rate 66 /min DR DI GR DO [facility] 11-19-2021 00:44-0400 Respiratory rate 18 /min DR DI GR DO [facility] 11-19-2021 00:44-0400 Systolic blood pressure 157 mm[Hg] DR SEVILLA SALVADORANDRWE DO [facility] 11-19-2021 00:21-0400 Body temperature 97.88 [degF] DR SEVILLA SIMÓN DO [facility] 11-19-2021 00:21-0400 Heart rate 74 /min DR SEVILLA SALVADORANDREW DO [facility] 11-19-2021 00:21-0400 Mean blood pressure 129 mm[Hg] DR SEVILLA SIMÓN DO [facility] 06-07-2021 09:46-0400 Body temperature 97.88 [degF] SARAH ENNIS MD [facility] 06-07-2021 09:46-0400 diastolic 68 mm[Hg] SARAH ENNIS MD [facility] 06-07-2021 09:46-0400 Heart rate 60 /min SARAH ENNIS MD [facility] 06-07-2021 09:46-0400 Respiratory rate 18 /min SARAH ENNIS MD [facility] 06-07-2021 09:46-0400 systolic 102 mm[Hg] SARAH ENNIS MD [facility] 06-07-2021 08:42-0400 Body temperature 97.52 [degF] SARAH ENNIS MD [facility] 06-07-2021 08:42-0400 diastolic 76 mm[Hg] SARAH ENNIS MD [facility] 06-07-2021 08:42-0400 Heart rate 57 /min SARAH ENNIS MD [facility] 06-07-2021 08:42-0400 Respiratory rate 18 /min SARAH ENNIS MD [facility] 06-07-2021 08:42-0400 systolic 107 mm[Hg] SARAH ENNIS MD [facility] 06-07-2021 08:19-0400 Body temperature 96.44 [degF] SARAH ENNIS MD [facility] 06-07-2021 08:19-0400 diastolic 75 mm[Hg] SARAH ENNIS MD [facility] 06-07-2021 08:19-0400 Heart rate 61 /min SARAH ENNIS MD [facility] 06-07-2021 08:19-0400 Respiratory rate 20 /min SARAH ENNIS MD [facility] 06-07-2021 08:19-0400 systolic 126 mm[Hg] SARAH ENNIS MD [facility] Encounters Encounter Date Encounter Type Care Provider Facility Start: 05-13-2025 End: 05-13-2025 ambulatory SARAH ENNIS MD Facility:[facility] Start: 05-13-2025 End: 05-13-2025 Patient encounter procedure SARAH ENNIS MD [facility] Start: 03-08-2025 End: 03-08-2025 ambulatory SARAH ENNIS MD Facility:[facility] Start: 03-08-2025 End: 03-08-2025 Patient encounter procedure SARAH ENNIS MD [facility] Start: 12-29-2024 ambulatory SARAH ENNIS MD [facility] ility:A Start: 12-25-2024 End: 12-25-2024 ambulatory CITLALI JACKSON MD Facility:A Start: 12-23-2024 End: 12-23-2024 ambulatory CITLALI JACKSON MD Facility:[facility] Start: 12-23-2024 End: 12-23-2024 Patient encounter procedure CITLALI JACKSON MD [facility] Start: 12-11-2024 End: 12-11-2024 ambulatory DONNIE HORVATH PA-C Facility:A Start: 12-11-2024 End: 12-11-2024 Patient encounter procedure DONNIE [facility] Start: 10-13-2024 End: 10-17-2024 ambulatory SARAH ENNIS MD Facility:[facility] Start: 10-13-2024 End: 10-13-2024 ambulatory SARAH ENNIS MD Facility:[facility] Start: 09-29-2024 End: 09-29-2024 Emergency department patient visit MARCEL HUERTA MD [facility] Start: 07-13-2024 End: 07-13-2024 ambulatory SARAH ENNIS MD Facility:A Start: 07-13-2024 End: 07-13-2024 Patient encounter procedure CITLALI JACKSON MD [facility] Start: 02-10-2024 ambulatory CITLALI JACKSON MD Fac ility:A Start: 10-23-2023 End: 10-27-2023 ambulatory SARAH ENNIS MD Facility:A Start: 07-31-2023 End: 07-31-2023 ambulatory CITLALI JACKSON MD Facility:A Start: 07-31-2023 End: 07-31-2023 Patient encounter procedure CITLALI JACKSON MD [facility] Start: 03-25-2023 End: 03-25-2023 ambulatory CITLALI JACKSON MD Facility:A Start: 03-25-2023 End: 03-25-2023 Patient encounter procedure CITLALI JACKSON MD [facility] Start: 07-19-2022 End: 07-20-2022 Observation AFSANEH CASTLE MD [facility] Start: 04-23-2022 End: 04-23-2022 Patient encounter procedure SHERYL SKINNER [facility] Start: 03-18-2022 End: 03-19-2022 Evaluation and management of inpatient EL MCDONALD MD [facility] Start: 03-07-2022 End: 03-08-2022 Emergency department patient visit JAMARI ALVA MD [facility] Start: 12-04-2021 End: 12-04-2021 Patient encounter procedure MARGA KING PA-C [facility] Start: 11-19-2021 End: 11-19-2021 Emergency department patient visit DR DI GR DO [facility] Start: 07-11-2021 End: 07-11-2021 Patient encounter procedure CITLALI JACKSON MD [facility] Start: 06-07-2021 End: 06-07-2021 Patient encounter procedure SARAH ENNIS MD [facility] Start: 02-11-2017 End: 02-12-2017 Ambulatory PHY WO ID REFERRING Facility:[facility] Procedures Date Procedure Procedure Detail Performing [...] MD Comment on above: IMPRESSION : 30-day radiation monitor significant for normal sinus rhythm background and [...] line. Start: 03-19-2022 Cardiac catheterization SHERYL MORA [employer] BURNER Comment on above: Responsible physicia n: NAYELY [...] medical management. Start: 03-19-2022 Echocardiography JIMMY MORA [employer] P[employer] [facility] BURNER Comment on above: Reading physician: Jennie MCDONALD MD Reporting fellow: URIEL TURNER MD Preprint Analyst: Antonia Sauer RT, RDCS Ordering physician: ARABELLA [...] Immunizations Immunization Date Immunization Notes Care Provider [facility] 06-13-2022 influenza, high-dose , quadrivalent AFSANEH CASTLE MD [facility] 11-03-2020 SARS-CoV-2 (COVID-19 ) mRNA-1273 vaccine SARAH ENNIS MD [facility] 10-03-2020 SARS-CoV-2 (COVID-19 ) mRNA-1273 vaccine SARAH ENNIS MD [facility] 05-30-2011 pneumococcal polysaccharide vaccine, 23 valent SARAH ENNIS MD [facility] Payers Date Payer Category Payer Medicare [id number] 2023 Private Health Insurance [id number] 2023 Unknown [id number] 2022 Medicare [id number] 2018 Self-pay [id number] 2016 Unknown [id number] 1950 Unknown [id number] 2.16.8 [id number] 1950 Unknown [id number] 2.16.8 [id number] 1950 Unknown [id number] 2.16.8 [id number] 1950 Unknown [id number] 2.16.8 [id number] 1950 Unknown [id number] 2.16.8 [id number] 1950 Unknown [id number] 2.16.8 40.1.956039.3.579.2.627 1950 Unknown [id number] 2.16. 840.1.912904.3.579.2.627 1950 Unknown [id number] 2.16.8 40.1.998665.3.579.2.627 1950 Unknown [id number] 2.16.8 40.1.903638.3.579.2.627 1950 Unknown [id number] 2.16.8 40.1.884410.3.579.2.627 1950 Unknown [id number] 2.16.8 40.1.558201.3.579.2.627 1950 Unknown [id number] 2.16. [id number] 1950 Unknown [id number] 2.16. [id number] 1950 Unknown [id number] 2.16.8 40.1.774672.3.579.2.627 1950 Unknown [id number] 2.16.8 [id number] Social History Date Type Detail Facility Start: 11-27-2019 End: 02-10-2024 Never smoked tobacco (finding) [facility] Sex Assigned At Male [facility] Sexual Orientation [facility] Start: 06-30-2019 Sex Male (finding) [facility] Start: 12-25-2024 Gender identity Identifies as male gender (finding) [facility] Functional Status Date Assessment Result Facility 09-29-2024 Functional Status Independent [facility] 09-29-2024 Functional Status ID band on, Allergy Band on, Call device within reach, Bed in low position, Wheels locked, Upper/Half-Length side-rails up, Visitor at bedside, Safety level maintained [facility] 07-20-2022 Functional Status Ambulating in kyle, Ambulating in room [facility] 07-20-2022 Functional Status Breakfast Percent 100 A [facility] 07-20-2022 Functional Status Room located n [facility], Room check performed [facility] 07-20-2022 Functional Status [facility] 07-19-2022 Functional Status [facility] 07-19-2022 Functional Status [facility] 07-19-2022 Functional Status Patient Identi fied Identification band [facility] 07-19-2022 Functional Status Maintained [facility] 03-19-2022 Functional Status Up to bathroom [facility] 03-19-2022 Functional Status Room check performed [facility] 03-19-2022 [facility]-2022 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, 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, 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, Personal ADL [facility] 03-19-2022 Functional Status Roger Jones [facility] 03-08-2022 Functional Status Independent [facility] 03-08-2022 Functional Status Standard Safet y ID band on, Allergy Band on, Call device within reach, Bed in low position, Wheels locked, Upper/Half-Length side-rails up, Phone within reach, Bedside Cart Locked, Safety level maintained [facility] 11-19-2021 Functional Status Roger [facility] 11-19-2021 [facility] Mental Status Date Assessment Result Facility 09-29-2024 Mental Status Orientation Oriented x 4 [facility] 09-29-2024 Mental Status [facility] 07-20-2022 Mental Status Orientation Oriented x 4 [facility] 07-20-2022 Mental Status [facility] 07-20-2022 Mental Status [facility] 07-19-2022 Mental Status Orientation Asse ssment Oriented x 4 [facility] 07-19-2022 Mental Status [facility] 03-19-2022 Mental Status Oriented x 4 [facility] 03-19-2022 Mental Status [facility] 03-19-2022 Mental Status [facility] 03-08-2022 Mental Status Orientation Oriented x 4 [facility] 03-08-2022 Mental Status [facility] 11-19-2021 Mental Status [facility] 11-19-2021 Mental Status [facility] Clinical Notes 11-19-2021 to 03-08-2025 Note Date & Type Note Facility 03-08-2025 Note Exam Date Time Procedure Performing Provider Status 03/08/25 11:25 AM MRI Shoulder w/o Contrast Left LAWSON, SANTA MD; Auth (Verified) [id number] ORIGINAL EXAMINATION: MRI OF THE LEFT SHOULDER WITHOUT CONTRAST 03/08/2025 11:33 am TECHNIQUE: Multiplanar multisequence MRI of the left shoulder was performed without the administration of intravenous contrast. COMPARISON: None. HISTORY: ORDERING SYSTEM PROVIDED HISTORY: Reason for Exam: MASS LEFT SHOULDER PAIN & SWELLING. Fall 2 months ago FINDINGS: Significant motion degradation. There is severe glenohumeral joint degenerative change with uhce-fy-yleg, circumferential high-grade chondrosis with articular surface remodeling [...] its biceps labral anchor with biceps tenosynovitis. [place] cyst dissects down the long head of [...] 1. Severe glenohumeral joint degenerative change with zkax-vl-pnqo, circumferential high-grade chondrosis with labral tearing and [...] its biceps labral anchor with biceps tenosynovitis. [place] cyst dissects down the long head of the biceps tendon to the myotendinous junction. 6. Rounded prominent axillary lymph nodes measuring up to 9 mm. Interpreted by: Santa Lawson Preliminary Report By: Santa Lawson Electronically signed By Santa Lawson Dictated Date: 03/08/2025 12:30:05 PM Prelim Date: 03/08/2025 12:51:55 PM Sign Date: 03/08/2025 12:51:55 PM Ordering Provider: [place] [id number] Note* Exam Date Time Procedure Performing Provider Status 12/11/24 11:37 AM NM Myocardial Spect Rest/Stress DICK BELLA MD; Auth (Verified) [id number] ORIGINAL NM MYOCARDIAL SPECT STRESS/REST CLINICAL STATEMENT: [...] PM Sign Date: 12/11/2024 1:44:58 PM Ordering Provider:[facility]05-09-2025 Note Date of Service 12/11/2024 08:16:21 Procedure: [...] PM Digitally Signed by FRANKLIN LOVE MD [id number] Hospital Discharge instructions Patient Education 09/29/2024 13:21:16 [...] some information about medicine: You may use eebs-bnz-cibcezc medicine such as acetaminophen or ibuprofen to [...] re-open Bleeding not controlled by direct pressure 1267-1420 [employer]. [address] [place] [address]. All rights reserved. This information is not intended as a substitute for professional medical care. Always follow yourhealthcare professional's instructions. Follow Up Care 09/29/2024 11:43:22 With:SARAH ENNIS MD Address: My [address] [address] [phone] When:2-4 days [facility] 02-25-2025 Note Discharge Instructions Thank you for allowing [facility] to assist you with your healthcare needs. [...] SARAH ENNIS MD When:Within 2-4 days Where:My [address] [address] [phone] Allergies Percocet 7.5/325 confusion/disorentation Medications Please ask [...] some information about medicine: You may use vsgi-amq-pfnfmyk medicine such as acetaminophen or ibuprofen to [...] re-open Bleeding not controlled by direct pressure [phone] [employer]. [address] [place] [address], [place] [address]. All rights reserved. This information is not intended as a substitute for professional medical care. Always follow yourhealthcare professional's instructions. Additional Information VACCINATE! IT SAVES LIVES! Members of the community who have not yet received the COVID-19 vaccine and would like to receive it can visit one of [facility] vaccine clinics. There are many vaccine clinic locations within the [facility]. For locations and available times, please visit [email or web address].[email or web address] It is important to note that some COVID mobile vaccine clinics are held outdoors and may be canceled in rainy or stormy conditions. To learn more about pediatric vaccinations (ages 5-11), we invite you to visit the [facility] webpage. [email or web address]/[email or web address] [email or web address] learn more about the COVID-19 vaccine, we invite you to visit the CDC website for a list of frequently asked questions. https://www.cdc.gov/coronavirus/2019-ncov/vaccines/faq.html [facility] [employer] [employer] Patient Portal Access Instructions: Stay connected with your healthcare team and access your personal medical information anytime with the [facility] [employer] Patient Portal. If you would like a full copy of your medical records please contact the [facility] Medical Records Department Saturday through Saturday between 8a.m. and 4:30p.m. Please follow the directions below to access the portal: 1.Access the [facility] account [facility].2.Look for an invitation email from [facility].3.Open the email and access the invitation link: Accept Invitation to [facility].Fill in the required coelho to create your [...] you will allow to register on the [facility] [employer] Patient Portal for access to your information. You can also access the [facility] Patient Portal on the [facility] [employer]. Simply click on Health Records under Lingorami and then click on the Roger logo. [...] Call your local pharmacy or go to [email or web address] to find one close to you.3.Make use of household items: Use cat litter or old coffee grounds to dispose medications if other options arenot available. Mix your drugs with these household products, seal them in an airtight container andthrow it into the garbage. Call [facility]: [phone] to be sure your drugs can be [...] am aware that I should contactmy doctor. Patient/Sanitary Aide Signature: Date/Time: Relationship to Patient: Witness Name/Signature: Date/Time: [facility]02-25-2025 Note* Exam Date Time Procedure Performing Provider Status 09/29/24 12:57 PM XR Foot Minimum 3 Views Right Donal GEORGE W DO; Auth (Verified) [id number] ORIGINAL EXAMINATION: THREE XRAY VIEWS OF THE [...] 09/29/2024 1:14:31 PM Ordering Provider: IRMA HollandMAURA [facility]12-09-2024 Note* Exam Date Time Procedure Performing Provider Status 07/13/24 12:50 PM Echocardiogram, Adult - CV Auth (Verified) [facility] 12-27-2023 Note* Exam Date Time Procedure Performing Provider Status 07/31/23 9:17 AM Echocardiogram, Adul t with Bubble Study- Auth (Verified) [facility] 08-21-2023 Note* Exam Date Time Procedure Performing Provider Status 03/25/23 11:55 AM Echocardiogram, Adult - CV Auth (Verified) [facility] 12-16-2022 Hospital Discharge instructions Patient Education 07/20/2022 [...] need to report the following to your machined parts quality inspector: ?Any draining or oozing from the site [...] Document Reviewed: 07/23/2014 ExitCare Patient Information 2015 [employer]. This information is not intended to replace advicegiven to you by your health care provider. Make sure you discuss any questions you have with your health care provider. Follow Up Care 07/04/2022 11:57:02 With:AFSANEH CASTLE MD Address: [address] [place] [address] [address] [place] [address]- [phone] When:09/19/2022 11:15:00 Comments:THIS APPOINTMENT WILL BE WITH ZOË EDWARDS [facility] 12-16-2022 Summary of episode note Discharge Instructions Thank you for allowing [facility] to assist you with your healthcare needs. The following is importantdischarge information regarding your hospital visit. Your Care Team SARAH ENNIS MD Your Diagnosis AF (atrial fibrillation) What to do next Scheduled Follow-Up Appointments Appointment Type When With Where Contact InformationCV OV 09/19/2022 11:15 AM EST RAY RHOADES [facility] CT Angiography Chest w/ Contrast 10/08/2022 01:00 PM EST Radiology CV OV 10/22/2022 01:45 PM EDT [facility] Follow Up Appointments Follow Up with AFSANEH CASTLE MD When 09/19/2022 11:15 AM EST Why: THIS APPOINTMENT WILL BE WITH ZOË EDWARDS Where: [address] [place] [address] [address] [place] [address]- [phone] The Following Activity and Diet Have Been [...] need to report the following to your machined parts quality inspector: ? Any draining or oozing from the [...] Document Reviewed: 07/23/2014 ExitCare Patient Information 2015 [employer] [facility]. This information is not intended to replace advicegiven to you by your health care provider. Make sure you discuss any questions you have with your health care provider. Additional Information VACCINATE! IT SAVES LIVES! Members of the community who have not yet received the COVID-19 vaccine and would like to receive it can visit one of [facility] vaccine clinics. There are many vaccine clinic locations within the [facility]. For locations and available times, please visit [email or web address]/. It is important to note that some COVID mobile vaccine clinics are held outdoors and may be canceled in rainy or stormy conditions. To learn more about pediatric vaccinations (ages 5-11), we invite you to visit the [facility] webpage. https://www.[email or web address].org/pages/9754-Njmnc-Gnaevsanlvr-Rglpippzei-Dpqbv-Svg stions.htmlTo learn more about the COVID-19 vaccine, we invite you to visit the [facility] website for a list of frequently asked questions. [email or web address] _[email or web address].pdf [facility] [employer] Patient Portal Access Instructions: Stay connected with your healthcare team and access your personal medical information anytime with the [facility] Patient Portal.If you would like a full copy of your medical records, please contact the [facility] Medical Records Department, Saturday through Saturday between 8a.m. and 4:30p.m. Please follow the directions below to access the portal: 1.Access the email account you provided [facility].2.Look for an invitation email from [facility].3.Open the email and access the invitation link: Accept Invitation to [facility]4.Fill in the required coelho to create your account. Sign into www.[employer] with your username and password that you [...] you will allow to register on the [facility] Patient Portal for access to your information. You can also access the [facility] Patient Portal on the [facility]. Simply click on Health Records under Celirota and then click on the DATAllegro logo. HOW TO SAFELY DISPOSE OF PRESCRIPTION [...] Call your local pharmacy or go to [email or web address] to find one close to you.3.Make use of household items: Use cat litter or old coffee grounds to dispose medications if other options arenot available. Mix your drugs with these household products, seal them in an airtight container andthrow it into the garbage. Call [facility]: [phone] to be sure your drugs can be [...] am aware that I should contactmy doctor. 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 / SNOMED CT 2672668174 / Confirmed Diabetes / SNOMED CT 353961523 / Confirmed Hyperlipidemia / SNOMED CT 037489326 / Confirmed Hypertension / SNOMED CT 2309909325 / Confirmed Mitral regurgitation / SNOMED CT 35253456 / Confirmed Psoriasis / SNOMED CT 32657659 / Confirmed Sensorineural hearing loss, bilateral / SNOMED CT 132196108 / Confirmed Canceled: Atrial fibrillation / SNOMED CT 13882288 Canceled: Afib / SNOMED CT 16971441 Canceled: CAD (coronary artery disease) / SNOMED CT 45497444, Active Problems (14) 2019 novel coronavirus disease (COVID-19) Aortic arch aneurysm ATRIAL FIBRILLATION CAD IN KASHIA ARTERY Cardiomyopathy Coronary artery disease Diabetes Hyperlipidemia Hypertension Mitral regurgitation Psoriasis Sensorineural hearing loss, bilateral Stented coronary artery Stented coronary artery Histories Past Medical History: Active Mitral regurgitation (11358921) Cardiomyopathy (712385261) Hyperlipidemia (302818368) Hypertension (0705405439) Psoriasis (07212703) Diabetes (779252316) Procedure history: Cardiac catheterization (88049033) on 03/19/2022 at 71 Years. Comments: 04/19/2022 [...] are patent. RECOMMENDATIONS: Continue medical management. Echocardiogram (4070141850) on 03/19/2022 at 71 Years. Comments: 04/19/2022 16:14 Yesy Palomino MA (ABR-OE) Reading physician: EL MCDONALD MD Reporting fellow: URIEL TURNER MD Preprint Analyst: Antonia Sauer RT, RDCS Ordering physician: ARABELLA [...] mm Hg. Stress testing using pharmacologic-induced stress (8865311947) on 12/25/2021 at 71 Years. Cardiac monitoring (22765169) on 12/01/2021 at 71 Years. Echocardiogram (6554973180) on 07/11/2021 at 71 Years. Echocardiogram ([id number]) on 05/01/2018 at 68 Years. Comments: 01/09/2021 [...] atrial pressure is 3 mm Hg. Cardioversion (706508795) on 01/18/2017 at 66 Years. Cardiac catheterization (40214867) on 05/29/2011 at 61 Years. Hernia repair (96572758). ORIF - Open reduction and internal fixation of fracture (914879581). Comments: 01/17/2017 19:38 BAILEE Frederick left hip Tibia and fibula (combined site) (1685341768). Comments: 01/17/2017 19:38 BAILEE Frederick repair Stent ([id number]). Comments: 01/17/2017 19:39 BAILEE Frederick LAD Colonoscopy (492804918). Social History Social & Psychosocial Habits Alcohol [...] Admission Weight 79.9 kg Weight Method Actual [place] Body Weight 66.12 kg General: Alert and [...] Documentation reviewed: Current records. Assessment and Plan [place] [employer] Anesthesiologists (ASA) physical status classification: Class III. Anesthetic Preoperative Plan Premedication: intravenous. Anesthetic technique: General, MAC. Induction: intravenously. Maintenance airway: Oral endotracheal tube. Special Monitoring: Arterial line. Postoperative pain management: Per surgeon. Risks discussed: nausea, vomiting, sore throat, dental injury. Informed consent: signed by patient. Digitally Signed by JOSÉ VILLAFANA MD on 07/19/2022 12:13 PM [facility] [id number] Nurse Progress note Prior to discharge, the patient became restless, pacing the room saying that his left arm was causing him 8/10 pain that was radiating to his upper back. Dr. Calvillo was paged and received a 1 time dose of tylenol. Family of the pt was not happy with this and wished to speak to someone above me. sales ambassador was notified and came to speak with patient. Explained that he was cleared from a cardiac standpoint and that if he was concerned about the arm pain he needed to f/u with his PCP. Also explained [facility] has an office open after hours until 9pm per charge. Digitally Signed by Harish Coffey RN on 03/19/2022 08:00 PM [facility] [id number] Note Discharge Instructions Thank you for allowing [facility] to assist you with your healthcare needs. [...] pulling or twisting. Please follow-up with your auto apprentice mechanic Please follow-up with your PCP Thank you for allowing us to participate in your care. Scheduled Follow-Up Appointments Appointment Type When With Where Contact InformationCV OV Hospital Follow Up 04/23/2022 01:30 PM EDT SHERYL MORA APRN-DIONICIO [facility] CT Angiography Chest w/ Contrast 10/08/2022 01:00 PM EST Radiology CV OV 10/22/2022 01:45 PM EDT [facility] Follow Up Appointments Follow Up with CITLALI JACKSON MD When 04/23/2022 01:30 PM EDT Why: THIS APPOINTMENT WILL BE WITH SHERYL MORA CNP Where: [address] [facility] [address] [facility] [place] [address]- [phone] Follow Up with SARAH ENNIS MD When Within 1-2 days Where: My [facility] [address] [place] [address]- [phone] The Following Activity and Diet Have Been [...] Duration: 30 Days Refills: 1 Pickup at [facility]/pharmacy #[id number] Unchanged aspirin (aspirin 81 mg oral delayed [...] by mouth Once a day Pharmacy Information [facility]/pharmacy #[id number]: [address], [place] [phone] Please take this list to your next [...] Swelling, pain or redness in one leg [phone] [employer]. [address] [place] [address]. All rights reserved. This information is not intended as a substitute for professional medical care. Always follow yourhealthcare professional's instructions. Additional Information VACCINATE! IT SAVES LIVES! Members of the community who have not yet received the COVID-19 vaccine and would like to receive it can visit one of [facility] vaccine clinics. There are many vaccine clinic locations within the [facility]. For locations and available times, please visit [email or web address]/. It is important to note that some COVID mobile vaccine clinics are held outdoors and may be canceled in rainy or stormy conditions. To learn more about pediatric vaccinations (ages 5-11), we invite you to visit the [facility] webpage. https://www.[email or web address].org/pages/0584-Frekj-Oqeorlyhceu-Kqqiofctlt-Lldlx-Dht stions.htmlTo learn more about the COVID-19 vaccine, we invite you to visit the [facility] website for a list of frequently asked questions. [email or web address]/[email or web address] _[email or web address].pdf [facility] [employer] Patient Portal Access Instructions: Stay connected with your healthcare team and access your personal medical information anytime with the [facility] [employer] Patient Portal.If you would like a full copy of your medical records, please contact the [facility] Medical Records Department, Saturday through Saturday between 8a.m. and 4:30p.m. Please follow the directions below to access the portal: 1.Access the email account you provided upon registration to the [facility] hospital.2.Look for an invitation email from [facility].3.Open the email and access the invitation link: Accept Invitation to [facility]4.Fill in the required coelho to create your account. Sign into www.[employer] with your username and password that you [...] you will allow to register on the [facility] Patient Portal for access to your information. You can also access the [facility] Patient Portal on the [facility]. Simply click on Health Records under Lingorami and then click on the DATAllegro logo. HOW TO SAFELY DISPOSE OF PRESCRIPTION [...] Call your local pharmacy or go to [email or web address]://[email or web address] to find one close to you.3.Make use of household items: Use cat litter or old coffee grounds to dispose medications if other options arenot available. Mix your drugs with these household products, seal them in an airtight container andthrow it into the garbage. Call [facility]: [phone] to be sure your drugs can be [...] am aware that I should contactmy doctor. 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 Additionally, he is recommended to make lifestyle [...] pulling or twisting. Please follow-up with your auto apprentice mechanic Please follow-up with your PCP Thank you [...] WITH SHERYL MORA CNP Where: [address] [facility] [address] [facility] [place] [address]- [phone] Follow Up with SARAH ENNIS MD When Within 1-2 days Where: [facility] [address] [place] [address]- [phone] Follow Up Appointments No qualifying data available. [...] PM Digitally Signed by NAYELY FIELD MD [facility] [id number] Evaluation + Plan noteExtracted from: Title:History and [...] extremity swelling. Pending ischemic evaluation per rounding auto apprentice mechanic. -Troponins -EKG -Echocardiogram -Heparin by weight -Aspirin, [...] Radiology* CT Angiography Chest w/ Contrast 10/08/22 [facility] 08-15-2022 History and physical note Date of [...] RHYTHM...normal P axis, V-rate 50- 99 PROLONGED NV INTERVAL...NV >220, V-rate 50- 90 Compared to ECG [...] extremity swelling. Pending ischemic evaluation per rounding auto apprentice mechanic. -Troponins -EKG -Echocardiogram -Heparin by weight -Aspirin, statin -Nitroglycerin as needed for chest pain Patient also does complain of typical GERD like symptoms, not on controller therapy. This is potentially a confounding differential. May benefit from PPI therapy upon discharge. 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 [address] [place] [address]. All rights reserved. This information is not intended as a substitute for professional medical care. Always follow yourhealthcare professional's instructions. Follow Up Care 03/18/2022 21:08:32 With:SARAH ENNIS MD Address: [address] [address] [phone] When:1-2 days With:CITLALI JACKSON MD Address: [address] [place] [address] [address] [facility] [place] [address]- [phone] When:04/23/2022 13:30:00 Comments:THIS APPOINTMENT WILL BE WITH SHERYL MORA [facility] 08-14-2022 Note ORIGINAL EXAMINATION: ONE XRAY VIEW [...] Date: 03/18/2022 11:18:03 PM Ordering Provider: ANIBAL [facility]08-14-2022 Note ORIGINAL EXAMINATION: ONE XRAY VIEW [...] Date: 03/18/2022 11:18:03 PM Ordering Provider: EMERY [facility]08-04-2022 Hospital Discharge instructions Patient Education 03/08/2022 05:54:42 Dizziness, Uncertain Cause Dizziness (Uncertain Cause) Dizziness is a common symptom. It may be described as lightheadedness, spinning, or feeling like you are going to faint. Dizziness can have many causes. Be sure to tell the healthcare provider about: All medicines you take, including prescription, wvtv-jxs-inwosof, herbs, and supplements Any other symptoms you [...] Chest, arm, neck, back, or jaw pain 7103-[address] [employer] [place] [address]. All rights reserved. This information is not [...] Swelling, pain or redness in one leg 0958-4669 [employer]. [address] [place] [address]. All rights reserved. This information is not intended as a substitute for professional medical care. Always follow yourhealthcare professional's instructions. Follow Up Care 03/07/2022 21:29:33 With:SARAH ENNIS MD Address: My [address] [address] [phone] When:2-4 days [facility] 08-04-2022 Emergency department Discharge summary Discharge Instructions Thank you for allowing [facility] to assist you with your healthcare needs. The following is importantdischarge information regarding your hospital visit. Diagnosis from Today's Visit Chest pain What to Do Next Instructions from Your Care Team No qualifying data available. Post Acute Orders No qualifying data available. You Need to Schedule the Following Appointments Follow Up with SARAH ENNIS MD When Within 2-4 days Where: My [address] [address] [phone] Allergies Percocet 7.5/325 (confusion/disorentation) Medications Please ask [...] about: All medicines you take, including prescription, vmdf-zbw-apegdrc, herbs, and supplements Any other symptoms you [...] Chest, arm, neck, back, or jaw pain 9479-[address] [employer] [place], [place] [id number]. All rights reserved. This information is not [...] Swelling, pain or redness in one leg 2065-7362 [employer]. [address] [place] [address]. All rights reserved. This information is not intended as a substitute for professional medical care. Always follow yourhealthcare professional's instructions. Additional Information VACCINATE! IT SAVES LIVES! Members of the community who have not yet received the COVID-19 vaccine and would like to receive it can visit one of [facility] vaccine clinics. There are many vaccine clinic locations within the [facility]. For locations and available times, please visit www.[email or web address].[email or web address]. It is important to note that some COVID mobile vaccine clinics are held outdoors and may be canceled in rainy orstormy conditions. To learn more about pediatric vaccinations (ages 5-11), we invite you to visit the [facility] webpage. https://www.[facility].org/pages/7939-Fqlbr-Rfmhbmbdfdh-Clfssaplbl-Phryj-Xgz stions.htmlTo learn more about the COVID-19 vaccine, we invite you to visit the [facility] website for a list of frequently asked questions. [email or web address]/[email or web address]-[email or web address] _[email or web address].pdf [facility] [employer] Patient Portal Access Instructions: Stay connected with your healthcare team and access your personal medical information anytime with the [facility] [employer] Patient Portal. If you would like a full copy of your medical records please contact the [facility] Medical Records Department Saturday through Saturday between 8a.m. and 4:30p.m. Please follow the directions below to access the portal: 1.Access the email account you provided upon [facility] to the [facility] hospital.2.Look for an invitation email from [facility].3.Open the email and access the invitation link: Accept Invitation to [facility]4.Fill in the required coelho to create your account. Sign into www.[employer] with your username and password that you [...] you will allow to register on the [facility] Patient Portal for access to your information. You can also access the [facility] Patient Portal on the [facility]. Simply click on Health Records under [employer]orami and then click on the [facility] logo. [...] Call your local pharmacy or go to [email or web address] to find one close to you.3.Make use of household items: Use cat litter or old coffee grounds to dispose medications if other options arenot available. Mix your drugs with these household products, seal them in an airtight container andthrow it into the garbage. Call [facility]: [phone] to be sure your drugs can be [...] am aware that I should contactmy doctor. Patient/Sanitary Aide Signature: Date/Time: Relationship to Patient: Witness Name/Signature: Date/Time: [facility] [id number] Note ORIGINAL EXAMINATION: ONE XRAY VIEW OF [...] Date: 03/07/2022 10:14:53 PM Ordering Provider: [facility]08-03-2022 Note ORIGINAL EXAMINATION: ONE XRAY [...] Sign Date: 03/07/2022 10:14:53 PM Ordering Provider: [facility]04-17-2022 Hospital Discharge instructions Patient Education 11/19/2021 [...] Swelling, pain or redness in one leg [phone] [employer]. [address] [place] [address], [place] [address]. All rights reserved. This information is not [...] that stimulate the heart. This includes many wrzr-fik-lszodli cold and sinus decongestant pills and sprays, as well as diet pills. Check the warnings about high blood pressure onthe label. Before buying any wzvr-fxm-xyctvgp medicines or supplements, always ask the pharmacist [...] one of these at most pharmacies. The [place] [employer] recommends the following guidelines for [...] face You have problems speaking or seeing 0080-6651 [employer]. [address] [place] [address], [place] [address]. All rights reserved. This information is not intended as a substitute for professional medical care. Always follow yourhealthcare professional's instructions. Follow Up Care 11/19/2021 00:12:25 With:SARAH ENNIS MD Address: [place] [address]- When:2-4 days [facility] evaluation + Plan note Future Appointments Appointment Date:07/11/2021 02:00:00 PM Scheduled Provider: Location:[facility] Appointment Type:CV Procedure - AOH Echo Appointment Date:07/18/2021 03:15:00 PM Scheduled Provider: Location:[facility] Appointment Type:CV OV [facility] evaluation + Plan note Future Appointments Appointment Date:07/18/2021 03:15:00 PM Scheduled Provider: Location:[facility] Appointment Type:CV OV [facility] evaluation + Plan note Future Appointments Appointment Date:01/04/2022 01:30:00 PM Scheduled Provider: Location:[facility] Appointment Type:CV OV [facility] evaluation + Plan note Future Appointments Appointment Date:12/25/2021 09:30:00 AM Scheduled Provider: Location:[facility] Appointment Type:NM Myocardial Spect Rest/Stress (AH/AO) Appointment Date:01/22/2022 03:00:00 PM Scheduled Provider: Location:[facility] Appointment Type:CV OV Future Scheduled Tests Radiology* NM Myocardial Spect Rest/Stress 12/25/21 [facility] evaluation + Plan note Future Appointments Appointment Date:10/08/2022 01:00:00 PM Scheduled Provider: Location:[facility] Appointment Type:CT Angiography Chest w/ Contrast Appointment Date:10/22/2022 01:45:00 PM Scheduled Provider: Location:[facility] Appointment Type:CV OV Future Scheduled Tests Radiology* CT Angiography Chest w/ Contrast 10/08/22 [facility] evaluation + Plan note Future Appointments Appointment Date:06/04/2022 01:00:00 PM Scheduled Provider:SHERYL MORA Location:[facility] Appointment Type:CV OV Appointment Date:10/08/2022 01:00:00 PM Scheduled Provider: Location:[facility] Appointment Type:CT Angiography Chest w/ Contrast Appointment Date:10/22/2022 01:45:00 PM Scheduled Provider: Location:[facility] Appointment Type:CV OV Future Scheduled Tests Radiology* CT Angiography Chest w/ Contrast 10/08/22 [facility] evaluation + Plan note Future Appointments Appointment [...] Radiology* CT Angiography Chest w/ Contrast 10/08/22 [facility] evaluation + Plan note Future Appointments Appointment Date:04/30/2023 03:45:00 PM Scheduled Provider: Location:[facility] Appointment Type:CV OV Future Scheduled Tests Laboratory* Basic Metabolic Panel 04/30/22 * Magnesium Level 04/25/22 * Complete Blood Count 04/30/22 * Prothrombin Time - Panel 04/30/22 [facility] evaluation + Plan note Future Appointments Appointment Date:08/08/2023 03:30:00 PM Scheduled Provider: Location:[facility] Appointment Type:CV OV [facility] Evaluation + Plan note Future Appointments Appointment Date:09/21/2024 01:45:00 PM Scheduled Provider:CARISSA JACKSON Location:[facility] Appointment Type:CV OV [facility] evaluation + Plan note Future Appointments Appointment Date:11/23/2024 10:00:00 AM Scheduled Provider:CARISSA JACKSON Location:[facility] Appointment Type:CV OV [facility] evaluation + Plan note Future Appointments Appointment Date:12/29/2024 01:30:00 PM Scheduled Provider:SHERYL MORA Location:[facility] Appointment Type:CV OV Future Scheduled Tests Laboratory* Lipid Profile 02/15/25 [facility] Evaluation + Plan note Future Appointments Appointment Date:12/25/2024 12:30:00 PM Scheduled Provider: Location:Heart Lab Appointment Type:CV Procedure - Heart Lab/Hybrid OR Appointment Date:12/29/2024 01:30:00 PM Scheduled Provider:SHERYL MORA Location:[facility] Appointment Type:CV OV Future Scheduled Tests Laboratory* Lipid Profile 02/15/25 [facility] Evaluation + Plan note Future Appointments Appointment Date:07/05/2025 09:30:00 AM Scheduled Provider: Location:[facility] Appointment Type:CT Angiography Chest w/ Contrast Appointment Date:07/13/2025 02:00:00 PM Scheduled Provider:CARISSA JACKSON Location:[facility] Appointment Type:CV OV Future Scheduled Tests Laboratory* Lipid Profile 02/15/25 Radiology* CT Angiography Chest w/ Contrast 07/05/25 [facility] Evaluation + Plan note Future Appointments [...] Radiology* CT Angiography Chest w/ Contrast 07/05/25 [facility] Hospital course Narrative No data available for this section [facility] Hospital Discharge instructions No data available for this section [facility] Progress note No data available for this section [facility] [place] Summary Purpose Family History No Family [...] Records Found Hospital Course Note HNO ID: [id number] Author: John Mercedes Service: Hospital Medicine Author [...] section and content) DATE CREATED AUTHOR 01/29/2018 [employer] DATE CREATED AUTHOR AUTHOR'S ORGANIZ ATION 04/14/2020 [facility] DATE CREATED AUTHOR AUTHOR'S ORGANIZ ATION 04/20/2020 [facility] DATE CREATED AUTHOR AUTHOR'S ORGANIZ ATION 02/18/2024 [facility] ([place]) DATE CREATED AUTHOR AUTHOR'S ORGANIZ ATION 04/19/2025 [facility] DATE CREATED AUTHOR AUTHOR'S ORGANIZ ATION 05/20/2025 [facility] Care Team (unrecognized sect ion and content) Personnel Name: SARAH ENNIS MD Address: [place] [id number] Care Team Personnel Name: TALITA HOFFMAN Member Role: Social Sciences Instructor Address: Address: [address] [place] [address] [employer] [address] Name: SARAH ENNIS MD Position: Physician Member Role: Primary Care Physician Address: Address: [address] Care Team Related Persons Name: MAURICE AQUINO Address: Home [address] [place] [phone] [place] Care Team Personnel Name: TALITA HOFFMAN Member Role: Social Sciences Instructor Address: Address: [address] [place] [address] [employer] [address] Name: SARAH ENNIS MD Position: Physician Member Role: Primary Care Physician Address: Address: [address] Care Team Related Persons Name: KENIAMAURICE MORALES Address: Home [address] [place] [phone] Care Team Personnel Name: TALITA HOFFMAN Member Role: Social Sciences Instructor Address: Address: [address] [place] [address] [employer] [address] Name: SARAH ENNIS MD Position: Physician Member Role: Primary Care Physician Address: Address: [address] Care Team Related Persons Name: MAURICE AQUINO Address: Home [address] [place] [phone] [place] Care Team Personnel Name: TALITA HOFFMAN Member Role: Social Sciences Instructor Address: [address] [place] [address] [employer] [address] Telecom: Name: SARAH ENNIS MD Position: Physician Member Role: Primary Care Physician Address: [facility] [address] [place] [address] Telecom: Care Team Related Persons Name: MAURICE AQUINO Care Team Personnel Name: CITLALI JACKSON MD Position: P4 Physician - Cardiology Member Role: Avionic Technician Address: [address] [facility] [address] [place] [address]- [place] Telecom: Name: TALITA HOFFMAN Member Role: Social Sciences Instructor Address: [address] [employer] [address] Telecom: Name: SARAH ENNIS MD Position: Physician Member Role: Primary Care Physician Address: [address] Telecom: Care Team Related Persons Name: MAURICE AQUINO Care Team Personnel Name: CITLALI JACKSON MD Position: P4 Physician - Cardiology Member Role: Avionic Technician Address: [address] [facility] [address] [place] [address]- [place] Telecom: Name: TALITA HOFFMAN Member Role: Social Sciences Instructor Address: [address] [employer] [place] [phone] [place] Telecom: Name: SARAH ENNIS MD Position: Physician Member Role: Primary Care Physician Address: [facility] [address] [place] [address] [place] Telecom: Care Team Related Persons Name: MAURICE AQUINO Care Team Personnel Name: CITLALI JACKSON MD Position: P4 Physician - Cardiology Member Role: Avionic Technician Address: [address] [facility] [address] [place] [address]- [place] Telecom: Name: TALITA HOFFMAN Member Role: Social Sciences Instructor Address: [address] [employer] [address] Telecom: Name: SARAH ENNIS MD Position: Physician Member Role: Primary Care Physician Address: [address] Telecom: Care Team Related Persons Name: MAURICE AQUINO Care Team Personnel Name: CITLALI JACKSON MD Position: Physician - Cardiology Member Role: Avionic Technician Address: [address] [place] [address] [address] [facility] [address] Telecom: Name: TALITA HOFFMAN Member Role: Social Sciences Instructor Address: [address] [place] [address] [employer] [address] Telecom: Name: SARAH ENNIS MD Position: Physician Member Role: Primary Care Physician Address: [address] Telecom: Care Team Related Persons Name: MAURICE AQUINO Care Team (unrecognized sect ion and content) Care Team Personnel Name: TALITA HOFFMAN Member Role: Social Sciences Instructor Address: Address: [address] [place] [address] [employer] [address] Name: SARAH ENNIS MD Position: Physician Med Service: Employed Provider Member Role: Primary Care Physician Address: Address: [address] Care Team Related Persons Name: MAURICE AQUINO Address: Home [address] [place] [phone] Care Team Personnel Name: TAILTA HOFFMAN Member Role: Social Sciences Instructor Address: Address: [address] [place] [address] [employer] [address] Name: SARAH ENNIS MD Position: Physician Med Service: Employed Provider Member Role: Primary Care Physician Address: Address: [address] Care Team Related Persons Name: MAURICE AQUINO Address: Home [address] [place] [phone] Care Team Personnel Name: YASMIN, TALITA AuD Member Role: Social Sciences Instructor Address: Address: [address] [place] [address] [employer] [address] Name: SARAH ENNIS MD Position: Physician Med Service: Employed Provider Member Role: Primary Care Physician Address: Address: [address] Care Team Related Persons Name: MAURICE AQUINO Address: [address] [phone] Care Team Personnel Name: TALITA HOFFMAN AuD Member Role: Social Sciences Instructor Address: Address: [address] [place] [address] [employer], [address] Name: SARAH ENNIS MD Position: Physician Member Role: Primary Care Physician Address: Address: [address] Care Team Related Persons Name: MAURICE AQUINO Address: [address] [phone] FOR RECORDS PERTAINING TO PATIENTS WHO ARE [...] BE BASED ON THE PRIMARY CLINICAL RECORDS. [facility] [employer] [facility]. provides no warranty or guarantee of the accuracy or completeness of information in this document.
[2025-06-08 02:17] LABS: Troponin T High Sens 4 HR 33 ng/L (<=22)
[2025-06-08 06:04] LABS: Hematocrit 39.6 % (40-54); Hemoglobin 12.8 g/dL (13.0-16.5); Immature Granulocytes Count 0.020 X10^3/uL (0.0-0.0); Mean Corp Hgb Conc 32.3 g/dL (32-36); Mean Corpuscular Volume 90.0 fL (80-94); Mean Platelet Vol. 9.6 fl (6.2-12.0); NRBC Flagged by Analyzer 0 % (0-5); Platelet Count 188 K/mm3 (150-450); RBC Distribution Width CV 14.8 % (11.6-14.6); RBC Distribution Width SD 49.1 fl (35.1-43.9); Red Blood Count 4.40 M/mm3 (4.6-6.2); White Blood Count 7.0 K/mm3 (4.4-11.0)
[2025-06-08 06:33] LABS: AST(SGOT) 23 U/L (<=37); Alanine Aminotransfer ALT/SGPT 19 U/L (<=46); Albumin, Serum 3.8 g/dL (3.4-4.8); Alkaline Phosphatase 59 U/L (40-129); Anion Gap 8 (5-15); BUN 24 mg/dL (4-19); BUN/Creat Ratio 25.7 RATIO (10-20); Calcium,Total 8.8 mg/dL (7.6-11.0); Carbon Dioxide 28.3 mmol/L (21.0-32.0); Chloride 103 mmol/L (98-108); Cholesterol 124 mg/dL (<=200); Estimated Creatinine Clearance 70.14 ml/min (50-250); Globulin 2.6 g/dL (2.2-4.2); Glucose 124 mg/dL (70-99); Low Density Lipoprotein Calc. 77 mg/dL; Magnesium 1.9 mg/dL (1.5-2.2); Potassium 4.4 mmol/L (3.3-5.1); Triglycerides 41 mg/dL; Very Low Density Lipoprotein 8 mg/dL (5-40); cholesterol:hdl ratio screen 3.33
--- NOTE | 2025-06-08 07:50 | PCM.PN.HOSP ---
Reason for Visit Chief Complaint: Altered word finding/confusion Subjective Subjective Patient is a 75-year-old gentleman who presented to the emergency department with difficulty getting his toes together as well as some expressive aphasia admitted to a monitored bed as a case of suspected CVA Objective Data Objective Data Vital Signs: Vital Signs Temp Pulse Resp BP Pulse Ox O2 Del Method 97.4 F L 68 17 139/108 H 97 Room Air 06/08/25 04:39 06/08/25 04:39 06/08/25 04:39 06/08/25 04:39 06/08/25 04:39 06/08/25 04:39 Oxygen Delivery Method Room Air Weight: 80.6 kg Body Mass Index (BMI) 26.2 Intake & Output: Intake and Output for Last 24 Hours 06/06/25 06/07/25 06/08/25 22:59 23:59 23:59 Intake Total 1000 / 1000 Balance 1000 / 1000 Lab / Micro Data 06/08/25 05:36 06/08/25 05:36 Labs: Laboratory Results - last 24 hr 06/07/25 20:54: POC Glucose 141 H 06/07/25 21:05: WBC 9.1, RBC 4.69, Hgb 13.5, Hct 42.1, MCV 89.8, MCH 28.8, MCHC 32.1, RDW Std Deviation 48.8 H, RDW Coeff of Ivana 14.9 H, Plt Count 230, MPV 9.8, Immature Gran % (Auto) 0.300, Neut % (Auto) 66.0, Lymph % (Auto) 19.7, [place] % (Auto) 11.3 H, Eos % (Auto) 2.0, Baso % (Auto) 0.7, Absolute Neuts (auto) 6.0, Absolute Lymphs (auto) 1.78, Nucleated RBC % 0, PT 29.4 H, INR 2.7, APTT 41.2 H, Sodium 139, Potassium 4.1, Chloride 101, Carbon Dioxide 28.2, Anion Gap 10, BUN 28 H, Creatinine 1.05, Estim Creat Clear Calc 60.79, Est GFR (MDRD) Non-Af 74, BUN/Creatinine Ratio 27.0 H, Glucose 149 H, Hemoglobin A1c 7.2 H, Calcium 9.3, Troponin T High Sens 37 H, NT pro BNP II 3594 H 06/07/25 21:30: Urine Color Yellow, Urine Clarity Sl. Cloudy, Urine pH 6.0, Ur Specific Lamar 1.020, Urine Protein 30 H, Urine Glucose (UA) 50 H, Urine Ketones Negative, Urine Occult Blood 10 H, Urine Nitrite Negative, Urine Bilirubin Negative, Urine Urobilinogen Normal, Ur Leukocyte Esterase Negative, Urine RBC 0-5 SEEN, Urine WBC 0-5 SEEN, Ur Squamous Epith Cells 0-5 SEEN, Urine Bacteria 0 SEEN, Urine Mucus 0 SEEN 06/07/25 23:24: Troponin T Hi Sens 2 Hr 34 H 06/08/25 00:40: POC Glucose 106 06/08/25 01:38: Troponin T Hi Sens 4Hr 33 H 06/08/25 05:36: WBC 7.0, RBC 4.40 L, Hgb 12.8 L, Hct 39.6 L, MCV 90.0, MCH 29.1, MCHC 32.3, RDW Std Deviation 49.1 H, RDW Coeff of Ivana 14.8 H, Plt Count 188, MPV 9.6, Immature Gran % (Auto) 0.300, Neut % (Auto) 56.9, Lymph % (Auto) 27.1, [place] % (Auto) 11.5 H, Eos % (Auto) 3.3, Baso % (Auto) 0.9, Absolute Neuts (auto) 4.0, Absolute Lymphs (auto) 1.88, Nucleated RBC % 0, Sodium 140, Potassium 4.4, Chloride 103, Carbon Dioxide 28.3, Anion Gap 8, BUN 24 H, Creatinine 0.91, Estim Creat Clear Calc 70.14, Est GFR (MDRD) Non-Af 87, BUN/Creatinine Ratio 25.7 H, Glucose 124 H, Calcium 8.8, Phosphorus 3.5, Magnesium 1.9, Total Bilirubin 0.75, AST 23, ALT 19, Alkaline Phosphatase 59, Total Protein 6.4, Albumin 3.8, Globulin 2.6, Albumin/Globulin Ratio 1.5, Triglycerides 41, Cholesterol 124, LDL Cholesterol, Calc 77, VLDL Cholesterol 8, HDL Cholesterol 37 L, Cholesterol/HDL Ratio 3.33, TSH 1.680 Radiography Diagnostic Testing: Radiology Impression Brain CT 06/07/25 20:57 IMPRESSION: No acute, large territorial infarction. Stroke Alert: No acute, large territorial infarction. The critical findings in the findings and impression above were relayed directly by me by telephone to Brian Rangel on 06/07/2025 at 9:21 pm EST with readback verification. Reading Location: [facility] Head/Neck CTA 06/07/25 21:20 IMPRESSION: High-grade stenosis of the proximal cervical segment of the right ICA resulting in approximately 80-95% luminal narrowing. Reading Location: [facility] Chest X-Ray 06/07/25 21:40 IMPRESSION: As above. Reading Location: [facility] Physical Exam Narrative GENERAL: cooperative HEENT: Atraumatic; normocephalic EYES; Anicteric, Normal Conjunctiva NECK; supple, normal thyroid, RESPIRATORY: Diminished to auscultation CARDIOVASCULAR: Regular S1 S2, GI: soft, normoactive bowel sounds, : No Renal angle tenderness; EXTREMITIES: No edema, no clubbing, MUSCULOSKELETAL: no muscle wasting NEURO: Awake; no lateralizing signs. SKIN: No Rash PSYCH; Flat affect Assessment & Plan Assessment/Plan (1) Episode of confusion: (2) Expressive aphasia: (3) Stenosis of right carotid artery: (4) Elevated troponin: (5) Elevated brain natriuretic peptide (BNP) level: PLAN: Plan Patient is a 75-year-old gentleman who presented to the emergency department with difficulty getting his toes together as well as some expressive aphasia admitted to a monitored bed as a case of suspected CVA 1. Suspected CVA ? Patient presented with transient confusion as well as expressive aphasia admitted to a monitored bed every 4 neurochecks ordered as part of patient's management hemoglobin A1c TSH 2D echo and MRI of the brain without contrast ordered. CTA of the brain did show significant right carotid artery stenosis 2. Severe right carotid artery stenosis ? CTA demonstrated 80 to 95% stenosis carotid ultrasound ordered consult placed to vascular surgery 3. Essential hypertension ? Plan is to pursue permissive hypertensive protocol until CVA is ruled out 4. Persistent atrial fibrillation ? Rate controlled with metoprolol and systemic anticoagulation rivaroxaban continue 5. BPH with lower urinary obstructive symptoms - Patient treated with tamsulosin 6. Coronary artery disease - Previous stent placement patient is on guideline directed medical therapy 7. 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 Patient is on metformin at home held placed on Accu-Cheks AC and at bedtime with sliding scale coverage hemoglobin A1c ordered 8. DVT prophylaxis ? On rivaroxaban Time spent in the patient's overall evaluation,decision-making process, review of diagnostic data, adjustment of management, discussion with other providers, nursing nursing and ancillary staff involved in patient's care documentation, 36 Minutes Charges/Coding Visit Charges Inpatient E&M: 40271 Subs Hosp L2 NIHSS NIHSS Nursing Documentation NIHSS Nursing Documentation: NIHSS: Ischemic Stroke/TIA Start: 06/08/25 00:28 Text: For PCU Patients: NIH and Neuro Check every 4 Status: Active hours, PRN and with change in RN caregiver. Freq: [id number] Protocol: Activity Type Activity Date Activity User E-sign Co-sign Detail Recorded Client Recorded Date Recorded By Document 06/08/25 04:36 [id number] 06/08/25 04:39 RahelG 06/08/25 04:36 NIH Stroke Scale [NIHSS] A score of 0 is normal or asymptomatic . Total possible score is 42. Inpatient: RN or Physician to activate a stroke alert for onset of new stroke symptoms or with NIHSS increase >/= 3 points. Following change in neurological status, NIHSS will be performed per physician order or more frequently PRN. -1a. Level of Consciousness 0 - Alert; keenly responsive -1b. LOC Questions 0 - Answers BOTH questions correctly -1c. LOC Commands 0 - Performs BOTH tasks correctly -2. Best Gaze 0 - Normal -3. Visual 0 - No visual loss -4. Facial Palsy 0 - Normal symmetrical movements -5a. Left Arm 0 - No drift; arm holds 90 ( or 45) degrees for full 10 seconds -5b. Right Arm 0 - No drift; arm holds 90 ( or 45) degrees for full 10 seconds -6a. Left Leg 0 - No drift; leg holds 30- degree position for full 5 seconds -6b. Right Leg 0 - No drift; leg holds 30- degree position for full 5 seconds -7. Limb Ataxia 0 - Absent -8. Sensory 0 - Normal; no sensory loss -9. Best Language 0 - No aphasia; normal -10. Dysarthria 0 - Normal -11. Extinction and Inattention 0 - No abnormality -Total 0 Query Text:A score of 0 is normal or asymptomatic. Total possible score is 42 . ED: Notify Physician for NIHSS increase by > / = 3 points. Inpatient: RN or Physician to activate a stroke alert for NIHSS increase of > / = 3 points. Coma Scale [Assess] -Eye Opening Spontaneous -Motor Obeys Commands -Verbal Oriented [Total] -Coma Scale Total 15
--- NOTE | 2025-06-08 08:45 | MRI_ITS ---
PROCEDURE: BRAIN WITHOUT CONTRAST 06/08/2025 REASON FOR EXAM: STROKE R/O TECHNIQUE: Procedure Code: MRIBR Modality: MR Procedure: BRAIN WITHOUT CONTRAST Multiplanar and multisequence images were obtained. COMPARISON: June 07, 2025 FINDINGS: Brain: No evidence of acute ischemia. No hemorrhage. Mild T2 prolongation is seen in the periventricular white matter. A few patchy foci of T2 prolongation are shown in the engel radiata and to a lesser extent the subcortical white matter. Ventricles: No hydrocephalus. Major Intracranial Vessels: Correlate with CT angiogram of 1 day prior. Flow voids are otherwise unremarkable. Sinuses: Mucous retention cysts or polyps in the anterior inferior left maxillary sinus. Mastoids: Clear MRI/Brain without Contrast IMPRESSION: 1. No evidence of acute ischemia at this time. Mild volume loss. Chronic diallo rovascular ischemic changes. Reading Location: [id number]
--- NOTE | 2025-06-08 10:26 | CASEMGMT ---
Social Work Per imaging pt negative for stroke, therefore PHQ9 not completed. STEPHANIE Hartman
[2025-06-08] MEDS: Metoprolol(XL)Succ 25 MG Tablet PO (10:56)
--- NOTE | 2025-06-08 12:15 | CON.PCM.SX_ITS ---
Assessment & Plan Assessment/Plan (1) Stenosis of right carotid artery: PLAN: By CTA he has significant R ICA stenosis >70% which is at threshold to recommend intervention even if asymptomatic. I discussed with patient and his present family the indications for carotid intervention, options including CEA and TCAR and associated risks, benefits, and recovery. Will coordinate outpatient follow-up and intervention. Recommend initiating Plavix 75mg daily in addition to ASA and statin for the perioperative period. HPI Consult Data Date of Consult: 06/08/25 HPI Narrative HPI Narrative: ABBEY AQUINO, is a 75 M who presented to the [facility] ER after an episode of general confusion witnessed by family members that lasted a couple hours yesterday. In the ER, he had returned to his usual baseline but he was admitted for TIA/CVA workup. He reports no lateralized weakness, sensory changes, or vision changes. He denies similar prior episodes. He had Head/Neck CTA which reported significant R ICA stenosis ~85% and no significant L ICA stenosis. Brain MRI was negative for acute infarct. Echo is pending. Neuro consult is pending. He does have Afib but is anticoagulated with Xarelto and has been taking this as prescribed. He was already on ASA and statin at home due to a history of coronary artery disease s/p prior stents. [facility], [facility] Medical History (Updated 06/08/25 @ 00:[address] Shauna Benoit, ) Essential hypertension Diabetes mellitus, type 2 BPH with urinary obstruction Atrial fibrillation Neuropathy Hypertension Coronary artery disease Home Medications ?Medication ?Instructions ?Recorded ?Last Taken ?Type atorvastatin 40 mg tablet 40 mg PO DAILY 06/07/25 Unkn own History isosorbide mononitrate 30 mg 30 mg PO DAILY 06/07/25 U nknown History tablet,extended release 24 hr lisinopril 40 mg tablet 40 mg PO BID 06/07/25 Unknow n History metformin 500 mg tablet,extended 500 mg PO BID 5 Unknown History release 24 hr metoprolol succinate 25 mg 25 mg PO BID 06/07/25 Unkno wn History tablet,extended release 24 hr rivaroxaban 20 mg tablet (Xarelto) 20 mg PO QPM Unknown History sertraline 25 mg tablet 25 mg PO DAILY 06/07/25 Unkn own History tamsulosin 0.4 mg capsule 0.4 mg PO DAILY 06/07/25 Unk nown History Allergy/AdvReac Type Severity Reaction Status Date / Time No Known Allergies Allergy Verified 06/07/25 20:48 Family History (Updated 06/08/25 @ 00:[address] Shauna Benoit DO) Other CAD (coronary artery disease) Diabetes Heart disease Hypertension Surgical History (Updated 06/08/25 @ 00:[address] Shauna Benoit DO) History of ankle surgery Hx of heart artery stent Social History (Updated 06/08/25 @ 00:[address] Shauna Benoit DO) household members: spouse housing: house current occupational status: retired Smoking Status: Never smoker alcohol intake: never substance use type: does not use Physical Exam Const alert, oriented x3 and no apparent distress General Appearance: cooperative and comfortable HEENT normocephalic, head/scalp atraumatic, hearing grossly normal bilaterally, external ears normal and external nose normal Eyes General Eye: normal appearance of both eyes Neck General: normal visual inspection and trachea midline Resp normal respiratory effort, normal air movement, no retractions and no use of accessory muscles Effort and Inspection: able to speak in complete sentences; Negative for labored, grunting or stridor Skin no rashes or lesions noted Trauma: no lacerations or abrasions Neuro moves all extremities, no focal motor deficits and no sensory deficits noted Speech: speech normal Psych mental status grossly normal Appearance: grossly normal Attitude: calm and engaged Activity / Motor Behavior: appropriate eye contact Speech: normal speech Lab / Micro Data 06/08/25 05:36 06/08/25 05:36 Labs: Laboratory Results - last 24 hr 06/07/25 20:54: POC Glucose 141 H 06/07/25 21:05: WBC 9.1, RBC 4.69, Hgb 13.5, Hct 42.1, MCV 89.8, MCH 28.8, MCHC 32.1, RDW Std Deviation 48.8 H, RDW Coeff of Ivana 14.9 H, Plt Count 230, MPV 9.8, Immature Gran % (Auto) 0.300, Neut % (Auto) 66.0, Lymph % (Auto) 19.7, [place] % (Auto) 11.3 H, Eos % (Auto) 2.0, Baso % (Auto) 0.7, Absolute Neuts (auto) 6.0, Absolute Lymphs (auto) 1.78, Nucleated RBC % 0, PT 29.4 H, INR 2.7, APTT 41.2 H, Sodium 139, Potassium 4.1, Chloride 101, Carbon Dioxide 28.2, Anion Gap 10, BUN 28 H, Creatinine 1.05, Estim Creat Clear Calc 60.79, Est GFR (MDRD) Non-Af 74, B UN/Creatinine Ratio 27.0 H, Glucose 149 H, Hemoglobin A1c 7.2 H, Calcium 9.3, T roponin T High Sens 37 H, NT pro BNP II 3594 H 06/07/25 21:30: Urine Color Yellow, Urine Clarity Sl. Cloudy, Urine pH 6.0, Ur Specific [place] 1.020, Urine Protein 30 H, Urine Glucose (UA) 50 H, Urine Ketones Negative, Urine Occult Blood 10 H, Urine Nitrite Negative, Urine Bilirubin Negative, Urine Urobilinogen Normal, Ur Leukocyte Esterase Negative, Urine RBC 0-5 SEEN, Urine WBC 0-5 SEEN, Ur Squamous Epith Cells 0-5 SEEN, Urine Bacteria 0 SEEN, Urine Mucus 0 SEEN 06/07/25 23:24: Troponin T Hi Sens 2 Hr 34 H 06/08/25 00:40: POC Glucose 106 06/08/25 01:38: Troponin T Hi Sens 4Hr 33 H 06/08/25 05:36: WBC 7.0, RBC 4.40 L, Hgb 12.8 L, Hct 39.6 L, MCV 90.0, MCH 29.1, MCHC 32.3, RDW Std Deviation 49.1 H, RDW Coeff of Ivana 14.8 H, Plt Count 188, MPV 9.6, Immature Gran % (Auto) 0.300, Neut % (Auto) 56.9, Lymph % (Auto) 27.1, [place] % (Auto) 11.5 H, Eos % (Auto) 3.3, Baso % (Auto) 0.9, Absolute Neuts (auto) 4.0, Absolute Lymphs (auto) 1.88, Nucleated RBC % 0, Sodium 140, Potassium 4.4, Chloride 103, Carbon Dioxide 28.3, Anion Gap 8, BUN 24 H, Creatinine 0.91, Estim Creat Clear Calc 70.14, Est GFR (MDRD) Non-Af 87, BUN/Creatinine Ratio 25.7 H, G lucose 124 H, Calcium 8.8, Phosphorus 3.5, Magnesium 1.9, Total Bilirubin 0.75, AST 23, ALT 19, Alkaline Phosphatase 59, Total Protein 6.4, Albumin 3.8, Globulin 2.6, Albumin/Globulin Ratio 1.5, Triglycerides 41, Cholesterol 124, LDL Cholesterol, Calc 77, VLDL Cholesterol 8, HDL Cholesterol 37 L, Cholesterol/HDL Ratio 3.33, TSH 1.680 06/08/25 11:46: POC Glucose 163 H Imaging Radiology Impression Brain CT 06/07/25 20:57 IMPRESSION: No acute, large territorial infarction. Stroke Alert: No acute, large territorial infarction. The critical findings in the findings and impression above were relayed directly by me by telephone to Brian Rangel on 06/07/2025 at 9:21 pm EST with readback verification. Reading Location: [id number] Head/Neck CTA 06/07/25 21:20 IMPRESSION: High-grade stenosis of the proximal cervical segment of the right ICA resulting in approximately 80-95% luminal narrowing. Reading Location: [facility] Chest X-Ray 06/07/25 21:40 IMPRESSION: As above. Reading Location: [id number] Brain MRI 06/08/25 08:45 IMPRESSION: 1. No evidence of acute ischemia at this time. Mild volume loss. Chronic microvascular ischemic changes. Reading Location: [id number] Charges/Coding Visit Charges Inpatient E&M: 72713 Init Hosp L1
--- NOTE | 2025-06-08 14:04 | STROKE.CONS ---
Assessment and Plan: Stroke Assessment/Plan ABBEY AQUINO, is a 75 M with PMH of HTN, DM, CAD, AFIB on Xarelto who presents with episode of acute confusional state now improved. Neurological examination - patient is alert and oriented, good insight and recall of the event. No overt aphasia or dysarthria. Object naming intact. Complex command following intact. No focal weakness or numbness. However does have on delayed recall impairment with 2/3 recalled words on first attempt and 3/3 on second attempt with choices. Patient and family report he is at his neurological baseline. He states his speech is always a little hesitant. Neuroimaging shows no evidence of acute ischemia. - Agree with Xarelto and statin for continued secondary stroke risk reduction along with vascular risk factor modification like normotension and normoglycemia - Recommend general neurology outpatient follow up for cognitive evaluation - Recommend TSH, B12, and Folate levels to ensure optimized nutrition - No further ischemic workup recommended at this time HPI Consult Data Date of Consult: 06/08/25 HPI Narrative HPI Narrative: ABBEY AQUINO, is a 75 M with PMH of HTN, DM, CAD, AFIB on Xarelto who presents with episode of confusion. Family and patient report that he was acting strange and was forgetting what he was doing for the day prior to presentation. He went to the store and forgot what he was doing. 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 He was talking to his kids and could not recall if he owned the land he just bought property on. He states he usually is able to recall these things and it was not his baseline to forget or go somewhere and forget what he was doing. Denies LOC, seizure like activity. He reports he is able to complete all his ADLs himself. He lives alone with his . They both are independent and ambulatory. He continues to drive. He no longer does his finances but this was a shared responsibility with his , he assists, and does not think he stopped because of his mentation - just it is her turn to do them. On examination he has no focal neurological deficit. On cognitive assessment he is alert and oriented, speech is fluent, complex command following and reasoning intact. Good insight into his PMH. On immediate recall he has 3/3, however on delayed recall he is 2/3 on initial attempt with 3/3 when given choices. [facility] Medical History (Updated 06/08/25 @ 00:[address] Shauna Benoit DO) Essential hypertension Diabetes mellitus, type 2 BPH with urinary obstruction Atrial fibrillation Neuropathy Hypertension Coronary artery disease Home Medications ?Medication ?Instructions ?Recorded ?Last Taken ?Type atorvastatin 40 mg tablet 40 mg PO DAILY 06/07/25 Unknown History isosorbide mononitrate 30 mg 30 mg PO DAILY 06/07/25 Unknown History tablet,extended release 24 hr lisinopril 40 mg tablet 40 mg PO BID 06/07/25 Unknown History metformin 500 mg tablet,extended 500 mg PO BID 06/07/25 Unknown History release 24 hr metoprolol succinate 25 mg 25 mg PO BID 06/07/25 Unknown History tablet,extended release 24 hr rivaroxaban 20 mg tablet (Xarelto) 20 mg PO QPM 06/07/25 Unknown History sertraline 25 mg tablet 25 mg PO DAILY 06/07/25 Unknown History tamsulosin 0.4 mg capsule 0.4 mg PO DAILY 06/07/25 Unknown History Allergy/AdvReac Type Severity Reaction Status Date / Time No Known Allergies Allergy Verified 06/07/25 20:48 Family History (Updated 06/08/25 @ 00:[address] Shauna Benoit DO) Other CAD (coronary artery disease) Diabetes Heart disease Hypertension Surgical History (Updated 06/08/25 @ 00:[address] Shauna Benoit DO) History of ankle surgery Hx of heart artery stent Social History (Updated 06/08/25 @ 00:[address] Shauna Benoit DO) household members: spouse housing: house current occupational status: retired Smoking Status: Never smoker alcohol intake: never substance use type: does not use Vital Signs Vital Signs Vital Signs: 06/07/25 20:48 06/07/25 20:54 06/07/25 21:19 Temperature 98.3 F Temperature Source Oral Pulse Rate 65 65 79 Respiratory Rate 16 16 17 Respiratory Effort Respiratory Depth Respiratory Pattern Blood Pressure 175/117 H 175/117 H 167/103 H Blood Pressure Mean 136 136 124 Blood Pressure Source Blood Pressure Position Blood Pressure Location Pulse Ox 100 100 98 Oxygen Delivery Method Room Air Room Air Room Air 06/07/25 21:22 06/07/25 21:48 06/07/25 22:00 Temperature Temperature Source Pulse Rate 75 72 Respiratory Rate 22 H 15 Respiratory Effort Respiratory Depth Respiratory Pattern Blood Pressure 156/111 H 164/110 H Blood Pressure Mean 126 128 Blood Pressure Source Blood Pressure Position Blood Pressure Location Pulse Ox 95 95 96 Oxygen Delivery Method Room Air Room Air Room Air 06/07/25 22:59 06/07/25 23:00 06/08/25 00:34 Temperature 97.0 F L 97.6 F L Temperature Source Oral Pulse Rate 63 63 80 Respiratory Rate 19 H 20 H 18 Respiratory Effort Respiratory Depth Respiratory Pattern Blood Pressure 143/108 H 160/97 H 166/95 H Blood Pressure Mean 119 118 118 Blood Pressure Source Monitor Blood Pressure Position Semi-Fowlers Blood Pressure Location Left Arm Pulse Ox 94 93 97 Oxygen Delivery Method Room Air 06/08/25 01:24 06/08/25 03:55 06/08/25 04:39 Temperature 97.4 F L Temperature Source Oral Pulse Rate 68 Respiratory Rate 17 Respiratory Effort Normal Non-Labored Respiratory Depth Normal Respiratory Pattern Normal Blood Pressure 139/108 H Blood Pressure Mean 118 Blood Pressure Source Monitor Blood Pressure Position Semi-Fowlers Blood Pressure Location Right Arm Pulse Ox 90 97 Oxygen Delivery Method Room Air Room Air Room Air 06/08/25 08:30 06/08/25 08:32 06/08/25 10:54 Temperature 97.6 F L Temperature Source Oral Pulse Rate 76 68 Respiratory Rate 16 16 Respiratory Effort Normal Non-Labored Respiratory Depth Normal Respiratory Pattern Normal Blood Pressure 158/100 H 166/98 H Blood Pressure Mean 119 120 Blood Pressure Source Monitor Monitor Blood Pressure Position Sitting Semi-Fowlers Blood Pressure Location Right Arm Right Arm Pulse Ox 96 98 Oxygen Delivery Method Room Air Room Air Room Air 06/08/25 10:56 Temperature Temperature Source Pulse Rate 68 Respiratory Rate Respiratory Effort Respiratory Depth Respiratory Pattern Blood Pressure 166/98 H Blood Pressure Mean Blood Pressure Source Blood Pressure Position Blood Pressure Location Pulse Ox Oxygen Delivery Method Weight Weight: 80.6 kg Body Mass Index (BMI) 26.2 EEG Results Procedure Details EEG Procedure Details: ABBEY AQUINO is a 75 year old M with a past medical history of , who presents for evaluation of Electroencephalogram on DATE at TIME Lab / Micro Data 06/08/25 05:36 06/08/25 05:36 Labs: Laboratory Results - last 24 hr 06/07/25 20:54: POC Glucose 141 H 06/07/25 21:05: WBC 9.1, RBC 4.69, Hgb 13.5, Hct 42.1, MCV 89.8, MCH 28.8, MCHC 32.1, RDW Std Deviation 48.8 H, RDW Coeff of Ivana 14.9 H, Plt Count 230, MPV 9.8, Immature Gran % (Auto) 0.300, Neut % (Auto) 66.0, Lymph % (Auto) 19.7, [place] % (Auto) 11.3 H, Eos % (Auto) 2.0, Baso % (Auto) 0.7, Absolute Neuts (auto) 6.0, Absolute Lymphs (auto) 1.78, Nucleated RBC % 0, PT 29.4 H, INR 2.7, APTT 41.2 H, Sodium 139, Potassium 4.1, Chloride 101, Carbon Dioxide 28.2, Anion Gap 10, BUN 28 H, Creatinine 1.05, Estim Creat Clear Calc 60.79, Est GFR (MDRD) Non-Af 74, BUN/Creatinine Ratio 27.0 H, Glucose 149 H, Hemoglobin A1c 7.2 H, Calcium 9.3, Troponin T High Sens 37 H, NT pro BNP II 3594 H 06/07/25 21:30: Urine Color Yellow, Urine Clarity Sl. Cloudy, Urine pH 6.0, Ur Specific [place] 1.020, Urine Protein 30 H, Urine Glucose (UA) 50 H, Urine Ketones Negative, Urine Occult Blood 10 H, Urine Nitrite Negative, Urine Bilirubin Negative, Urine Urobilinogen Normal, Ur Leukocyte Esterase Negative, Urine RBC 0-5 SEEN, Urine WBC 0-5 SEEN, Ur Squamous Epith Cells 0-5 SEEN, Urine Bacteria 0 SEEN, Urine Mucus 0 SEEN 06/07/25 23:24: Troponin T Hi Sens 2 Hr 34 H 06/08/25 00:40: POC Glucose 106 06/08/25 01:38: Troponin T Hi Sens 4Hr 33 H 06/08/25 05:36: WBC 7.0, RBC 4.40 L, Hgb 12.8 L, Hct 39.6 L, MCV 90.0, MCH 29.1, MCHC 32.3, RDW Std Deviation 49.1 H, RDW Coeff of Ivana 14.8 H, Plt Count 188, MPV 9.6, Immature Gran % (Auto) 0.300, Neut % (Auto) 56.9, Lymph % (Auto) 27.1, [place] % (Auto) 11.5 H, Eos % (Auto) 3.3, Baso % (Auto) 0.9, Absolute Neuts (auto) 4.0, Absolute Lymphs (auto) 1.88, Nucleated RBC % 0, Sodium 140, Potassium 4.4, Chloride 103, Carbon Dioxide 28.3, Anion Gap 8, BUN 24 H, Creatinine 0.91, Estim Creat Clear Calc 70.14, Est GFR (MDRD) Non-Af 87, BUN/Creatinine Ratio 25.7 H, Glucose 124 H, Calcium 8.8, Phosphorus 3.5, Magnesium 1.9, Total Bilirubin 0.75, AST 23, ALT 19, Alkaline Phosphatase 59, Total Protein 6.4, Albumin 3.8, Globulin 2.6, Albumin/Globulin Ratio 1.5, Triglycerides 41, Cholesterol 124, LDL Cholesterol, Calc 77, VLDL Cholesterol 8, HDL Cholesterol 37 L, Cholesterol/HDL Ratio 3.33, TSH 1.680 06/08/25 11:46: POC Glucose 163 H Imaging Radiology Impression Brain CT 06/07/25 20:57 IMPRESSION: No acute, large territorial infarction. Stroke Alert: No acute, large territorial infarction. The critical findings in the findings and impression above were relayed directly by me by telephone to Brian Rangel on 06/07/2025 at 9:21 pm EST with readback verification. Reading Location: [facility] Head/Neck CTA 06/07/25 21:20 IMPRESSION: High-grade stenosis of the proximal cervical segment of the right ICA resulting in approximately 80-95% luminal narrowing. Reading Location: [facility] Chest X-Ray 06/07/25 21:40 IMPRESSION: As above. Reading Location: [facility] Brain MRI 06/08/25 08:45 IMPRESSION: 1. No evidence of acute ischemia at this time. Mild volume loss. Chronic microvascular ischemic changes. Reading Location: [facility] Active Medications Active Medications Active Medications: Current Medications Generic Name Dose Route Start Last Admin Trade Name Freq PRN Reason Stop Dose Admin Acetaminophen 650 mg 06/08/25 00:28 Acetaminophen 325 Mg Tablet PO Q4H PRN PRN Pain 1-10 Or Fever>99.6 Albuterol Sulfate 2.5 mg 06/08/25 00:28 Albuterol 2.5 Mg/3 Ml Vial.Neb. INHALATION Q2H PRN PRN SOB &/OR WHEEZING Aspirin 81 mg 06/08/25 08:00 06/08/25 10:56 Aspirin 81 Mg Tab.Chew PO 81 mg [facility]AKFAST [facility] Administration Atorvastatin Calcium 80 mg 06/08/25 22:00 Atorvastatin Calcium 80 Mg Tablet PO QHS DIXON Hydralazine HCl 5 mg 06/08/25 00:28 Hydralazine 20 Mg/Ml Vial IV 06/09/25 00:28 Q30M PRN maintain BP parameters with HR <60 Sodium Chloride 250 mls @ 15 mls/hr 06/08/25 01:11 IV .[id number] PRN Saline Flush Sodium Chloride 250 mls @ 15 mls/hr 06/08/25 01:11 IV .[id number] PRN Additional IVPB Infusion Isosorbide Mononitrate 30 mg 06/08/25 10:00 06/08/25 10:56 Isosorbide Mononitrate 30 Mg Tablet PO 30 mg DAILY DIXON Administration Protocol Labetalol HCl 10 - 20 mg 06/08/25 00:28 Labetalol 20 Mg/4 Ml Vial IV 06/09/25 00:28 Q10M PRN PRN maintain BP parameters with HR >/=60 Metoprolol Succinate 25 mg 06/08/25 10:00 06/08/25 10:56 Metoprolol(Xl)Succ 25 Mg Tablet PO 25 mg BID [facility] Administration Protocol Ondansetron HCl 4 mg 06/08/25 00:28 Ondansetron 4 Mg/2 Ml Vial IV Q8H PRN PRN NAUSEA/VOMITING Rivaroxaban 20 mg 06/08/25 21:00 Rivaroxaban 20 Mg Tablet PO QPM DIXON Senna/Docusate Sodium 2 tablet 06/08/25 00:28 Senna/Docusate Sodium 1 Tablet PO BID PRN PRN Constipation Sertraline HCl 25 mg 06/08/25 10:00 06/08/25 10:56 Sertraline 50 Mg Tablet PO 25 mg DAILY DIXON Administration Sodium Chloride 10 - 40 ml 06/08/25 01:11 0.9% Saline Lock 10 Ml Syringe IV UD PRN SALINE FLUSH Tamsulosin HCl 0.4 mg 06/08/25 10:00 06/08/25 10:56 Tamsulosin Hcl 0.4 Mg Capsule PO 0.4 mg DAILY DIXON Administration NIHSS NIHSS Nursing Documentation NIHSS Nursing Documentation: NIHSS: Ischemic Stroke/TIA Start: 06/08/25 00:28 Text: For PCU Patients: NIH and Neuro Check every 4 Status: Complete hours, PRN and with change in RN caregiver. Freq: [id number] Protocol: Activity Type Activity Date Activity User E-sign Co-sign Detail Recorded Client Recorded Date Recorded By Document 06/08/25 08:30 SS [id number] 06/08/25 08:44 SS 06/08/25 08:30 NIH Stroke Scale [NIHSS] A score of 0 is normal or asymptomatic . Total possible score is 42. Inpatient: RN or Physician to activate a stroke alert for onset of new stroke symptoms or with NIHSS increase >/= 3 points. Following change in neurological status, NIHSS will be performed per physician order or more frequently PRN. -1a. Level of Consciousness 0 - Alert; keenly responsive -1b. LOC Questions 0 - Answers BOTH questions correctly -1c. LOC Commands 0 - Performs BOTH tasks correctly -2. Best Gaze 0 - Normal -3. Visual 0 - No visual loss -4. Facial Palsy 0 - Normal symmetrical movements -5a. Left Arm 0 - No drift; arm holds 90 ( or 45) degrees for full 10 seconds -5b. Right Arm 0 - No drift; arm holds 90 ( or 45) degrees for full 10 seconds -6a. Left Leg 0 - No drift; leg holds 30- degree position for full 5 seconds -6b. Right Leg 0 - No drift; leg holds 30- degree position for full 5 seconds -7. Limb Ataxia 0 - Absent -8. Sensory 0 - Normal; no sensory loss -9. Best Language 1 - Mild-to- moderate aphasia; -10. Dysarthria 0 - Normal -11. Extinction and Inattention 0 - No abnormality -Total 1 Query Text:A score of 0 is normal or asymptomatic. Total possible score is 42 . ED: Notify Physician for NIHSS increase by > / = 3 points. Inpatient: RN or Physician to activate a stroke alert for NIHSS increase of > / = 3 points. Coma Scale [Assess] -Eye Opening Spontaneous -Motor Obeys Commands -Verbal Oriented [Total] -Coma Scale Total 15 NIHSS 1a. Level of Consciousness: 0 - Alert; keenly responsive 1b. LOC Questions: 0 - Answers BOTH questions correctly 1c. LOC Commands: 0 - Performs BOTH tasks correctly 2. Best Gaze: 0 - Normal 3. Visual: 0 - No visual loss 4. Facial Palsy: 0 - Normal symmetrical movements 5a. Left Arm: 0 - No drift; arm holds 90 (or 45) degrees for full 10 seconds 5b. Right Arm: 0 - No drift; arm holds 90 (or 45) degrees for full 10 seconds 6a. Left Le - No drift; leg holds 30-degree position for full 5 seconds 6b. Right Le - No drift; leg holds 30-degree position for full 5 seconds 7. Limb Ataxia: 0 - Absent 8. Sensory: 0 - Normal; no sensory loss 9. Best Language: 0 - No aphasia; normal 10. Dysarthria: 0 - Normal 11. Extinction and Inattention: 0 - No abnormality Total: 0
--- NOTE | 2025-06-08 14:35 | DS.PCM_ITS ---
Providers Date of Admission: 06/07/25 Date of Discharge: 06/08/25 Primary Care Physician: SARAH ENNIS Consultations 06/08/25 00:28 Consult: Tele-Neurology Routine Consulting Provider: [facility] Reason for Consult: Acute Ischemic Stroke/TIA EMERGENT Consult: No Notified: Yes Date Notified: 06/08/25 Time Notified: 01:41 Method of Notification: Answering Service Nursing Unit Staff Notify [facility] of Tele-Neurology Consult: Yes 06/08/25 07:52 Consult: Vascular Surgery Routine Consulting Provider: Brian Sotomayor Reason for Consult: Right carotid artery stenosis EMERGENT Consult: No Notified: Yes Date Notified: 06/08/25 Time Notified: 07:52 Method of Notification: Text,to brayan Reason For Visit: ALTERED MENTAL STATUS Diagnosis Discharge Diagnosis (1) Stenosis of right carotid artery: Status: Acute Code(s): I65.21 - Occlusion and stenosis of right carotid artery Plan Patient is a 75-year-old gentleman who presented to the emergency department with difficulty getting his toes together as well as some expressive aphasia admitted to a monitored bed as a case of suspected CVA 1. Suspected CVA ? Patient presented with transient confusion as well as expressive aphasia admitted to a monitored bed every 4 neurochecks ordered as part of patient's management hemoglobin A1c TSH 2D echo and MRI of the brain without contrast ordered. CTA of the brain did show significant right carotid artery stenosis 2. Severe right carotid artery stenosis ? CTA demonstrated 80 to 95% stenosis carotid ultrasound ordered consult placed to vascular surgery 3. Essential hypertension ? Plan is to pursue permissive hypertensive protocol until CVA is ruled out 4. Persistent atrial fibrillation ? Rate controlled with metoprolol and systemic anticoagulation rivaroxaban continue 5. BPH with lower urinary obstructive symptoms - Patient treated with tamsulosin 6. Coronary artery disease - Previous stent placement patient is on guideline directed medical therapy 7. 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 Patient is on metformin at home held placed on Accu-Cheks AC and at bedtime with sliding scale coverage hemoglobin A1c ordered 8. DVT prophylaxis ? On rivaroxaban Time spent in the patient's overall evaluation,decision-making process, review of diagnostic data, adjustment of management, discussion with other providers, nursing nursing and ancillary staff involved in patient's care documentation, 36 Minutes Medications at Discharge Home Medications atorvastatin 40 mg tablet 40 mg PO DAILY 06/07/25 isosorbide mononitrate 30 mg tablet,extended release 24 hr 30 mg PO DAILY 06/07/25 lisinopril 40 mg tablet 40 mg PO BID 06/07/25 metformin 500 mg tablet,extended release 24 hr 500 mg PO BID 06/07/25 metoprolol succinate 25 mg tablet,extended release 24 hr 25 mg PO BID 06/07/25 rivaroxaban 20 mg tablet (Xarelto) 20 mg PO QPM 06/07/25 sertraline 25 mg tablet 25 mg PO DAILY 06/07/25 tamsulosin 0.4 mg capsule 0.4 mg PO DAILY 06/07/25 Physical Exam Narrative GENERAL: cooperative HEENT: Atraumatic; normocephalic EYES; Anicteric, Normal Conjunctiva NECK; supple, normal thyroid, RESPIRATORY: Diminished to auscultation CARDIOVASCULAR: Regular S1 S2, GI: soft, normoactive bowel sounds, : No Renal angle tenderness; EXTREMITIES: No edema, no clubbing, MUSCULOSKELETAL: no muscle wasting NEURO: Awake; no lateralizing signs. SKIN: No Rash PSYCH; Flat affect Weight / BMI Weight Weight: 80.6 kg Body Mass Index (BMI) 26.2 ABG / Lab / Microbiology Data 06/08/25 05:36 06/08/25 05:36 Laboratory: Laboratory Results - last 24 hr 06/07/25 20:54: POC Glucose 141 H 06/07/25 21:05: WBC 9.1, RBC 4.69, Hgb 13.5, Hct 42.1, MCV 89.8, MCH 28.8, MCHC 32.1, RDW Std Deviation 48.8 H, RDW Coeff of Ivana 14.9 H, Plt Count 230, MPV 9.8, Immature Gran % (Auto) 0.300, Neut % (Auto) 66.0, Lymph % (Auto) 19.7, [place] % (Auto) 11.3 H, Eos % (Auto) 2.0, Baso % (Auto) 0.7, Absolute Neuts (auto) 6.0, Absolute Lymphs (auto) 1.78, Nucleated RBC % 0, PT 29.4 H, INR 2.7, APTT 41.2 H, Sodium 139, Potassium 4.1, Chloride 101, Carbon Dioxide 28.2, Anion Gap 10, BUN 28 H, Creatinine 1.05, Estim Creat Clear Calc 60.79, Est GFR (MDRD) Non-Af 74, B UN/Creatinine Ratio 27.0 H, Glucose 149 H, Hemoglobin A1c 7.2 H, Calcium 9.3, T roponin T High Sens 37 H, NT pro BNP II 3594 H 06/07/25 21:30: Urine Color Yellow, Urine Clarity Sl. Cloudy, Urine pH 6.0, Ur Specific [place] 1.020, Urine Protein 30 H, Urine Glucose (UA) 50 H, Urine Ketones Negative, Urine Occult Blood 10 H, Urine Nitrite Negative, Urine Bilirubin Negative, Urine Urobilinogen Normal, Ur Leukocyte Esterase Negative, Urine RBC 0-5 SEEN, Urine WBC 0-5 SEEN, Ur Squamous Epith Cells 0-5 SEEN, Urine Bacteria 0 SEEN, Urine Mucus 0 SEEN 06/07/25 23:24: Troponin T Hi Sens 2 Hr 34 H 06/08/25 00:40: POC Glucose 106 06/08/25 01:38: Troponin T Hi Sens 4Hr 33 H 06/08/25 05:36: WBC 7.0, RBC 4.40 L, Hgb 12.8 L, Hct 39.6 L, MCV 90.0, MCH 29.1, MCHC 32.3, RDW Std Deviation 49.1 H, RDW Coeff of Ivana 14.8 H, Plt Count 188, MPV 9.6, Immature Gran % (Auto) 0.300, Neut % (Auto) 56.9, Lymph % (Auto) 27.1, [place] % (Auto) 11.5 H, Eos % (Auto) 3.3, Baso % (Auto) 0.9, Absolute Neuts (auto) 4.0, Absolute Lymphs (auto) 1.88, Nucleated RBC % 0, Sodium 140, Potassium 4.4, Chloride 103, Carbon Dioxide 28.3, Anion Gap 8, BUN 24 H, Creatinine 0.91, Estim Creat Clear Calc 70.14, Est GFR (MDRD) Non-Af 87, BUN/Creatinine Ratio 25.7 H, G lucose 124 H, Calcium 8.8, Phosphorus 3.5, Magnesium 1.9, Total Bilirubin 0.75, AST 23, ALT 19, Alkaline Phosphatase 59, Total Protein 6.4, Albumin 3.8, Globulin 2.6, Albumin/Globulin Ratio 1.5, Triglycerides 41, Cholesterol 124, LDL Cholesterol, Calc 77, VLDL Cholesterol 8, HDL Cholesterol 37 L, Cholesterol/HDL Ratio 3.33, TSH 1.680 06/08/25 11:46: POC Glucose 163 H Radiography Diagnostic Testing: Radiology Impression Brain CT 06/07/25 20:57 IMPRESSION: No acute, large territorial infarction. Stroke Alert: No acute, large territorial infarction. The critical findings in the findings and impression above were relayed directly by me by telephone to Brian Rangel on 06/07/2025 at 9:21 pm EST with readback verification. Reading Location: [facility] Head/Neck CTA 06/07/25 21:20 IMPRESSION: High-grade stenosis of the proximal cervical segment of the right ICA resulting in approximately 80-95% luminal narrowing. Reading Location: [facility] Chest X-Ray 06/07/25 21:40 IMPRESSION: As above. Reading Location: [facility] Echocardiogram 06/07/25 23:12 Interpretation Summary Mild concentric left ventricular hypertrophy. Estimated LVEF 50%. At least stage I diastolic dysfunction. There is severe biatrial dilatation. 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 Mild (1+) mitral valve insufficiency. Mild (1+) tricuspid valve insufficiency. Right ventricular systolic pressure estimated to be 55 mmHg. Aortic sclerosis, no stenosis. Mild (1+) aortic valve insufficiency. Ordering Physician: Shauna Benoit Performed By: Angel Longo RCS Brain MRI 11/04/25 08:45 IMPRESSION: 1. No evidence of acute ischemia at this time. Mild volume loss. Chronic microvascular ischemic changes. Reading Location: [id number]/C Instructions Discharge Activity: Return to Normal Activity Call your doctor if you observe: Fever of 101 or Higher, Shortness of breath, Fainting spells and Chest pain DC O2, CPAP, BIPAP Needs Home O2 Discharge instructions: No Meaningful Use Info Meaningful Use Meaningful Use Diagnoses (Choose all that apply): None applicable Discharge Plan Admission Admit Date/Time: 06/07/25 23:06 Attending Provider: Harish Medina Primary Care Provider: SARAH ENNIS Consulting Providers: Nito Soriano; Kip Paul; Criss Maldonado; Brayan Rider; Louise Ov[place]; Jace Corbett; Renetta Avitia; Shaun Wells; Kevin Holley; Ernst Nye; Laureen Butcher; Shawanda Oscar; Master Christina; Rossana Harvey; Elma Bruce; Carlos Manuel Diallo; Humza Kramer; Darlin Curtis; Rinku Bliss; Lennie Benoit; [place] Yoo; Shauna Benoit; Brian Sotomayor Discharge Orders/Prescriptions Prescriptions: Continued atorvastatin 40 mg tablet 40 mg PO DAILY isosorbide mononitrate 30 mg tablet extended release 24 hr 30 mg PO DAILY tamsulosin 0.4 mg capsule 0.4 mg PO DAILY sertraline 25 mg tablet 25 mg PO DAILY metoprolol succinate 25 mg tablet extended release 24 hr 25 mg PO BID lisinopril 40 mg tablet 40 mg PO BID metformin 500 mg tablet extended release 24 hr 500 mg PO BID Xarelto 20 mg tablet 20 mg PO QPM Referrals / Follow Up: SARAH ENNIS [Other] - Within 2 Weeks SARAH ENNIS [Other] Brian Sotomayor MD [Med Staff - Active Staff, Vascular Surgery] - Within 2 Weeks Alfie Sotelo MD [Non-Staff -Ordering Privileges, Neurology] - Within 1 Month Disposition Disposition (needs filled in before D/C Order can be placed): Home, Self Care Charges/Coding Visit Charges Inpatient E&M: 11624 Disch Hosp >30min
--- NOTE | 2025-06-08 15:05 | PHA.DC.MR.R ---
Pharmacy [facility] Reconciliation Pharmacy Service has performed discharge medication reconciliation for this patient. The patient's discharge medication list was reviewed for discrepancies and discrepancies were resolved. Medications at Discharge Home Medications atorvastatin 40 mg tablet 40 mg PO DAILY 06/07/25 isosorbide mononitrate 30 mg tablet,extended release 24 hr 30 mg PO DAILY 06/07/25 lisinopril 40 mg tablet 40 mg PO BID 06/07/25 metformin 500 mg tablet,extended release 24 hr 500 mg PO BID 06/07/25 metoprolol succinate 25 mg tablet,extended release 24 hr 25 mg PO BID 06/07/25 rivaroxaban 20 mg tablet (Xarelto) 20 mg PO QPM 06/07/25 sertraline 25 mg tablet 25 mg PO DAILY 06/07/25 tamsulosin 0.4 mg capsule 0.4 mg PO DAILY 06/07/25
[2025-06-08 15:24] LABS: Vitamin B12 583 pg/mL (180-914)
--- NOTE | 2025-06-08 15:50 | CASEMGMT ---
Patient has order for discharge. RN CM in to discuss needs at discharge, family at bedside. No therapy recommended at discharge. Patient and family deny needs or help at discharge. Patient had no further questions or concerns.
== END 2025-06-08 17:02 | disposition home or self-care (01) ==
LOC: ED 23:36 → PCU 23:56
PROVIDERS: Admitting Provider Internal Medicine; Emergency Provider Emergency Medicine; Visit Provider Internal Medicine
DX: R47.01 Aphasia (principal); I48.19 Other persistent atrial fibrillation; E11.40 Type 2 diabetes mellitus with diabetic neuropathy, unspecified; E78.5 Hyperlipidemia, unspecified; Z79.01 Long term (current) use of anticoagulants; Z83.3 Family history of diabetes mellitus; Z79.82 Long term (current) use of aspirin; I25.10 Atherosclerotic heart disease of native coronary artery without angina pectoris; R41.0 Disorientation, unspecified; R79.89 Other specified abnormal findings of blood chemistry; Z82.49 Family history of ischemic heart disease and other diseases of the circulatory system; I10 Essential (primary) hypertension; Z79.84 Long term (current) use of oral hypoglycemic drugs; I65.21 Occlusion and stenosis of right carotid artery; N40.1 Benign prostatic hyperplasia with lower urinary tract symptoms; N13.8 Other obstructive and reflux uropathy; Z95.5 Presence of coronary angioplasty implant and graft; Z79.899 Other long term (current) drug therapy; R20.2 Paresthesia of skin; F32.A Depression, unspecified
CPT/HCPCS: 36415; 70450; 70496; 70498; 70551; 71045; 80048; 80053; 80061; 81001; 82607; 82962; 83036; 83735; 83880; 84100; 84443; 84484; 85025; 85610; 85730; 93005; 93306; 93880; 94762; 96360; 97802; 99221; 99285; Q9957; Q9967; A4216; G0378